=== PATIENT | female | born 1955 | race Caucasian/White ===

== ENCOUNTER 2016-08-05 09:45 | Inpatient (IN) | payer OTHER ==
[~2016-08-05] VITALS: Ht 160 cm; Wt 95.4 kg
[~2016-08-05 09:45] MED LIST: VITAMIN D 50,000 UNITS CAPSULE (ERGOCALCIFEROL 1.25MG) PO SCH
[2016-08-05] MEDS ORDERED: CARB1TAB20 PO (10:41)
[2016-08-05] MEDS ORDERED: DRIS50002 PO (10:41)
[2016-08-05] MEDS ORDERED: ZYPR7.5T10 PO (10:41)
[2016-08-05] MEDS ORDERED: CARB20TA PO (10:41)
[2016-08-05] MEDS ORDERED: NEPHTAB PO (10:41)
[2016-08-05] MEDS ORDERED: ROCA0.5C PO (10:41)
[2016-08-05] MEDS ORDERED: LEVO25TA5 PO (10:41)
[2016-08-05 10:57] LABS: MEAN CORPUSCULAR HEMOGLOBIN 31.9 pg (27.0-33.0); MEAN CORPUSCULAR VOLUME 99.7 fl (80.0-96.0); RED CELL DISTRIBUTION WIDTH 13.4 % (11.5-14.5); WHITE BLOOD COUNT 5.3 K/mm3 (4.0-10.0)
[2016-08-05 11:11] LABS: METHADONE URINE NEGATIVE (NEGATIVE)
[2016-08-05 11:23] LABS: ALBUMIN 3.6 GM/DL (3.2-5.2); ALBUMIN/GLOBULIN RATIO 1.16 (1.00-1.93); ALKALINE PHOSPHATASE 98 U/L (45-117); ALT/SGPT 35 U/L (12-78); ANION GAP 9 MEQ/L (8-16); AST/SGOT 23 U/L (15-37); BILIRUBIN,DIRECT < 0.1 MG/DL (0.0-0.2); BILIRUBIN,TOTAL 0.4 MG/DL (0.2-1.0); BLOOD UREA NITROGEN 52 MG/DL (7-18); CALCIUM LEVEL 8.8 MG/DL (8.5-10.1); CARBON DIOXIDE LEVEL 22 MEQ/L (21-32); CHLORIDE LEVEL 117 MEQ/L (98-107); CREATININE FOR GFR 2.92 MG/DL (0.55-1.02); GLOMERULAR FILTRATION RATE 17.5 (>51); GLUCOSE, FASTING 108 MG/DL (70-105); POTASSIUM SERUM 4.4 MEQ/L (3.5-5.1); SODIUM LEVEL 148 MEQ/L (136-145); TOTAL PROTEIN 6.7 GM/DL (6.4-8.2)
[2016-08-05] MEDS ORDERED: CARB20TAXR PO ×2 (14:51)
[2016-08-05] MEDS ORDERED: LEVO50TA45 PO (14:51)
[2016-08-05 15:15] VITALS: BP 135/101
[2016-08-05] MEDS ORDERED: MOM 30ML SUSPENSION UDC PO PRN (16:15)
[2016-08-05] MEDS ORDERED: ACETAMINOPHEN TAB 650MG DOSE (2X325MG) PO PRN (16:15)
[2016-08-05] MEDS: NEPHRO-VIT TAB (NEPHROCAPS) PO SCH (20:26)
[2016-08-05] MEDS: carBAMazepine XR 200 MG TAB PO SCH (20:26)
[2016-08-05] MEDS: CALCITRIOL 0.25 MCG CAP (S0169) PO SCH (20:27)
[2016-08-05] MEDS ORDERED: OLANZapine 2.5MG TABLET PO SCH (21:00)
[2016-08-05] MEDS ORDERED: carBAMazepine 200 MG TAB PO SCH (21:00)
[2016-08-06] MEDS: LEVOTHYROXINE 0.05 MG TAB (50 MCG) PO SCH (05:54)
[2016-08-06 06:09] VITALS: BP 153/72
[2016-08-06] MEDS: carBAMazepine XR 200 MG TAB PO SCH ×2 (08:08→20:44)
--- NOTE | 2016-08-06 08:51 | HPEPDOC ---
Medical History and Physical Date of Admission Aug 05, 2016 at 13:41 History and Physical PCP: Dr Holloway Avian Keeper Dr Suero ATTENDING: Dr. Deepak Maria HPI: 60yoF admitted to [facility] for Bipolar disorder, being medically examined today. Pt states had a cold a few weeks ago but her symptoms resolved. Pt denies any rhinorrhea, sputum, ear pain, sore throat. Denies any fevers, chills , weakness, fatigue, GOMES, CP, SOB, cough, palpitations, abdominal pain, N/V/D or changes in bowel or bladder habits. She has no verbalized concerns at this time. 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 Tobacco use: Denies ETOH: Denies Illicit Drugs: Denies IV Drug Use: Denies Tattoos done unprofessionally: Denies FAMHX: Mother: , complications of diabetes Father: , brain tumor Siblings: 3 sisters, 4 brothers Alive, well. One brother with history of bipolar disorder. Children: Alive, well Unexpected deaths due to medical reasons: None. ROS: As noted in HPI, otherwise 11pt ROS of systems reviewed and unremarkable. PE: GEN: 60yoF, appears stated age. Well-nourished, well developed. No acute distress. Alert and oriented x 3. Pleasant, interactive. HEENT: Normocephalic, atraumatic. Pupils are equal, round, and reactive to light. Extraocular movements are intact. No nystagmus appreciated. Sclera are nonicteric. Conjunctiva without injection. Nose midline. Nasal turbinates without bogginess. EACs both patent BL. TMs both visualized and patricia with good cone of light, no bulging or erythema. No facial asymmetry. Moist mucous membranes. Dentition fair. Pharynx pink and moist, no cobblestoning. Neck supple , trachea midline. No lymphadenopathy or thyromegaly appreciated. CHEST: Regular rate and rhythm, +S1, +S2 LUNGS: Clear to auscultation bilaterally. No wheezes, rales, or rhonchi. Breathing appears symmetric and easy. Patient is speaking in full sentences. No accessory muscle use. ABD: Round, soft, non-tender, non-distended. +Bowel sounds throughout. No rebound or guarding. No costovertebral angle tenderness. EXT: Pulses 2+ bilaterally dorsalis pedis and radial. No lower extremity edema appreciated. SKIN: [place], dry, warm. Capillary refill <2sec. No rashes. NEURO: Alert and oriented x 3. Cranial nerves III-XII are intact. No focal deficits appreciated. EKG: pending. A&P: 60yoF admitted to [facility] for Bipolar disorder 1. Psych. Plan per Psychiatry. Obtain baseline EKG to assure the safety of psychiatric medications as they can prolong the QT interval. 2. Follow up with PCP on discharge. 3. Hypernatremia. Patient states she was not eating or drinking well prior to admission. Recheck CMP. 4. Chronic kidney disease stage IV. Follows with nephrology, Dr. Suero as outpatient. Previous baseline in the system appears to be 2.1 to 2.5. Request copy of most recent note from Dr. Suero's office as she has seen him within the past 1-2 months with lab work completed. Monitor. Update labs today. 5. Hypothyroidism. Continue levothyroxine 50 g daily. TSH is noted within normal limits. 6. Nancy WHEELER present throughout exam. Vital Signs Vital Signs Label Value Date Time Patient Temperature 98.8 degrees F 08/06/16 0609 Temperature Source Skin 08/06/16 0609 Pulse 80 08/06/16 0609 Respiratory Rate 16 bpm 08/06/16 0609 Blood Pressure Assessment 153/72 (99) 08/06/16 0609 Blood Pressure Assessment 135/101 (112) 08/05/16 1515 Laboratory Data Labs 24H Laboratory Tests 2 08/05/16 10:31: Carbamazepine (Tegretol) Level 7.4, Urine Amphetamines Screen NEGATIVE, Urine Benzodiazepines Screen NEGATIVE, Urine Opiates Screen NEGATIVE, Urine Barbiturates Screen NEGATIVE, Urine Cannabinoids Screen NEGATIVE, Urine Cocaine Metabolite Screen NEGATIVE, Urine Methadone Screen NEGATIVE, Urine Phencyclidine Screen NEGATIVE 08/05/16 10:37: Acetaminophen Level < 2.0L, Aspartate Amino Transf (AST/SGOT) 23, Alanine Aminotransferase (ALT/SGPT) 35, Alkaline Phosphatase 98, Total Bilirubin 0.4, Direct Bilirubin < 0.1, Albumin 3.6, Albumin/Globulin Ratio 1.16, Anion Gap 9, Calcium Level 8.8, Ethyl Alcohol Level < 0.003, Glomerular Filtration Rate 17.5L , Salicylates Level 1.8L, Thyroid Stimulating Hormone (TSH) 0.907, Total Protein 6.7 CBC/BMP Laboratory Tests 08/05/16 10:37 08/05/16 10:38 Red Blood Count 3.97 L, Mean Corpuscular Volume 99.7 H, Mean Corpuscular Hemoglobin 31.9, Mean Corpuscular Hemoglobin Concent 32.0, Red Cell Distribution Width 13.4 Home Medications Scheduled Calcitriol (Rocaltrol) 0.5 Mcg Cap 0.5 MCG PO Q2D QHS Carbamazepine (Carbamazepine ER) 200 Mg Drea 400 MG PO QAM Carbamazepine (Carbamazepine ER) 200 Mg Drea 600 MG PO QHS Levothyroxine Sodium (Levoxyl) 50 Mcg Tab 50 MCG PO DAILY Olanzapine (Zyprexa) 7.5 Mg Tab 7.5 MG PO QHS Vitamin B Cmplx/Vitc/Folic Ac (Nephro-Donnie Rx 1 mg) 1 Tab Tab 1 TAB PO QHS Vitamin D (Drisdol) 50,000 Unit Cap 50,000 UNIT PO Q2WK SUNDAYS Allergies Coded Allergies: No Known Allergies (Unverified , 08/05/16) Marissa Bennett Aug 06, 2016 08:51
[2016-08-06] MEDS ORDERED: carBAMazepine 200 MG TAB PO SCH (09:00)
--- NOTE | 2016-08-06 09:01 | MHHPE ---
DATE OF ADMISSION: 08/05/2016 This 60-year-old female has been a patient of Dr. Barrera for over 15 years. She states she is here for stress and depression. She has been diagnosed as bipolar. She has Stage IV kidney disease which she credits to her previous use of lithium. She states she is helpless about her life. She is worried about her who is taking too many responsibilities. This differs from the emergency room note where it states that she feels her is the trigger of her difficulties. She states she saw Dr. Curran on Saturday of last week and Dr. Curran increased her medication. She states she went downhill since then. She states because she has been sick so many years her has to take care of numerous responsibilities. She states they have both separate financial stress and loss. According to emergency notes, she had an "attack of screaming" on . She had difficulty getting out of bed. She stood up, screamed and fell on the floor. MEDICAL HISTORY: The patient has Stage IV kidney disease and is waiting for a transplant. She also has hypothyroidism. She has previous psychiatric hospitalization in 1980 at [facility]. She states appetite has been poor, but is improving. Sleep: The patient takes Zyprexa for sleep. NEUROLOGICAL HISTORY: Negative. LEGAL HISTORY: Negative. FINANCIAL HISTORY: The family is under financial stress. 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 EDUCATION HISTORY: She has four years of college and a Masters in reading. She states many other medications have been tried, but she does not remember them. She presently denies hallucinations, delusions, obsessions, compulsions, and phobias. Her speech is slow. Her thought process is characterized by thought slowing. She has no loose associations. No obvious abnormal or psychotic thoughts. Her judgment and insight at this time are poor. She is fully oriented. She has some difficulty with recent and remote memory and states she is confused and ambivalent. Her attention and concentration is fair. No disturbances of language. She has a full fund of knowledge. Her mood is low. Her affect is flat. DIAGNOSIS: Bipolar disorder, depressed type. PLAN: No change in medication until we contact Dr. Curran and get the record of past psychiatric medications since the patient is severely depressed and is not at this time on any antidepressants.
[2016-08-06 10:15] LABS: ALBUMIN 3.5 GM/DL (3.2-5.2); ALBUMIN/GLOBULIN RATIO 1.17 (1.00-1.93); BILIRUBIN,TOTAL 0.3 MG/DL (0.2-1.0); CALCIUM LEVEL 8.6 MG/DL (8.5-10.1); CREATININE FOR GFR 2.93 MG/DL (0.55-1.02); GLOMERULAR FILTRATION RATE 17.5 (>51); POTASSIUM SERUM 4.5 MEQ/L (3.5-5.1); TOTAL PROTEIN 6.5 GM/DL (6.4-8.2)
[2016-08-06 18:00] VITALS: BP 130/85
[2016-08-06] MEDS: NEPHRO-VIT TAB (NEPHROCAPS) PO SCH (20:44)
[2016-08-07] MEDS: LEVOTHYROXINE 0.05 MG TAB (50 MCG) PO SCH (06:00)
[2016-08-07 06:38] VITALS: BP 141/81
[2016-08-07] MEDS: LURASIDONE 20 MG TAB (LATUDA) PO SCH (08:43)
[2016-08-07] MEDS: carBAMazepine XR 200 MG TAB PO SCH ×2 (08:44→20:58)
[2016-08-07 08:55] LABS: ALBUMIN 3.8 GM/DL (3.2-5.2); ALBUMIN/GLOBULIN RATIO 1.31 (1.00-1.93); BILIRUBIN,TOTAL 0.4 MG/DL (0.2-1.0); CALCIUM LEVEL 8.9 MG/DL (8.5-10.1); CARBAMAZEPINE (TEGRETOL) LEVEL 8.9 UG/ML (4.0-10.0); CREATININE FOR GFR 3.12 MG/DL (0.55-1.02); GLOMERULAR FILTRATION RATE 16.3 (>51); POTASSIUM SERUM 4.9 MEQ/L (3.5-5.1); TOTAL PROTEIN 6.7 GM/DL (6.4-8.2)
[2016-08-07] MEDS: MAALOX 30 ML SUSP *UDC PO PRN ×2 (10:36→14:48)
--- NOTE | 2016-08-07 11:52 | IPNPDOC ---
Subjective Date Seen The patient was seen on 08/07/16. Subjective Chief Complaint/HPI The patient is a 60-year-old female admitted with a reason for visit of [facility]. Events since last encounter Evaluating patient for CKD and daily labs. Patient states she is not taking in liquids as well as she usually does at home. She does not feel that she is getting better here as she should be related to people on the unit and not wanting to go to the lounge. She usually drinks bottled water at home. She states she has had some diarrhea today 4-5 times. No nausea or vomiting. She denies any abdominal pain. No fevers or chills. She denies any urinary complaints. No dysuria, frequency, urgency, hematuria, change in odor. She states she ate her breakfast. ENT: Denies: Dysphagia, Ear Pain, Head Aches Pulmonary: Denies: Cough, Dyspnea Cardiovascular: Denies: Chest Pain, Lt Headedness, Orthopnea, Palpitations, Paroxysmal Noc. Dyspnea Gastrointestinal: Reports: Diarrhea, Denies: Abdominal Pain, Constipation, Nausea, Vomiting Genitourinary: Denies: Dysuria, Frequency, Incontinence, Retention Objective Physical Examination General Exam: Positive: Alert Eye Exam: Positive: PERRLA ENT Exam: Positive: Atraumatic, Mucous membr. moist/pink, Pharynx Normal Chest Exam: Positive: Clear to auscultation, Normal air movement Heart Exam: Positive: Normal S1, Normal S2, Rate Normal, Regular Rhythm, Negative: Murmurs, Rubs Skin Exam: Positive: Nl turgor and temperature Neuro Exam: Positive: Normal Gait Assessment /Plan Problems (1) CKD (chronic kidney disease) stage 4, GFR 15-29 ml/min Status: Chronic Problem Text: * Records received from nephrology indicating his baseline serum creatinine 2.85 * Patient follows as outpatient with Dr. Suero. * Patient admits to poor oral intake. * Encouraged to increase by mouth fluids * Cont to closely monitor, discussed with Dr Maria. (2) Diarrhea Status: Acute Problem Text: * Request CBC with differential * GI panel (3) Hypernatremia Status: Acute Problem Text: * encourage po fluids * CMP in AM (4) Hypothyroid Status: Chronic Response to Treatment: Stable Problem Text: * Continue supplement Plan/VTE VTE Prophylaxis Ordered?: No (ambulatory) VS, I&O, 24H, Fishbone Vital Signs/I&O Vital Signs Date Time Temp Pulse Resp B/P Pulse Ox O2 Delivery O2 Flow Rate FiO2 08/07/16 06:38 97.4 82 18 141/81 08/05/16 15:15 95 Room Air Laboratory Data 24H LABS Laboratory Tests 2 08/07/16 07:20: Blood Urea Nitrogen 49H, Creatinine 3.12H, Sodium Level 149H, Potassium Level 4.9, Chloride Level 117H, Carbon Dioxide Level 24, Calcium Level 8.9, Aspartate Amino Transf (AST/SGOT) 17, Alanine Aminotransferase (ALT/SGPT) 38, Alkaline Phosphatase 101, Total Bilirubin 0.4, Total Protein 6.7, Albumin 3.8, Albumin/ Globulin Ratio 1.31, Anion Gap 8, Carbamazepine (Tegretol) Level 8.9, Glomerular Filtration Rate 16.3L CBC/BMP Laboratory Tests 08/07/16 07:20 Calcium Level 8.9, Aspartate Amino Transf (AST/SGOT) 17, Alanine Aminotransferase (ALT/SGPT) 38, Alkaline Phosphatase 101, Total Bilirubin 0.4, Total Protein 6.7, Albumin 3.8 Marissa Bennett Aug 07, 2016 11:52
--- NOTE | 2016-08-07 12:07 | IPN ---
DATE: 08/07/[address] Curran who has been treating this patient for 15 years. We discussed her renal failure and Dr. Curran's approach to the patient's condition. Dr. Curran requested that I discontinue her Zyprexa and replace it with Latuda, which I did. I am concerned about the patient's depression and I am aware that she has a history of lauren. I spoke with her who is concerned about her and wanted to be able to visit earlier. I spoke with the patient too who was concerned that she had a renal appointment next week. The patient did not feel significantly improved and was curious about the new medication Latuda which she was given. MENTAL STATUS EXAMINATION: Speech was slow. Thought process was normal. No loose associations. Significant anxiety. No psychotic thoughts noted. Judgment and insight poor. Orientation in three spheres is normal. No difficulties with recent or remote memory. No difficulties with attention or concentration. Fund of knowledge is complete. Mood is low. Affect is flat. PRESENT MEDICATIONS: - Tegretol 600 at night and 400 in the morning - Latuda 20 mg daily PLAN: Observe patient. Still may consider possibility of adding small dose antidepressant if patient does not show significant improvement. DIAGNOSIS: Bipolar disorder, depressed type.
[2016-08-07 18:12] VITALS: BP 156/83
[2016-08-07] MEDS: CALCITRIOL 0.25 MCG CAP (S0169) PO SCH (20:58)
[2016-08-07] MEDS: NEPHRO-VIT TAB (NEPHROCAPS) PO SCH (20:58)
[2016-08-08 06:14] VITALS: BP 154/90
[2016-08-08] MEDS: LEVOTHYROXINE 0.05 MG TAB (50 MCG) PO SCH (06:23)
--- NOTE | 2016-08-08 07:02 | IPN ---
DATE: 08/08/2016 As mentioned in previous progress note, I had spoken with Dr. Curran who has been her outpatient psychiatric for over [address] Curran's suggestion that I change the patient's Zyprexa to Latuda 20 mg. She is also on carbamazepine 400 in the morning, 600 at night. Patient has stage IV kidney failure. My concern is the patient is seriously depressed, poor sleep, anxious, hopeless, unmotivated. I am aware of the risks of this patient developing a lauren due to her past history but at this time, my concern is that these medications are not going to significantly improve her mood. I will add Prozac 20 mg for a brief time to see if her depression can be relieved. MENTAL STATUS: Her speech is slow and quiet. Her thought processes are slow with poverty of thought. She has no loose associations. Her abnormal thoughts are her significant anxiety. Judgment and insight are fair. She is fully oriented. Recent and remote memory are intact. Attention and concentration intact. Her fund of knowledge is full. Mood is low. Affect is sad. DIAGNOSIS: Bipolar disorder, depressed type.
[2016-08-08] MEDS: LURASIDONE 20 MG TAB (LATUDA) PO SCH (08:05)
[2016-08-08] MEDS: carBAMazepine XR 200 MG TAB PO SCH ×2 (08:05→20:07)
[2016-08-08] MEDS ORDERED: FLUoxetine 20 MG CAP PO SCH (09:00)
[2016-08-08 10:43] LABS: ALBUMIN 3.7 GM/DL (3.2-5.2); ALBUMIN/GLOBULIN RATIO 1.16 (1.00-1.93); BILIRUBIN,TOTAL 0.3 MG/DL (0.2-1.0); CALCIUM LEVEL 9.1 MG/DL (8.5-10.1); CREATININE FOR GFR 2.72 MG/DL (0.55-1.02); POTASSIUM SERUM 4.6 MEQ/L (3.5-5.1); TOTAL PROTEIN 6.9 GM/DL (6.4-8.2)
[2016-08-08 18:00] VITALS: BP 145/93
[2016-08-08] MEDS: NEPHRO-VIT TAB (NEPHROCAPS) PO SCH (20:07)
[2016-08-09] MEDS: LEVOTHYROXINE 0.05 MG TAB (50 MCG) PO SCH (06:00)
[2016-08-09 06:19] VITALS: BP 150/92
[2016-08-09 07:38] LABS: CALCIUM LEVEL 8.7 MG/DL (8.5-10.1); CREATININE FOR GFR 2.78 MG/DL (0.55-1.02); GLOMERULAR FILTRATION RATE 18.6 (>51); POTASSIUM SERUM 4.5 MEQ/L (3.5-5.1)
[2016-08-09 07:52] VITALS: BP 134/68
[2016-08-09] MEDS ORDERED: PROZ20CA11 PO (07:57)
[2016-08-09] MEDS ORDERED: LATU20TA PO (07:57)
[2016-08-09] MEDS ORDERED: MAALSUS20 PO (07:59)
[2016-08-09] MEDS ORDERED: MILKSUS PO (07:59)
[2016-08-09] MEDS ORDERED: TYLE325T5 PO (07:59)
--- NOTE | 2016-08-09 08:05 | IPN ---
DATE: 08/09/2016 I met with Norma and her yesterday and reviewed with them my treatment plan. She and her were both happy and smiling. I discussed with them Dr. Curran's management of patient's bipolar disease and also mentioned to them that due to the fact that the patient was depressed and was on medications that had been discussed and suggested by Dr. Curran that we had changed her medication from Zyprexa to Latuda 20 mg daily and continued her on her carbamazepine 600 and 400 mg. Yesterday due to the fact that patient was seriously depressed and although there is a risk of sending her into a manic episode, I added fluoxetine 20 mg which I hope will be just a brief administration and then continue the patient stabilized on her mood stabilizers of lurasidone, Latuda and Tegretol. At 7:30 this morning, however, the patient had a orthostatic hypotensive episode. It should be reminded that this patient is in stage IV renal failure. Measurements of her blood pressure by the rapid assessment team indicated orthostatic changes. She will be transferred to a medical floor for observation and evaluation of her hydration and any other contributions to her orthostatic blood pressure. MENTAL STATUS THIS MORNING: Her speech was slower. Thought processes intact. There were no loose associations. She had no abnormal psychotic thoughts. Judgment and insight were good. She was fully oriented. There were no disturbances of recent and remote memory. Fund of knowledge was full. Patient in walking down the virk detected she felt faint and when her blood pressures were checked this morning, she was found to be orthostatic. Will follow the patient on a medical floor. PRESENT MEDICATIONS: - fluoxetine 20 mg - Latuda 20 mg daily - Tegretol 400 mg and 600 mg daily at bedtime MTDD
[2016-08-09 08:26] LABS: BASO % 0.4 % (0.0-1.0); EOS # 0.1 K/mm3 (0.0-0.50); EOS % 1.8 % (0.0-3.0); LARGE UNSTAINED CELL # 0.1 K/mm3 (0.0-0.4); LARGE UNSTAINED CELL % 1.3 % (0.0-4.0); LYMPH # 1.4 K/mm3 (1.5-4.5); LYMPH % 29.4 % (24.0-44.0); MEAN CORPUSCULAR HEMOGLOBIN 30.9 pg (27.0-33.0); MEAN CORPUSCULAR HGB CONC 32.1 g/dl (32.0-36.5); MEAN CORPUSCULAR VOLUME 96.2 fl (80.0-96.0); MONO # 0.2 K/mm3 (0.0-0.8); MONO % 3.9 % (0.0-5.0); NEUTROPHILS % 63.2 % (36.0-66.0); PLATELET COUNT, AUTOMATED 201 k/mm3 (150-450); RED CELL DISTRIBUTION WIDTH 13.1 % (11.5-14.5); WHITE BLOOD COUNT 4.7 K/mm3 (4.0-10.0)
[2016-08-09 09:01] LABS: PROLACTIN 27.8 NG/ML
== END 2016-08-09 07:30 | disposition short-term general hospital (02) | DRG 885 ==
LOC: M ED 11:23 → M ED INP 13:41 → M PSY 15:04 → M PCU 08-09 07:31
PROVIDERS: ADMIT Psychiatry & Neurology Child & Adolescent Psychiatry; ATTEND Psychiatry & Neurology Child & Adolescent Psychiatry
DX: F31.9 Bipolar disorder, unspecified (principal); N18.4 Chronic kidney disease, stage 4 (severe); E87.0 Hyperosmolality and hypernatremia; E03.9 Hypothyroidism, unspecified; E55.9 Vitamin D deficiency, unspecified; I95.1 Orthostatic hypotension; Z79.899 Other long term (current) drug therapy; R19.7 Diarrhea, unspecified

== ENCOUNTER 2016-08-09 08:30 | Inpatient (IN) | payer OTHER ==
[~2016-08-09] VITALS: Ht 160 cm; Wt 99.9 kg
[~2016-08-09 08:30] MED LIST changes: +CARB1TAB20 PO; +CARB20TA PO; +CARB20TAXR PO; +DRIS50002 PO; +LATU20TA PO; +LEVO25TA5 PO; +LEVO50TA45 PO; +MAALSUS20 PO; +MILKSUS PO; +NEPHTAB PO; +PROZ20CA11 PO; +ROCA0.5C PO; +TYLE325T5 PO; -VITAMIN D 50,000 UNITS CAPSULE (ERGOCALCIFEROL 1.25MG) PO SCH; +ZYPR7.5T10 PO
[2016-08-09] MEDS ORDERED: NS 1,000 ML IV SCH (08:46)
[2016-08-09] MEDS ORDERED: CALCITRIOL 0.25 MCG CAP (S0169) PO SCH ×2 (09:00→21:00)
[2016-08-09] MEDS ORDERED: ONDANSETRON 4MG/2ML VIAL (J2405) IV PRN (09:00)
[2016-08-09] MEDS ORDERED: ACETAMINOPHEN TAB 650MG DOSE (2X325MG) PO PRN (09:00)
[2016-08-09] MEDS ORDERED: MOM 30ML SUSPENSION UDC PO PRN (09:15)
[2016-08-09 09:30] VITALS: BP 123/78
[2016-08-09 09:33] VITALS: BP 137/87
[2016-08-09 09:35] VITALS: BP 144/75
--- NOTE | 2016-08-09 09:46 | HPEPDOC ---
Medical History and Physical Date of Admission Aug 09, 2016 at 08:30 History and Physical PCP: Dr Holloway Brake Machine Operator Dr Suero ATTENDING: Dr. Laura Maria HPI: 60yoF admitted to PCU for orthostasis, being medically examined today. Pt states she had gotten out of bed this morning to have her blood drawn. Initially she felt slightly dizzy in the hallway and she leaned up against the wall and her symptoms resolved. She went and had her blood work completed and was subsequently ambulating back to her room. She subsequently felt very lightheaded and dizzy. She became presyncopal. According to nursing, she was placed in a wheelchair and vital signs were attempted which indicated 134/68 standing, 114/68 sitting and were unobtainable standing. The patient became syncopal sitting in a wheelchair, a RAT team was called. She was subsequently assisted back to her bed to lie down and is currently resting in bed and states she is feeling better. She denies any previous symptoms prior to this morning. She has recently been started on Prozac and Latuda which are new medications for her. Also of note she had been experiencing poor oral intake however she states 08/07 and 3 her oral intake had improved. Yesterday she had been up and ambulating to the [facility]. Denies any fevers, chills, GOMES, CP, SOB, cough, palpitations, abdominal pain, N/V /D or changes in bowel or bladder habits. PMHx: Chronic kidney disease stage IV. Dr Suero. Baseline SCr 2.85. 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 Tobacco use: Denies ETOH: Denies Illicit Drugs: Denies IV Drug Use: Denies Tattoos done unprofessionally: Denies FAMHX: Mother: , complications of diabetes Father: , brain tumor Siblings: 3 sisters, 4 brothers Alive, well. One brother with history of bipolar disorder. Children: Alive, well Unexpected deaths due to medical reasons: None. ROS: As noted in HPI, otherwise 11pt ROS of systems reviewed and unremarkable. PE: GEN: 60yoF, appears stated age. Well-nourished, well developed. No acute distress. Alert and oriented x 3. Pleasant, interactive. HEENT: Normocephalic, atraumatic. Pupils are equal, round, and reactive to light. Extraocular movements are intact. No nystagmus appreciated. Sclera are nonicteric. Conjunctiva without injection. Nose midline. Nasal turbinates without bogginess. EACs both patent BL. TMs both visualized and patricia with good cone of light, no bulging or erythema. No facial asymmetry. Moist mucous membranes. Dentition fair. Pharynx pink and moist, no cobblestoning. Neck supple , trachea midline. No lymphadenopathy or thyromegaly appreciated. CHEST: Regular rate and rhythm, +S1, +S2 LUNGS: Clear to auscultation bilaterally. No wheezes, rales, or rhonchi. Breathing appears symmetric and easy. Patient is speaking in full sentences. No accessory muscle use. ABD: Round, soft, non-tender, non-distended. +Bowel sounds throughout. No rebound or guarding. No costovertebral angle tenderness. EXT: Pulses 2+ bilaterally dorsalis pedis and radial. No lower extremity edema appreciated. SKIN: [place], dry, warm. Capillary refill <2sec. No rashes. NEURO: Alert and oriented x 3. Cranial nerves III-XII are intact. No focal deficits appreciated. EKG: Pt previously refused 08/06/16. Re ordered, pending. A&P: 60yoF admitted to PCU for Orthostasis. 1. Presyncopal/syncopal episode. Likely orthostatic hypotension. Patient with recent history of not eating and drinking well. Also of note Latuda is a new medication for her which can possibly contribute to orthostatic hypotension. Prozac is also a new medication for her. Pt remains on Tegretol for her mood, Tegretol level 08/07/16 WNL. Will update level. IV fluids at 80 mL per hour. PCU/ TM. Prolactin level. Monitor labs. Monitor orthostatic vital signs. 2. Psych. Plan per Psychiatry. Obtain baseline EKG to assure the safety of psychiatric medications as they can prolong the QT interval. 2. Follow up with PCP on discharge. 3. Hypernatremia. Patient with recent history of not eating and drinking well. IVF at 80cc/hr. Monitor BMP. 4. Chronic kidney disease stage IV. Follows with nephrology, Dr. Suero as outpatient. Patient's baseline SCr as per nephrology records is 2.85. Monitor. Update labs in a.m. 5. Hypothyroidism. Continue levothyroxine 50 g daily. TSH is noted within normal limits. Addendum. Patient seen and examined in [facility]. Patient transferred to PCU. Case discussed with at bedside. Psychiatry will follow in consult. Vital Signs Vital Signs Label Value Date Time Patient Temperature 97.2 degrees F 08/09/16 0752 Temperature Source Core 08/09/16 0752 Pulse 67 08/09/16 0752 Respiratory Rate 16 bpm 08/09/16 0752 Blood Pressure Assessment 134/68 08/09/16 0752 Bedside Pulse Oximetry 96 % 08/09/16 0752 Item Value Date Time Oxygen Delivery Method Room Air 08/09/16 0752 Laboratory Data Labs 24H Item Value Date Time White Blood Count 4.7 K/mm3 08/09/16 0706 Red Blood Count 4.08 M/mm3 08/09/16 0706 Hemoglobin 12.6 g/dl 08/09/16 0706 Hematocrit 39.2 % 08/09/16 0706 Mean Corpuscular Volume 96.2 fl H 08/09/16 0706 Mean Corpuscular Hemoglobin 30.9 pg 08/09/16 0706 Mean Corpuscular Hemoglobin Concent 32.1 g/dl 08/09/16 0706 Red Cell Distribution Width 13.1 % 08/09/16 0706 Platelet Count 201 k/mm3 08/09/16 0706 Neutrophils (%) (Auto) 63.2 % 08/09/16 0706 Sodium Level 147 MEQ/L H 08/09/16 0708 Potassium Level 4.5 MEQ/L 08/09/16 0708 Chloride Level 117 MEQ/L H 08/09/16 0708 Carbon Dioxide Level 23 MEQ/L 08/09/16 0708 Anion Gap 7 MEQ/L L 08/09/16 0708 Blood Urea Nitrogen 48 MG/DL H 08/09/16 0708 Creatinine 2.78 MG/DL H 08/09/16 0708 Glomerular Filtration Rate 18.6 L 08/09/16 0708 Fasting Glucose 92 MG/DL 08/09/16 0708 Calcium Level 8.7 MG/DL 08/09/16 0708 Prolactin 27.8 NG/ML 08/09/16 0708 Carbamazepine (Tegretol) Level 8.9 UG/ML 08/07/16 0720 Home Medications Scheduled Calcitriol (Rocaltrol) 0.5 Mcg Cap 0.5 MCG PO Q2D QHS Carbamazepine (Carbamazepine ER) 200 Mg Drea 400 MG PO QAM bipolar Carbamazepine (Carbamazepine ER) 200 Mg Drea 600 MG PO QHS bipolar Fluoxetine HCl (Prozac) 20 Mg Cap 20 MG PO QAM bipolar Levothyroxine Sodium (Levoxyl) 50 Mcg Tab 50 MCG PO DAILY hypothyroid Lurasidone Hydrochloride (Latuda) 20 Mg Tab 20 MG PO DAILY bipolar Vitamin B Cmplx/Vitc/Folic Ac (Nephro-Donnie Rx 1 mg) 1 Tab Tab 1 TAB PO QHS supplement Vitamin D (Drisdol) 50,000 Unit Cap 50,000 UNIT PO Q2WK SUNDAYS Scheduled PRN Acetaminophen (Tylenol) 325 Mg Tab 650 MG PO Q6HP PRN PRN HEADACHE or DISCOMFORT Aluminum/Magnesium/Simeth (Maalox Advanced Maximum S 400-400-40 mg/5Ml) 1 Chanell Chanell 30 ML PO Q4HP PRN PRN HEARTBURN/INDIGESTION Milk Of Magnesia (Milk of Magnesia) 1,200 Mg/15 Ml Chanell 30 ML PO DAILYPRN PRN PRN CONSTIPATION Allergies Coded Allergies: No Known Allergies (Unverified , 08/05/16) Marissa Bennett Aug 09, 2016 09:46 LAURA MARIA MD Aug 13, 2016 16:15
[2016-08-09] MEDS: HEPARIN SOD (PORCINE) 5000 UNITS/ML VIAL SC SCH ×2 (10:33→21:15)
[2016-08-09] MEDS: carBAMazepine XR 200 MG TAB PO SCH ×2 (10:34→21:14)
[2016-08-09] MEDS: FLUoxetine 20 MG CAP PO SCH (10:34)
[2016-08-09] MEDS: D5W/0.45% SODIUM CHLORIDE 1,000 ML IV SCH ×2 (10:34→21:25)
[2016-08-09] MEDS: LURASIDONE 20 MG TAB (LATUDA) PO SCH (10:34)
[2016-08-09 12:00] VITALS: BP 114/72
[2016-08-09 16:00] VITALS: BP_SYST 138; BP_SYST 146; BP_SYST 156; BP_DIAS 69; BP_DIAS 85; BP_DIAS 87
[2016-08-09 19:38] VITALS: BP 139/77
[2016-08-09] MEDS ORDERED: SUCRALFATE SUSP 1GM/10ML UD PO ONE (20:00)
[2016-08-09] MEDS ORDERED: FAMOTIDINE 20 MG TAB PO ONE (20:00)
[2016-08-09] MEDS: NEPHRO-VIT TAB (NEPHROCAPS) PO SCH (21:14)
[2016-08-10] VITALS: BP 141/66
[2016-08-10] MEDS: RAMELTEON 8 MG TAB (ROZEREM) PO SCH ×2 (00:09→20:11)
[2016-08-10 00:34] VITALS: BP_SYST 126; BP_SYST 134; BP_SYST 141; BP_DIAS 66; BP_DIAS 74
[2016-08-10 04:00] VITALS: BP 127/70
[2016-08-10 05:36] LABS: MEAN CORPUSCULAR HEMOGLOBIN 31.9 pg (27.0-33.0); MEAN CORPUSCULAR HGB CONC 33.2 g/dl (32.0-36.5); MEAN CORPUSCULAR VOLUME 96.1 fl (80.0-96.0); RED CELL DISTRIBUTION WIDTH 13.1 % (11.5-14.5); WHITE BLOOD COUNT 5.2 K/mm3 (4.0-10.0)
[2016-08-10 05:48] LABS: CALCIUM LEVEL 8.2 MG/DL (8.5-10.1); CREATININE FOR GFR 2.59 MG/DL (0.55-1.02); GLOMERULAR FILTRATION RATE 20.1 (>51); MAGNESIUM LEVEL 2.4 MG/DL (1.8-2.4); POTASSIUM SERUM 3.8 MEQ/L (3.5-5.1)
[2016-08-10] MEDS: LEVOTHYROXINE 0.05 MG TAB (50 MCG) PO SCH (05:58)
[2016-08-10] MEDS ORDERED: D5W 1,000 ML IV SCH (06:30)
[2016-08-10 07:45] VITALS: BP_SYST 116; BP_SYST 123; BP_SYST 124; BP_DIAS 58; BP_DIAS 60; BP_DIAS 61
--- NOTE | 2016-08-10 08:41 | CR ---
DATE OF CONSULTATION: 08/10/2016 Norma Santiago is a 60-year-old white female with stage IV renal disease. She has a long history of bipolar disease with predominantly manic episodes. She was admitted to the psychiatric unit with severe depression and anxiety. As per Dr. Curran her Zyprexa was changed to Latuda. I chose to add Prozac 20 mg after observation. Unfortunately, the patient had an orthostatic hypotensive episode and was seen by the hospitalist who determined the patient had been severely dehydrated. She was admitted to the PCU for hydration. She is not suicidal nor homicidal, nor has any suicidal intentions or ideations. Her and she have chosen, since the patient was not comfortable on the mental health unit, the patient asked if she could be discharged home. PLAN: As per the family wish, the patient would like to go home and followup outpatient with Dr. Curran due to her discomfort on the mental health unit. SUGGESTION: 1. Continuer her psychiatric medications as prescribed. The case was discussed with Dr. Maria and she should continue on her Latuda, Tegretol and Prozac. 2. Continue hydration and check, at the family's request, if there is a urinary tract infection. This may have already been done. 3. Discharge to home and followup with Dr. Curran once blood pressure is stable and patient is able to walk comfortably without feeling dizzy or faint. DISCHARGE DIAGNOSIS: Bipolar disorder, mixed type. MTDD
[2016-08-10] MEDS: LURASIDONE 20 MG TAB (LATUDA) PO SCH (09:16)
[2016-08-10] MEDS: HEPARIN SOD (PORCINE) 5000 UNITS/ML VIAL SC SCH ×2 (09:16→20:11)
[2016-08-10] MEDS: FLUoxetine 20 MG CAP PO SCH (09:17)
[2016-08-10] MEDS: carBAMazepine XR 200 MG TAB PO SCH ×2 (09:17→20:11)
[2016-08-10 14:33] VITALS: BP_SYST 124; BP_SYST 131; BP_SYST 141; BP_DIAS 68; BP_DIAS 74; BP_DIAS 84
--- NOTE | 2016-08-10 16:12 | IPN ---
DATE: 08/10/2016 Patient is feeling well today. Is concerned that she may have to go back to the mental health unit, would rather not do that. Does not feel lightheaded. Is willing to drink fluids. Temperature 97.5, pulse 75, respiratory rate 16, blood pressure 127/70, 95% on room air. Positive fluid balance of 1380. Body mass index is 39. She is awake, appropriately interactive, pleasantly conversant. Breathing is symmetrical and rested. Heart is in a regular rate and rhythm. No significant arrhythmia on the monitor. No lower extremity edema. White count 5.2, hemoglobin 11.1, platelets 153, BUN 42, creatinine 2.59. My assessment is as follows: This is a 60-year-old admitted to the progressive care unit (PCU) with orthostasis and was found to be hyponatremic. Plan is as follows: 1. The patient had a presyncopal or syncopal episode likely related to orthostatic hypotension. The patient is receiving IV hydration with improvement. The patient has also learned that she will not have to go back to the mental health unit during this visit and is much more relieved and is beginning to eat and drink normally again and possibly will be able to be discharged tomorrow. 2. The patient has chronic kidney disease stage IV. Appears to be at baseline. I have discussed this case in general with Dr. Suero. 3. The patient has hypothyroidism which is treated with Synthroid. 4. I have discussed this case with the covering psychiatrist today in person.
[2016-08-10] MEDS ORDERED: LORazepam 0.5 MG TAB PO PRN (18:00)
[2016-08-10] MEDS: NEPHRO-VIT TAB (NEPHROCAPS) PO SCH (20:12)
[2016-08-10 22:00] VITALS: BP_SYST 108; BP_SYST 137; BP_DIAS 58; BP_DIAS 81; BP_DIAS 84
--- NOTE | 2016-08-10 22:10 | ECGEPIP ---
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
[2016-08-11 06:00] VITALS: BP_SYST 125; BP_SYST 132; BP_SYST 146; BP_DIAS 76; BP_DIAS 83; BP_DIAS 86
[2016-08-11] MEDS: LEVOTHYROXINE 0.05 MG TAB (50 MCG) PO SCH (06:10)
[2016-08-11 06:26] LABS: MEAN CORPUSCULAR HEMOGLOBIN 31.7 pg (27.0-33.0); MEAN CORPUSCULAR HGB CONC 33.3 g/dl (32.0-36.5); MEAN CORPUSCULAR VOLUME 95.2 fl (80.0-96.0); WHITE BLOOD COUNT 4.6 K/mm3 (4.0-10.0)
[2016-08-11 06:38] LABS: CREATININE FOR GFR 2.58 MG/DL (0.55-1.02); GLOMERULAR FILTRATION RATE 20.2 (>51); MAGNESIUM LEVEL 2.4 MG/DL (1.8-2.4); POTASSIUM SERUM 4.3 MEQ/L (3.5-5.1)
[2016-08-11] MEDS ORDERED: D5W 1000 ML IV ONE (08:15)
[2016-08-11] MEDS: HEPARIN SOD (PORCINE) 5000 UNITS/ML VIAL SC SCH (08:50)
[2016-08-11] MEDS: FLUoxetine 20 MG CAP PO SCH (08:50)
[2016-08-11] MEDS: LURASIDONE 20 MG TAB (LATUDA) PO SCH (08:50)
[2016-08-11] MEDS: carBAMazepine XR 200 MG TAB PO SCH (08:50)
[2016-08-11] MEDS ORDERED: PROZ20CA11 PO (09:04)
[2016-08-11] MEDS ORDERED: LATU20TA PO (09:04)
--- NOTE | 2016-08-11 11:14 | DSES ---
DATE OF ADMISSION: 08/09/2016 DATE OF DISCHARGE: 08/11/2016 SPECIALISTS INVOLVED IN CARE: Dr. Rainey from psychiatry. No complications during her stay. No procedures performed during her stay. DISCHARGE DIAGNOSES: Orthostasis. Dehydration. Hypernatremia. Chronic kidney disease stage IV at baseline. Hypothyroidism. The patient was admitted from the mental health unit to the hospitalist service on August 09 as she had suffered a presyncopal event after a blood draw. She was thought to be orthostatic. She had not been eating or drinking well. She was quite disturbed at being in the mental health unit. She was started on IV fluids, monitored on telemetry on the medical service. She was noted to be hypernatremic. Was still hypernatremic at the time of discharge, but was taking better by mouth. She was up walking around, was not at all orthostatic and was feeling ready to go home. She had been seen by psychiatry and thought to be safe for home discharge from a psychiatric standpoint. I did discuss this case with the attending psychiatrist in person. On the day of discharge she is feeling well. No complaints of pain, chest pain, or shortness of breath. Temperature is 98.8, pulse 66, respiratory rate is 18, blood pressure 146/83, 96% on room air. Breathing is symmetrical and rested. Heart is regular rate and rhythm. Abdomen is soft, doughy, nontender. White cell count 4.6, hemoglobin 12. Sodium is 148 with BUN of 43 and creatinine of 2.58. DISCHARGE INSTRUCTIONS: Include the followin. Followup with Dr. Curran on Saturday as scheduled previously. 2. Dr. Caruso next week. Call for an appointment. 3. Diet and activity as tolerated. Continue her home dietary regimen with the addition of drinking 2 liters of water per day until seen by Dr. Caruso. 4. She is given a prescription for a BMP to be done on Saturday with results to Dr. Caruso. 5. Continue with Tylenol every 6 hours as needed for headache. 6. Continue with Maalox as needed. 7. Rocaltrol 0.5 mcg every two day. 8. Carbamazepine 400 mg every morning, 600 mg at bedtime. 9. Prozac 20 mg every morning. 10. Synthroid 50 mcg daily for hypothyroidism. 11. Latuda 20 mg by mouth daily for bipolar. She was given a coupon for her first month of Latuda coverage as it is not on her formulary. 12. Milk of Magnesia 30 mL by mouth once daily as needed. 13. Vitamin B complex. 14. Vitamin D 50,000 units by mouth every two weeks.
== END 2016-08-11 11:21 | disposition home or self-care (01) | DRG 312 ==
LOC: M PCU 08:30 → M MSPAV 08-10 14:09
PROVIDERS: ADMIT Internal Medicine; ATTEND Internal Medicine
DX: I95.1 Orthostatic hypotension (principal); N18.4 Chronic kidney disease, stage 4 (severe); F31.60 Bipolar disorder, current episode mixed, unspecified; E87.0 Hyperosmolality and hypernatremia; E03.9 Hypothyroidism, unspecified; E86.0 Dehydration; E55.9 Vitamin D deficiency, unspecified; Z83.3 Family history of diabetes mellitus; Z81.8 Family history of other mental and behavioral disorders; Z82.0 Family history of epilepsy and other diseases of the nervous system; Z79.899 Other long term (current) drug therapy

== ENCOUNTER 2016-09-03 12:06 | Inpatient (IN) | payer OTHER ==
[~2016-09-03] VITALS: Ht 160 cm; Wt 92.9 kg
[2016-09-03] MEDS ORDERED: VITA50003 PO (12:21)
[2016-09-03] MEDS ORDERED: AMBI12.52 PO ×2 (12:21→14:12)
[2016-09-03] MEDS ORDERED: LATU40TA PO ×2 (12:21→14:12)
[2016-09-03] MEDS ORDERED: CARB20TA PO (12:21)
[2016-09-03] MEDS ORDERED: NEPHTAB PO (12:21)
[2016-09-03] MEDS ORDERED: ROCA0.25 PO (12:21)
[2016-09-03] MEDS ORDERED: ATIV1TAB10 PO (12:21)
[2016-09-03] MEDS ORDERED: LEVO50TA5 PO (12:21)
[2016-09-03 13:31] LABS: ALBUMIN 3.5 GM/DL (3.2-5.2); ALBUMIN/GLOBULIN RATIO 1.09 (1.00-1.93); ALKALINE PHOSPHATASE 101 U/L (45-117); ALT/SGPT 59 U/L (12-78); ANION GAP 8 MEQ/L (8-16); AST/SGOT 35 U/L (15-37); BILIRUBIN,DIRECT 0.1 MG/DL (0.0-0.2); BILIRUBIN,TOTAL 0.3 MG/DL (0.2-1.0); BLOOD UREA NITROGEN 49 MG/DL (7-18); CALCIUM LEVEL 8.9 MG/DL (8.5-10.1); CARBON DIOXIDE LEVEL 25 MEQ/L (21-32); CHLORIDE LEVEL 112 MEQ/L (98-107); CREATININE FOR GFR 2.61 MG/DL (0.55-1.02); GLUCOSE, FASTING 104 MG/DL (70-105); POTASSIUM SERUM 4.2 MEQ/L (3.5-5.1); SODIUM LEVEL 145 MEQ/L (136-145); TOTAL PROTEIN 6.7 GM/DL (6.4-8.2)
[2016-09-03 13:39] LABS: MEAN CORPUSCULAR HEMOGLOBIN 31.6 pg (27.0-33.0); MEAN CORPUSCULAR HGB CONC 32.7 g/dl (32.0-36.5); MEAN CORPUSCULAR VOLUME 96.5 fl (80.0-96.0); RED CELL DISTRIBUTION WIDTH 13.5 % (11.5-14.5); WHITE BLOOD COUNT 5.7 K/mm3 (4.0-10.0)
[2016-09-03 13:41] LABS: METHADONE URINE NEGATIVE (NEGATIVE)
[2016-09-03 14:07] LABS: CARBAMAZEPINE (TEGRETOL) LEVEL 5.6 UG/ML (4.0-10.0)
[2016-09-03] MEDS ORDERED: SYNT50TA PO (14:12)
[2016-09-03] MEDS ORDERED: LORA-376 PO ×2 (14:12→14:13)
[2016-09-03] MEDS ORDERED: CARB20TAXR PO ×2 (14:12)
[2016-09-03] MEDS ORDERED: ROCA0.5C PO (14:16)
[2016-09-03] MEDS ORDERED: DRIS50002 PO (14:16)
[2016-09-03] MEDS ORDERED: NEPHTA PO (14:16)
[2016-09-03] MEDS ORDERED: LURASIDONE HCL 40 MG TAB (LATUDA) PO ONE (17:15)
[2016-09-03] MEDS ORDERED: LURASIDONE HCL 40 MG TAB (LATUDA) PO SCH (18:00)
[2016-09-03] MEDS ORDERED: MOM 30ML SUSPENSION UDC PO PRN (18:45)
[2016-09-03] MEDS ORDERED: MAALOX 30 ML SUSP *UDC PO PRN (18:45)
[2016-09-03] MEDS ORDERED: ACETAMINOPHEN TAB 650MG DOSE (2X325MG) PO PRN (18:45)
[2016-09-03 19:13] VITALS: BP 133/76
[2016-09-03] MEDS ORDERED: LORazepam 1 MG TAB PO SCH (21:00)
[2016-09-03] MEDS: zolPIDEM CR 6.25MG TABLET (AMBIEN CR) PO SCH (21:13)
[2016-09-03] MEDS: carBAMazepine XR 200 MG TAB PO SCH (21:13)
[2016-09-03] MEDS: NEPHRO-VIT TAB (NEPHROCAPS) PO SCH (21:13)
[2016-09-04] MEDS: LEVOTHYROXINE 0.05 MG TAB (50 MCG) PO SCH (05:46)
[2016-09-04 06:25] VITALS: BP 115/74
[2016-09-04] MEDS: carBAMazepine XR 200 MG TAB PO SCH ×2 (08:02→21:23)
[2016-09-04] MEDS ORDERED: CALCITRIOL 0.25 MCG CAP (S0169) PO SCH (09:00)
--- NOTE | 2016-09-04 09:26 | HPEPDOC ---
Medical History and Physical Date of Admission Sep 03, 2016 at 15:51 History and Physical PCP: Dr Holloway Director [employer] Dr Suero ATTENDING: Dr. Deepak Maria HPI: 60yoF admitted to [facility] for Bipolar disorder depressive, being medically examined today. Pt states had Bronchitis a few weeks ago but her symptoms resolved, she finished antibiotic. Pt denies any rhinorrhea, sputum, ear pain, sore throat. Denies any fevers, chills, weakness, fatigue, GOMES, CP, SOB, cough, palpitations, abdominal pain, N/V/D or changes in bowel or bladder habits. 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 Tobacco use: Denies ETOH: Denies Illicit Drugs: Denies IV Drug Use: Denies Tattoos done unprofessionally: Denies FAMHX: Mother: , complications of diabetes Father: , brain tumor Siblings: 3 sisters, 4 brothers Alive, well. One brother with history of bipolar disorder. Children: Alive, well Unexpected deaths due to medical reasons: None. ROS: As noted in HPI, otherwise 11pt ROS of systems reviewed and unremarkable. PE: GEN: 60yoF, appears stated age. Well-nourished, well developed. No acute distress. Alert and oriented x 3. Pleasant, interactive. HEENT: Normocephalic, atraumatic. Pupils are equal, round, and reactive to light. Extraocular movements are intact. No nystagmus appreciated. Sclera are nonicteric. Conjunctiva without injection. Nose midline. Nasal turbinates without bogginess. EACs both patent BL. TMs both visualized and patricia with good cone of light, no bulging or erythema. No facial asymmetry. Moist mucous membranes. Dentition fair. Pharynx pink and moist, no cobblestoning. Neck supple , trachea midline. No lymphadenopathy or thyromegaly appreciated. CHEST: Regular rate and rhythm, +S1, +S2 LUNGS: Clear to auscultation bilaterally. No wheezes, rales, or rhonchi. Breathing appears symmetric and easy. Patient is speaking in full sentences. No accessory muscle use. ABD: Round, soft, non-tender, non-distended. +Bowel sounds throughout. No rebound or guarding. No costovertebral angle tenderness. EXT: Pulses 2+ bilaterally dorsalis pedis and radial. No lower extremity edema appreciated. SKIN: Theba, dry, warm. Capillary refill <2sec. No rashes. NEURO: Alert and oriented x 3. Cranial nerves III-XII are intact. No focal deficits appreciated. EKG: Normal sinus rhythm with first degree AV block Intraventricular conduction delay Comparison tracing not on file. A&P: 60yoF admitted to [facility] for Bipolar disorder 1. Psych. Plan per Psychiatry. Obtain baseline EKG on file. 2. Follow up with PCP on discharge. Follow-up with nephrology following discharge. 3. Poor oral intake. Patient states she was not eating or drinking well prior to admission. Recheck CMP/CBC. Monitor daily BMP. Monitor Intake/output, daily weight. 4. Chronic kidney disease stage IV. Follows with nephrology, Dr. Suero as outpatient. Previous baseline in the system appears to be 2.1 to 2.5. Update labs today. 5. Hypothyroidism. Continue levothyroxine 50 g daily. TSH is noted within normal limits. 6. History of orthostasis. Monitor orthostatic vital signs. Patient denies any lightheadedness or dizziness at this time. 7. Vitamin D deficiency. Continue supplement. Update vitamin D level. 8. Priya WHEELER present throughout exam. Vital Signs Vital Signs Date Time Temp Pulse Resp B/P Pulse Ox O2 Delivery O2 Flow Rate FiO2 09/04/16 06:25 97.6 96 16 115/74 09/03/16 19:13 99 Room Air Laboratory Data Labs 24H Laboratory Tests 2 09/03/16 12:47: Acetaminophen Level < 2.0L, Aspartate Amino Transf (AST/SGOT) 35, Alanine Aminotransferase (ALT/SGPT) 59, Alkaline Phosphatase 101, Total Bilirubin 0.3, Direct Bilirubin 0.1, Albumin 3.5, Albumin/Globulin Ratio 1.09, Anion Gap 8, Calcium Level 8.9, Carbamazepine (Tegretol) Level 5.6, Ethyl Alcohol Level < 0.003, Glomerular Filtration Rate 20.0L, Salicylates Level < 1.7L, Thyroid Stimulating Hormone (TSH) 0.795, Total Protein 6.7, Urine Amphetamines Screen NEGATIVE, Urine Benzodiazepines Screen NEGATIVE, Urine Opiates Screen NEGATIVE, Urine Barbiturates Screen NEGATIVE, Urine Cannabinoids Screen NEGATIVE, Urine Cocaine Metabolite Screen NEGATIVE, Urine Methadone Screen NEGATIVE, Urine Phencyclidine Screen NEGATIVE CBC/BMP Laboratory Tests 09/03/16 12:47 Red Blood Count 3.78 L, Mean Corpuscular Volume 96.5 H, Mean Corpuscular Hemoglobin 31.6, Mean Corpuscular Hemoglobin Concent 32.7, Red Cell Distribution Width 13.5 Home Medications Scheduled Calcitriol (Rocaltrol) 0.5 Mcg Cap 0.5 MCG PO Q2D Carbamazepine (TEGretol XR) 200 Mg Drea 200 MG PO DAILY Carbamazepine (TEGretol XR) 200 Mg Drea 400 MG PO QHS Levothyroxine Sodium (Synthroid) 50 Mcg Tab 50 MCG PO DAILY Lorazepam (Lorazepam) 0.5 Mg Tab 0.5 MG PO QHS TAKES 0.5MG EVERY NIGHT BEFORE BED. THEN TAKES A SECOND TABLET WHEN/IF SHE GETS UP TO USE THE RESTROOM Lurasidone Hydrochloride (Latuda) 40 Mg Tab 40 MG PO QPM Vitamin B Cmplx/Vitc/Folic Ac (Nephrocaps 1 mg) 1 Cap Cap 1 CAP PO QHS Vitamin D (Drisdol) 50,000 Unit Cap 50,000 UNIT PO Q2WK Zolpidem Tartrate (Ambien Cr) 12.5 Mg Tab 12.5 MG PO QHS Scheduled PRN Lorazepam (Lorazepam) 0.5 Mg Tab 0.5 MG PO QHS PRN PRN SLEEP TAKES 0.5MG EVERY NIGHT BEFORE BED. THEN TAKES A SECOND TABLET WHEN/IF SHE GETS UP TO USE THE RESTROOM Allergies Coded Allergies: No Known Allergies (Unverified , 08/05/16) Marissa Bennett Sep 04, 2016 09:26
[2016-09-04 10:45] LABS: MEAN CORPUSCULAR HEMOGLOBIN 32.1 pg (27.0-33.0); MEAN CORPUSCULAR HGB CONC 33.1 g/dl (32.0-36.5); MEAN CORPUSCULAR VOLUME 96.9 fl (80.0-96.0); RED CELL DISTRIBUTION WIDTH 13.4 % (11.5-14.5); WHITE BLOOD COUNT 4.4 K/mm3 (4.0-10.0)
--- NOTE | 2016-09-04 10:56 | HPE ---
DATE OF ADMISSION: 09/03/2016 This patient was discharged on 08/09. She had been on the psychiatric espinoza but had had an orthostatic episode, was transferred to the medical floor and family requested that she be discharged to home. At that time, she was followed up by Dr. Curran with numerous outpatient visits. Patient states today "I have no support group". She had followed up with Dr. Curran once to twice a week. She stated she could not get up in the morning, that her sleep was difficult, that she had both initial insomnia and plate inspector wakening. She states "I am full of anxiety and feel like I have dementia". She states it takes her too long to do recipes. She states she forgets ingredients. She states she is being "pressured by her " to work due to their financial difficulties. 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 Patient is concerned that she and her are barely able to pay their bills. She does not know what is in their savings. Patient states she also saw a nurse who worked for Dr. Curran. Patient has a documented history of bipolar disorder for over 35 years. She states my has over compensated for me. She states she does not have a lot of abilities. Patient agrees that she needs fluids. She reviewed Latuda and is worried about increased chances of for elderly and demented patients and increased thoughts of suicide as stated in the information packet on Latuda. I spoke with her . He states she could not get over being depressed in the morning. That she was hopeless, worried and needed to talk. He states they saw Dr. Curran once a week. He states her sleep is poor and that she got Ambien and Ativan 0.5 which was increased to 0.5 twice a day. He stated her anxiety was severe in the morning. As per history taken on 08/05/2016, patient has stage IV kidney disease credited to previous use of [place]. At that time, she was also helpless and hopeless about her life and worried about her just as she is this time. MEDICAL HISTORY: Patient has stage IV kidney disease and is awaiting for a transplant. She also has hypothyroidism. Previous psychiatric admission both here and at [facility] in [facility]. Neurological history is negative. LEGAL HISTORY: Negative. FINANCIAL HISTORY: As mentioned, the family is under financial stress. 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 EDUCATIONAL HISTORY: Patient has 4 years of college and Masters in reading. I contacted Dr. Curran who sent me the following information: Patient has been on [place] for years until she started to have kidney failure. She has been tried on numerous medications including Depakote, Trileptal, Invega, Topamax, Lamictal. According to Dr. Curran, she was stabilized on Tegretol with Zyprexa on and off. She was admitted to [facility] and was started on Latuda 20 mg. Zyprexa was discontinued and she was continued on Tegretol. Since discharge, Dr. Curran increased her Latuda to 40 mg on August 24 and Tegretol was decreased with plans to eventually discontinue it. She was treated for insomnia with trazodone 200 mg which was ineffective. She was given Ativan 0.5 plus Rozerem once while on the medical floor and Rozerem was placed by Ambien 10 mg. MENTAL STATUS EXAMINATION: Speech was slow and quiet. Thought process was logical. No loose associations. No abnormal psychotic thoughts. Judgment and insight poor. Fully oriented. Recent and remote memory intact. Attention and concentration intact. No disturbance of language. Fund of knowledge is full. Mood is anxious. Affect is sad. Patient is ruminating on her medication and her illness. IMPRESSION: Bipolar disorder, depressed type with anxiety. PLAN: As per Dr. Curran, will be discontinuing Tegretol and increasing patient's Latuda. Will continue to consult with Dr. Curran concerning treatment of her intermediate outpatient.
[2016-09-04 11:06] LABS: ALBUMIN 3.2 GM/DL (3.2-5.2); ALBUMIN/GLOBULIN RATIO 0.97 (1.00-1.93); BILIRUBIN,TOTAL 0.3 MG/DL (0.2-1.0); CREATININE FOR GFR 2.58 MG/DL (0.55-1.02); GLOMERULAR FILTRATION RATE 20.2 (>51); POTASSIUM SERUM 4.5 MEQ/L (3.5-5.1); TOTAL PROTEIN 6.5 GM/DL (6.4-8.2)
[2016-09-04] MEDS: LURASIDONE 20 MG TAB (LATUDA) PO SCH (17:28)
[2016-09-04 18:00] VITALS: BP 113/64
[2016-09-04] MEDS: CALCITRIOL 0.25 MCG CAP (S0169) PO SCH (21:22)
[2016-09-04] MEDS: zolPIDEM CR 6.25MG TABLET (AMBIEN CR) PO SCH (21:22)
[2016-09-04] MEDS: LORazepam 1 MG TAB PO SCH (21:24)
[2016-09-04] MEDS: NEPHRO-VIT TAB (NEPHROCAPS) PO SCH (21:42)
[2016-09-05 06:30] VITALS: BP 120/64
[2016-09-05] MEDS: LEVOTHYROXINE 0.05 MG TAB (50 MCG) PO SCH (06:41)
[2016-09-05 07:46] LABS: CALCIUM LEVEL 9.1 MG/DL (8.5-10.1); CREATININE FOR GFR 2.67 MG/DL (0.55-1.02); GLOMERULAR FILTRATION RATE 19.5 (>51); POTASSIUM SERUM 4.1 MEQ/L (3.5-5.1)
[2016-09-05] MEDS: carBAMazepine XR 200 MG TAB PO SCH ×2 (08:29→21:08)
--- NOTE | 2016-09-05 10:07 | IPN ---
DATE: 09/05/2016 I met with Norma Jack today. Her affect was brighter. She said she slept well and her speech was slightly louder in volume and her eye contact was good. She did not seem to be ruminating or worried today. We have increased her Latuda to 60 mg and she gets Ativan 1.5 mg at night with Ambien. MENTAL STATUS EXAMINATION: Mood is improved. Affect brighter. She has a full fund of knowledge. No disturbance of language. Attention and concentration are fair. Recent and remote memory intact. Fully oriented. Judgment and insight are fair. No abnormal psychotic thoughts. No loose associations. No disturbance in thought process. We will continue on the present medication regimen. DIAGNOSIS: Major depressive illness.
[2016-09-05 14:00] VITALS: BP_SYST 118; BP_SYST 129; BP_DIAS 69; BP_DIAS 73
[2016-09-05] MEDS: LURASIDONE 20 MG TAB (LATUDA) PO SCH (18:16)
[2016-09-05] MEDS: zolPIDEM CR 6.25MG TABLET (AMBIEN CR) PO SCH (21:08)
[2016-09-05] MEDS: LORazepam 1 MG TAB PO SCH (21:08)
[2016-09-05] MEDS: NEPHRO-VIT TAB (NEPHROCAPS) PO SCH (21:08)
[2016-09-06] MEDS: LEVOTHYROXINE 0.05 MG TAB (50 MCG) PO SCH (05:21)
[2016-09-06 06:24] VITALS: BP 119/73
[2016-09-06 06:50] LABS: CALCIUM LEVEL 9.1 MG/DL (8.5-10.1); CREATININE FOR GFR 2.63 MG/DL (0.55-1.02); GLOMERULAR FILTRATION RATE 19.8 (>51); POTASSIUM SERUM 4.1 MEQ/L (3.5-5.1)
[2016-09-06 08:42] VITALS: BP 117/64
[2016-09-06 08:43] VITALS: BP_SYST 11; BP_SYST 119; BP_DIAS 58
[2016-09-06 08:44] VITALS: BP 105/54
[2016-09-06] MEDS: carBAMazepine XR 200 MG TAB PO SCH (09:16)
--- NOTE | 2016-09-06 09:43 | IPN ---
DATE: 09/05/2016 Mr. Santiago comes in with her list of concerns. She states she needs that for her memory. She is brighter and is monitoring her water intake, trying to get 3000 mL per day. Her affect is brighter. Her speech was normal. She states she feels good in the morning and not so good in the afternoon. The other day it was the opposite. She is still having sleep difficulties. Rather than increase her Ambien, I have increased her Ativan to 2 mg at bedtime. No other change in medications. She continues on Latuda 60 mg. The plan is to increase it to 80 mg. MENTAL STATUS EXAMINATION: Speech is normal. Thought processes are normal. No loose associations. No abnormal psychotic thoughts. Insight and judgment are improved. Fully oriented. Recent and remote memory intact. Attention and concentration are fair. No disturbance of language. Full fund of knowledge. Mood is improving. Affect is brighter. DIAGNOSIS: Bipolar disorder, depressed type, with anxiety.
--- NOTE | 2016-09-06 15:46 | IPN ---
DATE: 09/06/2016 This afternoon Norma Santiago was found crying in the virk with staff member. She thinks that her doctor, Dr. Curran, is not visiting her because she does not like her and is tired of her or that she has worn Dr. Curran out. She thinks the medication is not helping. She complained about her sleep. I have increased her Ativan as of this morning to 2 mg nightly to help her with sleep and explained to her that I, in a conference with Dr. Curran, had increased her Latuda to 60 mg and discontinued her Tegretol. It is unclear that patient understood this. Patient seemed in much better spirits in the morning and seems to be having diminished spirits in the afternoon. PLAN: Continue treatment plan as per Dr. Curran with use of Latuda as monotherapy.
[2016-09-06 18:00] VITALS: BP_SYST 109; BP_SYST 110; BP_SYST 112; BP_DIAS 60; BP_DIAS 69; BP_DIAS 70
[2016-09-06] MEDS: LURASIDONE HCL 40 MG TAB (LATUDA) PO SCH (18:24)
[2016-09-06] MEDS: LURASIDONE 20 MG TAB (LATUDA) PO SCH (18:24)
[2016-09-06] MEDS: LORazepam 2 MG TAB PO SCH (21:12)
[2016-09-06] MEDS: NEPHRO-VIT TAB (NEPHROCAPS) PO SCH (21:12)
[2016-09-06] MEDS: zolPIDEM CR 6.25MG TABLET (AMBIEN CR) PO SCH (21:12)
[2016-09-06] MEDS: CALCITRIOL 0.25 MCG CAP (S0169) PO SCH (21:12)
[2016-09-07] MEDS: LEVOTHYROXINE 0.05 MG TAB (50 MCG) PO SCH (06:04)
--- NOTE | 2016-09-07 06:10 | IPN ---
DATE: 09/07/2016 SUBJECTIVE: This morning, 09/07/2016, Norma Santiago was found in her room. She is taking notes on her fluid intake. Her mood is better and she slept well during the night. We discussed her treatment plan. The increase of Ativan seems to have helped her sleep. I re-explained how we are increasing her Latuda. We may increase it to 80 mg after a few more days. We have discontinued her Tegretol. She is in much better spirits in the morning, and I will be interested if, in fact, her spirits sag in the afternoon. Continue treatment plan as per Dr. Curran with the use of Latuda as monotherapy.
[2016-09-07 06:49] VITALS: BP 118/72
[2016-09-07 07:37] LABS: BASO % 0.5 % (0.0-1.0); EOS # 0.1 K/mm3 (0.0-0.50); EOS % 1.7 % (0.0-3.0); LARGE UNSTAINED CELL # 0.1 K/mm3 (0.0-0.4); LARGE UNSTAINED CELL % 2.3 % (0.0-4.0); LYMPH # 1.6 K/mm3 (1.5-4.5); LYMPH % 26.2 % (24.0-44.0); MEAN CORPUSCULAR HEMOGLOBIN 33.2 pg (27.0-33.0); MEAN CORPUSCULAR HGB CONC 33.9 g/dl (32.0-36.5); MEAN CORPUSCULAR VOLUME 97.9 fl (80.0-96.0); MONO # 0.4 K/mm3 (0.0-0.8); MONO % 6.7 % (0.0-5.0); NEUTROPHILS # 3.8 K/mm3 (1.8-7.7); NEUTROPHILS % 62.6 % (36.0-66.0); PLATELET COUNT, AUTOMATED 220 k/mm3 (150-450); RED CELL DISTRIBUTION WIDTH 13.5 % (11.5-14.5); WHITE BLOOD COUNT 6.1 K/mm3 (4.0-10.0)
[2016-09-07 07:49] LABS: CALCIUM LEVEL 8.7 MG/DL (8.5-10.1); CREATININE FOR GFR 2.81 MG/DL (0.55-1.02); GLOMERULAR FILTRATION RATE 18.3 (>51); POTASSIUM SERUM 4.2 MEQ/L (3.5-5.1)
[2016-09-07] MEDS ORDERED: carBAMazepine XR 200 MG TAB PO SCH (09:00)
[2016-09-07 12:10] VITALS: BP_SYST 129; BP_SYST 137; BP_DIAS 76; BP_DIAS 77; BP_DIAS 83
[2016-09-07] MEDS: LURASIDONE HCL 40 MG TAB (LATUDA) PO SCH (17:46)
[2016-09-07] MEDS: LURASIDONE 20 MG TAB (LATUDA) PO SCH (17:46)
[2016-09-07 18:00] VITALS: BP_SYST 153; BP_SYST 163; BP_SYST 164; BP_DIAS 77; BP_DIAS 78; BP_DIAS 94
[2016-09-07] MEDS: NEPHRO-VIT TAB (NEPHROCAPS) PO SCH (20:58)
[2016-09-07] MEDS: LORazepam 2 MG TAB PO SCH (20:58)
[2016-09-07] MEDS: zolPIDEM CR 6.25MG TABLET (AMBIEN CR) PO SCH (20:58)
[2016-09-08] MEDS: LEVOTHYROXINE 0.05 MG TAB (50 MCG) PO SCH (05:57)
[2016-09-08 06:51] VITALS: BP 102/76
[2016-09-08 07:36] LABS: CALCIUM LEVEL 8.7 MG/DL (8.5-10.1); CREATININE FOR GFR 2.55 MG/DL (0.55-1.02); GLOMERULAR FILTRATION RATE 20.5 (>51); POTASSIUM SERUM 4.3 MEQ/L (3.5-5.1)
[2016-09-08 12:03] VITALS: BP_SYST 137; BP_SYST 148; BP_DIAS 70; BP_DIAS 85
[2016-09-08 12:04] VITALS: BP 128/79
--- NOTE | 2016-09-08 15:08 | IPN ---
DATE: 09/08/2016 Last evening I spoke with Norma Santiago's . He had the following complaints: He states that when Norma Santiago was on the internal medicine floor following her orthostatic hypotension, that the family had requested discharged to home. When they were discharged to home, he states and IV line was left in her arm. He had complaints that when he went to the emergency room this time that they considered her "suicidal" and he stated "when I get my hands on that doctor." He stated that Dr. Curran's dosing of Latuda was to slow and should have already been up to 60 mg rather than 40. He had concerns that the hospital was not communicating with his insurance company. He stated he had three days of insurance. In the past he had complained about how she had not been properly hydrated on our floor on her previous admission. I will be increasing Norma Santiago's medications to 80 mg, which is the maximum dose of Latuda. MENTAL STATUS EXAMINATION: Speech is normal. Thought process intact. No loose associations. No abnormal or psychotic thoughts. Judgment and insight are intact. Fully oriented. Recent and remote memory intact. Attention and concentration intact. Language intact. Fund of knowledge intact. Mood is good. Affect is slightly brighter.
[2016-09-08] MEDS: LURASIDONE HCL 40 MG TAB (LATUDA) PO SCH (17:54)
[2016-09-08 18:00] VITALS: BP_SYST 122; BP_SYST 140; BP_SYST 150; BP_DIAS 60; BP_DIAS 82; BP_DIAS 84
[2016-09-08] MEDS: LORazepam 2 MG TAB PO SCH (21:00)
[2016-09-08] MEDS: zolPIDEM CR 6.25MG TABLET (AMBIEN CR) PO SCH (21:00)
[2016-09-08] MEDS: NEPHRO-VIT TAB (NEPHROCAPS) PO SCH (21:00)
[2016-09-08] MEDS: CALCITRIOL 0.25 MCG CAP (S0169) PO SCH (21:00)
[2016-09-09] MEDS: LEVOTHYROXINE 0.05 MG TAB (50 MCG) PO SCH (06:00)
[2016-09-09 07:00] VITALS: BP 123/83
[2016-09-09 07:45] LABS: CALCIUM LEVEL 8.6 MG/DL (8.5-10.1); CREATININE FOR GFR 2.46 MG/DL (0.55-1.02); GLOMERULAR FILTRATION RATE 21.4 (>51); POTASSIUM SERUM 4.1 MEQ/L (3.5-5.1)
[2016-09-09] MEDS ORDERED: LORazepam 1 MG TAB PO ONE (16:15)
[2016-09-09] MEDS: LURASIDONE HCL 40 MG TAB (LATUDA) PO SCH (17:57)
[2016-09-09 18:00] VITALS: BP 170/89
--- NOTE | 2016-09-09 19:00 | IPN ---
DATE: 09/09/2016 I met last evening with Mr. Santiago. His , Norma, was irrationally thinking that "everyone on the unit thought that she was a schmuck." I reviewed aspects of irrational thinking in cognitive therapy with her. I have increased her Latuda to the maximum dose of 80 mg. I met with her this morning again and reviewed cognitive therapy and irrational thinking. Her affect was slightly brighter, but she is overwhelmed with depressive, distorted type thinking. Speech is quiet. Thought processes are focused on negative and irrational thinking. She has no loose associations. No abnormal psychotic thoughts. Judgment and insight are poor. She is fully oriented. Recent and remote memory, in her opinion, are affected. Attention and concentration is good. Language is intact. Full fund of knowledge. Mood is neutral. Affect is congruent. IMPRESSION: 1. Major depressive illness.
[2016-09-09] MEDS: LORazepam 2 MG TAB PO SCH (21:13)
[2016-09-09] MEDS: NEPHRO-VIT TAB (NEPHROCAPS) PO SCH (21:13)
[2016-09-09] MEDS: zolPIDEM CR 6.25MG TABLET (AMBIEN CR) PO SCH (21:13)
[2016-09-10] MEDS: LEVOTHYROXINE 0.05 MG TAB (50 MCG) PO SCH (06:19)
[2016-09-10 06:26] VITALS: BP 137/65
[2016-09-10 06:27] VITALS: BP 149/87
[2016-09-10 06:28] VITALS: BP 149/67
[2016-09-10 10:01] LABS: CALCIUM LEVEL 8.5 MG/DL (8.5-10.1); CREATININE FOR GFR 2.61 MG/DL (0.55-1.02)
--- NOTE | 2016-09-10 11:13 | IPN ---
DATE OF SERVICE: 09/10/2016 I met this morning with Norma Santiago and community development planner. The patient saying she preferred to go home. She frankly is not showing significant improvement except for some decrease in anxiety. Her Latuda dose has been raised to 80 mg, and I discussed with her my thoughts that her returning home like she did last time may result in the same result of her having to come back. I suggested she confer with Dr. Curran in the presence of community development planner and that Dr. Curran's opinion should also be weighed in any decision of her to go home. Affect is still somewhat flat. The patient continues to be overwhelmed with worry. Her speech is quiet. Thought process continue focused on negative and irrational thoughts. No loose associations. No abnormal psychotic thoughts. Judgment and insight are poor. She is fully oriented. Recent and remote memory, in her opinion, are effected. Attention and concentration is fair. Language is intact. Full fund of knowledge. Mood is neutral. Affect is congruent. IMPRESSION: Major depressive illness. She and her and Dr. Curran would have to be involved in any decision for this patient to go home.
[2016-09-10 14:00] VITALS: BP_SYST 136; BP_SYST 137; BP_SYST 142; BP_DIAS 72; BP_DIAS 76; BP_DIAS 78
[2016-09-10] MEDS: LURASIDONE HCL 40 MG TAB (LATUDA) PO SCH (18:09)
[2016-09-10] MEDS ORDERED: carBAMazepine 200 MG TAB PO SCH (21:00)
[2016-09-10] MEDS: CALCITRIOL 0.25 MCG CAP (S0169) PO SCH (21:37)
[2016-09-10] MEDS: zolPIDEM CR 6.25MG TABLET (AMBIEN CR) PO SCH (21:37)
[2016-09-10] MEDS: NEPHRO-VIT TAB (NEPHROCAPS) PO SCH (21:38)
[2016-09-10] MEDS: LORazepam 2 MG TAB PO SCH (21:38)
[2016-09-10] MEDS: carBAMazepine XR 200 MG TAB PO SCH (22:12)
[2016-09-11 06:24] VITALS: BP 147/90
[2016-09-11] MEDS: LEVOTHYROXINE 0.05 MG TAB (50 MCG) PO SCH (06:26)
[2016-09-11] MEDS: carBAMazepine XR 200 MG TAB PO SCH ×2 (08:13→21:04)
[2016-09-11 08:23] LABS: CALCIUM LEVEL 8.8 MG/DL (8.5-10.1); CREATININE FOR GFR 2.58 MG/DL (0.55-1.02); GLOMERULAR FILTRATION RATE 20.2 (>51); POTASSIUM SERUM 3.9 MEQ/L (3.5-5.1)
--- NOTE | 2016-09-11 08:41 | IPN ---
DATE OF SERVICE: 09/11/2016 Both Norma, her , and I have not been seeing improvement on Latuda at 80 mg. Discussed the case with both her and her last night. It was Mr. Santiago's recollection that she had done well on Tegretol. I put her back on Tegretol XR 200 in the morning and 400 at night. I reduced her Latuda to 60 mg, and I have added fluoxetine 20. I am well aware of the concerns of this patient developing a lauren, but at this point, an improvement in mood is preferable; and if, in fact, the patient does begin to develop any signs of hypomania, she can always be balanced off. This is why I put the Tegretol back on board. Speech is slow. Thought processes is ruminative. No loose associations. No psychotic thoughts. Judgment and insight are fair. She is fully oriented. Recent and remote memory intact. Attention and concentration are good. Language is no abnormalities. She has a full fund of knowledge. Mood is low. Affect is flat. DIAGNOSIS: Major depression.
[2016-09-11] MEDS ORDERED: FLUoxetine 20 MG CAP PO SCH (09:00)
[2016-09-11 14:00] VITALS: BP_SYST 119; BP_SYST 124; BP_SYST 130; BP_DIAS 68; BP_DIAS 78
[2016-09-11] MEDS ORDERED: LURASIDONE 20 MG TAB (LATUDA) PO SCH (18:00)
[2016-09-11] MEDS: LORazepam 2 MG TAB PO SCH (21:04)
[2016-09-11] MEDS: NEPHRO-VIT TAB (NEPHROCAPS) PO SCH (21:04)
[2016-09-11] MEDS: zolPIDEM CR 6.25MG TABLET (AMBIEN CR) PO SCH (21:04)
[2016-09-12] MEDS: LEVOTHYROXINE 0.05 MG TAB (50 MCG) PO SCH (05:28)
[2016-09-12 06:00] VITALS: BP_SYST 130; BP_SYST 136; BP_SYST 150; BP_DIAS 64; BP_DIAS 68; BP_DIAS 90
[2016-09-12 06:42] VITALS: BP 150/90
[2016-09-12] MEDS ORDERED: **PENDING PPD ENTRY XX SCH (09:00)
[2016-09-12] MEDS ORDERED: FLUoxetine 10 MG CAP PO SCH (09:00)
[2016-09-12] MEDS: carBAMazepine XR 200 MG TAB PO SCH ×2 (09:22→20:55)
[2016-09-12] MEDS ORDERED: hydrOXYzine 10 MG TAB PO PRN (10:30)
--- NOTE | 2016-09-12 12:28 | IPN ---
DATE OF SERVICE: 09/12/2016 Norma Santiago continues on changed treatment of Prozac 30 and her Tegretol 200 XR 200 in the morning and 400 at night. We are also adding Atarax. The patient continues to be severely depressed, ruminative, downcast with poor concentration. Her Latuda is being discontinued. MENTAL STATUS EXAMINATION: Her speech is slower. Her thought processes are slow and ruminative. She has no loose associations or psychotic thoughts but her thoughts are exceptionally negative. Judgment and insight are poor. She is fully oriented. Recent and remote memory are poor due to her depression. Her attention and concentration are fair. No abnormalities of language. The patient has full fund of knowledge. Mood is low. Affect is flat. DIAGNOSIS: Major depression. PLAN: Treat with SSRI and Tegretol to achieve some improvement in her depression at this time. The patient, of course is known to have stage IV renal failure and fluids are being encouraged constantly.
[2016-09-12 14:30] VITALS: BP_SYST 111; BP_SYST 132; BP_SYST 134; BP_DIAS 71; BP_DIAS 76; BP_DIAS 79
[2016-09-12] MEDS ORDERED: LURASIDONE 20 MG TAB (LATUDA) PO SCH (18:00)
[2016-09-12] MEDS: NEPHRO-VIT TAB (NEPHROCAPS) PO SCH (20:55)
[2016-09-12] MEDS: LORazepam 2 MG TAB PO SCH (20:55)
[2016-09-12] MEDS: CALCITRIOL 0.25 MCG CAP (S0169) PO SCH (20:55)
[2016-09-12] MEDS: zolPIDEM CR 6.25MG TABLET (AMBIEN CR) PO SCH (20:55)
[2016-09-13] MEDS: LEVOTHYROXINE 0.05 MG TAB (50 MCG) PO SCH (05:44)
[2016-09-13 06:46] VITALS: BP_SYST 126; BP_SYST 145; BP_DIAS 55; BP_DIAS 67
[2016-09-13 06:48] VITALS: BP_SYST 102; BP_SYST 122; BP_SYST 126; BP_DIAS 55; BP_DIAS 57; BP_DIAS 62
[2016-09-13] MEDS: FLUoxetine 20 MG CAP PO SCH (08:04)
[2016-09-13] MEDS: carBAMazepine XR 200 MG TAB PO SCH ×2 (08:04→21:05)
[2016-09-13] MEDS ORDERED: TUBERCULIN PPD 5 UNITS/0.1 ML ID ONE (09:00)
[2016-09-13] MEDS ORDERED: **PENDING PPD ENTRY XX SCH (09:00)
[2016-09-13] MEDS ORDERED: TUBERCULIN PPD 5 UNITS/0.1 ML ID SCH (10:00)
--- NOTE | 2016-09-13 13:21 | IPN ---
DATE: 09/13/2016 This morning Norma Santiago looked significantly brighter. She is on her new treatment of Prozac 30 mg and Tegretol 200 in the morning and 400 at night. Her Latuda has been discontinued. Her affect was brighter this morning. She was less depressed, less ruminative and less downcast. She stated she began to feel some improvement yesterday afternoon. Her speech is still slow. Her thought process still slow and ruminative. She has no loose associations or psychotic thoughts. Although, today, she is less negative. Judgment and insight are poor. She is fully oriented. Remote and recent memory are still poor due to her depression. Her attention and concentration improving. No abnormalities of language. Patient has full fund of knowledge. Her mood is still low but slightly improving. Her affect slightly brighter. Diagnosis of major depression. Plan to treat with selective serotonin reuptake inhibitor (SSRI) and Tegretol to improve her depression. Patient known to have stage IV renal failure. Fluids are being encouraged. She is presently on Ambien CR for sleep. She received her PPD in case she needs long-term treatment. Her Latuda has been discontinued. She continues on lorazepam, which helps her sleep also. She continues on Atarax twice a day for anxiety. She is now on fluoxetine 40 mg daily, Tegretol 200 in the morning and 400 at night. Diagnosis bipolar disorder, depressive type.
--- NOTE | 2016-09-13 13:32 | IPN ---
DATE: 09/13/2016 Though Norma appeared slightly brighter this morning, by later in the morning, she was again in bed under the covers. She is confused and distorted in her thinking. She somewhat interpreted that today she was going to be discharged. Her memory is poor. Her concentration is poor. Her affect is flat again and her mood was sad and she discussed irrational guilt that she was not taking care of her roommate and that she was somehow not letting her know how sick she was. Evening and night staff saw her as brighter. Continued Treatment Plan: No change at this time. Diagnosis: Major depression. This patient may have to go to intermediate designer treatment unless there is significant improvement in the next number of days. KEN
[2016-09-13 18:00] VITALS: BP_SYST 106; BP_SYST 131; BP_SYST 134; BP_SYST 141; BP_DIAS 62; BP_DIAS 70; BP_DIAS 75; BP_DIAS 80
[2016-09-13] MEDS: NEPHRO-VIT TAB (NEPHROCAPS) PO SCH (21:04)
[2016-09-13] MEDS: zolPIDEM CR 6.25MG TABLET (AMBIEN CR) PO SCH (21:04)
[2016-09-13] MEDS: LORazepam 2 MG TAB PO SCH (21:04)
[2016-09-14] MEDS: LEVOTHYROXINE 0.05 MG TAB (50 MCG) PO SCH (05:50)
[2016-09-14 06:48] VITALS: BP_SYST 121; BP_SYST 125; BP_SYST 147; BP_DIAS 65; BP_DIAS 74; BP_DIAS 86
[2016-09-14 06:49] VITALS: BP 125/65
--- NOTE | 2016-09-14 07:46 | IPN ---
DATE: 09/14/2016 Norma appeared brighter again this morning. She states her is beginning to see the difference. She states generally mornings here are better. She was in the lounge eating and smiling and able to converse. She did not demonstrate any confusion or distortion in her thinking this morning. Affect is bright this morning. Mood was good. She did not discuss any irrational guilt. She did not discuss any irrational thoughts about herself. Continue treatment plan. No change at this time. DIAGNOSIS: Major depression. If progress continues with her antidepressant treatment, the patient may not have to go to snf treatment. She was seriously depressed yesterday afternoon. We will observe her again this afternoon. Dr. Curran's concern about the patient cycling into a lauren probably can be managed on an outpatient basis if things go well. Prognosis is still guarded. MTDD
[2016-09-14] MEDS: FLUoxetine 20 MG CAP PO SCH (08:29)
[2016-09-14] MEDS: carBAMazepine XR 200 MG TAB PO SCH ×2 (08:29→20:54)
[2016-09-14] MEDS ORDERED: PPD DOCUMENTATION ENTRY MISC XX SCH (10:00)
[2016-09-14 14:01] VITALS: BP_SYST 104; BP_SYST 118; BP_SYST 136; BP_DIAS 69; BP_DIAS 74; BP_DIAS 84
[2016-09-14 14:03] VITALS: BP 122/67
[2016-09-14] MEDS: zolPIDEM CR 6.25MG TABLET (AMBIEN CR) PO SCH (20:54)
[2016-09-14] MEDS: NEPHRO-VIT TAB (NEPHROCAPS) PO SCH (20:54)
[2016-09-14] MEDS: CALCITRIOL 0.25 MCG CAP (S0169) PO SCH (20:54)
[2016-09-14] MEDS: LORazepam 2 MG TAB PO SCH (20:54)
[2016-09-15] MEDS: LEVOTHYROXINE 0.05 MG TAB (50 MCG) PO SCH (06:03)
[2016-09-15 06:25] VITALS: BP 128/65
[2016-09-15 06:41] LABS: MEAN CORPUSCULAR HEMOGLOBIN 32.7 pg (27.0-33.0); MEAN CORPUSCULAR HGB CONC 33.6 g/dl (32.0-36.5); MEAN CORPUSCULAR VOLUME 97.4 fl (80.0-96.0); RED CELL DISTRIBUTION WIDTH 13.7 % (11.5-14.5); WHITE BLOOD COUNT 6.2 K/mm3 (4.0-10.0)
[2016-09-15 06:49] VITALS: BP_SYST 128; BP_SYST 138; BP_DIAS 65; BP_DIAS 70
[2016-09-15 07:09] LABS: ANION GAP 8 MEQ/L (8-16); BLOOD UREA NITROGEN 51 MG/DL (7-18); CALCIUM LEVEL 8.5 MG/DL (8.5-10.1); CARBON DIOXIDE LEVEL 22 MEQ/L (21-32); CHLORIDE LEVEL 116 MEQ/L (98-107); CREATININE FOR GFR 2.79 MG/DL (0.55-1.02); GLOMERULAR FILTRATION RATE 18.5 (>51); GLUCOSE, FASTING 110 MG/DL (70-105); MAGNESIUM LEVEL 2.1 MG/DL (1.8-2.4); SODIUM LEVEL 146 MEQ/L (136-145)
[2016-09-15] MEDS ORDERED: PPD DOCUMENTATION ENTRY MISC XX SCH (13:30)
[2016-09-16] MEDS ORDERED: VITAMIN D 50,000 UNITS CAPSULE (ERGOCALCIFEROL 1.25MG) PO SCH (09:00)
== END 2016-09-15 06:30 | disposition short-term general hospital (02) | DRG 881 ==
LOC: MERGE 12:06 → M ED 12:55 → M ED INP 15:51 → M PSY 19:03
PROVIDERS: ADMIT Psychiatry & Neurology Child & Adolescent Psychiatry; ATTEND Psychiatry & Neurology Child & Adolescent Psychiatry
DX: F32.9 Major depressive disorder, single episode, unspecified (principal); N18.4 Chronic kidney disease, stage 4 (severe); E03.9 Hypothyroidism, unspecified; E55.9 Vitamin D deficiency, unspecified; I95.9 Hypotension, unspecified; E86.0 Dehydration; Z79.899 Other long term (current) drug therapy

== ENCOUNTER 2016-09-15 06:37 | Inpatient (IN) | payer OTHER ==
[~2016-09-15] VITALS: Ht 157.5 cm; Wt 91.8 kg
[~2016-09-15 06:37] MED LIST changes: +AMBI12.52 PO; +ATIV1TAB10 PO; +LATU40TA PO; +LEVO50TA5 PO; +LORA-376 PO; +NEPHTA PO; +ROCA0.25 PO; +SYNT50TA PO; +VITA50003 PO
[2016-09-15 06:50] VITALS: BP 116/58
[2016-09-15] MEDS ORDERED: NS 1,000 ML IV SCH (07:42)
[2016-09-15] MEDS ORDERED: LORazepam 0.5 MG TAB PO PRN (07:45)
[2016-09-15] MEDS ORDERED: BISACODYL 5 MG TAB PO PRN (07:45)
[2016-09-15] MEDS ORDERED: ACETAMINOPHEN TAB 650MG DOSE (2X325MG) PO PRN (07:45)
[2016-09-15] MEDS: D5W 1,000 ML IV SCH ×2 (09:10→19:10)
[2016-09-15] MEDS: carBAMazepine XR 200 MG TAB PO SCH ×2 (09:10→21:55)
[2016-09-15] MEDS: FLUoxetine 20 MG CAP PO SCH (09:10)
[2016-09-15] MEDS: HEPARIN SOD (PORCINE) 5000 UNITS/ML VIAL SC SCH ×3 (09:10→21:56)
[2016-09-15 14:00] VITALS: BP 132/66
[2016-09-15 17:18] LABS: CREATININE FOR GFR 2.54 MG/DL (0.55-1.02); GLOMERULAR FILTRATION RATE 20.6 (>51); POTASSIUM SERUM 3.9 MEQ/L (3.5-5.1)
[2016-09-15 18:00] VITALS: BP_SYST 113; BP_SYST 118; BP_SYST 124; BP_DIAS 62; BP_DIAS 63; BP_DIAS 70
[2016-09-15] MEDS ORDERED: LURASIDONE HCL 40 MG TAB (LATUDA) PO SCH (21:00)
[2016-09-15] MEDS: LORazepam 1 MG TAB PO SCH (21:55)
[2016-09-15] MEDS: NEPHRO-VIT TAB (NEPHROCAPS) PO SCH (21:55)
[2016-09-15] MEDS: zolPIDEM CR 6.25MG TABLET (AMBIEN CR) PO SCH (21:56)
[2016-09-15 22:00] VITALS: BP_SYST 129; BP_SYST 133; BP_SYST 135; BP_DIAS 68; BP_DIAS 73; BP_DIAS 76
[2016-09-16] MEDS: D5W 1,000 ML IV SCH (04:27)
[2016-09-16 05:47] LABS: MEAN CORPUSCULAR HEMOGLOBIN 32.2 pg (27.0-33.0); MEAN CORPUSCULAR HGB CONC 32.9 g/dl (32.0-36.5); MEAN CORPUSCULAR VOLUME 97.9 fl (80.0-96.0); RED CELL DISTRIBUTION WIDTH 13.4 % (11.5-14.5); WHITE BLOOD COUNT 5.1 K/mm3 (4.0-10.0)
[2016-09-16] MEDS: LEVOTHYROXINE 0.05 MG TAB (50 MCG) PO SCH (05:55)
[2016-09-16] MEDS: HEPARIN SOD (PORCINE) 5000 UNITS/ML VIAL SC SCH ×3 (05:55→20:43)
[2016-09-16 06:00] VITALS: BP_SYST 113; BP_SYST 119; BP_SYST 125; BP_DIAS 59; BP_DIAS 70; BP_DIAS 72
[2016-09-16 06:04] LABS: ALBUMIN 2.9 GM/DL (3.2-5.2); ALBUMIN/GLOBULIN RATIO 0.97 (1.00-1.93); BILIRUBIN,TOTAL 0.2 MG/DL (0.2-1.0); CALCIUM LEVEL 8.2 MG/DL (8.5-10.1); CREATININE FOR GFR 2.62 MG/DL (0.55-1.02); GLOMERULAR FILTRATION RATE 19.9 (>51); POTASSIUM SERUM 3.5 MEQ/L (3.5-5.1); TOTAL PROTEIN 5.9 GM/DL (6.4-8.2)
--- NOTE | 2016-09-16 08:40 | ECGEPIP ---
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
[2016-09-16] MEDS ORDERED: VITAMIN D 50,000 UNITS CAPSULE (ERGOCALCIFEROL 1.25MG) PO SCH (09:00)
--- NOTE | 2016-09-16 09:15 | IPNPDOC ---
Subjective Date Seen The patient was seen on 09/16/16. Subjective Chief Complaint/HPI The patient is a 60-year-old female admitted with a reason for visit of Syncope. Assessment /Plan Problems (1) Orthostatic hypotension Status: Chronic Discussed With: Patient Problem Text: Appears to have resolved for now. Will d/c fluids and monitor for orthostasis. Complicated with poor PO intake. D/w with and , to encourage PO intake. (2) Bipolar disorder Status: Acute Discussed With: Patient Problem Specific Plan: Consult Specialist Problem Text: Follow as per psychiatry. Currently receiving tegretol, ativan, prozac. Latuda has been discontinued. (3) CKD (chronic kidney disease) stage 4, GFR 15-29 ml/min Status: Chronic Discussed With: Patient Problem Specific Plan: Repeat Labs Problem Text: at baseline. (4) Hypothyroid Status: Chronic Discussed With: Patient Problem Specific Plan: Monitor Clinically Problem Text: continue synthroid. tsh wnl. Plan/VTE VTE Prophylaxis Ordered?: Yes Plan IVF: Discontinue Diet: Continue Current Activity: Continue Current Pt and Family Services: Other PFS Diagnostics: Repeat Labs in AM H&P not available yet. Trial without fluids to check orthostatics. Follow up psychiatry recs and dispo. Patient and do not wish to return to [facility]. VS, I&O, 24H, Fishbone Vital Signs/I&O Vital Signs Date Time Temp Pulse Resp B/P (MAP) Pulse Ox O2 Delivery O2 Flow Rate FiO2 09/16/16 06:00 81 119/59 (79) 89 125/72 (89) 95 113/70 (84) 09/16/16 06:00 98.1 78 95 09/15/16 14:00 Room Air I&O- Last 24 Hours up to 6 AM 09/16/16 05:59 Intake Total 2660 ml Output Total 1550 ml Balance 1110 ml Laboratory Data 24H LABS Laboratory Tests 2 09/15/16 16:52: Anion Gap 8, Glomerular Filtration Rate 20.6L, Blood Urea Nitrogen 47H, Creatinine 2.54H, Sodium Level 144, Potassium Level 3.9, Chloride Level 114H, Carbon Dioxide Level 22, Calcium Level 8.0L 09/15/16 23:29: Urine Appearance CLEAR, Urine Color STRAW, Urine pH 6.0, Urine Specific [place] 1.002, Urine Protein NEGATIVE, Urine Glucose (UA) NEGATIVE, Urine Ketones NEGATIVE, Urine Urobilinogen 0.2, Urine Bilirubin NEGATIVE, Urine Leukocyte Esterase NEGATIVE, Urine Blood NEGATIVE, Urine Nitrite NEGATIVE, Urine WBC (Auto ) 0, Urine RBC (Auto) 2, Urine Hyaline Casts (Auto) 0, Urine Bacteria (Auto) 1+H , Urine Squamous Epithelial Cells 0, Urine Mucus (Auto) SMALL, Urine Sperm (Auto ) 09/16/16 05:15: Anion Gap 9, Glomerular Filtration Rate 19.9L, Blood Urea Nitrogen 41H, Creatinine 2.62H, Sodium Level 145, Potassium Level 3.5, Chloride Level 115H, Carbon Dioxide Level 21, Calcium Level 8.2L, Aspartate Amino Transf (AST/SGOT) 12L, Alanine Aminotransferase (ALT/SGPT) 34, Alkaline Phosphatase 81, Total Bilirubin 0.2, Total Protein 5.9L, Albumin 2.9L, Albumin/Globulin Ratio 0.97L CBC/BMP Laboratory Tests 09/15/16 16:52 Calcium Level 8.0 L 09/16/16 05:15 Calcium Level 8.2 L, Red Blood Count 3.49 L, Mean Corpuscular Volume 97.9 H, Mean Corpuscular Hemoglobin 32.2, Mean Corpuscular Hemoglobin Concent 32.9, Red Cell Distribution Width 13.4, Aspartate Amino Transf (AST/SGOT) 12 L, Alanine Aminotransferase (ALT/SGPT) 34, Alkaline Phosphatase 81, Total Bilirubin 0.2, Total Protein 5.9 L, Albumin 2.9 L Microbiology Microbiology 09/15/16 Urine Culture, Received Pending BIBI CARTER MD September 16, 2016 09:15
[2016-09-16] MEDS: carBAMazepine XR 200 MG TAB PO SCH ×2 (09:37→20:43)
[2016-09-16] MEDS: FLUoxetine 20 MG CAP PO SCH (09:37)
[2016-09-16 14:00] VITALS: BP_SYST 135; BP_SYST 146; BP_DIAS 68; BP_DIAS 84; BP_DIAS 87
[2016-09-16] MEDS: LORazepam 1 MG TAB PO SCH (20:42)
[2016-09-16] MEDS: NEPHRO-VIT TAB (NEPHROCAPS) PO SCH (20:42)
[2016-09-16] MEDS: zolPIDEM CR 6.25MG TABLET (AMBIEN CR) PO SCH (20:43)
[2016-09-16] MEDS ORDERED: CALCITRIOL 0.25 MCG CAP (S0169) PO SCH (21:00)
[2016-09-16 22:00] VITALS: BP_SYST 130; BP_SYST 136; BP_SYST 139; BP_DIAS 66; BP_DIAS 83; BP_DIAS 86
[2016-09-17] MEDS: HEPARIN SOD (PORCINE) 5000 UNITS/ML VIAL SC SCH ×3 (05:46→20:03)
[2016-09-17] MEDS: LEVOTHYROXINE 0.05 MG TAB (50 MCG) PO SCH (05:46)
[2016-09-17 06:00] VITALS: BP_SYST 122; BP_SYST 123; BP_SYST 137; BP_DIAS 62; BP_DIAS 65; BP_DIAS 84
[2016-09-17 06:32] LABS: MEAN CORPUSCULAR HEMOGLOBIN 32.3 pg (27.0-33.0); MEAN CORPUSCULAR HGB CONC 32.6 g/dl (32.0-36.5); RED CELL DISTRIBUTION WIDTH 13.5 % (11.5-14.5); WHITE BLOOD COUNT 6.2 K/mm3 (4.0-10.0)
[2016-09-17 06:58] LABS: ALBUMIN 3.3 GM/DL (3.2-5.2); ALBUMIN/GLOBULIN RATIO 0.94 (1.00-1.93); BILIRUBIN,TOTAL 0.3 MG/DL (0.2-1.0); CALCIUM LEVEL 8.7 MG/DL (8.5-10.1); CREATININE FOR GFR 2.72 MG/DL (0.55-1.02); TOTAL PROTEIN 6.8 GM/DL (6.4-8.2)
--- NOTE | 2016-09-17 08:51 | IPNPDOC ---
Subjective Date Seen The patient was seen on 09/17/16. Subjective Chief Complaint/HPI The patient is a 60-year-old female admitted with a reason for visit of Syncope. General: Denies: ROS Unobtainable, Chills, Night Sweats, Fatigue, Malaise, Normal Appetite, Other Symptoms Constitutional: Denies: Chills, Fever, Malaise, Night Sweats, Weakness, Fatigue , Weight Loss, Lethargy, Other Eyes: Denies: Pain, Vision change, Conjunctivae inflammation, Eyelid inflammation, Redness, Other ENT: Denies: Head Aches, Ear Pain, Dysphagia, Sinus Congestion, Post Nasal Drip , Sore Throat, Epistaxis, Other Symptoms Skin: Denies: Rash, Lesions, Jaundice, Bruising, Itching, Dry, Breakdown, Nail Changes, Other Pulmonary: Denies: Dyspnea, Cough, Pleuritic Chest Pain, Other Symptoms Cardiovascular: Denies: Chest Pain, Palpitations, Orthopnea, Paroxysmal Noc. Dyspnea, Edema, Lt Headedness, Other Symptoms Gastrointestinal: Denies: Nausea, Vomiting, Abdominal Pain, Diarrhea, Constipation, Melena, Hematochezia, Other Symptoms Psych: Reports: Anxiety, Depression Objective Physical Examination General Exam: Positive: Alert, Cooperative, No Acute Distress Eye Exam: Positive: PERRLA, Conjunctiva & lids normal, EOMI, Negative: Sclera icteric ENT Exam: Positive: Atraumatic Neck Exam: Positive: Supple Chest Exam: Positive: Clear to auscultation, Normal air movement Heart Exam: Positive: Rate Normal, Regular Rhythm Abdomen Exam: Positive: Normal bowel sounds, Soft, Other (obese), Negative: Tenderness Extremity Exam: Negative: Edema Psych Exam: Positive: Oriented x 3 Assessment /Plan Problems (1) Orthostatic hypotension Status: Chronic Discussed With: Patient Problem Text: Orthostatic again off IV fluids. However she is feeling better and her appetite has improved. Will administer 1L fluids today and continue to monitor orthostatics. D/w with at bedside. (2) Bipolar disorder Status: Acute Discussed With: Patient Problem Specific Plan: Consult Specialist Problem Text: Follow as per psychiatry. Currently receiving tegretol, ativan, prozac. Latuda has been discontinued. (3) CKD (chronic kidney disease) stage 4, GFR 15-29 ml/min Status: Chronic Discussed With: Patient Problem Specific Plan: Repeat Labs Problem Text: at baseline. (4) Hypothyroid Status: Chronic Discussed With: Patient Problem Specific Plan: Monitor Clinically Problem Text: continue synthroid. tsh wnl. Plan/VTE VTE Prophylaxis Ordered?: Yes Plan IVF: Initiate Diet: Continue Current Activity: Continue Current Pt and Family Services: Other PFS Diagnostics: Repeat Labs in AM Anticipated Discharge: Home, Home With Services Resume IV fluids for today. Recheck orthostatics. Psychiatry follow up. Patient and really do not want to return to [facility]. Dispo as per psych recs, discussed with psychiatry. H&P not available. VS, I&O, 24H, Fishbone Vital Signs/I&O Vital Signs Date Time Temp Pulse Resp B/P (MAP) Pulse Ox O2 Delivery O2 Flow Rate FiO2 09/17/16 06:00 84 137/65 (89) 91 123/62 (82) 102 122/84 (97) 09/17/16 06:00 98.3 17 94 Room Air I&O- Last 24 Hours up to 6 AM 09/17/16 05:59 Intake Total 2740 ml Output Total 3100 ml Balance -360 ml Laboratory Data 24H LABS Laboratory Tests 2 09/17/16 06:21: Anion Gap 9, Glomerular Filtration Rate 19.0L, Blood Urea Nitrogen 43H, Creatinine 2.72H, Sodium Level 145, Potassium Level 4.0, Chloride Level 117H, Carbon Dioxide Level 19L, Calcium Level 8.7, Aspartate Amino Transf (AST/SGOT) 13L, Alanine Aminotransferase (ALT/SGPT) 33, Alkaline Phosphatase 99, Total Bilirubin 0.3, Total Protein 6.8, Albumin 3.3, Albumin/Globulin Ratio 0.94L CBC/BMP Laboratory Tests 09/17/16 06:21 Red Blood Count 3.91 L, Mean Corpuscular Volume 99.0 H, Mean Corpuscular Hemoglobin 32.3, Mean Corpuscular Hemoglobin Concent 32.6, Red Cell Distribution Width 13.5, Calcium Level 8.7, Aspartate Amino Transf (AST/SGOT) 13 L, Alanine Aminotransferase (ALT/SGPT) 33, Alkaline Phosphatase 99, Total Bilirubin 0.3, Total Protein 6.8, Albumin 3.3 Microbiology Microbiology 09/15/16 Urine Culture, Received Pending BIBI CARTER MD September 17, 2016 08:51
[2016-09-17] MEDS: FLUoxetine 20 MG CAP PO SCH (08:53)
[2016-09-17] MEDS: carBAMazepine XR 200 MG TAB PO SCH ×2 (08:53→20:03)
[2016-09-17] MEDS: D5W 1,000 ML IV SCH ×2 (09:03→20:02)
[2016-09-17 14:00] VITALS: BP 114/70
--- NOTE | 2016-09-17 17:45 | MHCRPDOC ---
[facility] Consultation Consultation DATE OF CONSULTATION: 09/17/16 CONSULTATION REQUESTED BY: Dr. Ghosh REASON FOR CONSULTATION: Disposition and medications [facility]. RELEVANT HISTORY: The patient, a 60-year-old woman with a long history of bipolar disorder who is been primarily treated by Dr. Magdy Mckeon at [facility], presented with severe unremitting depression to the emergency room several weeks earlier. She had been admitted to the medical espinoza several times due to orthostatic hypotension. She was recently on this past Saturday was transferred from the inpatient mental health to the medical floor due to her orthostatic hypotension as she suffers from stage IV kidney failure. During her last admission she was tried on number of different medications including Latuda and her Prozac and carbamazepine were adjusted. Her final dose was reported to be 40 mg of Prozac and 200 mg of carbamazepine in the morning and 400 and night. She described that this did help her depression somewhat in that sheets. Some mild improvement. There was discussion about sending her to long- term treatment as her depression had not fully resolved after 2 weeks of treatment. The patient described that she was uninterested in this and wished to return to her outpatient treatment and felt that the inpatient mission was only making her symptoms worse after this time. She describes that since she is been admitted to the medical for that she is "much happier" and that she is able to spend time with her . 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 She described that she felt as though she was "mourning herself" on the inpatient espinoza having been there for so long around many other people who were "sicker than her". She described that currently her depression and anxiety were doing much better that she felt that she was no longer on inpatient unit and was able to socialize in a regular sense. PAST PSYCHIATRIC HISTORY: Please see Dr. Rainey's H&P from her previous admission, shortly she has been tried on a multitude of different antipsychotics mood stabilizers and antidepressants over the past [address] Noe. She is only had several admissions over her lifetime her last being in the . PAST MEDICAL HISTORY: Stage IV kidney failure FAMILY HISTORY: Please see Dr. Rainey's H&P PERSONAL AND SOCIAL HISTORY: The patient was born and raised in [place]. She described her childhood as generally good. Resides in: [place] and owns her own home with her Marital Status: for last 38 years to her Children: Has children but are currently not living with them Employment: Planning on being reemployed shortly in [employer] [facility] [place] emergency room SUBSTANCE ABUSE HISTORY: Denies any excessive alcohol use or tobacco/illicit drug use LEGAL HISTORY: Denies any trouble with the law MENTAL STATUS EXAMINATION: General: Well dressed with good hygiene Speech: Spontaneous and fluid Thought processes: Linear and logical Thought content: Future orientated focused on getting a job and resuming life outside the hospital Abstract reasoning, and computation: Intact Description of associations: Intact Description of abnormal or psychotic thoughts:Denies any suicidal or homicidal ideation. Denies any auditory or visual hallucinations. Does not appear to be responding to internal stimuli. Does not appear to be endorsing any bizarre or paranoid ideation. Judgment: Fair Insight: Fair Orientation: Alert and orientated 3 Recent and remote memory: Intact Attention span and concentration: Intact Fund of knowledge: Adequate Mood: "Great" Affect: Euthymic with a full range DIAGNOSIS: 1. Bipolar disorder, unspecified. PLAN: 1. Patient may be discharged home when she is medically stable as there is no indication for her to be readmitted to the inpatient psychiatric unit with no acute safety concerns. Her medications of Prozac and carbamazepine as mentioned above should be continued as an outpatient with follow-up with Dr. Burke Mckeon 2. The patient will need outpatient psychotherapy arranged at this would likely be a beneficial treatment for the patient given the efficacy of combined psychotherapy and medication management. Vital Signs Vital Signs Date Time Temp Pulse Resp B/P (MAP) Pulse Ox O2 Delivery O2 Flow Rate FiO2 09/17/16 14:00 98.3 78 18 114/70 (85) 97 Room Air Laboratory Data 24H Labs Laboratory Tests 2 09/17/16 06:21: Anion Gap 9, Glomerular Filtration Rate 19.0L, Blood Urea Nitrogen 43H, Creatinine 2.72H, Sodium Level 145, Potassium Level 4.0, Chloride Level 117H, Carbon Dioxide Level 19L, Calcium Level 8.7, Aspartate Amino Transf (AST/SGOT) 13L, Alanine Aminotransferase (ALT/SGPT) 33, Alkaline Phosphatase 99, Total Bilirubin 0.3, Total Protein 6.8, Albumin 3.3, Albumin/Globulin Ratio 0.94L Home Medications Current Medications Current Medications Acetaminophen (Tylenol Tab) 650 mg Q4HP PRN PO MILD PAIN OR FEVER; Start at 07:45; Stop 10/15/16 at 07:44 Bisacodyl (Dulcolax Tab) 5 mg DAILYPRN PRN PO CONSTIPATION; Start 09/15/16 at 07 :45; Stop 10/15/16 at 07:44 Calcitriol (Rocaltrol) 0.5 mcg Q48H PO Last administered on 09/16/16 20:42; Start 09/16/16 at 21:00; Stop 10/16/16 at 20:59 Carbamazepine (TEGretol XR) 200 mg DAILY PO Last administered on 09/17/16 08:53 ; Start 09/15/16 at 09:00; Stop 10/15/16 at 08:59 Carbamazepine (TEGretol XR) 400 mg QHS PO Last administered on 09/16/16 20:43; Start 09/15/16 at 21:00; Stop 10/15/16 at 20:59 Dextrose/Water 1,000 ml @ 75 mls/hr [id number] IV Last administered on 09/17/16 09:03; Start 09/17/16 at 08:00; Stop 10/17/16 at 07:59 Dextrose/Water 1,000 ml @ 100 mls/hr Q10H IV Last administered on 09/16/16 04: 27; Start 09/15/16 at 08:00; Stop 09/16/16 at 09:01; Status DC Fluoxetine HCl (PROzac) 40 mg DAILY PO Last administered on 09/17/16 08:53; Start 09/15/16 at 09:00; Stop 10/15/16 at 08:59 Heparin Sodium (Porcine) (Heparin) 5,000 units Q8H SC Last administered on 14:45; Start 09/15/16 at 06:00; Stop 09/20/16 at 05:59 Levothyroxine Sodium (Synthroid) 0.05 mg DAILY@0600 PO Last administered on 09/17 05:46; Start 09/16/16 at 06:00; Stop 10/16/16 at 05:59 Lorazepam (Ativan) 0.5 mg QHS PRN PO SLEEP; Start 09/15/16 at 07:45; Stop at 08:37; Status DC Lorazepam (Ativan) 2 mg QHS PO Last administered on 09/16/16 20:42; Start at 21:00; Stop 09/22/16 at 20:59 Lurasidone HCl (Latuda) 40 mg QPM PO ; Start 09/15/16 at 21:00; Stop 09/15/16 at 21:00; Status DC Sodium Chloride 1,000 ml @ 100 mls/hr Q10H IV ; Start 09/15/16 at 07:42; Stop at 07:50; Status DC Vitamin B Complex/ Vit C/Folic Acid (Nephro-Donnie Rx) 1 tab QHS PO Last administered on 09/16/16 20:42; Start 09/15/16 at 21:00; Stop 10/15/16 at 20:59 Vitamin D (Drisdol) 50,000 units Q14D@0900 PO Last administered on 09/16/16 09: 37; Start 09/16/16 at 09:00; Stop 10/16/16 at 08:59 Zolpidem Tartrate (Ambien Cr) 12.5 mg QHS PO Last administered on 09/16/16 20: 43; Start 09/15/16 at 21:00; Stop 09/22/16 at 20:59 Scheduled Calcitriol (Rocaltrol) 0.5 Mcg Cap, 0.5 MCG PO Q2D, (Reported) Carbamazepine (TEGretol XR) 200 Mg Drea, 200 MG PO DAILY, (Reported) Carbamazepine (TEGretol XR) 200 Mg Drea, 400 MG PO QHS, (Reported) Levothyroxine Sodium (Synthroid) 50 Mcg Tab, 50 MCG PO DAILY, (Reported) Lorazepam (Lorazepam) 0.5 Mg Tab, 0.5 MG PO QHS, (Reported) TAKES 0.5MG EVERY NIGHT BEFORE BED. THEN TAKES A SECOND TABLET WHEN/IF SHE GETS UP TO USE THE RESTROOM Lurasidone Hydrochloride (Latuda) 40 Mg Tab, 40 MG PO QPM, (Reported) Vitamin B Cmplx/Vitc/Folic Ac (Nephrocaps 1 mg) 1 Cap Cap, 1 CAP PO QHS, ( Reported) Vitamin D (Drisdol) 50,000 Unit Cap, 50,000 UNIT PO Q2WK, (Reported) Zolpidem Tartrate (Ambien Cr) 12.5 Mg Tab, 12.5 MG PO QHS, (Reported) Scheduled PRN Lorazepam (Lorazepam) 0.5 Mg Tab, 0.5 MG PO QHS PRN for SLEEP, (Reported) TAKES 0.5MG EVERY NIGHT BEFORE BED. THEN TAKES A SECOND TABLET WHEN/IF SHE GETS UP TO USE THE RESTROOM Allergies Coded Allergies: No Known Allergies (Unverified , 08/05/16) GME ATTESTATION My preceptor for this patient encounter was physically present in the building during the encounter and was fully available. As needed, all aspects of the patient interview, examination, medical decision making process, and medical care plan development were reviewed and approved by the preceptor. Preceptor is aware and concurs with the plan as stated in the body of this note and will attest to such by his/her cosignature. VIVIANA MORRIS DO September 17, 2016 17:45
[2016-09-17] MEDS: LORazepam 1 MG TAB PO SCH (20:03)
[2016-09-17] MEDS: NEPHRO-VIT TAB (NEPHROCAPS) PO SCH (20:03)
[2016-09-17] MEDS: zolPIDEM CR 6.25MG TABLET (AMBIEN CR) PO SCH (20:03)
[2016-09-18 06:00] VITALS: BP 127/70
[2016-09-18] MEDS: HEPARIN SOD (PORCINE) 5000 UNITS/ML VIAL SC SCH (06:24)
[2016-09-18] MEDS: LEVOTHYROXINE 0.05 MG TAB (50 MCG) PO SCH (06:25)
[2016-09-18 06:54] LABS: MEAN CORPUSCULAR HEMOGLOBIN 32.5 pg (27.0-33.0); MEAN CORPUSCULAR HGB CONC 32.9 g/dl (32.0-36.5); MEAN CORPUSCULAR VOLUME 98.9 fl (80.0-96.0); RED CELL DISTRIBUTION WIDTH 13.3 % (11.5-14.5); WHITE BLOOD COUNT 5.5 K/mm3 (4.0-10.0)
[2016-09-18 07:04] LABS: ALBUMIN 2.8 GM/DL (3.2-5.2); ALBUMIN/GLOBULIN RATIO 0.88 (1.00-1.93); BILIRUBIN,TOTAL 0.3 MG/DL (0.2-1.0); CALCIUM LEVEL 8.4 MG/DL (8.5-10.1); CREATININE FOR GFR 2.76 MG/DL (0.55-1.02); GLOMERULAR FILTRATION RATE 18.7 (>51)
[2016-09-18] MEDS: FLUoxetine 20 MG CAP PO SCH (09:01)
[2016-09-18] MEDS: carBAMazepine XR 200 MG TAB PO SCH (09:01)
[2016-09-18] MEDS: D5W 1,000 ML IV SCH (10:40)
[2016-09-18] MEDS ORDERED: FLUO20CA9 PO (12:32)
[2016-09-18] MEDS ORDERED: ATIV1TAB7 PO (12:32)
--- NOTE | 2016-09-19 13:29 | DSES ---
DATE OF ADMISSION: 09/15/2016 DATE OF DISCHARGE: 09/18/2016 SPECIALISTS INVOLVED IN DURING HER CARE: Included: Dr. Cotter DISCHARGE DIAGNOSES: Orthostatic hypotension. Bipolar disorder. Chronic kidney disease stage IV. Hypothyroidism. BRIEF SUMMARY OF HOSPITALIZATION: This is a 60-year-old who had been admitted to the inpatient mental health unit on September 03 and was being followed by the mental health service, but unfortunately developed an element of dehydration and what would appear to be orthostatic hypotension. She was admitted to the hospitalist service and was treated with IV fluids and monitored clinically. She was followed by psychiatry and improved without significant complications. On the day of discharge, she still feels depressed, but is no longer orthostatic and would like to go home. No complaints of pain, chest pain, or shortness of breath. Tolerating her diet. Temperature is 97.7, pulse 70, respiratory rate 16, blood pressure 127/70, 97% on room air. Awake, alert and pleasantly conversant. Somewhat flattened affect. Mucous membranes moist. Neck is supple. Breathing is symmetrical and rested. Heart is distant sounding. Normal S1 and S2. Radial pulses 2+. Creatinine is 2.76, BUN is 11. DISCHARGE INSTRUCTIONS: Include the followin. Followup with Dr. Curran within one week. 2. Followup with Dr. Holloway on 09/26/2016 at 2:30 p.m. 3. Continue fluoxetine 40 mg by mouth daily. 4. Lorazepam 2 mg by mouth daily at bedtime. 5. Calcitriol 0.5 mcg by mouth every two days. 6. Tegretol XR 200 mg by mouth daily and 400 mg by mouth at bedtime. 7. Synthroid 50 mcg by mouth daily. 8. Vitamin C/folic acid complex daily at bedtime. 9. Vitamin D 50,000 units every two weeks 10. Ambien CR 12.5 mg by mouth daily at bedtime. 11. Discontinue her previous dosing of Ativan and discontinue her Latuda.
== END 2016-09-18 13:58 | disposition home or self-care (01) | DRG 312 ==
LOC: M ED INP 06:37 → INTOOBSV 06:37 → M MSPAV 06:47 → OBSVTOIN 09-17 08:02
PROVIDERS: ADMIT Internal Medicine; ATTEND Internal Medicine
DX: I95.1 Orthostatic hypotension (principal); N18.4 Chronic kidney disease, stage 4 (severe); F31.9 Bipolar disorder, unspecified; E03.9 Hypothyroidism, unspecified; E86.0 Dehydration; Z79.899 Other long term (current) drug therapy

== ENCOUNTER 2016-11-20 12:57 | Inpatient (IN) | payer OTHER ==
[~2016-11-20] VITALS: Ht 160 cm; Wt 87.2 kg
[~2016-11-20 12:57] MED LIST changes: +ATIV1TAB7 PO; +CARB200T98 PO; +FLUO20CA19 PO; -LORA-376 PO; +LORA0.5T11 PO; +VITA1CAP40 PO; -VITA50003 PO; +ZYPR1TAB2 PO; -ZYPR7.5T10 PO
[2016-11-20 14:07] LABS: MEAN CORPUSCULAR HEMOGLOBIN 33.1 pg (27.0-33.0); MEAN CORPUSCULAR HGB CONC 33.9 g/dl (32.0-36.5); MEAN CORPUSCULAR VOLUME 97.6 fl (80.0-96.0); RED CELL DISTRIBUTION WIDTH 13.2 % (11.5-14.5); WHITE BLOOD COUNT 6.2 K/mm3 (4.0-10.0)
[2016-11-20 14:21] LABS: ALBUMIN 3.9 GM/DL (3.2-5.2); ALBUMIN/GLOBULIN RATIO 1.34 (1.00-1.93); ALKALINE PHOSPHATASE 112 U/L (45-117); ALT/SGPT 52 U/L (12-78); ANION GAP 10 MEQ/L (8-16); AST/SGOT 28 U/L (15-37); BILIRUBIN,DIRECT 0.1 MG/DL (0.0-0.2); BILIRUBIN,TOTAL 0.4 MG/DL (0.2-1.0); BLOOD UREA NITROGEN 50 MG/DL (7-18); CALCIUM LEVEL 9.9 MG/DL (8.8-10.2); CARBON DIOXIDE LEVEL 19 MEQ/L (21-32); CHLORIDE LEVEL 114 MEQ/L (98-107); CREATININE FOR GFR 3.06 MG/DL (0.55-1.02); GLOMERULAR FILTRATION RATE 16.6 (>45); GLUCOSE, FASTING 85 MG/DL (80-110); POTASSIUM SERUM 4.3 MEQ/L (3.5-5.1); SODIUM LEVEL 143 MEQ/L (136-145); TOTAL PROTEIN 6.8 GM/DL (6.4-8.2)
[2016-11-20] MEDS ORDERED: FLUO40CA PO (14:40)
[2016-11-20] MEDS ORDERED: ATIV1TAB10 PO (14:42)
[2016-11-20 14:55] LABS: METHADONE URINE NEGATIVE (NEGATIVE)
[2016-11-20 17:05] VITALS: BP 153/88
[2016-11-20] MEDS ORDERED: ACETAMINOPHEN TAB 650MG DOSE (2X325MG) PO PRN (18:00)
[2016-11-20] MEDS: carBAMazepine XR 200 MG TAB PO SCH (20:50)
[2016-11-20] MEDS: NEPHRO-VIT TAB (NEPHROCAPS) PO SCH (20:51)
[2016-11-20] MEDS: zolPIDEM CR 6.25MG TABLET (AMBIEN CR) PO SCH (20:51)
[2016-11-20] MEDS: LORazepam 1 MG TAB PO SCH (20:53)
[2016-11-21 06:19] VITALS: BP 99/68
[2016-11-21 06:20] VITALS: BP_SYST 122; BP_SYST 88; BP_SYST 99; BP_DIAS 58; BP_DIAS 62; BP_DIAS 68
[2016-11-21] MEDS: FLUoxetine 20 MG CAP PO SCH (08:34)
[2016-11-21] MEDS: carBAMazepine XR 200 MG TAB PO SCH ×2 (08:34→20:32)
--- NOTE | 2016-11-21 09:04 | HPEPDOC ---
Medical History and Physical Date of Admission Nov 20, 2016 at 15:37 History and Physical PCP: Dr Holloway Balloon Pilot Dr Suero ATTENDING: Dr. Deepak Maria HPI: 61yoF admitted to [facility] for Bipolar disorder with depression, being medically examined today. Pt states she has been under a lot of stress and "I' ve been very depressed". Admits she has not been eating or drinking well and spending a lot of time in bed at home. Denies any fevers, chills, weakness, fatigue, GOMES, CP, SOB, cough, palpitations, abdominal pain, N/V/D or changes in bowel or bladder habits. She states she has been forgetting to drink because it is "hard" with the stress and the medications she has been taking. 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 Tobacco use: Denies ETOH: Denies Illicit Drugs: Denies IV Drug Use: Denies Tattoos done unprofessionally: Denies FAMHX: Mother: , complications of diabetes Father: , brain tumor Siblings: 3 sisters, 4 brothers Alive, well. One brother with history of bipolar disorder. Children: Alive, well Unexpected deaths due to medical reasons: None. ROS: As noted in HPI, otherwise 11pt ROS of systems reviewed and remarkable for post menopausal. PE: GEN: 61yoF, appears stated age. Well-nourished, well developed. No acute distress. Alert and oriented x 3. Flat affect, avoids eye contact. Slow to answer questions. HEENT: Normocephalic, atraumatic. Pupils are equal, round, and reactive to light. Extraocular movements are intact. No nystagmus appreciated. Sclera are nonicteric. Conjunctiva without injection. Nose midline. Nasal turbinates without bogginess. EACs both patent BL. TMs both visualized and patricia with good cone of light, no bulging or erythema. No facial asymmetry. Moist mucous membranes. Dentition fair. Pharynx pink and moist, no cobblestoning. Neck supple , trachea midline. No lymphadenopathy or thyromegaly appreciated. CHEST: Regular rate and rhythm, +S1, +S2 LUNGS: Clear to auscultation bilaterally. No wheezes, rales, or rhonchi. Breathing appears symmetric and easy. Patient is speaking in full sentences. No accessory muscle use. ABD: Round, soft, non-tender, non-distended. +Bowel sounds throughout. No rebound or guarding. No costovertebral angle tenderness. EXT: Pulses 2+ bilaterally dorsalis pedis and radial. No lower extremity edema appreciated. SKIN: [place], dry, warm. Capillary refill <2sec. No rashes. NEURO: Alert and oriented x 3. Cranial nerves III-XII are intact. No focal deficits appreciated. EK09/15/16 SINUS RHYTHM WITH FIRST DEGREE AV BLOCK LOW QRS VOLTAGE IN PRECORDIAL LEADS SIMILAR TO 08/09/16 A&P: 61yoF admitted to [facility] for Bipolar disorder with depression. 1. Psych. Plan per Psychiatry. Update EKG. 2. Follow up with PCP on discharge. Follow-up with nephrology following discharge. 3. Poor oral intake. Patient states she was not eating or drinking well prior to admission. Recheck CMP/CBC. Check UA/UC. Encourage po fluids. Fall precautions, I/O, daily weight. Monitor daily BMP. 4. Chronic kidney disease stage IV. Follows with nephrology, Dr. Suero as outpatient. Previous baseline in the system appears to be 2.5 to 2.7. SCr 3.06 on admission. CMP today. Monitor daily BMP. Avoid any nephrotoxic medications. 5. Hypothyroidism. Continue levothyroxine 50 g daily. TSH is noted within normal limits. 6. History of orthostatic hypotension. Monitor orthostatic vital signs Q8. Patient is not feeling lightheadedness or dizziness at this time. Encourage po fluids. Daily weight, I/O. fall precautions. Caution advised with medications that can contribute to orthostatic hypotension including Ativan and Fluoxetine. 7. Vitamin D deficiency. Continue supplement. vitamin D level WNL 08/27. 8. History of First degree AVB. Update EKG. 9. Priya WHEELER present throughout exam. Vital Signs Vital Signs Date Time Temp Pulse Resp B/P (MAP) Pulse Ox O2 Delivery O2 Flow Rate FiO2 11/21/16 06:20 73 122/58 (79) 85 99/68 (78) 100 88/62 (71) 11/21/16 06:19 98.3 18 11/20/16 17:05 98 Room Air Laboratory Data Labs 24H Laboratory Tests 2 11/20/16 13:41: Anion Gap 10, Glomerular Filtration Rate 16.6L, Calcium Level 9.9, Aspartate Amino Transf (AST/SGOT) 28, Alanine Aminotransferase (ALT/SGPT) 52, Alkaline Phosphatase 112, Total Bilirubin 0.4, Direct Bilirubin 0.1, Total Protein 6.8, Albumin 3.9, Albumin/Globulin Ratio 1.34, Thyroid Stimulating Hormone (TSH) 0.620, Salicylates Level < 1.7L, Acetaminophen Level < 2.0L, Ethyl Alcohol Level < 0.003 11/20/16 14:26: Urine Amphetamines Screen NEGATIVE, Urine Benzodiazepines Screen NEGATIVE, Urine Opiates Screen NEGATIVE, Urine Methadone Screen NEGATIVE, Urine Barbiturates Screen NEGATIVE, Urine Phencyclidine Screen NEGATIVE, Urine Cocaine Metabolite Screen NEGATIVE, Urine Cannabinoids Screen NEGATIVE CBC/BMP Laboratory Tests 11/20/16 13:41 Red Blood Count 3.83 L, Mean Corpuscular Volume 97.6 H, Mean Corpuscular Hemoglobin 33.1 H, Mean Corpuscular Hemoglobin Concent 33.9, Red Cell Distribution Width 13.2 Home Medications Scheduled Calcitriol (Rocaltrol) 0.5 Mcg Cap, 0.5 MCG PO Q2D Carbamazepine (TEGretol XR) 200 Mg Drea, 200 MG PO DAILY Carbamazepine (TEGretol XR) 200 Mg Drea, 400 MG PO QHS Fluoxetine Hcl (Fluoxetine HCl) 40 Mg Cap, 40 MG PO DAILY Levothyroxine Sodium (Synthroid) 50 Mcg Tab, 50 MCG PO DAILY Lorazepam (Ativan) 0.5 Mg Tab, 1.5 MG PO QHS Vitamin B Cmplx/Vitc/Folic Ac (Nephrocaps 1 mg) 1 Cap Cap, 1 CAP PO QHS Vitamin D (Drisdol) 50,000 Unit Cap, 50,000 UNIT PO Q2WK Zolpidem Tartrate (Ambien Cr) 12.5 Mg Tab, 12.5 MG PO QHS Allergies Coded Allergies: Aspirin (Unverified Adverse Reaction, Unknown, kidney problems, 11/20/16) Marissa Bennett Nov 21, 2016 09:04
[2016-11-21 09:34] LABS: MEAN CORPUSCULAR HEMOGLOBIN 32.2 pg (27.0-33.0); MEAN CORPUSCULAR HGB CONC 33.2 g/dl (32.0-36.5); MEAN CORPUSCULAR VOLUME 96.9 fl (80.0-96.0); RED CELL DISTRIBUTION WIDTH 13.2 % (11.5-14.5); WHITE BLOOD COUNT 5.2 K/mm3 (4.0-10.0)
[2016-11-21 09:50] LABS: ALBUMIN 3.4 GM/DL (3.2-5.2); ALBUMIN/GLOBULIN RATIO 1.26 (1.00-1.93); BILIRUBIN,TOTAL 0.3 MG/DL (0.2-1.0); CALCIUM LEVEL 8.9 MG/DL (8.8-10.2); CREATININE FOR GFR 2.99 MG/DL (0.55-1.02); POTASSIUM SERUM 4.2 MEQ/L (3.5-5.1); TOTAL PROTEIN 6.1 GM/DL (6.4-8.2)
[2016-11-21] MEDS: LEVOTHYROXINE 50MCG TABLET (0.05MG) PO SCH (10:20)
[2016-11-21 11:53] VITALS: BP 88/57
[2016-11-21 11:55] VITALS: BP_SYST 95; BP_DIAS 61; BP_DIAS 62
[2016-11-21 18:00] VITALS: BP_SYST 101; BP_SYST 112; BP_SYST 130; BP_DIAS 63; BP_DIAS 64; BP_DIAS 80
[2016-11-21] MEDS: ARIPiprazole 2 MG TAB PO SCH (20:32)
[2016-11-21] MEDS: zolPIDEM CR 6.25MG TABLET (AMBIEN CR) PO SCH (20:32)
[2016-11-21] MEDS: CALCITRIOL 0.25 MCG CAP (S0169) PO SCH (20:33)
[2016-11-21] MEDS: LORazepam 1 MG TAB PO SCH (20:33)
[2016-11-21] MEDS: NEPHRO-VIT TAB (NEPHROCAPS) PO SCH (20:33)
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
[2016-11-22] MEDS: LEVOTHYROXINE 50MCG TABLET (0.05MG) PO SCH (06:06)
[2016-11-22 07:03] VITALS: BP_SYST 105; BP_SYST 114; BP_SYST 122; BP_DIAS 61; BP_DIAS 62; BP_DIAS 64
[2016-11-22] MEDS: FLUoxetine 20 MG CAP PO SCH (08:46)
[2016-11-22] MEDS: carBAMazepine XR 200 MG TAB PO SCH ×2 (08:46→21:26)
[2016-11-22 10:02] LABS: CALCIUM LEVEL 9.1 MG/DL (8.8-10.2); GLOMERULAR FILTRATION RATE 16.9 (>45); POTASSIUM SERUM 4.2 MEQ/L (3.5-5.1)
[2016-11-22 12:38] VITALS: BP 129/64
[2016-11-22 12:39] VITALS: BP 127/62
[2016-11-22 12:40] VITALS: BP 121/75
[2016-11-22 18:00] VITALS: BP_SYST 112; BP_SYST 114; BP_SYST 119; BP_DIAS 62; BP_DIAS 63; BP_DIAS 65
[2016-11-22] MEDS: LORazepam 1 MG TAB PO SCH (21:26)
[2016-11-22] MEDS: zolPIDEM CR 6.25MG TABLET (AMBIEN CR) PO SCH (21:26)
[2016-11-22] MEDS: NEPHRO-VIT TAB (NEPHROCAPS) PO SCH (21:26)
[2016-11-22] MEDS: ARIPiprazole 2 MG TAB PO SCH (21:26)
[2016-11-23] MEDS: LEVOTHYROXINE 50MCG TABLET (0.05MG) PO SCH (06:17)
[2016-11-23 07:10] VITALS: BP 113/55
[2016-11-23] MEDS: carBAMazepine XR 200 MG TAB PO SCH ×2 (08:18→21:08)
[2016-11-23] MEDS: FLUoxetine 20 MG CAP PO SCH (08:18)
[2016-11-23 08:40] LABS: CALCIUM LEVEL 9.2 MG/DL (8.8-10.2); CREATININE FOR GFR 3.07 MG/DL (0.55-1.02); GLOMERULAR FILTRATION RATE 16.5 (>45); POTASSIUM SERUM 4.1 MEQ/L (3.5-5.1)
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
--- NOTE | 2016-11-23 16:51 | ECGEPIP ---
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
--- NOTE | 2016-11-23 17:49 | MHIPNPDOC ---
[facility] Progress Note Progress Note DATE OF SERVICE: 11/23/16 INTERVAL HISTORY: Medication Side effects: Denies medication side effects Behavior: Norma has been attending groups, always respectful of patients and peers, without good attitude but insecure about her decisions Group Attendance: She has been attending groups Psychiatric Symptom change: She is still very depressed, with lots of guilt and anxiety, blames herself for her marriage, feels strong about wanting the divorce from her but doesn't want to hurt him, doesn't want to hurt her sons. She is very insecure, feels guilty, has inability to make decisions at this time. Th VITAL SIGNS: See below. NEW TEST RESULTS: See below CURRENT MEDICATIONS: See below. MENTAL STATUS EXAMINATION: General: Alert, oriented 3, pleasant, cooperative, with good hygiene and good report Speech: Spontaneous. She still has some thought blocking. Thought processes: Intact Thought content: Coherent, but full of guilt and doubts. Abstract reasoning, and computation: Fair Description of associations: Not loose Description of abnormal or psychotic thoughts: Denies auditory or visual hallucinations, denies thought delusions, denies suicidal or homicidal ideation. Judgment: Limited Insight: Limited Orientation: Oriented 3 Recent and remote memory: At times she has difficulty with recall due to severe depression Attention span and concentration: She has problems with focusing and concentrating because she's depressed. Fund of knowledge: Fair Mood: "I'm ruined" Affect: Anxious, depressed DIAGNOSES: 1. Bipolar disorder, most recent episode, depressed. 2. Dependent personality disorder. 3. . ASSESSMENT: Patient is very vulnerable, very sensitive, anxious and insecure at this time. She is extremely depressed and it is not the time for her to make decisions, but she must learn coping mechanisms with group attendance. Stronger she becomes at the inpatient mental health unit, the less vulnerable she will be. She says this morning she was dehydrated because she hasn't drank enough water. She needs to drink at least 12 cups of water and this issue was discussed with patient this afternoon. MANAGEMENT PLAN: Medications: Abilify 2.5 mg by mouth daily at bedtime, Tegretol 200 mg by mouth every morning and 400 mg by mouth daily at bedtime, Ativan 1.5 mg by mouth daily at bedtime, Prozac 40 mg by mouth daily at bedtime Psychotherapy: She has been attending groups Social: She has excellent social skills, interacts well with staff and peers. Misc: -- Disposition: Patient is to continue at the inpatient mental health unit for further stabilization with medications and psychotherapy. TIME SPENT: 50 minutes. Vital Signs Vital Signs Date Time Temp Pulse Resp B/P (MAP) Pulse Ox O2 Delivery O2 Flow Rate FiO2 11/23/16 07:10 97.5 66 16 113/55 (74) 11/20/16 17:05 98 Room Air Laboratory Data 24H Labs Laboratory Tests 2 11/23/16 07:36: Anion Gap 9, Glomerular Filtration Rate 16.5L, Blood Urea Nitrogen 54H, Creatinine 3.07H, Sodium Level 144, Potassium Level 4.1, Chloride Level 114H, Carbon Dioxide Level 21, Calcium Level 9.2 CBC/BMP Laboratory Tests 11/23/16 07:36 Calcium Level 9.2 Current Medications Current Medications Acetaminophen (Tylenol Tab) 650 mg Q6HP PRN PO PAIN / FEVER; Start 11/20/16 at 18:00; Stop 12/20/16 at 17:59 Aripiprazole (AbiLIFY) 2 mg QHS PO Last administered on 11/22/16 21:26; Start 11/21/16 at 21:00; Stop 11/23/16 at 17:18; Status DC Aripiprazole (AbiLIFY) 2.5 mg QHS PO ; Start 11/23/16 at 21:00; Stop 12/23/16 at 20:59 Calcitriol (Rocaltrol) 0.5 mcg Q48H PO Last administered on 11/21/16 20:33; Start 11/21/16 at 21:00; Stop 12/21/16 at 20:59 Carbamazepine (TEGretol XR) 200 mg DAILY PO Last administered on 11/23/16 08: 18; Start 11/21/16 at 09:00; Stop 12/21/16 at 08:59 Carbamazepine (TEGretol XR) 400 mg QHS PO Last administered on 11/22/16 21:26 ; Start 11/20/16 at 21:00; Stop 12/20/16 at 20:59 Fluoxetine HCl (PROzac) 40 mg DAILY PO Last administered on 11/23/16 08:18; Start 11/21/16 at 09:00; Stop 12/21/16 at 08:59 Home Med (Med Rec Complete!) ASDIRECTED XX ; Start 11/20/16 at 14:45; Stop 03/29 at 14:47; Status DC Levothyroxine Sodium (Synthroid) 50 mcg DAILY@06 PO Last administered on 06:17; Start 11/21/16 at 06:00; Stop 12/21/16 at 05:59 Lorazepam (Ativan) 1.5 mg QHS PO Last administered on 11/22/16 21:26; Start at 21:00; Stop 11/27/16 at 20:59 Vitamin B Complex/ Vit C/Folic Acid (Nephro-Donnie Rx) 1 tab QPM PO Last administered on 11/22/16 21:26; Start 11/20/16 at 21:00; Stop 12/20/16 at 20:59 Vitamin D (Drisdol) 50,000 units Q14D@09 PO ; Start 11/27/16 at 09:00; Stop at 08:59 Zolpidem Tartrate (Ambien Cr) 6.25 mg QHS PO Last administered on 11/22/16 21: 26; Start 11/22/16 at 21:00; Stop 11/29/16 at 20:59 Zolpidem Tartrate (Ambien Cr) 12.5 mg QHS PO Last administered on 11/21/16 20: 32; Start 11/20/16 at 21:00; Stop 11/22/16 at 16:33; Status DC Allergies Coded Allergies: Aspirin (Unverified Adverse Reaction, Unknown, kidney problems, 11/20/16) PORSHA ROBERTS MD Nov 23, 2016 17:49
[2016-11-23] MEDS: CALCITRIOL 0.25 MCG CAP (S0169) PO SCH (21:07)
[2016-11-23] MEDS: NEPHRO-VIT TAB (NEPHROCAPS) PO SCH (21:07)
[2016-11-23] MEDS: zolPIDEM CR 6.25MG TABLET (AMBIEN CR) PO SCH (21:08)
[2016-11-23] MEDS: LORazepam 1 MG TAB PO SCH (21:08)
[2016-11-23 21:20] VITALS: BP_SYST 110; BP_SYST 111; BP_SYST 112; BP_DIAS 55; BP_DIAS 60; BP_DIAS 61
[2016-11-24] MEDS: LEVOTHYROXINE 50MCG TABLET (0.05MG) PO SCH (06:01)
[2016-11-24 06:35] VITALS: BP_SYST 111; BP_SYST 120; BP_SYST 93; BP_DIAS 56; BP_DIAS 60; BP_DIAS 62
[2016-11-24 07:04] LABS: CALCIUM LEVEL 9.1 MG/DL (8.8-10.2); CREATININE FOR GFR 2.81 MG/DL (0.55-1.02); GLOMERULAR FILTRATION RATE 18.3 (>45); POTASSIUM SERUM 4.2 MEQ/L (3.5-5.1)
[2016-11-24] MEDS: carBAMazepine XR 200 MG TAB PO SCH ×2 (08:32→21:54)
[2016-11-24] MEDS: FLUoxetine 20 MG CAP PO SCH (08:32)
[2016-11-24 11:47] VITALS: BP_SYST 118; BP_SYST 119; BP_SYST 96; BP_DIAS 69; BP_DIAS 79
[2016-11-24 18:00] VITALS: BP_SYST 106; BP_SYST 116; BP_SYST 121; BP_DIAS 60; BP_DIAS 64; BP_DIAS 68
--- NOTE | 2016-11-24 19:31 | IPN ---
DATE: 11/24/2016 VITAL SIGNS: Temperature 97.5, pulse 64, respirations 16, blood pressure 119/79. CURRENT MEDICATIONS: - Abilify 2.5 mg at bedtime - Ambien CR 6.25 mg at bedtime - Tegretol 200 mg every morning, 400 mg at bedtime - Prozac 40 mg every morning HISTORY OF PRESENT ILLNESS: This is a 61-year-old white female with history of bipolar disorder. The patient still feels quite depressed; however, her son visited which was the highlight of her day. The patient does not like taking so many psychotropics. She is hopeful about the new medicine, Abilify, however. The patient has numerous stressors. She has marital issues, she has kidney failure and may need a kidney transplant. The patient encouraged to be active in the hospital milieu. MENTAL STATUS EXAMINATION: The patient is alert, oriented and cooperative. Affect is sad. Mood is moderately depressed. She is not voicing any suicidal ideation. She denies hearing any voices. No signs of paranoia or thought disorder. No signs of impulsivity. Grooming and hygiene are fair. No signs of organicity. IMPRESSION: 1. Bipolar disorder, depressed. 2. Dependent personality disorder. PLAN: Continue current psychotropics.
[2016-11-24] MEDS: zolPIDEM CR 6.25MG TABLET (AMBIEN CR) PO SCH (21:54)
[2016-11-24] MEDS: NEPHRO-VIT TAB (NEPHROCAPS) PO SCH (21:54)
[2016-11-24] MEDS: LORazepam 1 MG TAB PO SCH (21:54)
[2016-11-25] MEDS: LEVOTHYROXINE 50MCG TABLET (0.05MG) PO SCH (05:57)
[2016-11-25 06:35] VITALS: BP_SYST 107; BP_SYST 110; BP_SYST 119; BP_DIAS 52; BP_DIAS 58; BP_DIAS 77
[2016-11-25 06:39] LABS: CALCIUM LEVEL 8.9 MG/DL (8.8-10.2); CREATININE FOR GFR 2.68 MG/DL (0.55-1.02); GLOMERULAR FILTRATION RATE 19.3 (>45)
[2016-11-25] MEDS: FLUoxetine 20 MG CAP PO SCH (08:57)
[2016-11-25] MEDS: carBAMazepine XR 200 MG TAB PO SCH ×2 (08:57→21:15)
[2016-11-25 14:49] VITALS: BP 125/69
[2016-11-25 18:00] VITALS: BP_SYST 112; BP_SYST 114; BP_SYST 122; BP_DIAS 63; BP_DIAS 67; BP_DIAS 75
[2016-11-25] MEDS: CALCITRIOL 0.25 MCG CAP (S0169) PO SCH (21:15)
[2016-11-25] MEDS: zolPIDEM CR 6.25MG TABLET (AMBIEN CR) PO SCH (21:15)
[2016-11-25] MEDS: NEPHRO-VIT TAB (NEPHROCAPS) PO SCH (21:16)
[2016-11-25] MEDS: LORazepam 1 MG TAB PO SCH (21:16)
[2016-11-26 06:00] VITALS: BP_SYST 115; BP_SYST 96; BP_DIAS 51; BP_DIAS 52; BP_DIAS 60
[2016-11-26] MEDS: LEVOTHYROXINE 50MCG TABLET (0.05MG) PO SCH (06:00)
[2016-11-26 07:23] LABS: CALCIUM LEVEL 8.8 MG/DL (8.8-10.2); CREATININE FOR GFR 2.66 MG/DL (0.55-1.02); GLOMERULAR FILTRATION RATE 19.5 (>45); POTASSIUM SERUM 4.4 MEQ/L (3.5-5.1)
[2016-11-26] MEDS: carBAMazepine XR 200 MG TAB PO SCH ×2 (08:29→21:06)
[2016-11-26] MEDS: FLUoxetine 20 MG CAP PO SCH (08:29)
[2016-11-26 12:00] VITALS: BP_SYST 106; BP_SYST 113; BP_SYST 117; BP_DIAS 66; BP_DIAS 71
[2016-11-26 18:00] VITALS: BP 117/59
[2016-11-26] MEDS: NEPHRO-VIT TAB (NEPHROCAPS) PO SCH (21:06)
[2016-11-26] MEDS: zolPIDEM CR 6.25MG TABLET (AMBIEN CR) PO SCH (21:06)
[2016-11-26] MEDS: LORazepam 1 MG TAB PO SCH (21:06)
[2016-11-27] MEDS: LEVOTHYROXINE 50MCG TABLET (0.05MG) PO SCH (06:18)
[2016-11-27 06:27] VITALS: BP 132/68
--- NOTE | 2016-11-27 06:29 | IPN ---
DATE: 11/26/2016 ADDENDUM This is an addendum to previous dictation done on 11/26/2016. ASSESSMENT: The patient is still very confused. She does not know what decision to take, she is afraid of her , afraid of not being understood by her son, Abdullahi, when they have been very supportive of her. Part of her indecision and her guilt is secondary to her depression, and hopefully, she will be able to overcome this problem with updating her medications. She will benefit from attending groups, and she has been attending groups, to learn coping skills and learn how to deal with this. Will followup and monitor closely. She will have to continue ingesting fluids; that is one of her major problems because she forgets about drinking water and nursing staff and this health science writer have been reminding her to drink water because otherwise, she could have complications due to her kidney disease. Will followup.
--- NOTE | 2016-11-27 06:37 | IPN ---
DATE: 11/26/2016 I evaluated 61-year-old female with history of long standing psychiatric illness, bipolar disorder. She has been recently admitted to the hospital for severe depression. She was hospitalized by the end of July and then she was transferred to the medical floor because she became dehydrated and the patient has chronic kidney disease stage IV. Currently the patient continues to be severely depressed because she has been having marital problems and she has been considering her of 38 years. She feels unable to handle her life because he has been taking over throughout the years and she feels that she is not capable of handing the finances and other aspects of her life. She has been denying suicidal and homicidal thoughts, she denies altered perceptions and delusional thoughts but she continues to report feeling depressed. Vital signs stable. New rest results are remarkable for her glomerular filtration rate which is decreased, is 19.5 which tells us that she has stage IV chronic renal disease and her chloride is high, her creatinine is high, it is 2.66. The other labs are unremarkable, they are within normal limits. CURRENT MEDICATIONS: Currently she is on: - Abilify 2.5 mg by mouth daily at bedtime - Ambien CR 6.25 mg by mouth at bedtime - fluoxetine 40 mg by mouth daily - carbamazepine XR or Tegretol XR 400 mg by mouth daily at bedtime - carbamazepine XR or Tegretol XR 200 mg by mouth daily Today patient agrees to a reduction in her Ativan medication at night. She was on 1.5 mg and today she agreed to decrease it to 1 mg at bedtime. She is also receiving Levothyroxine for her hypothyroidism, vitamin B complex, vitamin D, calcitriol or Rocaltrol. MENTAL STATUS EXAMINATION: The patient was alert, oriented times three, pleasant, cooperative with good hygiene and good rapport. Her speech is slow, soft spoken. Her thought process is intact and her thought content is about anxious thoughts regarding her separation/divorce from her . Regarding abnormal or psychotic thoughts, she denies suicidal or homicidal ideation, denies psychotic thoughts and denies thought delusions. She denies auditory and visual hallucinations. Description of associations: Associations are good, there is no loosening of associations. Judgment and insight are very limited, she continues to blame herself for everything that has happened in her marriage throughout the years. She is oriented times three, her recent and remote memory are fair, attention and concentration are fair, language is normal, fund of knowledge is adequate. Mood is sad/depressed and affect is sad/congruent to affect. DIAGNOSIS: Bipolar disorder, most recent episode depressed.
[2016-11-27 07:05] VITALS: BP_SYST 120; BP_SYST 137; BP_DIAS 67; BP_DIAS 82
[2016-11-27 07:19] LABS: MEAN CORPUSCULAR HEMOGLOBIN 32.6 pg (27.0-33.0); MEAN CORPUSCULAR HGB CONC 34.2 g/dl (32.0-36.5); MEAN CORPUSCULAR VOLUME 95.2 fl (80.0-96.0); RED CELL DISTRIBUTION WIDTH 13.4 % (11.5-14.5); WHITE BLOOD COUNT 6.5 K/mm3 (4.0-10.0)
[2016-11-27 07:45] LABS: CALCIUM LEVEL 9.1 MG/DL (8.8-10.2); CREATININE FOR GFR 2.54 MG/DL (0.55-1.02); GLOMERULAR FILTRATION RATE 20.5 (>45); POTASSIUM SERUM 4.3 MEQ/L (3.5-5.1)
[2016-11-27] MEDS: carBAMazepine XR 200 MG TAB PO SCH ×2 (08:11→21:02)
[2016-11-27] MEDS: FLUoxetine 20 MG CAP PO SCH (08:11)
[2016-11-27] MEDS ORDERED: MOM 30ML SUSPENSION UDC PO ONE (09:00)
[2016-11-27] MEDS ORDERED: VITAMIN D 50,000 UNITS CAPSULE (ERGOCALCIFEROL 1.25MG) PO SCH (09:00)
[2016-11-27 12:23] VITALS: BP 120/73
[2016-11-27 18:00] VITALS: BP 129/79
[2016-11-27] MEDS: NEPHRO-VIT TAB (NEPHROCAPS) PO SCH (21:02)
[2016-11-27] MEDS: CALCITRIOL 0.25 MCG CAP (S0169) PO SCH (21:02)
--- NOTE | 2016-11-27 21:23 | IPN ---
DATE: 11/27/2016 A 61-year-old female with a history of (1) bipolar disorder, depressive episode, (2) dependent personality disorder. SUBJECTIVE: The patient reports feeling very confused because she does not know what to do, if she divorces or if she does not divorce her . OBJECTIVE: The patient looks very depressed, disheveled, sad. She is cooperative and pleasant, reports that she does not have any suicidal or homicidal ideation. Denies auditory and visual hallucinations and denies thought delusions. Admits feeling guilty for her failed marriage, for many other things, she says that she hates herself for allowing her to come to this point of depression and satisfaction in life. The patient's thought process is coherent, thought content, as it was stated above, is guilt ridden. Her speech is soft spoken, coherent. Her memory, recent and remote, is limited because the patient is severely depressed. Her attention and concentration are poor, she frequently loses the trail of the conversation. She has thought blocking. She is oriented times three, her judgment and insight are limited and her impulse control is good. ASSESSMENT: The patient continues to be very depressed, her family situation and her marriage situation does not help her to get better. It is worrisome that she continues not to drink fluids despite multiple recommendations for her to remember to drink water. Her creatinine and BUN are elevated, and she needs to continue drinking fluids so that she will not decompensate. PLAN: The patient has agreed to increase Abilify to 5 mg by mouth nightly. She complained of not being able to sleep very well last night, and for that reason, Ambien CR will be left on today but as soon as she begins to stabilize and Abilify starts to work, she will feel more sleepy and she will not need Ambien or Ativan. The plan is to discontinue these two last medications (Ambien and Ativan). The patient needs a lot of support at this time. She has received encouragement to continue attending groups from all the staff. Will followup.
[2016-11-27] MEDS: zolPIDEM CR 6.25MG TABLET (AMBIEN CR) PO SCH (22:02)
[2016-11-27] MEDS: LORazepam 1 MG TAB PO SCH (22:02)
[2016-11-28] MEDS: LEVOTHYROXINE 50MCG TABLET (0.05MG) PO SCH (06:24)
[2016-11-28 06:30] VITALS: BP_SYST 126; BP_SYST 135; BP_SYST 145; BP_DIAS 69; BP_DIAS 72; BP_DIAS 75
[2016-11-28 07:21] LABS: CALCIUM LEVEL 8.6 MG/DL (8.8-10.2); CREATININE FOR GFR 2.33 MG/DL (0.55-1.02); GLOMERULAR FILTRATION RATE 22.7 (>45); POTASSIUM SERUM 4.1 MEQ/L (3.5-5.1)
[2016-11-28] MEDS: carBAMazepine XR 200 MG TAB PO SCH ×2 (08:18→21:39)
[2016-11-28] MEDS: FLUoxetine 20 MG CAP PO SCH (08:18)
[2016-11-28 18:06] VITALS: BP 128/68
[2016-11-28 18:09] VITALS: BP 138/77
[2016-11-28 18:10] VITALS: BP 118/77
[2016-11-28] MEDS: LORazepam 1 MG TAB PO SCH (21:38)
[2016-11-28] MEDS: zolPIDEM CR 6.25MG TABLET (AMBIEN CR) PO SCH (21:39)
[2016-11-28] MEDS: NEPHRO-VIT TAB (NEPHROCAPS) PO SCH (21:39)
[2016-11-29] MEDS: LEVOTHYROXINE 50MCG TABLET (0.05MG) PO SCH (05:55)
[2016-11-29 06:29] VITALS: BP 111/66
[2016-11-29] MEDS: carBAMazepine XR 200 MG TAB PO SCH ×2 (08:25→21:58)
[2016-11-29] MEDS: FLUoxetine 20 MG CAP PO SCH (08:26)
[2016-11-29 09:15] VITALS: BP_SYST 85; BP_SYST 97; BP_SYST 99; BP_DIAS 58; BP_DIAS 59; BP_DIAS 60
--- NOTE | 2016-11-29 09:56 | IPN ---
DATE: 11/28/2016 I evaluated this 61-year-old female with history of: 1. Bipolar disorder, depressive episode. 2. Dependent personality disorder. SUBJECTIVE: The patient continues to describe guilty feelings and confusion about her current situation. OBJECTIVE: The patient looks depressed with psychomotor retardation, but slightly less depressed than yesterday. She is cooperative with the interview, dressed in personal clothes, with fair eye contact. Her speech is soft, sparse, but coherent. Her thought process is intact, her thought content is coherent. Her mood is sad and depressed and her affect is congruent to mood. She denies homicidal or suicidal ideation, denies auditory and visual hallucinations, and denies delusions. Attention and concentration are poor, she loses track of what she was just saying and then excuses herself for having forgotten what she was talking about. Abstract thinking and computation are difficult for her at this time because she cannot focus or concentrate really well. She is oriented times three, her judgment and insight are limited and her impulse control is good. ASSESSMENT: The patient continues to be depressed, she says that because she was feeling so badly yesterday that is why she did not drink a lot of water. She says this morning she has been drinking more water and she also has been reminded by different staff members it is important for her and her kidneys. She says she was not able to fall asleep easily last night because she had way too many things on her mind and worries about her present situation. No medications were adjusted today. PLAN: Will continue with the same medications and will observe closely. Expect medication, Abilify, will boost her antidepressant effect and hopefully she will be able to sleep without Ambien CR and without Ativan. Will monitor closely and will followup.
[2016-11-29 17:14] VITALS: BP_SYST 118; BP_SYST 120; BP_SYST 130; BP_DIAS 75; BP_DIAS 78; BP_DIAS 84
[2016-11-29 18:00] VITALS: BP_SYST 105; BP_SYST 118; BP_SYST 131; BP_DIAS 63; BP_DIAS 66; BP_DIAS 71
[2016-11-29] MEDS: zolPIDEM CR 6.25MG TABLET (AMBIEN CR) PO SCH (21:41)
[2016-11-29] MEDS: CALCITRIOL 0.25 MCG CAP (S0169) PO SCH (21:41)
[2016-11-29] MEDS: LORazepam 1 MG TAB PO SCH (21:41)
[2016-11-29] MEDS: NEPHRO-VIT TAB (NEPHROCAPS) PO SCH (21:58)
[2016-11-30] MEDS: LEVOTHYROXINE 50MCG TABLET (0.05MG) PO SCH (06:06)
[2016-11-30 06:23] VITALS: BP_SYST 129; BP_SYST 135; BP_SYST 99; BP_DIAS 67; BP_DIAS 69; BP_DIAS 75
[2016-11-30 07:31] LABS: CALCIUM LEVEL 9.1 MG/DL (8.8-10.2); CREATININE FOR GFR 2.45 MG/DL (0.55-1.02); GLOMERULAR FILTRATION RATE 21.4 (>45); POTASSIUM SERUM 4.2 MEQ/L (3.5-5.1)
[2016-11-30] MEDS: carBAMazepine XR 200 MG TAB PO SCH ×2 (08:15→21:59)
[2016-11-30] MEDS: FLUoxetine 20 MG CAP PO SCH (08:15)
[2016-11-30] MEDS: NYSTATIN 100,000 UNITS/GM TOPICAL PWD 15 GM TOP SCH ×2 (10:35→21:59)
[2016-11-30 12:00] VITALS: BP 130/70
--- NOTE | 2016-11-30 12:48 | MHIPNPDOC ---
[facility] Progress Note Progress Note DATE OF SERVICE: 11/30/16 HISTORY: 61-year-old female with history of bipolar disorder, depressive episode , dependent personality disorder. Patient is being assessed today in lieu of patient's regular provider who is out today. Patient is observed to be sitting upright in bed in room, calmly, repeatedly repositioning paperwork on bed which she states is related to discharge planning. Patient rates current anxiety level as 2/10, depression 8/10, attributes symptoms to "divorce and figuring out my discharge and how to get my life together after I get out of here." Patient denies suicidal and homicidal ideation, denies auditory and visual hallucinations, denies urge to engage in self-injurious behavior. Patient states current medication regimen is effective, indicates she experienced lightheadedness and dizziness yesterday, denies experiencing today, was educated on fall safety precautions and strategies for medicating fall risk. Patient denies symptoms of pain and presents with no signs of acute distress at time of interaction. VITAL SIGNS: See below. NEW TEST RESULTS: 11/30/16 lab results indicated elevated chloride, BUN, creatinine, low GFR. ALIS has ordered labs, has ordered follow-up labs, and is monitoring. CURRENT MEDICATIONS: See below. MENTAL STATUS EXAMINATION: Patient is 61-year-old female who is pleasant and cooperative, easily engaged, exhibits adequate personal hygiene, is dressed in hospital clothing, appears stated age Speech: Is of slow rate, low volume, normal rhythm, coherent Language skills are adequate Thought processes including: Intermittent thought blocking is noted, some tangentiality, generally linear, logical Thought content: Rational, logical, generally organized, some tangentiality, perseverative to preparing for discharge Abstract reasoning, and computation: Requires further evaluation Description of associations: Are generally intact Description of abnormal or psychotic thoughts: Denies suicidal and homicidal ideation, denies auditory and visual hallucinations, does not appear to be responding to internal stimuli, does not endorse bizarre or paranoid ideation, denies preoccupation with violence Judgment: Limited Insight: Limited Orientation: A and O 3 Recent and remote memory: Requires further evaluation Attention span and concentration: Appear limited Language: Within normal limits Fund of knowledge: Appears adequate Mood: "Well, I'm okay, but I'm worried, I'm thinking about divorce and wearing an ago after I'm discharged. Affect: Constricted, brightens appropriately at times, congruent with mood ASSESSMENT: Patient appears to be adjusting to unit, is easily engaged for assessment purposes, is pleasant and cooperative, is observed to be visible on unit and attending some groups, engages well with staff, and presents with no behavior management challenges. Baby Nurse attempted to discuss subject of utilizing sleep medications every other day instead of daily, patient indicates she would like to talk with regular provider when regular provider returns. Patient indicates current medication regimen is effective and she denies medication side effects including lightheadedness. Patient indicates she is sleeping well, reports some improvement to energy level and concentration and focus, indicates appetite is stable. Patient indicates today she is "struggling to accept a divorce," adds discharge plan is to discharge to her son's home and participate in outpatient psychotherapy and medication management. MANAGEMENT PLAN: Continue current medication regimen Patient placed on fall precautions, recent lightheadedness and dizziness Maintain safety precautions Patient to attend groups and participate in unit programming to develop coping strategies Engage patient in discharge planning process and arrange meeting with support system to ensure safe discharge planning when appropriate Patient to follow up with PCM upon discharge TIME SPENT: 25 minutes TIME SPENT: minutes. Vital Signs Vital Signs Date Time Temp Pulse Resp B/P (MAP) Pulse Ox O2 Delivery O2 Flow Rate FiO2 11/30/16 06:23 71 135/75 (95) 80 129/69 (89) 92 99/67 (78) 11/29/16 18:00 16 11/29/16 18:00 96.9 11/28/16 08:13 Room Air Laboratory Data 24H Labs Laboratory Tests 2 11/30/16 06:43: Anion Gap 8, Glomerular Filtration Rate 21.4L, Blood Urea Nitrogen 44H, Creatinine 2.45H, Sodium Level 144, Potassium Level 4.2, Chloride Level 113H, Carbon Dioxide Level 23, Calcium Level 9.1 CBC/BMP Laboratory Tests 11/30/16 06:43 Calcium Level 9.1 Current Medications Current Medications Acetaminophen (Tylenol Tab) 650 mg Q6HP PRN PO PAIN / FEVER; Start 11/20/16 at 18:00; Stop 12/20/16 at 17:59 Aripiprazole (AbiLIFY) 2 mg QHS PO Last administered on 11/22/16t 21:26; Start 11/21/16 at 21:00; Stop 11/23/16 at 17:18; Status DC Aripiprazole (AbiLIFY) 2.5 mg QHS PO Last administered on 11/26/16 21:06; Start 11/23/16 at 21:00; Stop 11/27/16 at 11:46; Status DC Aripiprazole (AbiLIFY) 5 mg QHS PO Last administered on 11/29/16 21:41; Start 11/27/16 at 21:00; Stop 12/27/16 at 20:59 Calcitriol (Rocaltrol) 0.5 mcg Q48H PO Last administered on 11/29/16 21:41; Start 11/21/16 at 21:00; Stop 12/21/16 at 20:59 Carbamazepine (TEGretol XR) 200 mg DAILY PO Last administered on 11/30/16 08: 15; Start 11/21/16 at 09:00; Stop 12/21/16 at 08:59 Carbamazepine (TEGretol XR) 400 mg QHS PO Last administered on 11/29/16 21:58 ; Start 11/20/16 at 21:00; Stop 12/20/16 at 20:59 Fluoxetine HCl (PROzac) 40 mg DAILY PO Last administered on 11/30/16 08:15; Start 11/21/16 at 09:00; Stop 12/21/16 at 08:59 Home Med (Med Rec Complete!) ASDIRECTED XX ; Start 11/20/16 at 14:45; Stop 03/29 at 14:47; Status DC Levothyroxine Sodium (Synthroid) 50 mcg DAILY@06 PO Last administered on 06:06; Start 11/21/16 at 06:00; Stop 12/21/16 at 05:59 Lorazepam (Ativan) 1 mg QHS PO Last administered on 11/29/16 21:41; Start at 21:00; Stop 12/03/16 at 20:59 Lorazepam (Ativan) 1.5 mg QHS PO Last administered on 11/25/16 21:16; Start at 21:00; Stop 11/26/16 at 18:33; Status DC Nystatin (Mycostatin Powder, Nystop) 1 dose BID TOP Last administered on 10:35; Start 11/30/16 at 09:00; Stop 12/30/16 at 08:59 Vitamin B Complex/ Vit C/Folic Acid (Nephro-Donnie Rx) 1 tab QPM PO Last administered on 11/29/16 21:58; Start 11/20/16 at 21:00; Stop 12/20/16 at 20:59 Vitamin D (Drisdol) 50,000 units Q14D@09 PO Last administered on 11/27/16 08: 11; Start 11/27/16 at 09:00; Stop 12/27/16 at 08:59 Zolpidem Tartrate (Ambien Cr) 6.25 mg QHS PO Last administered on 11/29/16 21: 41; Start 11/22/16 at 21:00; Stop 12/05/16 at 20:59 Zolpidem Tartrate (Ambien Cr) 12.5 mg QHS PO Last administered on 11/21/16 20: 32; Start 11/20/16 at 21:00; Stop 11/22/16 at 16:33; Status DC Allergies Coded Allergies: Aspirin (Unverified Adverse Reaction, Unknown, kidney problems, 11/20/16) Emma Sheth Nov 30, 2016 12:48
--- NOTE | 2016-11-30 17:17 | IPN ---
DATE: 11/29/2016 61-year-old female with history of (1) bipolar disorder, depressive episode, (2) dependent personality disorder. SUBJECTIVE: The patient reports no guilty feelings, vague, but worries about the future, about what is she going to do after she gets discharged from the hospital if she does not want to go live with her , she has not decided if she will go and live with her son or with her family in [place]. OBJECTIVE: Alert, oriented times three, cooperative with interview, pleasant, dressed in personal clothes. Her mood and affect are slightly brighter, she smiles occasionally. Her speech is soft spoken, coherent and fluent, but occasionally she gets thought blocking and she losing her trial of her thoughts and conversation. Thought process: Occasional thought blocking, otherwise organized. Thought content: Coherent. Abnormal or psychotic thoughts the patient denies. Homicidal ideation denies. Denies suicidal ideation. Denies auditory or visual hallucinations. Denies thought delusions. Attention and concentration are fair. Memory recent and remote are improving. Fund of knowledge is average. Her judgment and insight are limited. Her impulse control is good. ASSESSMENT: The patient is slowly beginning to show signs of improvement, her mood and affect are a little bit brighter, she smiles and she has started today that she feels hopeful, which is a big event in her illness. PLAN: Will continue same medications. Will discuss with her tomorrow the possibility of using her sleeping medications every other day instead of every day. The idea is to discontinue ambient CR and Ativan. Will monitor closely and will followup.
[2016-11-30 18:00] VITALS: BP_SYST 115; BP_SYST 121; BP_SYST 124; BP_DIAS 68; BP_DIAS 72; BP_DIAS 75
[2016-11-30] MEDS: zolPIDEM CR 6.25MG TABLET (AMBIEN CR) PO SCH (21:59)
[2016-11-30] MEDS: NEPHRO-VIT TAB (NEPHROCAPS) PO SCH (21:59)
[2016-11-30] MEDS: LORazepam 1 MG TAB PO SCH (21:59)
[2016-11-30 22:00] VITALS: BP_SYST 114; BP_SYST 127; BP_SYST 129; BP_DIAS 62; BP_DIAS 68; BP_DIAS 77
[2016-12-01] MEDS: LEVOTHYROXINE 50MCG TABLET (0.05MG) PO SCH (06:05)
[2016-12-01 07:00] VITALS: BP_SYST 110; BP_SYST 111; BP_SYST 113; BP_DIAS 58; BP_DIAS 62; BP_DIAS 64
[2016-12-01] MEDS: carBAMazepine XR 200 MG TAB PO SCH ×2 (08:16→21:24)
[2016-12-01] MEDS: FLUoxetine 20 MG CAP PO SCH (08:16)
[2016-12-01] MEDS: NYSTATIN 100,000 UNITS/GM TOPICAL PWD 15 GM TOP SCH ×2 (08:16→21:25)
[2016-12-01 18:00] VITALS: BP 122/67
[2016-12-01] MEDS: LORazepam 1 MG TAB PO SCH (21:24)
[2016-12-01] MEDS: NEPHRO-VIT TAB (NEPHROCAPS) PO SCH (21:24)
[2016-12-01] MEDS: CALCITRIOL 0.25 MCG CAP (S0169) PO SCH (21:24)
[2016-12-01] MEDS: zolPIDEM CR 6.25MG TABLET (AMBIEN CR) PO SCH (21:24)
[2016-12-02] MEDS: LEVOTHYROXINE 50MCG TABLET (0.05MG) PO SCH (06:20)
[2016-12-02 06:23] VITALS: BP_SYST 127; BP_SYST 132; BP_DIAS 77; BP_DIAS 80; BP_DIAS 84
[2016-12-02] MEDS: FLUoxetine 20 MG CAP PO SCH (08:31)
[2016-12-02] MEDS: NYSTATIN 100,000 UNITS/GM TOPICAL PWD 15 GM TOP SCH ×2 (08:31→21:00)
[2016-12-02] MEDS: carBAMazepine XR 200 MG TAB PO SCH ×2 (08:31→21:07)
[2016-12-02 18:00] VITALS: BP_SYST 128; BP_SYST 132; BP_DIAS 67; BP_DIAS 74; BP_DIAS 79
[2016-12-02] MEDS: zolPIDEM CR 6.25MG TABLET (AMBIEN CR) PO SCH (21:06)
[2016-12-02] MEDS: NEPHRO-VIT TAB (NEPHROCAPS) PO SCH (21:07)
[2016-12-02] MEDS: LORazepam 1 MG TAB PO SCH (21:07)
[2016-12-03] MEDS: LEVOTHYROXINE 50MCG TABLET (0.05MG) PO SCH (06:23)
[2016-12-03 07:08] VITALS: BP 124/71
[2016-12-03 07:10] LABS: CALCIUM LEVEL 9.2 MG/DL (8.8-10.2); CREATININE FOR GFR 2.33 MG/DL (0.55-1.02); GLOMERULAR FILTRATION RATE 22.7 (>45); POTASSIUM SERUM 4.1 MEQ/L (3.5-5.1)
[2016-12-03] MEDS: carBAMazepine XR 200 MG TAB PO SCH (08:53)
[2016-12-03] MEDS: FLUoxetine 20 MG CAP PO SCH (08:53)
[2016-12-03] MEDS: NYSTATIN 100,000 UNITS/GM TOPICAL PWD 15 GM TOP SCH (08:53)
[2016-12-03] MEDS ORDERED: AMBI6.25 PO (14:21)
[2016-12-03] MEDS ORDERED: ATIV1TAB10 PO (14:25)
[2016-12-03] MEDS ORDERED: ARIP5TA PO (14:25)
[2016-12-03] MEDS ORDERED: LORazepam 0.5 MG TAB PO SCH (21:00)
--- NOTE | 2016-12-03 22:22 | MHDSPDOC ---
[facility] Discharge Summary Discharge Summary DATE OF ADMISSION: Nov 20, 2016 at 15:37 DATE OF DISCHARGE: Dec 03, 2016 at 15:20 DISCHARGE DIAGNOSES: 1. Bipolar disorder, most recent episode, depressed REASON FOR ADMISSION: Patient was admitted after she was referred by her outpatient psychiatrist, Dr. Curran because the patient had become extremely depressed and had a ongoing crisis with her , patient wanted the divorce from him. She was hopless, helpless and had feelings of worthlessness. CONSULTANTS INVOLVED: None TREATMENT AND PROGRESS ON THE UNIT : Patient was extremely depressed on her marital problem. She blamed herself constantly for everything, refused to see her for a couple of days, worried and blamed herself for the possibility of becoming a burden to her children or to her family, felt she would not be able to handle her life because her had taken over every single aspect of her life. [place] confused, and complained of not being able to make decisions. She was started on Abilify, Ativan and Ambien were decrease ( Ativan to 1 mg and Ambien to 6.25 mgs). She did attend groups and showed some improvement at the Unit. Last November 29 she said she was hopeful and since November 28, she was looking more positive, with a brighter mood and affect, since she was able to smile a few times. She denied suicidal ideation through the course of this hospitalization, denied thought delusions and denied auditory or visual hallucinations. HOSPITAL COURSE: Patient had a good response to medications but she will need custodial psychotherapy to overcome her co dependency and her insecurities. She has lived for 38 years with her who has belittled her and she has allowe him to take control of every aspect of her life, now she regrets it and is mad at herself for allowing him to do that. She has the support of her sons and family and will be discharged to the care of her son, who moved from another location to be with her and take care of her. DISCHARGE ASSESSMENT: Patient was not homicidal, not suicidal and to psychotic at the time of her discharge. A meeting was held with one of her sons who said he was willing to bring her home with him and take care of her while she made up her mind and decided if she really wanted to divorce her . MENTAL STATUS EXAMINATION ON DISCHARGE: Patient is a 61-year old female, who is alert, oriented x 3, cooperative, pleasant. Speech is Normal. Language skills are Fair. Thought processes including: Intact. Thought content: Anious about the future. Abstract reasoning, and computation: Fair. Description of associations: Fair. Description of abnormal or psychotic thoughts: Denies suicidal or homicidal ideation, denies auditory or visual hallucinations, denies thought delusions. Judgment: Improved. Insight: Improved. Orientation to Oriented x 3. Recent and remote memory: Intact. Attention span and concentration: Fair. Language: Normal. Fund of knowledge: Fair. Mood: Less depressed and less anxious. Affect: Congruent to mood. MEDICATIONS ON DISCHARGE: - Abilify 5 mgs PO QHS for mood stabilization/antidepressant booster. - Prozac 40 mgs PO QD for depression. - Tegretol XR 400 mgs PO QHS and 200 mgs PO QAM for mood stabilization -Ativan 0.5 mgs. PO QHS -Ambien CR 6.25 mgs. PO QHS. Her son was indicated to start her on a tapering dose, 6.25 mgs. every other night for the first week, 6.25 mgs. PO q48 hours for the second week, q72 hours the third week, q 96 hours the fourth week, q120 hours the fifth week, until she can tolerate the discontinuation. PLAN/FOLLOWUP ARRANGEMENTS: Patient will follow up at [facility] for outpatient treatment. The amount of time spent in the coordination of care for this patient was approximately 40 minutes. Vital Signs/I&Os Vital Signs Date Time Temp Pulse Resp B/P (MAP) Pulse Ox O2 Delivery O2 Flow Rate FiO2 12/03/16 07:08 97.9 101 17 124/71 (88) 11/28/16 08:13 Room Air Laboratory Data Labs 24H Laboratory Tests 2 12/03/16 06:44: Anion Gap 8, Glomerular Filtration Rate 22.7L, Blood Urea Nitrogen 40H, Creatinine 2.33H, Sodium Level 142, Potassium Level 4.1, Chloride Level 112H, Carbon Dioxide Level 22, Calcium Level 9.2 CBC/BMP Laboratory Tests 12/03/16 06:44 Calcium Level 9.2 Medications Scheduled Aripiprazole (Aripiprazole) 5 Mg Tab, 5 MG PO QHS for BIPOLAR DISORDER, #7 Calcitriol (Rocaltrol) 0.5 Mcg Cap, 0.5 MCG PO Q2D, (Reported) Carbamazepine (TEGretol XR) 200 Mg Drea, 200 MG PO DAILY, (Reported) Carbamazepine (TEGretol XR) 200 Mg Drea, 400 MG PO QHS, (Reported) Fluoxetine Hcl (Fluoxetine HCl) 40 Mg Cap, 40 MG PO DAILY, (Reported) Levothyroxine Sodium (Synthroid) 50 Mcg Tab, 50 MCG PO DAILY, (Reported) Lorazepam (Ativan) 0.5 Mg Tab, 0.5 MG PO QHS for ANXIETY, #7 Vitamin B Cmplx/Vitc/Folic Ac (Nephrocaps 1 mg) 1 Cap Cap, 1 CAP PO QHS, ( Reported) Vitamin D (Drisdol) 50,000 Unit Cap, 50,000 UNIT PO Q2WK, (Reported) Zolpidem Tartrate (Ambien Cr) 6.25 Mg Tab, 6.25 MG PO QHS for INSOMNIA, #7 Allergies Coded Allergies: Aspirin (Unverified Adverse Reaction, Unknown, kidney problems, 11/20/16) PORSHA ROBERTS MD Dec 03, 2016 22:22
== END 2016-12-03 15:20 | disposition home or self-care (01) | DRG 885 ==
LOC: M ED 12:57 → M ED INP 15:37 → M PSY 17:01
PROVIDERS: ADMIT Psychiatry & Neurology Psychiatry; ATTEND Psychiatry & Neurology Psychiatry
DX: F31.9 Bipolar disorder, unspecified (principal); N18.4 Chronic kidney disease, stage 4 (severe); Z79.899 Other long term (current) drug therapy; Z88.6 Allergy status to analgesic agent; E03.9 Hypothyroidism, unspecified; E55.9 Vitamin D deficiency, unspecified; I44.0 Atrioventricular block, first degree

== ENCOUNTER 2016-12-11 15:18 | Inpatient (IN) | payer OTHER ==
[~2016-12-11 15:18] MED LIST changes: +AMBI6.25 PO; +ARIP5TA PO; +FLUO40CA PO
[2016-12-11 15:51] LABS: MEAN CORPUSCULAR HEMOGLOBIN 32.7 pg (27.0-33.0); MEAN CORPUSCULAR HGB CONC 33.4 g/dl (32.0-36.5); MEAN CORPUSCULAR VOLUME 97.9 fl (80.0-96.0); RED CELL DISTRIBUTION WIDTH 13.4 % (11.5-14.5); WHITE BLOOD COUNT 8.4 K/mm3 (4.0-10.0)
[2016-12-11 16:45] LABS: ALBUMIN 3.5 GM/DL (3.2-5.2); ALBUMIN/GLOBULIN RATIO 1.13 (1.00-1.93); ALKALINE PHOSPHATASE 100 U/L (45-117); ALT/SGPT 40 U/L (12-78); ANION GAP 12 MEQ/L (8-16); AST/SGOT 19 U/L (15-37); BILIRUBIN,DIRECT < 0.1 MG/DL (0.0-0.2); BILIRUBIN,TOTAL 0.3 MG/DL (0.2-1.0); BLOOD UREA NITROGEN 42 MG/DL (7-18); CALCIUM LEVEL 9.6 MG/DL (8.8-10.2); CARBON DIOXIDE LEVEL 21 MEQ/L (21-32); CHLORIDE LEVEL 117 MEQ/L (98-107); CREATININE FOR GFR 2.97 MG/DL (0.55-1.02); GLOMERULAR FILTRATION RATE 17.1 (>45); GLUCOSE, FASTING 129 MG/DL (80-110); POTASSIUM SERUM 4.9 MEQ/L (3.5-5.1); SODIUM LEVEL 150 MEQ/L (136-145); TOTAL PROTEIN 6.6 GM/DL (6.4-8.2)
[2016-12-11] MEDS ORDERED: ABIL1TAB11 PO (18:08)
[2016-12-11] MEDS ORDERED: AMBI6.25 PO (18:08)
[2016-12-11] MEDS ORDERED: ATIV1TAB10 PO (18:08)
[2016-12-11 18:25] LABS: METHADONE URINE NEGATIVE (NEGATIVE)
[2016-12-11] MEDS ORDERED: NS 1,000 ML IV ONE (18:45)
[2016-12-11 23:28] LABS: CREATININE FOR GFR 3.01 MG/DL (0.55-1.02); GLOMERULAR FILTRATION RATE 16.9 (>45)
[2016-12-11 23:36] LABS: POTASSIUM SERUM 5.3 MEQ/L (3.5-5.1)
[2016-12-12] MEDS ORDERED: ACETAMINOPHEN TAB 650MG DOSE (2X325MG) PO PRN (01:45)
[2016-12-12] MEDS ORDERED: MAALOX 30 ML SUSP *UDC PO PRN (01:45)
[2016-12-12] MEDS ORDERED: MOM 30ML SUSPENSION UDC PO PRN (01:45)
[2016-12-12 02:35] VITALS: BP 138/82
[2016-12-12] MEDS: LEVOTHYROXINE 50MCG TABLET (0.05MG) PO SCH (06:07)
[2016-12-12 07:00] VITALS: BP_SYST 138; BP_SYST 144; BP_DIAS 66; BP_DIAS 82
--- NOTE | 2016-12-12 08:55 | HPEPDOC ---
Medical History and Physical Date of Admission Dec 12, 2016 at 01:00 History and Physical PCP: Dr Holloway Trawl Net Maker Dr Suero ATTENDING: Dr. Deepak Maria HPI: 61yoF admitted to [facility] for Bipolar disorder, being medically examined today. Pt has difficulty speaking. Responds occasionally with 1-2 word answers, but does not respond to many questions. When asked about her bruises B/L forearms and LEs she states only "I tried to commit suicide" but offers not further details. States only that "I cannot keep up". Pt with poor po intake, received 1 liter IVF in ED. History is taken from the chart. Denies any fevers, chills, weakness, fatigue, GOMES, CP, SOB, cough, palpitations, abdominal pain, N/V/D or changes in bowel or bladder habits. 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 Tobacco use: Denies ETOH: Denies Illicit Drugs: Denies IV Drug Use: Denies Tattoos done unprofessionally: Denies FAMHX: Mother: , complications of diabetes Father: , brain tumor Siblings: 3 sisters, 4 brothers Alive, well. One brother with history of bipolar disorder. Children: Alive, well Unexpected deaths due to medical reasons: None. ROS: As noted in HPI, otherwise 11pt ROS of systems reviewed and remarkable for post menopausal. PE: GEN: 61yoF, appears stated age. Well developed. No acute distress. Alert. Avoids eye contact. Unable to answer questions or 1-2 word answers. HEENT: Normocephalic, atraumatic. Pupils are equal, round, and reactive to light. Extraocular movements are intact. No nystagmus appreciated. Sclera are nonicteric. Conjunctiva without injection. Nose midline. Nasal turbinates without bogginess. EACs both patent BL. TMs both visualized and patricia with good cone of light, no bulging or erythema. No facial asymmetry. Dry mucous membranes. Dentition fair. Pharynx pink and dry appearing. Neck supple, trachea midline. No lymphadenopathy or thyromegaly appreciated. CHEST: Regular rate and rhythm, +S1, +S2 LUNGS: Clear to auscultation bilaterally. No wheezes, rales, or rhonchi. Breathing appears symmetric and easy. Patient is speaking in full sentences. No accessory muscle use. ABD: Round, soft, non-tender, non-distended. +Bowel sounds throughout. No rebound or guarding. No costovertebral angle tenderness. EXT: Pulses 2+ bilaterally dorsalis pedis and radial. No lower extremity edema appreciated. SKIN: [place], dry, warm. Capillary refill <2sec. No rashes. Multiple ecchymotic areas B/L forearms and LEs. NEURO: Alert and oriented x 3. Cranial nerves III-XII are intact. No focal deficits appreciated. EK11/22/16 NSR LA conduction defect 1 degree AV block Leftward axis Incomplete RBBB No change from 09/15/16 A&P: 61yoF admitted to [facility] for Bipolar disorder. 1. Psych. Plan per Psychiatry. Update EKG. 2. Follow up with PCP on discharge. Follow-up with nephrology following discharge. 3. H/O Poor oral intake. S/P 1 liter IVF 12/11/16 in ED. Hypernatremia slightly improved. Recheck CMP/CBC. Check UA/UC. Encourage po fluids. Fall precautions, I /O, daily weight. Monitor daily BMP. Nutrition consult. 4. Chronic kidney disease stage IV. Follows with nephrology, Dr. Suero as outpatient. Previous baseline in the system appears to be 2.5 to 2.7. CMP today. Monitor daily BMP. Avoid any nephrotoxic medications. 5. Hypothyroidism. Continue levothyroxine 50 g daily. TSH is noted within normal limits. 6. History of orthostatic hypotension. Monitor orthostatic vital signs Q8. Patient is not feeling lightheadedness or dizziness at this time. Encourage po fluids. Daily weight, I/O. fall precautions. Caution advised with medications that can contribute to orthostatic hypotension. 7. Vitamin D deficiency. Continue supplement. vitamin D level WNL 08/27. 8. History of First degree AVB. Update EKG. 9. Priya WHEELER present throughout exam. Vital Signs Vital Signs Date Time Temp Pulse Resp B/P (MAP) Pulse Ox O2 Delivery O2 Flow Rate FiO2 12/12/16 07:00 98.4 108 20 138/82 (100) 12/12/16 02:35 Room Air 12/12/16 02:05 99 Laboratory Data Labs 24H Laboratory Tests 2 12/11/16 15:40: Anion Gap 12, Glomerular Filtration Rate 17.1L, Calcium Level 9.6, Aspartate Amino Transf (AST/SGOT) 19, Alanine Aminotransferase (ALT/SGPT) 40, Alkaline Phosphatase 100, Total Bilirubin 0.3, Direct Bilirubin < 0.1, Total Protein 6.6 , Albumin 3.5, Albumin/Globulin Ratio 1.13, Thyroid Stimulating Hormone (TSH) 1.150, Salicylates Level < 1.7L, Acetaminophen Level < 2.0L, Ethyl Alcohol Level < 0.003 12/11/16 17:24: Urine Amphetamines Screen NEGATIVE, Urine Benzodiazepines Screen NEGATIVE, Urine Opiates Screen NEGATIVE, Urine Methadone Screen NEGATIVE, Urine Barbiturates Screen NEGATIVE, Urine Phencyclidine Screen NEGATIVE, Urine Cocaine Metabolite Screen NEGATIVE, Urine Cannabinoids Screen NEGATIVE 12/11/16 23:04: Anion Gap 14, Glomerular Filtration Rate 16.9L, Calcium Level 10.0, Blood Urea Nitrogen 41H, Creatinine 3.01H, Sodium Level 152H, Potassium Level 5.3H, Chloride Level 120H, Carbon Dioxide Level 18L 12/12/16 08:06: CBC/BMP Laboratory Tests 12/11/16 15:40 Red Blood Count 3.68 L, Mean Corpuscular Volume 97.9 H, Mean Corpuscular Hemoglobin 32.7, Mean Corpuscular Hemoglobin Concent 33.4, Red Cell Distribution Width 13.4 12/11/16 23:04 Calcium Level 10.0 Home Medications Scheduled Aripiprazole (Abilify) 5 Mg Tab, 5 MG PO QHS Calcitriol (Rocaltrol) 0.5 Mcg Cap, 0.5 MCG PO Q2D Carbamazepine (TEGretol XR) 200 Mg Drea, 200 MG PO DAILY Carbamazepine (TEGretol XR) 200 Mg Drea, 400 MG PO QHS Fluoxetine Hcl (Fluoxetine HCl) 40 Mg Cap, 40 MG PO DAILY Levothyroxine Sodium (Synthroid) 50 Mcg Tab, 50 MCG PO DAILY Lorazepam (Ativan) 0.5 Mg Tab, 0.5 MG PO QHS Vitamin B Cmplx/Vitc/Folic Ac (Nephrocaps 1 mg) 1 Cap Cap, 1 CAP PO QHS Vitamin D (Drisdol) 50,000 Unit Cap, 50,000 UNIT PO Q2WK Zolpidem Tartrate (Ambien Cr) 6.25 Mg Tab, 6.25 MG PO QHS Allergies Coded Allergies: Aspirin (Unverified Adverse Reaction, Unknown, kidney problems, 11/20/16) Marissa Bennett Dec 12, 2016 08:55
[2016-12-12] MEDS: FLUoxetine 20 MG CAP PO SCH (09:00)
[2016-12-12] MEDS: carBAMazepine XR 200 MG TAB PO SCH ×2 (09:00→20:57)
[2016-12-12 09:02] LABS: CALCIUM LEVEL 9.9 MG/DL (8.8-10.2); CARBAMAZEPINE (TEGRETOL) LEVEL 4.6 UG/ML (4.0-10.0); CREATININE FOR GFR 2.87 MG/DL (0.55-1.02); GLOMERULAR FILTRATION RATE 17.8 (>45); POTASSIUM SERUM 4.4 MEQ/L (3.5-5.1)
[2016-12-12] MEDS ORDERED: LORazepam 0.5 MG TAB PO STA (12:19)
[2016-12-12] MEDS ORDERED: OLANZapine ORAL DISINTEGRATING TAB 5MG PO STA (12:20)
[2016-12-12] MEDS ORDERED: diphenhydrAMINE INJ 50MG/ML VIAL (J1200) IM STA (12:47)
[2016-12-12] MEDS ORDERED: LORazepam 2 MG/ML VIAL (J2060) IM STA (12:47)
[2016-12-12] MEDS ORDERED: HALOPERIDOL 5 MG/ML VIAL (J1630) IM STA (12:47)
[2016-12-12] MEDS ORDERED: LORazepam 2 MG/ML VIAL (J2060) As Ordered ONE (12:50)
[2016-12-12] MEDS ORDERED: HALOPERIDOL 5 MG/ML VIAL (J1630) As Ordered ONE (12:50)
[2016-12-12] MEDS ORDERED: diphenhydrAMINE INJ 50MG/ML VIAL (J1200) As Ordered ONE (12:51)
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
[2016-12-12 13:52] VITALS: BP 116/68
[2016-12-12 14:08] VITALS: BP 132/69
[2016-12-12 15:50] VITALS: BP 116/68
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
[2016-12-12] MEDS: OLANZapine ORAL DISINTEGRATING TAB 5MG PO PRN (20:57)
[2016-12-12] MEDS: zolPIDEM CR 6.25MG TABLET (AMBIEN CR) PO PRN (20:57)
[2016-12-12] MEDS: NEPHRO-VIT TAB (NEPHROCAPS) PO SCH (20:57)
[2016-12-12] MEDS ORDERED: LORazepam 0.5 MG TAB PO SCH (21:00)
[2016-12-13] MEDS: LEVOTHYROXINE 50MCG TABLET (0.05MG) PO SCH (06:18)
[2016-12-13 06:25] VITALS: BP_SYST 115; BP_SYST 144; BP_DIAS 63; BP_DIAS 65
[2016-12-13 07:25] LABS: CALCIUM LEVEL 8.9 MG/DL (8.8-10.2); CREATININE FOR GFR 3.24 MG/DL (0.55-1.02); GLOMERULAR FILTRATION RATE 15.5 (>45); POTASSIUM SERUM 4.1 MEQ/L (3.5-5.1)
[2016-12-13] MEDS: carBAMazepine XR 200 MG TAB PO SCH ×2 (08:50→20:43)
[2016-12-13] MEDS: FLUoxetine 20 MG CAP PO SCH (08:50)
[2016-12-13] MEDS: CALCITRIOL 0.25 MCG CAP (S0169) PO SCH (08:51)
--- NOTE | 2016-12-13 09:24 | IPNPDOC ---
Date Seen The patient was seen on 12/13/16. Progress Note HPI: 61yoF admitted to [facility] for Bipolar disorder, being medically examined today. Pt has difficulty speaking. Responds occasionally with 1-2 word answers, but does not respond to many questions. When asked about her bruises B/L forearms and LEs she states only "I tried to commit suicide" but offers not further details. States only that "I cannot keep up". Pt with h/o poor po intake, received 1 liter IVF in ED on admission. Today, nursing reports that the Pt ate and drank well for breakfast. She is currently on her third glass of water. Pt still with difficulty answering questions. History is taken from the chart. Denies any fevers, chills, weakness, fatigue, GOMES, CP, SOB, cough, palpitations, abdominal pain, N/V/D or changes in bowel or bladder habits. PMHx: Chronic kidney disease stage IV Hypothyroidism Bipolar disorder Vitamin D deficiency H/O orthostatic hypotension PSHX: thyroid nodule- benign PE: GEN: 61yoF, appears stated age. Well developed. No acute distress. Alert. Avoids eye contact. Unable to answer questions or 1-2 word answers. HEENT: Normocephalic, atraumatic. Pupils are equal, round, and reactive to light. Extraocular movements are intact. No nystagmus appreciated. Sclera are nonicteric. Conjunctiva without injection. Nose midline. Nasal turbinates without bogginess. EACs both patent BL. TMs both visualized and patricia with good cone of light, no bulging or erythema. No facial asymmetry. Dry mucous membranes. Dentition fair. Pharynx pink and dry appearing. Neck supple, trachea midline. No lymphadenopathy or thyromegaly appreciated. CHEST: Regular rate and rhythm, +S1, +S2 LUNGS: Clear to auscultation bilaterally. No wheezes, rales, or rhonchi. Breathing appears symmetric and easy. Patient is speaking in full sentences. No accessory muscle use. ABD: Round, soft, non-tender, non-distended. +Bowel sounds throughout. No rebound or guarding. No costovertebral angle tenderness. EXT: Pulses 2+ bilaterally dorsalis pedis and radial. No lower extremity edema appreciated. SKIN: [place], dry, warm. Capillary refill <2sec. No rashes. Multiple ecchymotic areas B/L forearms and LEs. NEURO: Alert and oriented x 3. Cranial nerves III-XII are intact. No focal deficits appreciated. EK11/22/16 NSR LA conduction defect 1 degree AV block Leftward axis Incomplete RBBB No change from 09/15/16 A&P: 61yoF admitted to [facility] for Bipolar disorder. 1. Psych. Plan per Psychiatry. EKG pending 2. Follow up with PCP on discharge. Follow-up with nephrology following discharge. 3. H/O Poor oral intake. S/P 1 liter IVF 12/11/16 in ED. Hypernatremia noted, Na 151 which is unchanged. Continue with daily BMP. UA/UC pending. Continue to frequently encourage po fluids. Fall precautions, I/O, daily weight. Monitor daily BMP. Nutrition consult. 4. Chronic kidney disease stage IV. Follows with nephrology, Dr. Suero as outpatient. Previous baseline in the system appears to be 2.5 to 2.7. 3.24 today. Monitor daily BMP. Avoid any nephrotoxic medications. Continue to encourage po intake. 5. Hypothyroidism. Continue levothyroxine 50 g daily. TSH is noted within normal limits. 6. History of orthostatic hypotension. Monitor orthostatic vital signs Q8. Patient is not feeling lightheadedness or dizziness at this time. Encourage po fluids. Daily weight, I/O. fall precautions. Caution advised with medications that can contribute to orthostatic hypotension. 7. Vitamin D deficiency. Continue supplement. vitamin D level WNL 08/27. 8. History of First degree AVB. EKG pending. 9. Staff member Hiren and JARON present throughout exam. VS, I&O, 24H, Fishbone Vital Signs/I&O Vital Signs Date Time Temp Pulse Resp B/P (MAP) Pulse Ox O2 Delivery O2 Flow Rate FiO2 12/13/16 06:25 89 144/63 (90) 112 115/65 (82) 12/12/16 15:50 97.5 20 94 Room Air I&O- Last 24 Hours up to 6 AM 12/13/16 06:00 Intake Total 1310 ml Balance 1310 ml Laboratory Data 24H LABS Laboratory Tests 2 12/13/16 06:51: Anion Gap 13, Glomerular Filtration Rate 15.5L, Blood Urea Nitrogen 48H, Creatinine 3.24H, Sodium Level 151H, Potassium Level 4.1, Chloride Level 118H, Carbon Dioxide Level 20L, Calcium Level 8.9 CBC/BMP Laboratory Tests 12/13/16 06:51 Calcium Level 8.9 Marissa Bennett Dec 13, 2016 09:24
[2016-12-13] MEDS: OLANZapine ORAL DISINTEGRATING TAB 5MG PO PRN (10:38)
[2016-12-13] MEDS ORDERED: LORazepam 1 MG TAB PO STA (13:58)
[2016-12-13] MEDS ORDERED: LORazepam 1 MG TAB As Ordered ONE (14:00)
--- NOTE | 2016-12-13 14:41 | MHIPNPDOC ---
[facility] Progress Note Progress Note DATE OF SERVICE: 12/13/16 HISTORY: Patient is a 61-year-old female with history of bipolar disorder, was recently admitted to the hospital and according to history, her patient reported that the emergency room "she's regressing". Patient was recently discharged from the inpatient mental health unit and on that previous admission , she was tormented about making a decision regarding her long lasting unhappy marriage, whether she should divorce her or not. She had been discharged to one of her sons but she was able to communicate today that her had been at their son's house, that her had insisted in applying for disability and going to the social Security Office but while she was answering the questions to staff, he kept telling her what to say, she blame anxious because it was hard to listen to the staff member and pay attention to him. she also said she had hidden her medications in the backyard because she didn't want to come back to the [facility]. She wouldn't respond when this video game script writer told her that hiding her medications and not taking them was not going to help her stay away from the [facility]. She said, nervously that she had lied to me many times during her previous hospitalization, she said she should have left her house and then, her thoughts became blocked once again and she couldn't express her thoughts once again. This video game script writer spoke to her , Mr. Santiago, this afternoon. He was informed she is not ready for visitors, told him I don't have an MARY ANNE but we, as a team, will make our best to make our best to help her overcome this crisis. he reported she had never been aggressive, but this time, she was and was full of guilt and remorse, kept telling him she had said bad things about him and he had told her many times she didn't need to fel guilty. He repeated " I love that woman, doctor". VITAL SIGNS: See below. NEW TEST RESULTS: Her chemistry shows a Na level of 151, creatinine of 3.24, BUN of 48 and glomerular filtration rate of 15.5 and Potassium of 4.1 . Patient continues to be resistant to drinking water, as she has done during previous hospitalizations. CURRENT MEDICATIONS: See below. MENTAL STATUS EXAMINATION: Patient is a 61-year old female, who is alert, less confused than yesterday, more verbal, dressed in hospital clothes, disheveled. Speech: Is soft spoken, spontaneous at times. There is thought blocking, so she stops speaking for moments, as she looses her train of thoughts. Language skills are fair. Thought processes including: Slightly tangential and disorganized. Thought content: Anxious, remorseful, full of guilt Abstract reasoning, and computation: Unable to assess due to patient's mental status, he is not able to focus at this time Description of associations: Loose at times. Description of abnormal or psychotic thoughts: She is still responding to internal stimuli, she is still delusional, she still reports suicidal ideation. Judgment: Poor. Insight: Poor. Orientation: Oriented to place and person Recent and remote memory: Unable to assess at this time, patient is still a little bit confused Attention span and concentration: Limited. Language: Fair. Fund of knowledge: Unable to assess at this time. Mood: Depressed/anxious. Affect: Congruent to mood. DIAGNOSES: 1. Bipolar disorder, depressed episode. 2. Dependent personality disorder. ASSESSMENT: Patient still very vulnerable, very frail, continues to blame herself for everything and anything, feels guilty, conflicted about her marriage. Patient needs to continue being supervised and monitored closely since she has tried to kill herself in front of her 2 sons and her by a wrapping the seatbelt around her neck the day she was brought into the emergency room, yesterday she wrapped her bedsheet twice around her neck and then grabbed a pill to smother herself. She had tried doing the same thing with the pillow in the emergency room. Patient is extremely depressed and psychotic. MANAGEMENT PLAN: Patient will continue on the same medications, Ativan will be added to her scheduled medications, because nursing staff reports when she starts getting anxious she talks about killing herself once again again. This video game script writer spoke to her to explain to him no visitors are allowed at this time. Will call him to let them know when it is appropriate for him and his sons to come over and visit her. Will continue to encourage her to drink plenty of fluids TIME SPENT: 35 minutes. Vital Signs Vital Signs Date Time Temp Pulse Resp B/P (MAP) Pulse Ox O2 Delivery O2 Flow Rate FiO2 12/13/16 06:25 89 144/63 (90) 112 115/65 (82) 12/12/16 15:50 97.5 20 94 Room Air Laboratory Data 24H Labs Laboratory Tests 2 12/13/16 06:51: Anion Gap 13, Glomerular Filtration Rate 15.5L, Blood Urea Nitrogen 48H, Creatinine 3.24H, Sodium Level 151H, Potassium Level 4.1, Chloride Level 118H, Carbon Dioxide Level 20L, Calcium Level 8.9 12/13/16 09:45: Urine Appearance CLEAR, Urine Color YELLOW, Urine pH 5.0, Urine Specific [place] 1.006, Urine Protein NEGATIVE, Urine Glucose (UA) NEGATIVE, Urine Ketones NEGATIVE, Urine Urobilinogen 0.2, Urine Bilirubin NEGATIVE, Urine Leukocyte Esterase 1+H, Urine Blood NEGATIVE, Urine Nitrite NEGATIVE, Urine WBC (Auto) 7H, Urine RBC (Auto) 3, Urine Hyaline Casts (Auto) 0, Urine Bacteria ( Auto) 1+H, Urine Squamous Epithelial Cells 3, Urine Mucus (Auto) SMALL, Urine Sperm (Auto) CBC/BMP Laboratory Tests 12/13/16 06:51 Calcium Level 8.9 Current Medications Current Medications Acetaminophen (Tylenol Tab) 650 mg Q6HP PRN PO HEADACHE or DISCOMFORT Last administered on 12/13/16 10:38; Start 12/12/16 at 01:45; Stop 01/11/17 at 01:44 Al Hydrox/Mg Hydrox/Simethicone (Mylanta) 30 ml Q4HP PRN PO HEARTBURN/ INDIGESTION; Start 12/12/16 at 01:45; Stop 01/11/17 at 01:44 Aripiprazole (AbiLIFY) 5 mg QHS PO Last administered on 12/12/16 20:57; Start 12/12/16 at 21:00; Stop 01/11/17 at 20:59 Calcitriol (Rocaltrol) 0.5 mcg Q48H PO Last administered on 12/13/16 08:51; Start 12/13/16 at 09:00; Stop 01/12/17 at 08:59 Carbamazepine (TEGretol XR) 200 mg DAILY PO Last administered on 12/13/16 08:50 ; Start 12/12/16 at 09:00; Stop 01/11/17 at 08:59 Carbamazepine (TEGretol XR) 400 mg QHS PO Last administered on 12/12/16 20:57; Start 12/12/16 at 21:00; Stop 01/11/17 at 20:59 Diphenhydramine HCl (Benadryl) 50 mg STAT STAT IM Last administered on 12:53; Start 12/12/16 at 12:47; Stop 12/12/16 at 12:50; Status DC Fluoxetine HCl (PROzac) 40 mg DAILY PO Last administered on 12/13/16 08:50; Start 12/12/16 at 09:00; Stop 01/11/17 at 08:59 Haloperidol (Haldol) 10 mg STAT STAT IM Last administered on 12/12/16 12:53; Start 12/12/16 at 12:47; Stop 12/12/16 at 12:50; Status DC Home Med (Med Rec Complete!) ASDIRECTED XX ; Start 12/11/16 at 18:15; Stop at 18:17; Status DC Levothyroxine Sodium (Synthroid) 50 mcg DAILY@06 PO Last administered on 06:18; Start 12/12/16 at 06:00; Stop 01/11/17 at 05:59 Lorazepam (Ativan) 0.5 mg QHS PO Last administered on 12/12/16 20:57; Start 12/12/16 at 21:00; Stop 12/19/16 at 20:59 Lorazepam (Ativan) 0.5 mg STAT STAT PO ; Start 12/12/16 at 12:19; Stop 12/12/16 at 12:21; Status DC Lorazepam (Ativan) 1 mg STAT STAT PO Last administered on 12/13/16 14:05; Start 12/13/16 at 13:58; Stop 12/13/16 at 14:00; Status DC Lorazepam (Ativan) 2 mg STAT STAT IM Last administered on 12/12/16 12:53; Start 12/12/16 at 12:47; Stop 12/12/16 at 12:50; Status DC Magnesium Hydroxide (Milk Of Magnesia) 30 ml DAILYPRN PRN PO CONSTIPATION; Start 12/12/16 at 01:45; Stop 01/11/17 at 01:44 Olanzapine (ZyPREXA ZYDIS) 5 mg Q4HP PRN PO ANXIETY/AGITATION Last administered on 12/13/16 10:38; Start 12/12/16 at 12:30; Stop 01/11/17 at 12:29 Olanzapine (ZyPREXA ZYDIS) 5 mg STAT STAT PO ; Start 12/12/16 at 12:20; Stop 12/12/16 at 12:23; Status DC Vitamin B Complex/ Vit C/Folic Acid (Nephro-Donnie Rx) 1 tab QHS PO Last administered on 12/12/16 20:57; Start 12/12/16 at 21:00; Stop 01/11/17 at 20:59 Vitamin D (Drisdol) 50,000 units Q14D@09 PO ; Start 12/25/16 at 09:00; Stop at 08:59 Zolpidem Tartrate (Ambien Cr) 6.25 mg QHSP PRN PO INSOMNIA Last administered on 12/12/16 20:57; Start 12/12/16 at 01:45; Stop 12/19/16 at 01:44 Allergies Coded Allergies: Aspirin (Unverified Adverse Reaction, Unknown, kidney problems, 11/20/16) PORSHA ROBERTS MD Dec 13, 2016 14:41
[2016-12-13] MEDS: LORazepam 0.5 MG TAB PO SCH ×2 (16:18→20:43)
--- NOTE | 2016-12-13 18:30 | ECGEPIP ---
Stationary ECG Study [facility] Test Date: 2016-12-13 Pat Name: JAYESH ZAMBRANO Department: Room: [place] [address] Gender: F Dioramist: : [id number] Requested By: Marissa Bennett Order Number: [id number] Reading MD: Selvin Thomas Measurements Intervals [place] Rate: 65 P: 77 DE: 237 QRS: 11 QRSD: 106 T: 30 QT: 399 QTc: 415 Interpretive Statements SINUS RHYTHM WITH FIRST DEGREE AV BLOCK INCOMPLETE RIGHT BUNDLE BRANCH BLOCK No change from 11/22/16. Electronically Signed On 12-13-2016 18:29:57 EDT by Selvin Thomas
[2016-12-13] MEDS: NEPHRO-VIT TAB (NEPHROCAPS) PO SCH (20:43)
[2016-12-13] MEDS: zolPIDEM CR 6.25MG TABLET (AMBIEN CR) PO PRN (20:43)
[2016-12-14] MEDS: LEVOTHYROXINE 50MCG TABLET (0.05MG) PO SCH (06:01)
[2016-12-14 07:03] VITALS: BP 148/86
[2016-12-14 07:09] VITALS: BP 134/77
[2016-12-14 07:10] VITALS: BP 121/72
[2016-12-14] MEDS: FLUoxetine 20 MG CAP PO SCH (08:13)
[2016-12-14] MEDS: carBAMazepine XR 200 MG TAB PO SCH ×2 (08:13→20:20)
[2016-12-14] MEDS: LORazepam 0.5 MG TAB PO SCH ×3 (08:13→20:20)
[2016-12-14 09:12] LABS: CALCIUM LEVEL 9.3 MG/DL (8.8-10.2); CREATININE FOR GFR 3.28 MG/DL (0.55-1.02); GLOMERULAR FILTRATION RATE 15.3 (>45); POTASSIUM SERUM 4.1 MEQ/L (3.5-5.1)
[2016-12-14 11:51] VITALS: BP_SYST 108; BP_SYST 109; BP_SYST 96; BP_DIAS 59; BP_DIAS 62; BP_DIAS 71
--- NOTE | 2016-12-14 15:22 | MHIPNPDOC ---
[facility] Progress Note Progress Note DATE OF SERVICE: 12/14/16 HISTORY: 61-year-old female with history of bipolar disorder who was admitted 2 days ago for increasing depression, psychosis. She tried to kill herself with the seatbelt in front of the emergency room, she rather the pillow at the emergency room with the intention to smother herself, she rather she and the inpatient mental health unit and wrapped it around her neck, trying to kill herself and then she gravitates a pillow trying to do the same thing she has done at the emergency room. Patient has been responding to internal stimuli, continues to feel guilty about everything. Patient was received at the inpatient mental health unit with multiple bruises in her upper torso, close to her shoulders, her arms and her legs. VITAL SIGNS: See below. NEW TEST RESULTS: BUN and creatinine continued to be high, patient was educated this morning regarding her kidneys and water intake. CURRENT MEDICATIONS: See below. MENTAL STATUS EXAMINATION: Patient is a extremely-year old female, who is alert, more cooperative, dressed in hospital clothes, looking tired, looking older than stated. Speech: Tangential and circumstantial at times. Language skills are fair. Thought processes including: Incoherent at times. Thought content: Not goal directed, thoughts of guilt, anxious thoughts. Abstract reasoning, and computation: Not evaluated at this time. Description of associations: Improving. Description of abnormal or psychotic thoughts: Patient is still responding to internal stimuli and she has paranoid ,delusional thoughts. Judgment: Poor. Insight: For. Orientation: Oriented 3. Recent and remote memory: Unable to assess due to altered mental status. Attention span and concentration: Easily distractible. Language: Fair. Fund of knowledge: Unable to assess at this time. Mood: Depressed and anxious. Affect: Congruent with mood. DIAGNOSES: 1. Bipolar disorder, depressive episode. 2. Rule out posttraumatic stress disorder 3. . ASSESSMENT: Patient will continue on the same medications, she has been more stable, more coherent, less delusional today. She has been more interactive with staff. It was considered that she was safe to be without her sister. Patient will be transferred to a room where she will have her roommate. She wanted to have a sitter but will be monitored closely. Patient is still not ready for visitors, will wait until she improves enough, feels stronger discussed with her if we allow her not visitations. MANAGEMENT PLAN: Continue on the same treatment plan, considering increasing Abilify to 5 mg by mouth every morning. TIME SPENT: minutes. Vital Signs Vital Signs Date Time Temp Pulse Resp B/P (MAP) Pulse Ox O2 Delivery O2 Flow Rate FiO2 12/14/16 11:51 77 108/62 (77) 79 109/71 (84) 97 96/59 (71) 12/14/16 07:10 97.3 18 Room Air 12/12/16 15:50 94 Laboratory Data 24H Labs Laboratory Tests 2 12/14/16 08:21: Anion Gap 12, Glomerular Filtration Rate 15.3L, Blood Urea Nitrogen 56H, Creatinine 3.28H, Sodium Level 149H, Potassium Level 4.1, Chloride Level 116H, Carbon Dioxide Level 21, Calcium Level 9.3 CBC/BMP Laboratory Tests 12/14/16 08:21 Calcium Level 9.3 Current Medications Current Medications Acetaminophen (Tylenol Tab) 650 mg Q6HP PRN PO HEADACHE or DISCOMFORT Last administered on 12/13/16 10:38; Start 12/12/16 at 01:45; Stop 01/11/17 at 01:44 Al Hydrox/Mg Hydrox/Simethicone (Mylanta) 30 ml Q4HP PRN PO HEARTBURN/ INDIGESTION; Start 12/12/16 at 01:45; Stop 01/11/17 at 01:44 Aripiprazole (AbiLIFY) 2.5 mg QAM PO Last administered on 12/14/16 08:12; Start 12/14/16 at 09:00; Stop 01/13/17 at 08:59 Aripiprazole (AbiLIFY) 5 mg QHS PO Last administered on 12/13/16 20:43; Start 12/12/16 at 21:00; Stop 01/11/17 at 20:59 Calcitriol (Rocaltrol) 0.5 mcg Q48H PO Last administered on 12/13/16 08:51; Start 12/13/16 at 09:00; Stop 01/12/17 at 08:59 Carbamazepine (TEGretol XR) 200 mg DAILY PO Last administered on 12/14/16 08:13 ; Start 12/12/16 at 09:00; Stop 01/11/17 at 08:59 Carbamazepine (TEGretol XR) 400 mg QHS PO Last administered on 12/13/16 20:43; Start 12/12/16 at 21:00; Stop 01/11/17 at 20:59 Diphenhydramine HCl (Benadryl) 50 mg STAT STAT IM Last administered on 12:53; Start 12/12/16 at 12:47; Stop 12/12/16 at 12:50; Status DC Fluoxetine HCl (PROzac) 40 mg DAILY PO Last administered on 12/14/16 08:13; Start 12/12/16 at 09:00; Stop 01/11/17 at 08:59 Haloperidol (Haldol) 10 mg STAT STAT IM Last administered on 12/12/16 12:53; Start 12/12/16 at 12:47; Stop 12/12/16 at 12:50; Status DC Home Med (Med Rec Complete!) ASDIRECTED XX ; Start 12/11/16 at 18:15; Stop at 18:17; Status DC Levothyroxine Sodium (Synthroid) 50 mcg DAILY@06 PO Last administered on 06:01; Start 12/12/16 at 06:00; Stop 01/11/17 at 05:59 Lorazepam (Ativan) 0.5 mg QHS PO Last administered on 12/12/16 20:57; Start 12/12/16 at 21:00; Stop 12/13/16 at 14:48; Status DC Lorazepam (Ativan) 0.5 mg STAT STAT PO ; Start 12/12/16 at 12:19; Stop 12/12/16 at 12:21; Status DC Lorazepam (Ativan) 0.5 mg TID PO Last administered on 12/14/16 08:13; Start 12/13/16 at 16:00; Stop 12/20/16 at 15:59 Lorazepam (Ativan) 1 mg STAT STAT PO Last administered on 12/13/16 14:05; Start 12/13/16 at 13:58; Stop 12/13/16 at 14:00; Status DC Lorazepam (Ativan) 2 mg STAT STAT IM Last administered on 12/12/16 12:53; Start 12/12/16 at 12:47; Stop 12/12/16 at 12:50; Status DC Magnesium Hydroxide (Milk Of Magnesia) 30 ml DAILYPRN PRN PO CONSTIPATION; Start 12/12/16 at 01:45; Stop 01/11/17 at 01:44 Olanzapine (ZyPREXA ZYDIS) 5 mg Q4HP PRN PO ANXIETY/AGITATION Last administered on 12/13/16 10:38; Start 12/12/16 at 12:30; Stop 01/11/17 at 12:29 Olanzapine (ZyPREXA ZYDIS) 5 mg STAT STAT PO ; Start 12/12/16 at 12:20; Stop 12/12/16 at 12:23; Status DC Vitamin B Complex/ Vit C/Folic Acid (Nephro-Donnie Rx) 1 tab QHS PO Last administered on 12/13/16 20:43; Start 12/12/16 at 21:00; Stop 01/11/17 at 20:59 Vitamin D (Drisdol) 50,000 units Q14D@09 PO ; Start 12/25/16 at 09:00; Stop at 08:59 Zolpidem Tartrate (Ambien Cr) 6.25 mg QHSP PRN PO INSOMNIA Last administered on 12/13/16 20:43; Start 12/12/16 at 01:45; Stop 12/19/16 at 01:44 Allergies Coded Allergies: Aspirin (Unverified Adverse Reaction, Unknown, kidney problems, 11/20/16) PORSHA ROBERTS MD Dec 14, 2016 15:22
[2016-12-14 18:00] VITALS: BP 109/63
[2016-12-14] MEDS: NEPHRO-VIT TAB (NEPHROCAPS) PO SCH (20:20)
[2016-12-14] MEDS: zolPIDEM CR 6.25MG TABLET (AMBIEN CR) PO PRN (20:25)
[2016-12-15] MEDS: LEVOTHYROXINE 50MCG TABLET (0.05MG) PO SCH (05:54)
[2016-12-15 06:38] VITALS: BP_SYST 107; BP_SYST 133; BP_DIAS 63; BP_DIAS 71
[2016-12-15 08:04] LABS: CALCIUM LEVEL 8.5 MG/DL (8.8-10.2); CREATININE FOR GFR 3.11 MG/DL (0.55-1.02); GLOMERULAR FILTRATION RATE 16.3 (>45); POTASSIUM SERUM 4.4 MEQ/L (3.5-5.1)
[2016-12-15] MEDS: carBAMazepine XR 200 MG TAB PO SCH ×2 (08:34→21:06)
[2016-12-15] MEDS: FLUoxetine 20 MG CAP PO SCH (08:34)
[2016-12-15] MEDS: CALCITRIOL 0.25 MCG CAP (S0169) PO SCH (08:34)
[2016-12-15] MEDS: LORazepam 0.5 MG TAB PO SCH ×3 (08:34→21:06)
[2016-12-15 11:43] VITALS: BP_SYST 127; BP_SYST 130; BP_SYST 131; BP_DIAS 73; BP_DIAS 85; BP_DIAS 86
[2016-12-15 18:00] VITALS: BP 116/66
[2016-12-15] MEDS: NEPHRO-VIT TAB (NEPHROCAPS) PO SCH (21:06)
[2016-12-15] MEDS: zolPIDEM CR 6.25MG TABLET (AMBIEN CR) PO PRN (21:06)
[2016-12-16] MEDS: LEVOTHYROXINE 50MCG TABLET (0.05MG) PO SCH (05:49)
[2016-12-16 06:47] VITALS: BP_SYST 104; BP_SYST 110; BP_SYST 114; BP_DIAS 74; BP_DIAS 76; BP_DIAS 84
[2016-12-16 07:30] LABS: CALCIUM LEVEL 9.2 MG/DL (8.8-10.2); CREATININE FOR GFR 3.24 MG/DL (0.55-1.02); GLOMERULAR FILTRATION RATE 15.5 (>45); POTASSIUM SERUM 4.8 MEQ/L (3.5-5.1)
[2016-12-16] MEDS: carBAMazepine XR 200 MG TAB PO SCH ×2 (08:28→20:10)
[2016-12-16] MEDS: FLUoxetine 20 MG CAP PO SCH (08:28)
[2016-12-16] MEDS: LORazepam 0.5 MG TAB PO SCH ×3 (08:29→20:10)
[2016-12-16 11:34] VITALS: BP_SYST 116; BP_SYST 134; BP_SYST 140; BP_DIAS 67; BP_DIAS 70; BP_DIAS 78
[2016-12-16 18:00] VITALS: BP 124/66
[2016-12-16] MEDS: NEPHRO-VIT TAB (NEPHROCAPS) PO SCH (20:10)
[2016-12-16] MEDS: zolPIDEM CR 6.25MG TABLET (AMBIEN CR) PO PRN (20:10)
--- NOTE | 2016-12-16 21:08 | MHIPN ---
DATE: 12/15/2016 VITAL SIGNS: Temperature 99.1, pulse 75, respirations 20, blood pressure 127/73. CURRENT MEDICATIONS: - Abilify 2.5 mg every morning, 5 mg by mouth at bedtime - Ativan 0.5 mg three times a day - Tegretol 200 mg every morning, 400 mg at bedtime - Prozac 40 mg every morning - Ambien 6.25 mg at bedtime as needed HISTORY OF PRESENT ILLNESS: This is a 61-year-old white female with history of bipolar disorder. She has been depressed and suicidal recently with an attempt to hang or choke herself here on the unit. She required one on one supervision for a number of days until her safety can be ascertained. Patient reports her appetite is good. She claims she is sleeping well at night. Patient claims that she feels scared about unspecified issues. She refuses to go into details however. Patient states that she wants to be sent to [facility]. Patient urged to discuss this with her psychiatrist. Patient states she is comfortable with her psychiotropics. No other complaints. MENTAL STATUS EXAMINATION: Affect appears sad with psychomotor retardation. Mood is depressed. Patient is paranoid. She appears to be responding to internal stimuli. She denies hearing voices but may be covering. Insight appears poor. Judgment appears poor. She denies wish to harm self at this time, but this will be monitored closely. No signs of organicity. IMPRESSION: 1. Bipolar disorder, depressed. 2. Post-traumatic stress disorder. PLAN: Continue current management.
[2016-12-17] MEDS: LEVOTHYROXINE 50MCG TABLET (0.05MG) PO SCH (06:18)
[2016-12-17 07:03] VITALS: BP 117/67
[2016-12-17 07:05] VITALS: BP 116/64
[2016-12-17 07:06] VITALS: BP 103/57
[2016-12-17 07:32] LABS: CALCIUM LEVEL 9.2 MG/DL (8.8-10.2); CREATININE FOR GFR 2.97 MG/DL (0.55-1.02); GLOMERULAR FILTRATION RATE 17.1 (>45); POTASSIUM SERUM 4.9 MEQ/L (3.5-5.1)
--- NOTE | 2016-12-17 07:47 | MHIPN ---
DATE: 12/16/2016 VITAL SIGNS: Temperature 97.2, pulse 80, respirations 20, blood pressure 114/76. CURRENT MEDICATION: - Abilify 2.5 mg every morning, 5 mg at bedtime - Tegretol XR 200 mg daily every morning, 400 mg at bedtime - Prozac 40 mg every morning HISTORY OF PRESENT ILLNESS: Patient resting comfortably in her bed. She claims she did not sleep at all last night even though staff confirmed that she did. She claims that her eyes were open all night long. She denies any overt stressors. She also reports feeling depressed. Not feeling suicidal. Patient's behavior has been appropriate here on the unit. MENTAL STATUS EXAMINATION: Patient is alert, oriented. Affect appears sad. Mood is mildly to moderately depressed. She denies suicidal thoughts. Speech is still somewhat tangential and disjointed at times. She reports paranoia and auditory hallucinations. Insight and judgment appear poor. No current signs of dangerousness but this will be monitored closely. DIAGNOSIS: Bipolar disorder, depressed. PLAN: Continue current psychotropics.
[2016-12-17] MEDS: CALCITRIOL 0.25 MCG CAP (S0169) PO SCH (09:22)
[2016-12-17] MEDS: carBAMazepine XR 200 MG TAB PO SCH ×2 (09:22→20:17)
[2016-12-17] MEDS: LORazepam 0.5 MG TAB PO SCH ×3 (09:23→20:17)
[2016-12-17] MEDS: FLUoxetine 20 MG CAP PO SCH (09:23)
[2016-12-17 13:38] VITALS: BP_SYST 104; BP_SYST 118; BP_SYST 122; BP_DIAS 69; BP_DIAS 73; BP_DIAS 75
[2016-12-17] MEDS: NEPHRO-VIT TAB (NEPHROCAPS) PO SCH (20:17)
[2016-12-17] MEDS: zolPIDEM CR 6.25MG TABLET (AMBIEN CR) PO PRN (20:17)
--- NOTE | 2016-12-18 05:31 | MHIPN ---
DATE: 12/17/2016 A 61-year-old female with history of bipolar disorder, depressed episode. CURRENT MEDICATIONS: - Abilify 2.5 mg every morning and 5 mg at bedtime - Tegretol XR 200 mg by mouth daily in the morning and 400 mg by mouth at bedtime - Prozac 40 mg by mouth every morning SUBJECTIVE: The patient reports feeling better, sleeping better, she continues to report feeling embarrassed and she does not want to attend groups because she feels she is naked. As we go inside of her room, she proceeds to cover herself with her bedspread because she believes that she is naked. She continues to express guilt and remorse and she says "I have offended God." Neither affirms nor denies suicidal ideation. OBJECTIVE: The patient is alert, oriented to place and person but not to date and time, cooperative with interview, anxious, dressed in hospital clothes, lying in her bed. Thought process is irrational, not goal directed, and her thought content is anxious, full of guilt. She denies auditory or visual hallucinations. Denies homicidal ideation but does not deny and does not affirm suicidal thoughts. She is delusional, has mandaen preoccupation. Her insight, judgment are poor, her impulse control has been fair lately. Her attention and concentration were not evaluated today due to altered mental status. Her memory, recent and remote are limited due to altered mental status. ASSESSMENT: The patient has improved, is less psychotic, less disorganized, but continues to be depressed and has terrible guilt feelings. She is still religiously preoccupied, she believes she has offended God. Tomorrow we will increase Abilify in the morning to 5 mg and we will increase Prozac to 50 mg as well. PLAN: Continue on current medications, tomorrow we will increase Abilify and Prozac. We will followup.
[2016-12-18] MEDS: LEVOTHYROXINE 50MCG TABLET (0.05MG) PO SCH (06:15)
[2016-12-18 06:47] VITALS: BP 107/62
[2016-12-18 07:28] LABS: CALCIUM LEVEL 9.7 MG/DL (8.8-10.2); CREATININE FOR GFR 2.85 MG/DL (0.55-1.02); POTASSIUM SERUM 4.7 MEQ/L (3.5-5.1)
[2016-12-18] MEDS: FLUoxetine 20 MG CAP PO SCH (08:07)
[2016-12-18] MEDS: LORazepam 0.5 MG TAB PO SCH ×3 (08:07→21:33)
[2016-12-18] MEDS: carBAMazepine XR 200 MG TAB PO SCH ×2 (08:07→21:33)
[2016-12-18 14:00] VITALS: BP_SYST 107; BP_SYST 82; BP_DIAS 62; BP_DIAS 66; BP_DIAS 69
[2016-12-18] MEDS: NEPHRO-VIT TAB (NEPHROCAPS) PO SCH (21:33)
--- NOTE | 2016-12-18 22:01 | MHIPN ---
DATE: 12/18/2016 A 61-year-old female with history of: 1. Bipolar disorder, depressed. 2. Possible posttraumatic stress disorder. CURRENT MEDICATIONS: - Abilify 5 mg by mouth twice a day - Prozac 40 mg by mouth daily - Ambien 6.25 mg by mouth at bedtime - Tegretol XR 200 mg by mouth every morning and 400 mg by mouth at bedtime SUBJECTIVE: Patient reports feeling better. She says she would like to attend group, but she is too self-aware. She believes she is naked, people can see through her and she cannot stand when she walks into the lounge and people stare at her. She continues to report suicidal thoughts. She says she wishes she would be gone. OBJECTIVE: Patient is alert, oriented to place and person, with intact thought process. Thought content is anxious, full, with guilty thoughts. Her speech is soft spoken, almost whispered. She has thought blocking. She is less tangential and less circumstantial. She denies auditory and visual hallucinations at this time, denies thought delusions and denies homicidal ideation, but admits to have suicidal thoughts, "I wish I would be gone." Her recent and remote memory are limited at this time. Attention and concentration are poor. She is easily distractible. Her insight and judgment are limited. Her impulse control is fair. ASSESSMENT: Patient has improved. She is less psychotic, although she continues to be depressed. She has gained some insight, admits she should have left the house when she left the hospital last time. MANAGEMENT PLAN: Will continue on the same medications. Prozac was not increased today. Will wait and see what results we obtain from increasing Abilify to 5 mg by mouth twice a day. Patient has agreed to sign a release of information for her two sons to come and visit her and so that we can speak with them. Will follow up.
[2016-12-19] MEDS: LEVOTHYROXINE 50MCG TABLET (0.05MG) PO SCH (05:55)
[2016-12-19 06:45] VITALS: BP_SYST 111; BP_SYST 117; BP_SYST 99; BP_DIAS 56; BP_DIAS 57; BP_DIAS 72
[2016-12-19 08:19] LABS: CALCIUM LEVEL 9.5 MG/DL (8.8-10.2); CREATININE FOR GFR 2.82 MG/DL (0.55-1.02); GLOMERULAR FILTRATION RATE 18.2 (>45); POTASSIUM SERUM 4.4 MEQ/L (3.5-5.1)
[2016-12-19] MEDS: carBAMazepine XR 200 MG TAB PO SCH ×2 (08:36→20:48)
[2016-12-19] MEDS: LORazepam 0.5 MG TAB PO SCH ×2 (08:36→20:47)
[2016-12-19] MEDS: FLUoxetine 20 MG CAP PO SCH (08:36)
[2016-12-19] MEDS: CALCITRIOL 0.25 MCG CAP (S0169) PO SCH (08:36)
[2016-12-19 12:09] VITALS: BP_SYST 102; BP_SYST 106; BP_SYST 85; BP_DIAS 58; BP_DIAS 60; BP_DIAS 65
[2016-12-19] MEDS: NEPHRO-VIT TAB (NEPHROCAPS) PO SCH (20:47)
[2016-12-20] MEDS: LEVOTHYROXINE 50MCG TABLET (0.05MG) PO SCH (06:17)
[2016-12-20 07:16] VITALS: BP_SYST 101; BP_SYST 104; BP_SYST 112; BP_DIAS 59; BP_DIAS 60; BP_DIAS 62
[2016-12-20 07:40] LABS: CALCIUM LEVEL 9.5 MG/DL (8.8-10.2); CREATININE FOR GFR 3.01 MG/DL (0.55-1.02); GLOMERULAR FILTRATION RATE 16.9 (>45); POTASSIUM SERUM 4.1 MEQ/L (3.5-5.1)
[2016-12-20] MEDS: LORazepam 0.5 MG TAB PO SCH ×2 (08:49→20:33)
[2016-12-20] MEDS: carBAMazepine XR 200 MG TAB PO SCH ×2 (08:49→20:33)
[2016-12-20] MEDS: FLUoxetine 20 MG CAP PO SCH (08:50)
--- NOTE | 2016-12-20 12:14 | MHIPN ---
DATE: 12/19/2016 AGE: 61 years. 61-year-old female with a history of: 1. Bipolar disorder, depressed. 2. Possible posttraumatic stress disorder (PTSD). CURRENT MEDICATIONS: - Abilify 5 mg by mouth twice a day - Prozac 40 mg by mouth daily - Ambien 6.25 mg by mouth at night - Tegretol XR 200 mg by mouth in the morning and 400 mg at night - Ativan 0.5 mg twice a day - Zyprexa 5 mg by mouth every 4 hours as needed for anxiety and agitation SUBJECTIVE: The patient reports feeling slightly better, she still blames herself for everything that has gone wrong in her marriage, she reports that when she went home she felt very worried because she found a basket of bills and she thought her was not paying them because he probably is having memory problems due to his traumatic brain injury or due to the fact that he might have inherited Alzheimer's that his parents suffered. She says that she started worrying too much about the bills being not paid because her family has never done that, not paying the bills. At that moment, she started worrying and she became extremely anxious. She says that she was trying to cutdown her medications, as she had been instructed to do with Ambien, but she was told that she was not supposed to do this alone, she was supposed to do it with the help of her son, who was the person receiving the instructions to help her taper down her medications. OBJECTIVE: The patient is alert, oriented partially to date and time, but she is oriented to place and person. Cooperative, dressed in hospital clothes with improved eye contact. Depressed mood and blunted affect. Her speech is soft and sparse, sometimes it is hard to understand because she whispers. Her thought process is intact. Her thought content is full of anxious thoughts, worries. She continues to be delusional, as of being naked and not having any clothes on, she has to be reminded to touch her clothes and look at them so that she can calm down. She currently denies auditory and visual hallucinations, denies homicidal ideation, but does not deny suicidal thoughts. Her memory is limited due to her mental status. She is still a little bit confused. Her attention and concentration are poor. She still has some thought blocking. Her judgment and insight are poor. Her impulse control is fair. ASSESSMENT: The patient is slowly improving. She seems to be responding well to medications. Today, Ativan was decreased to 0.5 mg twice a day because her blood pressure was becoming a little bit low and this is a concern due to her kidney disease. She continues to be forgetful about drinking fluids, she says that she feels embarrassed about having this crisis now that she is older, although she agrees to go to [facility] and is excited about the possibility of improving and having termite treater helper treatment. MANAGEMENT PLAN: We will continue on the same medications. The patient will probably be [place] [facility] [place] We will followup. KEN
[2016-12-20 18:00] VITALS: BP 115/57
[2016-12-20 20:06] VITALS: BP_SYST 115; BP_SYST 116; BP_DIAS 57; BP_DIAS 67
[2016-12-20] MEDS: NEPHRO-VIT TAB (NEPHROCAPS) PO SCH (20:33)
--- NOTE | 2016-12-21 05:36 | MHIPN ---
DATE: 12/20/2016 HISTORY: A 61-year-old female with history of: 1. Bipolar disorder, depressed. 2. Posttraumatic stress disorder. CURRENT MEDICATIONS: - Abilify 5 mg by mouth twice a day - Prozac 40 mg by mouth daily - Ambien 6.25 mg by mouth at bedtime - Tegretol XR 200 mg by mouth every morning and 400 mg by mouth at bedtime - Ativan 0.5 mg by mouth twice a day - Zyprexa 5 mg by mouth every four hours as needed for anxiety and agitation SUBJECTIVE: The patient reports she feels sleepy because of the medications, she is still very self conscious and she continues to report the delusion that she feels as if she is naked. She says it is hard for her to go to groups because she continues to feel as if she has no clothes on her and feels very vulnerable. She says she would like to see her sons if they come for a visit, and denies suicidal ideation for the first time today. OBJECTIVE: The patient is alert, cooperative, lying in bed, with pleasant attitude. Her mood and affect are less blunted, less sad. Her speech is soft, more organized, less tangential. Her thought process is more organized. Her thought content continues to be very anxious and is full of guilty thoughts. She admits having visual hallucinations early in the morning, denies suicidal ideation, denies homicidal ideation, denies auditory hallucinations. Her memory is limited, her attention and concentration are limited, her insight and judgment are still very poor, and her impulse control is fair. ASSESSMENT: The patient has had a minor improvement, less anxious and her facial expression is less sad. The patient is slowly improving, she has been accepted to go to [place] and probably she will be going on Saturday. The patient will continue on the same medications, and we will continue to monitor her closely. KEN
[2016-12-21 06:00] VITALS: BP 124/75
[2016-12-21] MEDS: LEVOTHYROXINE 50MCG TABLET (0.05MG) PO SCH (06:23)
[2016-12-21 07:59] LABS: CALCIUM LEVEL 9.4 MG/DL (8.8-10.2); CREATININE FOR GFR 2.97 MG/DL (0.55-1.02); GLOMERULAR FILTRATION RATE 17.1 (>45); POTASSIUM SERUM 4.2 MEQ/L (3.5-5.1)
[2016-12-21] MEDS: CALCITRIOL 0.25 MCG CAP (S0169) PO SCH (08:16)
[2016-12-21] MEDS: LORazepam 0.5 MG TAB PO SCH ×2 (08:16→20:44)
[2016-12-21] MEDS: carBAMazepine XR 200 MG TAB PO SCH ×2 (08:16→20:44)
[2016-12-21] MEDS: FLUoxetine 20 MG CAP PO SCH (08:16)
[2016-12-21 14:09] VITALS: BP_SYST 101; BP_SYST 102; BP_SYST 106; BP_DIAS 63; BP_DIAS 64; BP_DIAS 71
[2016-12-21] MEDS: NEPHRO-VIT TAB (NEPHROCAPS) PO SCH (20:44)
[2016-12-21] MEDS: zolPIDEM CR 6.25MG TABLET (AMBIEN CR) PO PRN (20:44)
[2016-12-22] MEDS: LEVOTHYROXINE 50MCG TABLET (0.05MG) PO SCH (06:13)
[2016-12-22 07:00] VITALS: BP_SYST 102; BP_SYST 124; BP_DIAS 56; BP_DIAS 57; BP_DIAS 62
[2016-12-22 07:22] LABS: CALCIUM LEVEL 9.1 MG/DL (8.8-10.2); CREATININE FOR GFR 2.89 MG/DL (0.55-1.02); GLOMERULAR FILTRATION RATE 17.7 (>45); POTASSIUM SERUM 4.1 MEQ/L (3.5-5.1)
[2016-12-22] MEDS: carBAMazepine XR 200 MG TAB PO SCH ×2 (08:13→20:45)
[2016-12-22] MEDS: LORazepam 0.5 MG TAB PO SCH ×2 (08:13→20:46)
[2016-12-22] MEDS: FLUoxetine 20 MG CAP PO SCH (08:13)
[2016-12-22 14:34] VITALS: BP_SYST 102; BP_SYST 106; BP_SYST 96; BP_DIAS 58; BP_DIAS 60; BP_DIAS 63
--- NOTE | 2016-12-22 15:00 | MHIPN ---
DATE OF SERVICE: 12/21/2016 HISTORY: 61-year-old female with history of: 1. Bipolar disorder, depressed. 2. Posttraumatic stress disorder. CURRENT MEDICATIONS: - Abilify 5 mg by mouth twice a day - Prozac 40 mg by mouth daily - Ambien 6.25 mg by mouth nightly - Tegretol XR 200 mg by mouth every morning and 400 mg by mouth nightly - Ativan 0.5 mg by mouth twice a day - Zyprexa 5 mg by mouth every 4 hours as needed for agitation SUBJECTIVE: Patient reports worries about not having clothes with her, not having her insurance card, she is ready to go to [place] [facility], but she feels that she does not have everything that it takes to go to this place. She denies suicidal ideation, denies homicidal ideation. Denies thought delusions and denies hallucinations, but she reports increased anxiety. OBJECTIVE: Patient was seen in her room, less depressed, smiles more frequently, her expression has changed. The patient is alert, cooperative, but continues to be depressed, her speech is soft spoken. Her thought process is improving, her thought content is anxious. Denies suicidal or homicidal ideation, denies thought delusions, and denies auditory and visual hallucinations. Her insight and judgment continue to be poor, her impulse control is good. ASSESSMENT: Patient is slowly improving, she is not as depressed as she was, her hallucinations have substantially decreased, she is not responding to internal stimuli, although yesterday, she reported visual hallucinations early during the morning hours. She continues to feel guilty about everything. MANAGEMENT: Patient will continue on same medications, possibly will be transferred to [facility] Saturday. Will followup.
[2016-12-22 20:30] VITALS: BP_SYST 138; BP_SYST 142; BP_SYST 144; BP_DIAS 60; BP_DIAS 64; BP_DIAS 66
[2016-12-22] MEDS: NEPHRO-VIT TAB (NEPHROCAPS) PO SCH (20:44)
[2016-12-22] MEDS: zolPIDEM CR 6.25MG TABLET (AMBIEN CR) PO PRN (20:45)
[2016-12-23] MEDS: LEVOTHYROXINE 50MCG TABLET (0.05MG) PO SCH (06:03)
[2016-12-23 06:45] VITALS: BP_SYST 108; BP_SYST 121; BP_SYST 130; BP_DIAS 68; BP_DIAS 70; BP_DIAS 74
[2016-12-23] MEDS: carBAMazepine XR 200 MG TAB PO SCH ×2 (08:22→20:43)
[2016-12-23] MEDS: LORazepam 0.5 MG TAB PO SCH ×2 (08:22→20:43)
[2016-12-23] MEDS: FLUoxetine 20 MG CAP PO SCH (08:22)
[2016-12-23] MEDS: CALCITRIOL 0.25 MCG CAP (S0169) PO SCH (08:22)
[2016-12-23 08:57] LABS: CALCIUM LEVEL 8.5 MG/DL (8.8-10.2); CREATININE FOR GFR 2.93 MG/DL (0.55-1.02); GLOMERULAR FILTRATION RATE 17.4 (>45); POTASSIUM SERUM 3.7 MEQ/L (3.5-5.1)
[2016-12-23 13:51] VITALS: BP_SYST 110; BP_SYST 111; BP_SYST 124; BP_DIAS 62; BP_DIAS 69; BP_DIAS 73
[2016-12-23] MEDS: NEPHRO-VIT TAB (NEPHROCAPS) PO SCH (20:42)
[2016-12-24] MEDS: zolPIDEM CR 6.25MG TABLET (AMBIEN CR) PO PRN (01:37)
[2016-12-24] MEDS: LEVOTHYROXINE 50MCG TABLET (0.05MG) PO SCH (05:55)
[2016-12-24 07:19] VITALS: BP_SYST 111; BP_SYST 115; BP_SYST 97; BP_DIAS 53; BP_DIAS 61
[2016-12-24] MEDS: carBAMazepine XR 200 MG TAB PO SCH (08:40)
[2016-12-24] MEDS: LORazepam 0.5 MG TAB PO SCH (08:40)
[2016-12-24] MEDS: FLUoxetine 20 MG CAP PO SCH (08:40)
[2016-12-24 09:11] LABS: CALCIUM LEVEL 9.4 MG/DL (8.8-10.2); CREATININE FOR GFR 2.96 MG/DL (0.55-1.02); GLOMERULAR FILTRATION RATE 17.2 (>45); POTASSIUM SERUM 4.1 MEQ/L (3.5-5.1)
[2016-12-24] MEDS ORDERED: ARIP5TA PO ×2 (09:22)
--- NOTE | 2016-12-24 10:04 | MHDSPDOC ---
[facility] Discharge Summary Discharge Summary DATE OF ADMISSION: Dec 12, 2016 at 01:00 DATE OF DISCHARGE: DISCHARGE DIAGNOSES: 1. Bipolar Disorder, depressed 2. Stage IV kidney disease REASON FOR ADMISSION: Patient was brought to the ED because according to her "she was regressing". Before she stepped out of her car, she tried to wrap a belt around her neck apparently in front of the emergency room. At the emergency room she took a pillow and tried to smother herself with it. At the inpatient mental health unit, less than 24 hours after her admission, she tried to hurt herself by putting a sheet around her neck x 2, tried to take the pillow and smother herself once again. For that reason, she was transferred to the restraining room, next to the nursing station, for the nurses to keep her under close observation. She was with a sitter, under one-to-one observation. CONSULTANTS INVOLVED: None TREATMENT AND PROGRESS ON THE UNIT : At the inpatient mental health unit, less than 24 hours after her admission, she tried to hurt herself by putting a sheet around her neck x 2, tried to take the pillow and smother herself once again. For that reason, she was transferred to the restraining room, next to the nursing station, for the nurses to keep her under close observation. She was with a sitter, under one-to-one observation. Her dose of Abilify was increased and currently she is receiving 5 mg by mouth twice a day. It was increased because she was psychotic, she kept saying that she was Satan and that she deserved to be burnt in an incinerator, she kept looking for that incinerator at the inpatient mental health unit. When Norma was brought to the inpatient mental health unit, her body was covered in bruises that were located in her upper chest, arms and legs. She is playing those bruises saying that she had hurt herself trying to put a belt around her neck. On the day when she tried to hurt herself by putting her sheets around her neck, she was shaking and shivering, acting as if she had to defend herself from from someone. She was responding to internal stimuli, and initially she was using those sheets as a shield, whenever she saw a person she used those sheets as a shield to protect herself from something that she probably considered very dangerous. Norma was responding to internal stimuli, for that reason she also has Zyprexa 5 mg by mouth every 4 hours when necessary for agitation, because this medication is an antipsychotic but it helps people to calm down. Patient was examined by our physician civil engineering assistant, Marissa Bennett, who has treated her properly and accordingly to her stage IV kidney disease. It is very hard for Norma to take water even if the staff reminds her constantly of drinking it. Norma's other medications remain the same, carbamazepine and fluoxetine remained unchanged: Tegretol-XR 200 mg by mouth every morning and 400 mg by mouth daily at bedtime, fluoxetine 40 mg by mouth every morning. Ativan was increased to 0.5 mg by mouth 3 times a day because she was extremely anxious, but then he has been decreased to 0.5 mg by mouth twice a day. The psychosis has improved, although she still has delusions of being naked, is religiously preoccupied, she thinks she is going to go to [facility], she thinks that she has harmed everybody, she feels guilty about everything, she is not able to make decisions, her insight and judgment continue to be poor, her levels of energy are low, has been isolated to her room because she says she doesn't want to go into the lounge because she is naked. Norma has voiced many times she was happy about being transferred to [facility] because she couldn't go home now. She also has stated that she worries about what is she going to do when she gets discharged from [facility] , because she would like to go back home. Norma is still very depressed. HOSPITAL COURSE: As above DISCHARGE ASSESSMENT: Patient is still very depressed, is hard for her to make decisions, she still has thought blocking, is very insecure and anxious, blames herself for everything in her marriage, in her family, in her entire life. Feels that she is not capable of dealing with life, with her finances, feels she will be a burden for her sons and her family in [place] if she will go live with them. Patient needs longer treatment hospitalization and a higher level of care that she cannot get that [facility] difficulties is an acute treatment center. MENTAL STATUS EXAMINATION ON DISCHARGE: Patient is a 61-year old female, who is alert, oriented to place and person, dressed in hospital clothes, with poor eye contact. Speech is soft spoken, slow and slightly tangential. Language skills are fair. Thought processes including: Disorganized, she still has thought blocking. Thought content: Not goal-directed, circumstantial, thought blocking. Anxious. Abstract reasoning, and computation: Patient is not able to focus and concentrate. Description of associations: Slightly loose. Description of abnormal or psychotic thoughts: Delusions about being naked, not having clothes on, being bad, deserving to go to hell. She denied visual and auditory hallucinations today . She continues to say that she would be better off "if she was gone" . Denies homicidal ideation Judgment: Poor Insight: Poor. Orientation to oriented to place and person but not to date and time. Recent and remote memory: Limited, patient cannot recall exactly what happened to her before coming into the hospital. Attention span and concentration: Poor. Language: fair. Fund of knowledge: Fair Mood: Depressed and anxious. Affect: Labile MEDICATIONS ON DISCHARGE: - Abilify 5 mg by mouth twice a day for bipolar depression and psychosis. -Tegretol-XR 200 mg by mouth every morning and 400 mg by mouth daily at bedtime for mood stabilization. -Fluoxetine 40 mg by mouth every morning for depression -Ativan 0.5 mg by mouth twice a day. -Ambien 6.25 mg by mouth daily at bedtime -She is still taking all her medications for kidney disease that she brought from home. PLAN/FOLLOWUP ARRANGEMENTS: Patient is being transferred today to [facility] for longer treatment and a higher level of care. Patient agreed to be transferred last week, she signed for her transfer and she has the opportunity of speaking to the thread separator that works for mental hygiene and she agreed to go. The amount of time spent in the coordination of care for this patient was approximately 60 minutes. Vital Signs/I&Os Vital Signs Date Time Temp Pulse Resp B/P (MAP) Pulse Ox O2 Delivery O2 Flow Rate FiO2 12/24/16 07:19 72 97/53 (68) 102 115/61 (79) 111/61 (78) 12/23/16 13:51 98.6 16 12/21/16 06:00 Room Air I&O- Last 24 Hours up to 6 AM 12/24/16 06:00 Intake Total 1200 ml Balance 1200 ml Laboratory Data Labs 24H Laboratory Tests 2 12/24/16 08:22: Anion Gap 9, Glomerular Filtration Rate 17.2L, Blood Urea Nitrogen 52H, Creatinine 2.96H, Sodium Level 145, Potassium Level 4.1, Chloride Level 114H, Carbon Dioxide Level 22, Calcium Level 9.4 CBC/BMP Laboratory Tests 12/24/16 08:22 Calcium Level 9.4 Medications Scheduled Aripiprazole (Aripiprazole) 5 Mg Tab, 5 MG PO QAM for bipolar depression/ psychosis, #7 Aripiprazole (Aripiprazole) 5 Mg Tab, 5 MG PO QHS for bipolar depression/ psychosis, #7 Calcitriol (Rocaltrol) 0.5 Mcg Cap, 0.5 MCG PO Q2D, (Reported) Carbamazepine (TEGretol XR) 200 Mg Drea, 200 MG PO DAILY, (Reported) Carbamazepine (TEGretol XR) 200 Mg Drea, 400 MG PO QHS, (Reported) Fluoxetine Hcl (Fluoxetine HCl) 40 Mg Cap, 40 MG PO DAILY, (Reported) Levothyroxine Sodium (Synthroid) 50 Mcg Tab, 50 MCG PO DAILY, (Reported) Lorazepam (Ativan) 0.5 Mg Tab, 0.5 MG PO QHS, (Reported) Vitamin B Cmplx/Vitc/Folic Ac (Nephrocaps 1 mg) 1 Cap Cap, 1 CAP PO QHS, ( Reported) Vitamin D (Drisdol) 50,000 Unit Cap, 50,000 UNIT PO Q2WK, (Reported) Zolpidem Tartrate (Ambien Cr) 6.25 Mg Tab, 6.25 MG PO QHS, (Reported) Allergies Coded Allergies: Aspirin (Unverified Adverse Reaction, Unknown, kidney problems, 11/20/16) PORSHA ROBERTS MD Dec 24, 2016 10:04
[2016-12-25] MEDS ORDERED: VITAMIN D 50,000 UNITS CAPSULE (ERGOCALCIFEROL 1.25MG) PO SCH (09:00)
== END 2016-12-24 11:50 | DRG 885 ==
LOC: M ED 15:18 → M ED INP 12-12 01:00 → M PSY 12-12 02:35
PROVIDERS: ADMIT Psychiatry & Neurology Psychiatry; ATTEND Psychiatry & Neurology Psychiatry
DX: F31.9 Bipolar disorder, unspecified (principal); N18.4 Chronic kidney disease, stage 4 (severe); E87.0 Hyperosmolality and hypernatremia; Z79.899 Other long term (current) drug therapy; E03.9 Hypothyroidism, unspecified; E55.9 Vitamin D deficiency, unspecified; I44.0 Atrioventricular block, first degree

== ENCOUNTER → 2017-02-01 | Outpatient (REF) | payer OTHER ==
[~2017-02-01] MED LIST changes: +ABIL1TAB11 PO
== END ==
LOC: M LAB REF 13:09
PROVIDERS: ATTEND Internal Medicine Nephrology
DX: N39.0 Urinary tract infection, site not specified (principal)

== ENCOUNTER → 2017-06-28 | Outpatient (REF) | payer OTHER ==
[2017-06-28 14:27] LABS: FREE T4 1.15 NG/DL (0.76-1.46); THYROID STIMULATING HORMONE 0.901 uIU/ML (0.358-3.740)
== END ==
LOC: M LAB REF 13:48
DX: E03.9 Hypothyroidism, unspecified (principal)

== ENCOUNTER 2017-11-10 09:56 | Inpatient (IN) | payer OTHER ==
[2017-11-10] MEDS: LORazepam 2 MG/ML VIAL (J2060) IM (08:15)
[2017-11-10] MEDS: HALOPERIDOL 5 MG/ML VIAL (J1630) IM (08:15)
[2017-11-10 08:47] LABS: HEMOGLOBIN 13.1 g/dl (12.0-15.5); MEAN CORPUSCULAR HEMOGLOBIN 31.6 pg (27.0-33.0); MEAN CORPUSCULAR HGB CONC 34.5 g/dl (32.0-36.5); MEAN CORPUSCULAR VOLUME 91.6 fl (80.0-96.0); PLATELET COUNT, AUTOMATED 235 10^3/uL (150-450); RED BLOOD COUNT 4.15 10^6/uL (4.00-5.40); RED CELL DISTRIBUTION WIDTH 13.7 % (11.5-14.5); WHITE BLOOD COUNT 9.4 10^3/uL (4.0-10.0)
[2017-11-10 09:22] LABS: ALBUMIN 3.9 GM/DL (3.2-5.2); ALBUMIN/GLOBULIN RATIO 1.11 (1.00-1.93); ALKALINE PHOSPHATASE 90 U/L (45-117); ALT/SGPT 28 U/L (12-78); ANION GAP 14 MEQ/L (8-16); AST/SGOT 18 U/L (7-37); BILIRUBIN,DIRECT 0.1 MG/DL (0.0-0.2); BILIRUBIN,TOTAL 0.6 MG/DL (0.2-1.0); BLOOD UREA NITROGEN 71 MG/DL (7-18); CALCIUM LEVEL 8.9 MG/DL (8.8-10.2); CARBON DIOXIDE LEVEL 16 MEQ/L (21-32); CHLORIDE LEVEL 117 MEQ/L (98-107); CREATININE FOR GFR 3.41 MG/DL (0.55-1.30); ETHYL ALCOHOL (ETHANOL) 0.003 % (0.000-0.010); GLOMERULAR FILTRATION RATE 14.6 (>45); GLUCOSE, FASTING 96 MG/DL (70-100); POTASSIUM SERUM 4.5 MEQ/L (3.5-5.1); SALICYLATE LEVEL 1.7 MG/DL (5.0-30.0); SODIUM LEVEL 147 MEQ/L (136-145); TOTAL PROTEIN 7.4 GM/DL (6.4-8.2)
[2017-11-10 09:23] LABS: ACETAMINOPHEN LEVEL < 2.0 UG/ML (10.0-30.0)
[~2017-11-10 09:56] MED LIST changes: -ABIL1TAB11 PO; -AMBI12.52 PO; -AMBI6.25 PO; -ARIP5TA PO; -ATIV1TAB10 PO; -ATIV1TAB7 PO; -CARB1TAB20 PO; -CARB200T98 PO; -CARB20TA PO; -CARB20TAXR PO; -DRIS50002 PO; -FLUO20CA19 PO; -FLUO40CA PO; +HALOPERIDOL 5 MG/ML VIAL (J1630) As Ordered; -LATU20TA PO; -LATU40TA PO; -LEVO25TA5 PO; -LEVO50TA45 PO; -LEVO50TA5 PO; -LORA0.5T11 PO; +LORazepam 2 MG/ML VIAL (J2060) As Ordered; -MAALSUS20 PO; -MILKSUS PO; -NEPHTA PO; -NEPHTAB PO; -PROZ20CA11 PO; -ROCA0.25 PO; -ROCA0.5C PO; -SYNT50TA PO; -TYLE325T5 PO; -VITA1CAP40 PO; -ZYPR1TAB2 PO
[2017-11-10 10:40] LABS: AMPHETAMINES LEVEL URINE NEGATIVE (NEGATIVE); BARBITURATES URINE NEGATIVE (NEGATIVE); BENZODIAZEPINES URINE NEGATIVE (NEGATIVE); CANNABINOIDS URINE NEGATIVE (NEGATIVE); COCAINE METABOLITE URINE NEGATIVE (NEGATIVE); METHADONE URINE NEGATIVE (NEGATIVE); OPIATES URINE NEGATIVE (NEGATIVE); PHENCYCLIDINE URINE NEGATIVE (NEGATIVE)
[2017-11-10] MEDS ORDERED: NS 1,000 ML IV (13:15)
[2017-11-10] MEDS ORDERED: ACETAMINOPHEN TAB 650MG DOSE (2X325MG) PO ×2 (14:00→23:15)
[2017-11-10] MEDS ORDERED: MOM 30ML SUSPENSION UDC PO ×2 (14:00→23:15)
[2017-11-10] MEDS ORDERED: MAALOX 30 ML SUSP *UDC PO ×2 (14:00→23:15)
[2017-11-10] MEDS: SODIUM BICARBONATE 50 MEQ in NS 0.45% 1,000 ML IV (14:55)
[2017-11-10] MEDS: VENLAFAXINE **XR** 75MG CAPSULE PO (16:49)
[2017-11-10] MEDS: LORazepam 1 MG TAB PO (16:49)
[2017-11-10] MEDS: oxyBUTYnin 5 MG TAB PO (18:25)
[2017-11-10] MEDS ORDERED: VENLAFAXINE 37.5 MG TAB PO (21:00)
[2017-11-10] MEDS ORDERED: VENLAFAXINE **XR** 75MG CAPSULE PO (21:00)
[2017-11-10] MEDS ORDERED: oxyBUTYnin 5 MG TAB PO (21:00)
[2017-11-10] MEDS ORDERED: LORazepam 1 MG TAB PO (21:00)
[2017-11-10] MEDS ORDERED: traZODone 50 MG TAB PO (23:15)
[2017-11-11] MEDS ORDERED: LEVOTHYROXINE 50MCG TABLET (0.05MG) PO (06:00)
[2017-11-11] MEDS ORDERED: LEVOTHYROXINE 88MCG TABLET (0.088 MG) PO (06:00)
[2017-11-11] MEDS: LEVOTHYROXINE 50MCG TABLET (0.05MG) PO (06:29)
[2017-11-11 07:57] LABS: ANION GAP 9 MEQ/L (8-16); BLOOD UREA NITROGEN 77 MG/DL (7-18); CALCIUM LEVEL 8.6 MG/DL (8.8-10.2); CARBON DIOXIDE LEVEL 23 MEQ/L (21-32); CHLORIDE LEVEL 120 MEQ/L (98-107); CREATININE FOR GFR 3.47 MG/DL (0.55-1.30); GLOMERULAR FILTRATION RATE 14.3 (>45); GLUCOSE, FASTING 89 MG/DL (70-100); POTASSIUM SERUM 4.8 MEQ/L (3.5-5.1); SODIUM LEVEL 152 MEQ/L (136-145)
[2017-11-11] MEDS ORDERED: VENLAFAXINE 37.5 MG TAB PO ×2 (09:00)
[2017-11-11] MEDS ORDERED: VENLAFAXINE **XR** 37.5 MG CAPSULE PO (09:00)
[2017-11-11] MEDS ORDERED: D5W 1,000 ML IV (09:00)
[2017-11-11] MEDS ORDERED: DOCUSATE SODIUM 100 MG CAP PO (09:00)
[2017-11-11] MEDS ORDERED: LORazepam 0.5 MG TAB PO (09:00)
[2017-11-11] MEDS ORDERED: CALCITRIOL 0.25 MCG CAP (S0169) PO (09:00)
[2017-11-11] MEDS ORDERED: busPIRone 5 MG TAB PO (09:00)
[2017-11-11] MEDS ORDERED: NS 1,000 ML IV (10:00)
[2017-11-11] MEDS: DOCUSATE SODIUM 100 MG CAP PO (10:30)
[2017-11-11] MEDS: busPIRone 5 MG TAB PO (10:31)
[2017-11-11] MEDS: CALCITRIOL 0.25 MCG CAP (S0169) PO (10:31)
[2017-11-11] MEDS: VENLAFAXINE **XR** 37.5 MG CAPSULE PO (10:31)
[2017-11-11] MEDS: LORazepam 0.5 MG TAB PO (10:31)
[2017-11-11 10:52] LABS: TOTAL 25(OH) VITAMIN D 26.2 NG/ML (30.0-100.0)
[2017-11-11] MEDS ORDERED: VENLAFAXINE **XR** 75MG CAPSULE PO (21:00)
[2017-11-11] MEDS ORDERED: oxyBUTYnin 5 MG TAB PO (21:00)
[2017-11-11] MEDS ORDERED: LORazepam 1 MG TAB PO (21:00)
[2017-11-13] MEDS ORDERED: VITAMIN D 50,000 UNITS CAPSULE (ERGOCALCIFEROL 1.25MG) PO ×2 (09:00)
== END 2017-11-11 12:00 | disposition short-term general hospital (02) | DRG 885 ==
LOC: M PSY 11-11 00:25 → M ED 09:56 → M ED INP 13:54
DX: F31.64 Bipolar disorder, current episode mixed, severe, with psychotic features (principal); E87.0 Hyperosmolality and hypernatremia; N18.4 Chronic kidney disease, stage 4 (severe); E86.0 Dehydration; Z79.899 Other long term (current) drug therapy; Z88.6 Allergy status to analgesic agent; E03.9 Hypothyroidism, unspecified; E55.9 Vitamin D deficiency, unspecified; N32.81 Overactive bladder; I44.0 Atrioventricular block, first degree

== ENCOUNTER 2017-11-11 12:00 | Inpatient (IN) | payer OTHER ==
[2017-11-11] MEDS: NS 1,000 ML IV (10:15)
[~2017-11-11 12:00] MED LIST changes: -HALOPERIDOL 5 MG/ML VIAL (J1630) As Ordered; -LORazepam 2 MG/ML VIAL (J2060) As Ordered; +ONDANSETRON 4MG/2ML VIAL (J2405) IV
[2017-11-11] MEDS: D5W 1,000 ML IV ×2 (12:53→22:12)
[2017-11-11] MEDS: LORazepam 1 MG TAB PO (17:40)
[2017-11-11] MEDS: VENLAFAXINE **XR** 75MG CAPSULE PO (17:40)
[2017-11-11] MEDS: oxyBUTYnin 5 MG TAB PO (17:40)
[2017-11-11] MEDS ORDERED: LORazepam 1 MG TAB PO (21:00)
[2017-11-11] MEDS ORDERED: oxyBUTYnin 5 MG TAB PO (21:00)
[2017-11-11] MEDS ORDERED: VENLAFAXINE **XR** 75MG CAPSULE PO (21:00)
[2017-11-12] MEDS: LEVOTHYROXINE 50MCG TABLET (0.05MG) PO (05:40)
[2017-11-12 06:33] LABS: HEMATOCRIT 31.6 % (36.0-47.0); MEAN CORPUSCULAR HEMOGLOBIN 31.5 pg (27.0-33.0); MEAN CORPUSCULAR HGB CONC 33.5 g/dl (32.0-36.5); PLATELET COUNT, AUTOMATED 178 10^3/uL (150-450); RED BLOOD COUNT 3.36 10^6/uL (4.00-5.40); RED CELL DISTRIBUTION WIDTH 13.6 % (11.5-14.5); WHITE BLOOD COUNT 5.3 10^3/uL (4.0-10.0)
[2017-11-12 06:34] LABS: HEMOGLOBIN 10.6 g/dl (12.0-15.5)
[2017-11-12 06:48] LABS: ANION GAP 9 MEQ/L (8-16); BLOOD UREA NITROGEN 75 MG/DL (7-18); CALCIUM LEVEL 8.3 MG/DL (8.8-10.2); CARBON DIOXIDE LEVEL 22 MEQ/L (21-32); CHLORIDE LEVEL 117 MEQ/L (98-107); CREATININE FOR GFR 3.28 MG/DL (0.55-1.30); GLOMERULAR FILTRATION RATE 15.2 (>45); GLUCOSE, FASTING 93 MG/DL (70-100); POTASSIUM SERUM 4.8 MEQ/L (3.5-5.1); SODIUM LEVEL 148 MEQ/L (136-145)
[2017-11-12] MEDS: D5W 1,000 ML IV ×2 (08:00→09:53)
[2017-11-12] MEDS: LORazepam 0.5 MG TAB PO (08:22)
[2017-11-12] MEDS: DOCUSATE SODIUM 100 MG CAP PO (08:22)
[2017-11-12] MEDS: busPIRone 5 MG TAB PO (08:22)
[2017-11-12] MEDS: VENLAFAXINE **XR** 37.5 MG CAPSULE PO (08:22)
[2017-11-12 12:06] LABS: FERRITIN 41 NG/ML (8-252); IRON (FE) 49 UG/DL (50-170); PERCENT SATURATION 17.2 % (13.2-45.0); TOTAL IRON BINDING CAPACITY 285 UG/DL (250-450)
[2017-11-12] MEDS: LORazepam 1 MG TAB PO (17:00)
[2017-11-12] MEDS: oxyBUTYnin 5 MG TAB PO (17:11)
[2017-11-12] MEDS: VENLAFAXINE **XR** 75MG CAPSULE PO (17:11)
[2017-11-13] MEDS: LEVOTHYROXINE 50MCG TABLET (0.05MG) PO (05:39)
[2017-11-13 07:50] LABS: HEMATOCRIT 32.5 % (36.0-47.0); HEMOGLOBIN 10.8 g/dl (12.0-15.5); MEAN CORPUSCULAR HEMOGLOBIN 30.9 pg (27.0-33.0); MEAN CORPUSCULAR HGB CONC 33.2 g/dl (32.0-36.5); MEAN CORPUSCULAR VOLUME 93.1 fl (80.0-96.0); PLATELET COUNT, AUTOMATED 182 10^3/uL (150-450); RED BLOOD COUNT 3.49 10^6/uL (4.00-5.40); RED CELL DISTRIBUTION WIDTH 13.6 % (11.5-14.5); WHITE BLOOD COUNT 4.9 10^3/uL (4.0-10.0)
[2017-11-13 07:59] LABS: ANION GAP 12 MEQ/L (8-16); BLOOD UREA NITROGEN 76 MG/DL (7-18); CALCIUM LEVEL 8.2 MG/DL (8.8-10.2); CARBON DIOXIDE LEVEL 20 MEQ/L (21-32); CHLORIDE LEVEL 117 MEQ/L (98-107); CREATININE FOR GFR 3.38 MG/DL (0.55-1.30); GLOMERULAR FILTRATION RATE 14.7 (>45); GLUCOSE, FASTING 79 MG/DL (70-100); POTASSIUM SERUM 4.6 MEQ/L (3.5-5.1); SODIUM LEVEL 149 MEQ/L (136-145)
[2017-11-13] MEDS: D5W 1,000 ML IV ×3 (08:40→23:25)
[2017-11-13] MEDS: CALCITRIOL 0.25 MCG CAP (S0169) PO (08:41)
[2017-11-13] MEDS: DOCUSATE SODIUM 100 MG CAP PO (08:41)
[2017-11-13] MEDS: busPIRone 5 MG TAB PO (08:41)
[2017-11-13] MEDS: LORazepam 0.5 MG TAB PO (08:41)
[2017-11-13] MEDS: VENLAFAXINE **XR** 37.5 MG CAPSULE PO (08:41)
[2017-11-13] MEDS: FERROUS SULFATE 325MG TAB PO ×2 (13:12→21:42)
[2017-11-13 13:46] LABS: OSMOLALITY URINE 173 MOSM/KG (500-800)
[2017-11-13 13:56] LABS: APPEARANCE, URINE CLEAR (CLEAR); BACTERIA, URINE AUTO 1+ (NEGATIVE); BILIRUBIN, URINE AUTO NEGATIVE (NEGATIVE); BLOOD, URINE BLOOD NEGATIVE (NEGATIVE); COLOR, URINE STRAW (YELLOW); GLUCOSE, URINE (UA) AUTO NEGATIVE (NEGATIVE); KETONE, URINE AUTO NEGATIVE (NEGATIVE); LEUKOCYTE ESTERASE, URINE AUTO TRACE (NEGATIVE); MUCUS, URINE SMALL (NEGATIVE); NITRITE, URINE AUTO NEGATIVE (NEGATIVE); PROTEIN, URINE AUTO NEGATIVE (NEGATIVE); RBC, URINE AUTO 2 /HPF (0-3); SPECIFIC GRAVITY URINE AUTO 1.003 (1.002-1.035); SQUAMOUS EPITHELIAL CELL UR AU 0 /HPF (0-6); UROBILINOGEN, URINE AUTO 0.2 mg/dL (0.0-2.0); WBC, URINE AUTO 3 /HPF (0-3)
[2017-11-13] MEDS: LORazepam 1 MG TAB PO (16:25)
[2017-11-13] MEDS: oxyBUTYnin 5 MG TAB PO (16:25)
[2017-11-13] MEDS: VENLAFAXINE **XR** 75MG CAPSULE PO (16:25)
[2017-11-13 18:42] LABS: OSMOLALITY SERUM 313 MOSM/KG (280-301)
[2017-11-14] MEDS: D5W 1,000 ML IV ×3 (05:47→17:53)
[2017-11-14] MEDS: LEVOTHYROXINE 50MCG TABLET (0.05MG) PO (05:48)
[2017-11-14 07:08] LABS: HEMATOCRIT 31.8 % (36.0-47.0); HEMOGLOBIN 10.8 g/dl (12.0-15.5); MEAN CORPUSCULAR HEMOGLOBIN 31.4 pg (27.0-33.0); MEAN CORPUSCULAR VOLUME 92.4 fl (80.0-96.0); PLATELET COUNT, AUTOMATED 180 10^3/uL (150-450); RED BLOOD COUNT 3.44 10^6/uL (4.00-5.40); RED CELL DISTRIBUTION WIDTH 13.6 % (11.5-14.5); WHITE BLOOD COUNT 5.4 10^3/uL (4.0-10.0)
[2017-11-14 07:28] LABS: ANION GAP 8 MEQ/L (8-16); BLOOD UREA NITROGEN 72 MG/DL (7-18); CALCIUM LEVEL 8.4 MG/DL (8.8-10.2); CARBON DIOXIDE LEVEL 23 MEQ/L (21-32); CHLORIDE LEVEL 113 MEQ/L (98-107); CREATININE FOR GFR 3.41 MG/DL (0.55-1.30); GLOMERULAR FILTRATION RATE 14.6 (>45); GLUCOSE, FASTING 88 MG/DL (70-100); POTASSIUM SERUM 4.6 MEQ/L (3.5-5.1); SODIUM LEVEL 144 MEQ/L (136-145)
[2017-11-14] MEDS: busPIRone 5 MG TAB PO (08:49)
[2017-11-14] MEDS: DOCUSATE SODIUM 100 MG CAP PO (08:49)
[2017-11-14] MEDS: LORazepam 0.5 MG TAB PO (08:49)
[2017-11-14] MEDS: VENLAFAXINE **XR** 37.5 MG CAPSULE PO (08:49)
[2017-11-14] MEDS: FERROUS SULFATE 325MG TAB PO ×2 (08:49→19:32)
[2017-11-14] MEDS: hydroCHLOROthiazide 12.5 MG CAPSULE PO (10:46)
[2017-11-14] MEDS: VENLAFAXINE **XR** 75MG CAPSULE PO (17:53)
[2017-11-14] MEDS: oxyBUTYnin 5 MG TAB PO (17:53)
[2017-11-14] MEDS: LORazepam 1 MG TAB PO (17:53)
[2017-11-15] MEDS: LEVOTHYROXINE 50MCG TABLET (0.05MG) PO (06:14)
[2017-11-15 06:44] LABS: HEMATOCRIT 32.1 % (36.0-47.0); HEMOGLOBIN 10.8 g/dl (12.0-15.5); MEAN CORPUSCULAR HEMOGLOBIN 31.1 pg (27.0-33.0); MEAN CORPUSCULAR HGB CONC 33.6 g/dl (32.0-36.5); MEAN CORPUSCULAR VOLUME 92.5 fl (80.0-96.0); PLATELET COUNT, AUTOMATED 185 10^3/uL (150-450); RED BLOOD COUNT 3.47 10^6/uL (4.00-5.40); RED CELL DISTRIBUTION WIDTH 13.7 % (11.5-14.5); WHITE BLOOD COUNT 5.3 10^3/uL (4.0-10.0)
[2017-11-15 06:59] LABS: ANION GAP 9 MEQ/L (8-16); BLOOD UREA NITROGEN 73 MG/DL (7-18); CALCIUM LEVEL 8.7 MG/DL (8.8-10.2); CARBON DIOXIDE LEVEL 22 MEQ/L (21-32); CHLORIDE LEVEL 116 MEQ/L (98-107); CREATININE FOR GFR 3.42 MG/DL (0.55-1.30); GLOMERULAR FILTRATION RATE 14.5 (>45); GLUCOSE, FASTING 84 MG/DL (70-100); POTASSIUM SERUM 4.5 MEQ/L (3.5-5.1); SODIUM LEVEL 147 MEQ/L (136-145)
[2017-11-15 07:00] LABS: MAGNESIUM LEVEL 2.3 MG/DL (1.8-2.4); PHOSPHORUS LEVEL 3.9 MG/DL (2.5-4.9)
[2017-11-15] MEDS: hydroCHLOROthiazide 12.5 MG CAPSULE PO (08:30)
[2017-11-15] MEDS: CALCITRIOL 0.25 MCG CAP (S0169) PO (08:30)
[2017-11-15] MEDS: DOCUSATE SODIUM 100 MG CAP PO (08:30)
[2017-11-15] MEDS: VENLAFAXINE **XR** 37.5 MG CAPSULE PO (08:31)
[2017-11-15] MEDS: LORazepam 0.5 MG TAB PO (08:31)
[2017-11-15] MEDS: busPIRone 5 MG TAB PO (08:31)
[2017-11-15] MEDS: FERROUS SULFATE 325MG TAB PO ×2 (08:31→21:12)
[2017-11-15 11:01] LABS: PTH INTACT 59.8 PG/ML (18.5-88.0)
[2017-11-15] MEDS: VENLAFAXINE **XR** 75MG CAPSULE PO (18:08)
[2017-11-15] MEDS: LORazepam 1 MG TAB PO (18:09)
[2017-11-15] MEDS: oxyBUTYnin 5 MG TAB PO (18:09)
[2017-11-16] MEDS: LEVOTHYROXINE 50MCG TABLET (0.05MG) PO (05:31)
[2017-11-16 06:34] LABS: HEMOGLOBIN 10.8 g/dl (12.0-15.5); MEAN CORPUSCULAR HGB CONC 32.7 g/dl (32.0-36.5); MEAN CORPUSCULAR VOLUME 94.8 fl (80.0-96.0); PLATELET COUNT, AUTOMATED 188 10^3/uL (150-450); RED BLOOD COUNT 3.48 10^6/uL (4.00-5.40); RED CELL DISTRIBUTION WIDTH 13.6 % (11.5-14.5); WHITE BLOOD COUNT 5.2 10^3/uL (4.0-10.0)
[2017-11-16 06:43] LABS: ANION GAP 7 MEQ/L (8-16); BLOOD UREA NITROGEN 75 MG/DL (7-18); CALCIUM LEVEL 8.8 MG/DL (8.8-10.2); CARBON DIOXIDE LEVEL 24 MEQ/L (21-32); CHLORIDE LEVEL 116 MEQ/L (98-107); CREATININE FOR GFR 3.25 MG/DL (0.55-1.30); GLOMERULAR FILTRATION RATE 15.4 (>45); GLUCOSE, FASTING 108 MG/DL (70-100); POTASSIUM SERUM 4.6 MEQ/L (3.5-5.1); SODIUM LEVEL 147 MEQ/L (136-145)
[2017-11-16] MEDS: FERROUS SULFATE 325MG TAB PO ×2 (10:29→20:36)
[2017-11-16] MEDS: DOCUSATE SODIUM 100 MG CAP PO (10:29)
[2017-11-16] MEDS: hydroCHLOROthiazide 12.5 MG CAPSULE PO ×2 (10:30→11:00)
[2017-11-16] MEDS: busPIRone 5 MG TAB PO (10:30)
[2017-11-16] MEDS: VENLAFAXINE **XR** 37.5 MG CAPSULE PO (10:30)
[2017-11-16] MEDS: LORazepam 0.5 MG TAB PO (10:31)
[2017-11-16] MEDS: LORazepam 1 MG TAB PO (17:00)
[2017-11-16] MEDS: VENLAFAXINE **XR** 75MG CAPSULE PO (17:00)
[2017-11-16] MEDS: oxyBUTYnin 5 MG TAB PO (17:00)
[2017-11-17] MEDS: LEVOTHYROXINE 50MCG TABLET (0.05MG) PO (05:50)
[2017-11-17 06:46] LABS: HEMATOCRIT 32.5 % (36.0-47.0); HEMOGLOBIN 10.9 g/dl (12.0-15.5); MEAN CORPUSCULAR HEMOGLOBIN 30.8 pg (27.0-33.0); MEAN CORPUSCULAR HGB CONC 33.5 g/dl (32.0-36.5); MEAN CORPUSCULAR VOLUME 91.8 fl (80.0-96.0); PLATELET COUNT, AUTOMATED 200 10^3/uL (150-450); RED BLOOD COUNT 3.54 10^6/uL (4.00-5.40); RED CELL DISTRIBUTION WIDTH 13.5 % (11.5-14.5); WHITE BLOOD COUNT 5.5 10^3/uL (4.0-10.0)
[2017-11-17 06:56] LABS: ANION GAP 8 MEQ/L (8-16); BLOOD UREA NITROGEN 83 MG/DL (7-18); CALCIUM LEVEL 8.4 MG/DL (8.8-10.2); CARBON DIOXIDE LEVEL 23 MEQ/L (21-32); CHLORIDE LEVEL 117 MEQ/L (98-107); GLOMERULAR FILTRATION RATE 15.1 (>45); GLUCOSE, FASTING 86 MG/DL (70-100); POTASSIUM SERUM 4.8 MEQ/L (3.5-5.1); SODIUM LEVEL 148 MEQ/L (136-145)
[2017-11-17] MEDS: CALCITRIOL 0.25 MCG CAP (S0169) PO (08:48)
[2017-11-17] MEDS: DOCUSATE SODIUM 100 MG CAP PO (08:48)
[2017-11-17] MEDS: busPIRone 5 MG TAB PO (08:49)
[2017-11-17] MEDS: VENLAFAXINE **XR** 37.5 MG CAPSULE PO (08:49)
[2017-11-17] MEDS: hydroCHLOROthiazide 25 MG TAB PO (08:49)
[2017-11-17] MEDS: FERROUS SULFATE 325MG TAB PO ×2 (08:49→20:33)
[2017-11-17] MEDS: LORazepam 0.5 MG TAB PO (08:49)
[2017-11-17] MEDS: oxyBUTYnin 5 MG TAB PO (17:32)
[2017-11-17] MEDS: VENLAFAXINE **XR** 75MG CAPSULE PO (17:32)
[2017-11-17] MEDS: LORazepam 1 MG TAB PO (17:32)
[2017-11-18] MEDS: LEVOTHYROXINE 50MCG TABLET (0.05MG) PO (06:01)
[2017-11-18 06:15] LABS: HEMATOCRIT 31.8 % (36.0-47.0); HEMOGLOBIN 10.7 g/dl (12.0-15.5); MEAN CORPUSCULAR HEMOGLOBIN 30.8 pg (27.0-33.0); MEAN CORPUSCULAR HGB CONC 33.6 g/dl (32.0-36.5); MEAN CORPUSCULAR VOLUME 91.6 fl (80.0-96.0); PLATELET COUNT, AUTOMATED 194 10^3/uL (150-450); RED BLOOD COUNT 3.47 10^6/uL (4.00-5.40); RED CELL DISTRIBUTION WIDTH 13.5 % (11.5-14.5); WHITE BLOOD COUNT 5.4 10^3/uL (4.0-10.0)
[2017-11-18 06:34] LABS: ANION GAP 9 MEQ/L (8-16); BLOOD UREA NITROGEN 78 MG/DL (7-18); CALCIUM LEVEL 8.5 MG/DL (8.8-10.2); CARBON DIOXIDE LEVEL 22 MEQ/L (21-32); CHLORIDE LEVEL 117 MEQ/L (98-107); CREATININE FOR GFR 3.37 MG/DL (0.55-1.30); GLOMERULAR FILTRATION RATE 14.8 (>45); GLUCOSE, FASTING 86 MG/DL (70-100); POTASSIUM SERUM 4.5 MEQ/L (3.5-5.1); SODIUM LEVEL 148 MEQ/L (136-145)
[2017-11-18] MEDS: LORazepam 0.5 MG TAB PO (09:57)
[2017-11-18] MEDS: FERROUS SULFATE 325MG TAB PO (09:58)
[2017-11-18] MEDS: DOCUSATE SODIUM 100 MG CAP PO (09:58)
[2017-11-18] MEDS: busPIRone 5 MG TAB PO (09:58)
[2017-11-18] MEDS: hydroCHLOROthiazide 25 MG TAB PO (09:58)
[2017-11-18] MEDS: VENLAFAXINE **XR** 37.5 MG CAPSULE PO (09:58)
== END 2017-11-18 11:12 | disposition home or self-care (01) | DRG 699 ==
LOC: M MS5PR 12:00
DX: N25.1 Nephrogenic diabetes insipidus (principal); E87.0 Hyperosmolality and hypernatremia; E87.2 Acidosis; N17.9 Acute kidney failure, unspecified; N18.4 Chronic kidney disease, stage 4 (severe); D63.1 Anemia in chronic kidney disease; D50.9 Iron deficiency anemia, unspecified; N25.81 Secondary hyperparathyroidism of renal origin; F31.9 Bipolar disorder, unspecified; E03.9 Hypothyroidism, unspecified; N25.0 Renal osteodystrophy; I44.0 Atrioventricular block, first degree; Z79.899 Other long term (current) drug therapy; Z88.6 Allergy status to analgesic agent; I95.1 Orthostatic hypotension; E55.9 Vitamin D deficiency, unspecified; T43.595A Adverse effect of other antipsychotics and neuroleptics, initial encounter

== ENCOUNTER → 2019-01-30 | Outpatient (REF) | payer MEDICARE, OTHER ==
[~2019-01-30] MED LIST changes: +ABIL1TAB11 PO; +AMBI12.52 PO; +AMBI6.25 PO; +ARIP1TAB6 PO; +ATIV1TAB10 PO; +ATIV1TAB7 PO; +BUSP5TA PO; +CARB1TAB20 PO; +CARB200T98 PO; +CARB20TA PO; +CARB20TAXR PO; +DOCU100C16 PO; +DRIS50003 PO; +FERR1TAB8 PO; +FLUO20CA19 PO; +FLUO40CA PO; +HYDR25TAB PO; +LATU20TA PO; +LATU40TA PO; +LEVO25TA5 PO; +LEVO50TA45 PO; +LEVO50TA5 PO; +LORA0.5T11 PO; +LORA1TAB12 PO; +MAALSUS20 PO; +MILK120011 PO; +NEPH1TAB11 PO; +NEPH5CAP PO; -ONDANSETRON 4MG/2ML VIAL (J2405) IV; +OXYB5TAB10 PO; +PATIENT COMMENT; +PROZ20CA11 PO; +ROCA0.25 PO; +ROCA0.5C PO; +SYNT50TA PO; +TYLE325T5 PO; +VENL37.52 PO; +VENL75CA47 PO; +VENL75TA2; +VITA50005 PO; +ZYPR1TAB2 PO
[2019-01-30 18:08] LABS: FREE T4 1.08 NG/DL (0.76-1.46); THYROID STIMULATING HORMONE 1.7 uIU/ML (0.358-3.740)
== END ==
LOC: M LAB REF 17:22
PROVIDERS: ATTEND Internal Medicine Nephrology
DX: E03.9 Hypothyroidism, unspecified (principal)

== ENCOUNTER 2021-01-10 11:31 | Inpatient (IN) | payer MEDICARE, BC ==
[~2021-01-10] VITALS: Ht 162.6 cm; Wt 123.9 kg
[2021-01-10] VITALS (12 sets, daily range): BP systolic 92–141; BP diastolic 54–91
[~2021-01-10 11:31] MED LIST changes: -FLUO20CA19 PO; +FLUO20CA22 PO; +HYDR-3490 PO; -HYDR25TAB PO; -LORA0.5T11 PO; +LORA0.5T5 PO; -LORA1TAB12 PO; +LORA1TAB4 PO
[2021-01-10] MEDS ORDERED: MAALOX 30 ML SUSP *UDC PO PRN (16:15)
[2021-01-10] MEDS ORDERED: MOM 30ML SUSPENSION UDC PO PRN (16:15)
[2021-01-10 17:10] LABS: BASO % 0.4 % (0.0-1.0); EOS # 0.2 10^3/uL (0.0-0.5); EOS % 2.1 % (0.0-3.0); HEMATOCRIT 38.1 % (36.0-47.0); HEMOGLOBIN 12.1 g/dl (12.0-15.5); LYMPH % 10.9 % (24.0-44.0); MEAN CORPUSCULAR HGB CONC 31.8 g/dl (32.0-36.5); MEAN CORPUSCULAR VOLUME 94.5 fl (80.0-96.0); MONO # 0.6 10^3/uL (0.0-0.8); MONO % 6.3 % (2.0-8.0); NEUTROPHILS # 7.5 10^3/uL (1.5-8.5); NEUTROPHILS % 79.6 % (36.0-66.0); PLATELET COUNT, AUTOMATED 255 10^3/uL (150-450); RED BLOOD COUNT 4.03 10^6/uL (4.00-5.40); WHITE BLOOD COUNT 9.4 10^3/uL (4.0-10.0)
[2021-01-10 17:41] LABS: ALBUMIN 2.9 GM/DL (3.2-5.2); ALT/SGPT 20 U/L (12-78); BILIRUBIN,TOTAL 0.4 MG/DL (0.2-1.0); BLOOD UREA NITROGEN 41 MG/DL (7-18); CALCIUM LEVEL 9.2 MG/DL (8.8-10.2); CARBON DIOXIDE LEVEL 20 MEQ/L (21-32); CHLORIDE LEVEL 112 MEQ/L (98-107); CREATININE FOR GFR 3.96 MG/DL (0.55-1.30); GLOMERULAR FILTRATION RATE 12.1 (>45); GLUCOSE, FASTING 96 MG/DL (70-100); LITHIUM LEVEL < 0.20 MEQ/L (0.60-1.20); MAGNESIUM LEVEL 2.1 MG/DL (1.8-2.4); POTASSIUM SERUM 4.5 MEQ/L (3.5-5.1); SODIUM LEVEL 142 MEQ/L (136-145); TOTAL PROTEIN 6.4 GM/DL (6.4-8.2)
[2021-01-10] MEDS ORDERED: ENOXAPARIN 100MG/1ML SYRINGE (J1650 PER 10MG) SC SCH (17:45)
--- NOTE | 2021-01-10 18:36 | HPEPDOC ---
[facility] Medical History & Physical Date of Admission Jan 10, 2021 Date of Service: Jan 10, 2021 History and Physical CHIEF COMPLAINT: acute renal failure HISTORY OF PRESENT ILLNESS: Patient 65-year-old female with a past medical history of CKD stage V seen Dr. Suero, hypothyroidism on Synthroid after resection of thyroid for suspected thyroid malignancy, cognitive impairment, vitamin D deficiency bipolar disorder on chronic lithium therapy now discontinued, was transferred to [facility] from [facility] for acute renal failure. Contacted Dr. Suero with potential plan for hemodialysis. Patient received CT head wo contrast, which showed no acute abnormalities. Hospitalist will be admitting the patient with nephrology on consultation for the management of acute renal failure. Of note informed prior to transfer the patient developed acute atrial fibrillation. Patient states that she has not had a prior history of this in the past. I spoke to the patient's who informed me that he is a healthcare proxy as well as the power of admitted attorneys. He refuses for the patient to receive anticoagulation. He is in agreement with hemodialysis if necessary. PAST MEDICAL HISTORY: Bipolar disorder cognitive impairment CKD5, sees Dr. Suero Thyroid cancer s/p thyroidectomy, on synthroid. Hypothyroidism Bipolar disorder Vitamin D deficiency H/O orthostatic hypotension OAB PAST SURGICAL HISTORY: Removal of thyroid nodule SOCIAL HISTORY: History of bipolar disorder on lithium for 15 years Lives with her who is her healthcare proxy and power of admitted attorneys Patient denies smoking Patient denies etoh use Patient denies illicit drug use. FAMILY HISTORY: Reviewed with patient no relevant history provided ALLERGIES: Please see below. REVIEW OF SYSTEMS: 10 point ROS conducted relevant findings noted in HPI HOME MEDICATIONS: Please see below. PHYSICAL EXAMINATION: VITAL SIGNS: please see below General: NAD, comfortable HEENT: PERRLA, EOMI, sclerae clear Neck: supple, normal ROM, no JVD Respiratory: lungs CTAB, no wheeze, no rales, no crackles CVS: RRR, normal S1, S2, no murmurs Abdo: soft, no masses, no hepatosplenomegaly, BS+, no rebound tenderness Extremities: no edema, pulses 2+ MSK: no joint deformities, normal ROM Neuro: no focal neuro deficits, moving all 4 extremities, CN2-12 intact. Strength 5/5 in all 4 extremities. No nystagmus. Psych: calm, cooperative, AAO x 2 LABORATORY DATA: See below. MICROBIOLOGY: Please see below. ASSESSMENT: Patient 65-year-old female with a past medical history of CKD stage V seen Dr. Suero, hypothyroidism on Synthroid after resection of thyroid for suspected thyroid malignancy, vitamin D deficiency bipolar disorder on chronic lithium therapy now discontinued, was transferred to [facility] from [facility] for acute renal failure. Contacted Dr. Suero with potential plan for hemodialysis. Hospitalist will be admitting the patient with nephrology on consultation for the management of acute renal failure. Of note informed prior to transfer the patient developed acute atrial fibrillation. Patient states that she has not had a prior history of this in the past. I spoke to the patient's who informed me that he is a healthcare proxy as well as the power of admitted attorneys. He refuses for the patient to receive anticoagulation. He is in agreement with hemodialysis if necessary. . PLAN: Patient will be admitted to hospitalist service with nephrology consultation for the management of acute renal failure. Creatinine is elevated at 3.96 which is above baseline of approximately 3.25. We will repeat the renal ultrasound. Earth levels less than 0.2. Patient will likely require hemodialysis therefore consultation with vascular surgery placed for placement of permacath. I discussed this with Dr. Land who will likely place the permacath tomorrow 01/11/2021. With regard to patient's new atrial fibrillation her states that she had a similar episode approximately 3 months ago at [facility] when she was admitted for dehydration. He does not wish to start any form of anticoagulation. At this time the patient's chads vascular score is 1 placing her at low risk of stroke for atrial fibrillation. We will start patient on metoprolol 25 mg every 8 hours and obtain a 2D echo. I had a rather concerning conversation with the patient's who is obvi ously very upset that he is not permitted to visit her in the setting of the pandemic. He has informed me that he has informed his radio installer and may be proceeding with legal action against the hospital for not allowing visitors. I informed the patient's very respectfully that the hospital must comply with a state-mandated guidelines. Vital Signs Vital Signs Date Time Temp Pulse Resp B/P (MAP) Pulse Ox O2 Delivery O2 Flow Rate FiO2 01/10/21 14:49 98.0 97 20 122/91 (101) 99 Room Air Laboratory Data Labs 24H Laboratory Tests 2 01/10/21 16:33: Immature Granulocyte % (Auto) 0.7, Neutrophils (%) (Auto) 79.6H, Lymphocytes (%) (Auto) 10.9L, Monocytes (%) (Auto) 6.3, Eosinophils (%) (Auto) 2.1, Basophils (%) (Auto) 0.4, Neutrophils # (Auto) 7.5, Lymphocytes # (Auto) 1.0L, Monocytes # (Auto) 0.6, Eosinophils # (Auto) 0.2, Basophils # (Auto) 0.0, Nucleated Red Blood Cells % (auto) 0.0, Anion Gap 10, Glomerular Filtration Rate 12.1L, Calcium Level 9.2, Magnesium Level 2.1, Total Bilirubin 0.4, Aspartate Amino Transf (AST/SGOT) 12, Alanine Aminotransferase (ALT/SGPT) 20, Alkaline P hosphatase 93, Total Protein 6.4, Albumin 2.9L, Albumin/Globulin Ratio 0.8L, Earth Level < 0.20L CBC/BMP Laboratory Tests 01/10/21 16:33 Home Medications Scheduled Aripiprazole (Abilify) 10 Mg Tablet, 10 MG PO DAILY Calcitriol (Rocaltrol) 0.5 Mcg Cap, 0.5 MCG PO Q2D Levothyroxine Sodium (Synthroid) 50 Mcg Tab, 50 MCG PO DAILY Sertraline HCl (Sertraline HCl) 50 Mg Tablet, 50 MG PO QHS Allergies Coded Allergies: aspirin (Verified Adverse Reaction, Unknown, KIDNEY PROBLEMS, 01/10/21) A-FIB/CHADSVASC A-FIB History Current/History of A-Fib/PAF?: Yes Current PO Anticoag Therapy: No REJI CLEMENT MD Jan 10, 2021 18:36
[2021-01-10] MEDS: METOPROLOL TART 25 MG TABLET PO SCH (22:04)
[2021-01-10] MEDS ORDERED: ABIL10TA9 PO (23:16)
[2021-01-10] MEDS ORDERED: SERT50TA29 PO (23:16)
[2021-01-10] MEDS ORDERED: HOME MED LIST COMPLETE! XX SCH (23:20)
[2021-01-11] VITALS (11 sets, daily range): BP systolic 94–144; BP diastolic 45–77
[2021-01-11 05:01] LABS: BASO % 0.5 % (0.0-1.0); EOS # 0.3 10^3/uL (0.0-0.5); EOS % 3.4 % (0.0-3.0); HEMATOCRIT 36.7 % (36.0-47.0); HEMOGLOBIN 11.9 g/dl (12.0-15.5); LYMPH # 1.3 10^3/uL (1.5-5.0); LYMPH % 15.8 % (24.0-44.0); MEAN CORPUSCULAR HEMOGLOBIN 30.7 pg (27.0-33.0); MEAN CORPUSCULAR HGB CONC 32.4 g/dl (32.0-36.5); MEAN CORPUSCULAR VOLUME 94.6 fl (80.0-96.0); MONO # 0.5 10^3/uL (0.0-0.8); MONO % 5.9 % (2.0-8.0); NEUTROPHILS # 6.2 10^3/uL (1.5-8.5); NEUTROPHILS % 73.7 % (36.0-66.0); PLATELET COUNT, AUTOMATED 240 10^3/uL (150-450); RED BLOOD COUNT 3.88 10^6/uL (4.00-5.40); WHITE BLOOD COUNT 8.4 10^3/uL (4.0-10.0)
[2021-01-11 05:19] LABS: ALBUMIN 2.7 GM/DL (3.2-5.2); BILIRUBIN,TOTAL 0.4 MG/DL (0.2-1.0); CALCIUM LEVEL 9.4 MG/DL (8.8-10.2); CREATININE FOR GFR 4.04 MG/DL (0.55-1.30); GLOMERULAR FILTRATION RATE 11.9 (>45); MAGNESIUM LEVEL 2.2 MG/DL (1.8-2.4); POTASSIUM SERUM 4.6 MEQ/L (3.5-5.1); TOTAL PROTEIN 5.9 GM/DL (6.4-8.2)
[2021-01-11] MEDS: METOPROLOL TART 25 MG TABLET PO SCH ×3 (05:48→21:19)
[2021-01-11 07:59] LABS: CHOLESTEROL LEVEL 148 MG/DL (<200); CHOLESTEROL RISK RATIO 3.794 (<5); FERRITIN 67 NG/ML (8-252); HDL CHOLESTEROL 39 MG/DL (>40); IRON (FE) 57 UG/DL (50-170); LDL CHOLESTEROL 78 MG/DL (<100); NON-HDL-C 109 MG/DL; PERCENT SATURATION 19.6 % (13.2-45.0); TOTAL IRON BINDING CAPACITY 291 UG/DL (250-450); TRIGLYCERIDES LEVEL 156 MG/DL (<150)
--- NOTE | 2021-01-11 08:00 | REP ---
INDICATION: ashley. COMPARISON: Comparison renal sonography November 11, 2017. TECHNIQUE: Urinary tract sonography. Scan quality is inhibited by patient body habitus. FINDINGS: A Collado catheter is seen in place. No urinary bladder abnormality is noted. Renal cortical echogenicity pattern is hyperechoic bilaterally consistent with chronic medical renal disease. There is evidence of atrophy of affecting the right kidney which measures 9.4 x 3.9 x 4.9 cm. Left renal dimensions are 10.4 x 5.0 x 4.8 cm. No hydronephrosis is seen on either side. There is a 2.6 cm cyst at the midpole position of the right kidney. The left kidney contains a midpole cyst measuring 2.3 cm in greatest diameter and a lower pole cyst measuring 2.2 cm in greatest diameter. IMPRESSION: Increased renal cortical echogenicity consistent with chronic medical renal disease. Right renal atrophy. Bilateral renal cysts. Findings essentially unchanged. No hydronephrosis seen. <Electronically signed by Sourav Armenta > 01/11/21 [id number]
[2021-01-11 08:34] LABS: HEMOGLOBIN A1c 5.4 %
[2021-01-11 08:42] LABS: HEPATITIS B SURFACE ANTIBODY POSITIVE (POSITIVE); PTH INTACT 103.8 PG/ML (18.5-88.0)
[2021-01-11 08:53] LABS: HEPATITIS B SURFACE ANTIGEN NEGATIVE (NEGATIVE)
[2021-01-11] MEDS ORDERED: ENOXAPARIN 40MG/0.4ML SYRINGE (J1650 PER 10MG) SC SCH (09:00)
[2021-01-11 09:21] LABS: HEPATITIS B CORE ANTIBODY IGM NEGATIVE (NEGATIVE); HEPATITIS C VIRUS ABY INDEX 0.1 INDEX (<0.8)
--- NOTE | 2021-01-11 15:08 | ECGEPIP ---
[facility] Test Date: 2021-01-10 Pat Name: JAYESH ZAMBRANO Department: Room: [place] [address] Gender: Female Safety Intern: CEDRIC : 1955 Requested By: REJI CLEMENT Order Number: [id number] Reading MD: Blaine Martinez Measurements Intervals Kimberly Rate: 102 P: RI: QRS: 26 QRSD: 74 T: 29 QT: 342 QTc: 445 Interpretive Statements Atrial fibrillation with rapid ventricular response Low voltage QRS throughout Nonspecific ST and T wave abnormality Compared to prior tracing of , atrial fibrillation is new Electronically Signed on 01-11-2021 15:07:55 EDT by Blaine Martinez
[2021-01-11] MEDS: ARIPiprazole 10 MG TAB PO SCH (15:53)
--- NOTE | 2021-01-11 16:19 | CR ---
INITIAL INPATIENT CONSULTATION DATE: 01/11/2021 REQUESTING PHYSICIAN: Dr. John White CONSULTING PHYSICIAN: Dr. Hebert REASON FOR CONSULTATION: Management of chronic kidney disease stage 5. CHIEF COMPLAINT: Patient was transferred from [facility] because of acute renal failure superimposed on chronic kidney disease stage 5. NOTE: History was obtained from medical records from patient's chart and from the medical team. Patient, herself, is not a very good historian. HISTORY OF PRESENT ILLNESS: Norma Santiago is a 65-year-old female with a past medical history of chronic kidney disease stage 5 most likely secondary to chronic Aniwa use; she follows up with Dr. Suero in nephrology clinic, history of hypothyroidism which is iatrogenic and bipolar disorder with multiple other comorbidities. She was initially admitted to [facility] with progressive shortness of breath, weakness and dizziness. She was found to have worsening renal function. [facility] does not have nephrology service available, so she was transferred to [facility]. She was admitted under the hospitalist service and nephrology service was called for further help in the management of this patient. Patient also developed atrial fibrillation while she was transferred here, however, her refused to start her on anticoagulation. Heart rate is controlled at this time. Patient and her agreed for initiation of hemodialysis and she was transferred from [facility] to [facility], however, patient is still having second thoughts now when she was transferred to [facility]. Of note; patient was also in urinary retention and she got Collado catheter placed last night and I was told that about 700 cc of urine came out when she got the Collado placed. PAST MEDICAL HISTORY: Bipolar disorder, CKD stage 5; most likely secondary to chronic Aniwa use, history of thyroid cancer; status post thyroidectomy, and she has iatrogenic hypothyroidism now, Vitamin D deficiency and history of orthostatic hypotension in the past. PAST SURGICAL HISTORY: Status post thyroidectomy. ALLERGIES: She is allergic to aspirin. FAMILY HISTORY: No significant family history of end-stage renal disease requiring hemodialysis. SOCIAL HISTORY: Patient has history of bipolar disorder. She lives with her , whose her healthcare proxy. There is no significant history of smoking, illicit drug abuse or alcohol abuse. REVIEW OF SYSTEMS: CONSTITUTIONAL: She denies any fevers and chills. EYES: She denies any blurry vision, double vision. ENT: She denies any dysphagia, odynophagia. CVS: She denies any chest pain or palpitation. RESPIRATORY: She reports mild shortness of breath. GI: She denies any nausea or vomiting. GENITOURINARY: She reports urinary retention. She has an indwelling Collado catheter. MUSCULOSKELETAL: She denies any muscle aches and pains. SKIN: She denies any rashes or ulcers. HEMATOLOGICAL/ONCOLOGICAL: Denies any easy bleeding or bruising. PSYCH: Patient has history of bipolar disorder. ELEMENTARY SPANISH TEACHER: Denies any strokes or seizures. All other review of systems is negative. PHYSICAL EXAMINATION: GENERAL: Patient is awake, alert, oriented x2, sitting up in the bed, obese body habitus. VITAL SIGNS: Temperature 97.8 degrees Fahrenheit, blood pressure 106/77, pulse 91, respiratory rate 18, and saturating 96% on room air. HEAD/NECK: Extraocular muscles intact. Pupils equally round and reactive to light. Mucous membranes are moist. Neck is supple. There is no JVD. CARDIOVASCULAR: S1, S2, regular rate. No edema of the bilateral lower extremities. RESPIRATORY: Chest is clear to auscultation bilaterally. Bilateral equal air entry. No rales or rhonchi. ABDOMEN: Obese, positive bowel sounds, nontender. No organomegaly. GENITOURINARY: She has an indwelling Collado catheter; light pale colored urine in the bag is noted. MUSCULOSKELETAL: No clubbing or cyanosis. Pulses are 2+. ELEMENTARY SPANISH TEACHER: No focal deficit at this time. PSYCHIATRIC: Patient is very withdrawn and answers very few questions and she has a depressed mood. LABORATORY REVIEW: CBC showed WBC 8.4, hemoglobin 11.9, platelets 240,000. Urinalysis showed no blood or protein. BMP today morning showed sodium 148, potassium 4.6, chloride 120, bicarb 22, BUN 40, creatinine 4. A1C 5.4. Iron 57, transferrin saturation 19.6, ferritin 67. PTH 103. Serology: Hepatitis B surface antibody is positive and surface antigen is negative. Hepatitis C is negative. IMAGING STUDIES: A renal ultrasound was done, it showed decreased renal cortical echogenicity consistent with chronic medical renal disease. CURRENT INPATIENT MEDICATIONS: Patient's medications were all reviewed by myself. She is currently on Tylenol p.r.n., Abilify 10 mg p.o. daily. Venofer 100 mg I.V. has been ordered daily. Metoprolol 25 mg p.o. every 8 hours, Milk of Mag and Sertraline 50 mg p.o. q.h.s. IMPRESSION AND PLAN: 1. Acute renal failure superimposed on chronic kidney disease stage 5: Patient's and herself they agreed before she was transferred, however today she is having second thoughts. I have requested vascular surgery to place a tunneled dialysis catheter, however, vascular surgery wants the patient to be cleared by psychiatry before catheter is placed. We are awaiting evaluation by psych. 2. Anemia and end-stage renal disease and iron deficiency: When patient starts dialysis, she will be given Venofer with dialysis. 3. Normal anion gap metabolic acidosis: It is secondary to acute renal failure superimposed on chronic kidney disease. Acidosis should get better with initiation of hemodialysis. 4. Bipolar disorder: Patient continues to be on Zoloft and Abilify. The rest of the management is as per medical team. 5. Atrial fibrillation: Heart rate is controlled with Metoprolol and refused to anticoagulate the patient. Thank you for involving me in the care of this patient. I shall be happy to follow the patient along with you tomorrow morning.
--- NOTE | 2021-01-11 17:28 | IPNPDOC ---
Date Seen The patient was seen on 01/11/21. Progress Note SUBJECTIVE: Patient was seen examined at bedside in the ICU. Patient was transferred to ICU due to low availability of PCU beds. Overnight I was informed that the patient has suicidal ideation with plan which included use of a firearm at their home. A sitter has been ordered and is at bedside. This morning the patient is alert and oriented x 3, but is not able to tell me why she requires hemodialysis, although she thinks her kidney illness is due to prolonged lithium use. She tells me that continues to have active suicidal thoughts with a plan of using a firearm or a crashing a vehicle. Patient does have intermittent periods of lucidity during which she states that she wishes to have dialysis performed and at other times she states that she is unsure. Dr. Hebert has been consulted. Dr. Land from vascular surgery was consulted for placement of a permacath. He requested that the patient undergo a psychiatric evaluation for capacity to make decisions and to give consent. The patient's healthcare proxy is her , Irineo Santiago. He was unaware of the limitation restrictions to [facility] in light of Covid and has requested visitation rights be granted. According to administration, visitation can be allowed if the patient is not competent to make decisions. It is my clinical opinion that the patient lacks capacity to make her own decisions and therefore the patient's should be permitted to visit. To evaluate her for active suicidality with plan, psychiatric consultation was placed with Dr. Polanco. I informed Mr. Santiago that psychiatric consultation has been ordered. He was concerned and asked psychiatry not to be consulted without his presence. While he is the healthcare proxy who makes decisions for the patient if she is unable to do so for herself, psychiatry was consulted as the patient was at risk to herself due to active suicidal ideation. OBJECTIVE PHYSICAL EXAMINATION: VITAL SIGNS: please see below General: NAD, comfortable, HEENT: PERRLA, EOMI, sclerae clear Neck: supple, normal ROM, no JVD Respiratory: lungs CTAB, no wheeze, no rales, no crackles CVS: RRR, normal S1, S2, no murmurs Abdo: soft, no masses, no hepatosplenomegaly, BS+, no rebound tenderness Extremities: no edema, pulses 2+ MSK: no joint deformities, normal ROM Neuro: no focal neuro deficits, moving all 4 extremities, CN2-12 intact. Strength 5/5 in all 4 extremities. No nystagmus. Psych: calm, cooperative, alert but oriented to person only. Patient seems withdrawn and slow speech. Flat affect LABORATORY DATA, IMAGING STUDIES, MICROBIOLOGY: Please see below. Echocardiogram: Ordered on 01/10/2021 DVT prophylaxis ordered?: Lovenox ASSESSMENT AND PLAN: Patient 65-year-old female with a past medical history of CKD stage V followed by Dr. Suero, hypothyroidism on Synthroid after resection of thyroid for suspected thyroid malignancy, cognitive impairment, vitamin D deficiency bipolar disorder on chronic lithium therapy now discontinued, was transferred to [facility] from [facility] for acute renal failure. Hospitalist will be admitting the patient with nephrology on consultation for the management of acute renal failure. Of note informed prior to transfer the patient developed acute atrial fibrillation. Patient states that she has not had a prior history of this in the past. I spoke to the patient's who informed me that he is a healthcare proxy as well as the power of insurance attorney. He refuses for the patient to receive anticoagulation. He is in agreement with hemodialysis if necessary. PROBLEMS: Acute renal failure on CKD stage V: Dr. Hebert has been consulted. Plan is for permacath insertion and initiation of hemodialysis. Patient's and power of insurance attorney Mr. Irineo Santiago agrees. Vascular surgeon Dr. Land was consulted for placement of a permacath. He requested the patient undergo psychiatric evaluation for competence prior to obtaining consent. It was my clinical opinion that the patient lacks capacity to make decisions. Psychiatry deemed patient to be noncompetent to make decisions. I informed Dr. Land of this, and he will attempt to obtain consent from her on 01/12/2021. Atrial fibrillation, new onset: Reported history of A. fib in the past during admission for dehydration and acute renal failure in outside hospital. Patient has not been on any rate control agents or anticoagulation. Upon transfer from [facility] was informed that the patient has new onset A. fib with RVR. On telemetry patient continues to be in atrial fibrillation with a relatively well-controlled rate with Coreg 25 mg every 8 hours. I discussed with the patient's who initially refused anticoagulation but at this time is open to it if patient requires this. I discussed with Dr. Villafuerte the patient's [id number] score of 1 the patient is at low risk for CVA from atrial fibrillation. However we will consider restarting patient on Eliquis once the echo was read to rule out valvular pathology and the patient has received her permacath for hemodialysis. Active suicidal ideation: I was informed by nursing that the patient had active suicidal ideation with a plan overnight. This morning sitter was at bedside. Given the fact that the patient but is potentially at risk of self-injurious behaviors and self-inflicted psychiatry was consulted to evaluate the patient for active suicidality. Dr. Young and examined the patient at bedside and informed me that the patient is not competent to make decisions. He however believes that the patient is at low risk of self-harm and thinks that we should discontinue the sitter. It is also related the patient's confusion is related to acute organic medical illness such as acute renal failure, worsening against a background of bipolar depression. At this time he recommends discontinuing the sitter. Bipolar disorder, depression: Dr. Polanco recommends that we continue Abilify and Zoloft at this time in order to prevent an episode of lauren. The patient became becomes more sedated with his medications we can discontinue them for the time being. We will check TSH and FT4 to ensure thyroid issues are not causing depressed mentation. Dispo: PFS is currently involved. We are attempting to provide access for the patient's . PFS will also assist to ensure safe discharge plan, as there have been reports of concerning behaviour on the part of Mr. Santiago as reported in previous psychiatric notes and by the patient herself to RN overnight. PFS has reached out to Adult Protective Services to inquire if there are any pending cases open. VS, I&O, 24H, Fishbone Vital Signs/I&O Vital Signs Date Time Temp Pulse Resp B/P (MAP) Pulse Ox O2 Delivery O2 Flow Rate FiO2 01/11/21 15:58 97.3 86 18 105/45 (65) 96 Room Air I&O- Last 24 Hours up to 6 AM 01/11/21 06:00 Intake Total 0 ml Output Total 1300 ml Balance -1300 ml Laboratory Data 24H LABS Laboratory Tests 2 01/10/21 18:07: Urine Color STRAW, Urine Appearance CLEAR, Urine pH 6.0, Urine Specific Liberal 1.002, Urine Protein NEGATIVE, Urine Glucose (UA) NEGATIVE, Urine Ketones NEGATIVE, Urine Blood NEGATIVE, Urine Nitrite NEGATIVE, Urine Bilirubin NEGATIVE, Urine Urobilinogen 0.2, Urine Leukocyte Esterase 1+H, Urine WBC (Auto) 5H, Urine RBC (Auto) 2, Urine Hyaline Casts (Auto) 0, Urine Bacteria (Auto) NEGATIVE, Urine Squamous Epithelial Cells 0, Urine Mucus (Auto) SMALL, Urine Sperm (Auto) 01/11/21 04:44: Immature Granulocyte % (Auto) 0.7, Neutrophils (%) (Auto) 73.7H, Lymphocytes (%) (Auto) 15.8L, Monocytes (%) (Auto) 5.9, Eosinophils (%) (Auto) 3.4H, Basophils (%) (Auto) 0.5, Neutrophils # (Auto) 6.2, Lymphocytes # (Auto) 1.3L, Monocytes # (Auto) 0.5, Eosinophils # (Auto) 0.3, Basophils # (Auto) 0.0, Nucleated Red Blood Cells % (auto) 0.0, Anion Gap 6L, Glomerular Filtration Rate 11.9L, Calcium Level 9.4, Magnesium Level 2.2, Total Bilirubin 0.4, Aspartate Amino Transf (AST/SGOT) 15, Alanine Aminotransferase (ALT/SGPT) 21, Alkaline Phosphatase 84, Total Protein 5.9L, Albumin 2.7L, Albumin/Globulin Ratio 0.8L 01/11/21 07:09: Estimated Mean Plasma Glucose 108, Hemoglobin A1c 5.4, Phosphorus Level 4.7, Iron Level 57, Total Iron Binding Capacity 291, Transferrin % Saturation 19.6, Ferritin 67, Triglycerides Level 156H, Total Cholesterol 148, LDL Cholesterol 78, Non-HDL Cholesterol (LDL + VLDL) 109, Total HDL Cholesterol 39L, Cholesterol/HDL Ratio 3.794, Parathyroid Hormone (Intact) 103.8H, Hepatitis B Surface Antigen NEGATIVE, Hepatitis B Surface Antibody POSITIVE, Hepatitis B Core IgM Antibody NEGATIVE, Hepatitis C Antibody Index 0.1 CBC/BMP Laboratory Tests 01/11/21 04:44 Microbiology Microbiology 01/10/21 Urine Culture, Received Pending REJI CLEMENT MD Jan 11, 2021 17:28
--- NOTE | 2021-01-11 18:00 | MHCRPDOC ---
[facility] Consultation Consultation DATE OF CONSULTATION: 01/11/21 CONSULTATION REQUESTED BY: John Gilliland MD REASON FOR CONSULTATION: Second opinion for capacity to receive medical care, concerns for suicidal statements made overnight. RELEVANT HISTORY: Norma is a 65-year-old woman who has a past history of bipolar depression. Currently she was admitted to the hospital as a transfer from [place] [facility] for dialysis treatment and placement of permacath. Patient's has not been allowed in the hospital, he is submitted documentation demonstrating that he is her medical proxy for decision making. Primary team questions whether or not Norma can make decisions for her medical care at this time or if they should default to 's healthcare proxy status. On interview today Norma has a difficult time reiterating where she is, she initially stated that she was still in [place], and believe that today was January 13, 2021. She did recognize that she was there to receive dialysis treatment but was unable to provide an explanation of what dialysis was for, what the risks were, what the benefits were, or what was being asked of her. Explanations were provided to describe the process of dialysis as well as in sertion of a permacath, patient was unable to repeat information after education was provided. We also discussed her possible suicidal ideation from night before, patient was not aware and did not remember having made such statements. She acknowledged that she has felt that way in the past but does not currently want to . PAST PSYCHIATRIC HISTORY: Extensive history of bipolar depression, has been admitted to the hospital multiple times, last time at [facility] was in 2018. Patient did not remember hospitalizations after that. Patient did not remember if she had attempted suicide, previous admissions indicate that she has had attempts in the past. Did not remember who currently prescribes her medications, what medication she is taking, or where she is seen for treatment. PAST MEDICAL HISTORY: Recent diagnosis of atrial fibrillation, past history of chronic kidney disease, history of hypothyroidism secondary to thyroidectomy FAMILY HISTORY: Patient unable to answer PERSONAL AND SOCIAL HISTORY: Resides in: [place] Marital Status: M Children: Patient unable to answer Employment: Patient unable to answer SUBSTANCE ABUSE HISTORY: Patient unable to answer substance history LEGAL HISTORY: Patient unable to answer. MENTAL STATUS EXAMINATION: Patient is a 65-year old female, who is dressed in a hospital gown and laying down in bed. She appears older than stated age. Speech is slowed, quiet, with some evidence of difficulty getting out words. Language skills are word finding difficulties were noted, patient would trail off in the middle of sentences while talking. Thought processes including: Appeared confused and slowed, patient was unable to manipulate information being presented to her during the course of the interview. Thought content: Denied suicidal ideation, reported that she was in the hospital for dialysis treatment to keep her kidneys working. Abstract reasoning, and computation: Van. Description of associations: Linear. Description of abnormal or psychotic thoughts: Patient did not respond to questions about auditory visual hallucinations, she did deny active suicidal ideation but reported having in the past. Did not appear to be internally preoccupied during the interview. Judgment: Poor, likely impaired by current mental status. Insight: Poor, likely impaired by current mental status. Orientation to person and situation. Recent and remote memory: 2 of 3 on short recall, unable to provide a coherent history or timeline leading up to her current situation. Attention span and concentration: Trailed off during the middle of sentences multiple times during the conversation, requires significant prompting in order to keep her on task, was unable to perform serial sevens, spelled WORLD backward s as "LORWD". Language: Able to hold minimal conversation but has difficulty tracking and communicating effectively. Fund of knowledge: Aware of current president, aware of upcoming holidays, fund of knowledge appears appropriate. Mood: Did not respond when questioned. Affect: Appeared confused, blunted range, stable. DIAGNOSIS: 1. Bipolar affective disorder 2. Unspecified neurocognitive disorder, rule out delirium secondary to medical impairment versus dementia. PLAN: 1. Based on the assessment today Norma does not appear to have capacity to make medical decisions for herself at this time. Components of a decision regarding capacity involves being able to communicate a choice (patient expressed desire for dialysis clearly and consistently throughout the course of the interview), ability to understand and recall information (patient required significant prompting and reeducation of information as she was unable to state purpose of dialysis or why she was hospitalized, after reeducation was still unable to recall information as to what dialysis was for), ability to appreciate risk and benefits of a procedure or alternatives (patient was able to loosely st ate that she would if she did not have dialysis, was unable to describe any risks or benefits associated with dialysis), and ability to rationally manipulate information (patient was unable to describe risk or benefits of the procedures being offered or alternatives). As the patient did not appear to have understanding of situation, appreciation of risk or benefits, or ability to manipulate information in a rational thought process at this time I would agree with the primary team's decision that the patient does not currently have capacity, medical decision making should then go to her healthcare proxy such as they are able. In regards to the suicidal ideation, this appears to be transitory and fleeting, patient does not remember having had these thoughts expresses no current suicidal ideation with intent or plan. At this time I would recommend that a sitter be discontinued. Given the patient's medical comorbidities, current slowed speech, and lack of a recent thyroid study the patient may also be experiencing hypothyroid state which may include delirium. While in the delirious state patients may be violent, made statements regarding suicide, or other aspects of confusion such as trying to escape. This is not indicative of a need for inpatient psychiatric hospitalization, however the patient should be monitored for fluctuating mental status and causes of delirium should be addressed. The patient is also at risk for delirium anyway due to age, current status is a hospitalized patient, and need for dialysis. She did not appear encephalopathic but was having difficulty with orientation and concentration. Ongoing mental status assessment should be conducted with each shift in order to document and observed patient's fluctuating mental status and to help establish and she is at baseline. If patient is not already established with neurology then a referral should likely be made upon discharge for outpatient evaluation to determine if medications may be appropriate and treating possible dementia. 2. Recommend continuing home doses of Abilify and Zoloft, recommend obtaining new thyroid studies to determine if patient is properly dosed for Synthroid as last lab evaluations are from 2019. Vital Signs Vital Signs Date Time Temp Pulse Resp B/P (MAP) Pulse Ox O2 Delivery O2 Flow Rate FiO2 01/11/21 15:58 97.3 86 18 105/45 (65) 96 Room Air Laboratory Data 24H Labs Laboratory Tests 2 01/10/21 18:07: Urine Color STRAW, Urine Appearance CLEAR, Urine pH 6.0, Urine Specific [place] 1.002, Urine Protein NEGATIVE, Urine Glucose (UA) NEGATIVE, Urine Ketones NEGATIVE, Urine Blood NEGATIVE, Urine Nitrite NEGATIVE, Urine Bilirubin NEGATIVE, Urine Urobilinogen 0.2, Urine Leukocyte Esterase 1+H, Urine WBC (Auto) 5H, Urine RBC (Auto) 2, Urine Hyaline Casts (Auto) 0, Urine Bacteria (Auto) NEGATIVE, Urine Squamous Epithelial Cells 0, Urine Mucus (Auto) SMALL, Urine Sperm (Auto) 01/11/21 04:44: Immature Granulocyte % (Auto) 0.7, Neutrophils (%) (Auto) 73.7H, Lymphocytes (%) (Auto) 15.8L, Monocytes (%) (Auto) 5.9, Eosinophils (%) (Auto) 3.4H, Basophils (%) (Auto) 0.5, Neutrophils # (Auto) 6.2, Lymphocytes # (Auto) 1.3L, Monocytes # (Auto) 0.5, Eosinophils # (Auto) 0.3, Basophils # (Auto) 0.0, Nucleated Red Blood Cells % (auto) 0.0, Anion Gap 6L, Glomerular Filtration Rate 11.9L, Calci um Level 9.4, Magnesium Level 2.2, Total Bilirubin 0.4, Aspartate Amino Transf (AST/SGOT) 15, Alanine Aminotransferase (ALT/SGPT) 21, Alkaline Phosphatase 84, Total Protein 5.9L, Albumin 2.7L, Albumin/Globulin Ratio 0.8L 01/11/21 07:09: Estimated Mean Plasma Glucose 108, Hemoglobin A1c 5.4, Phosphorus Level 4.7, Iron Level 57, Total Iron Binding Capacity 291, Transferrin % Saturation 19.6, Ferritin 67, Triglycerides Level 156H, Total Cholesterol 148, LDL Cholesterol 78, Non-HDL Cholesterol (LDL + VLDL) 109, Total HDL Cholesterol 39L, Cholesterol/HDL Ratio 3.794, Parathyroid Hormone (Intact) 103.8H, Hepatitis B Rivas rface Antigen NEGATIVE, Hepatitis B Surface Antibody POSITIVE, Hepatitis B Core IgM Antibody NEGATIVE, Hepatitis C Antibody Index 0.1 Home Medications Current Medications Current Medications Medications (Trade) Dose Ordered Sig/Naz Route PRN Reason Start Time Stop Time Status Last Admin Dose Admin Acetaminophen (Tylenol Tab) 650 mg Q4H PRN PO MILD PAIN or TEMP > 101 01/10/21 16:15 Al Hydrox/Mg Hydrox/Simethicone (Mylanta) 30 ml DAILY PRN PO DYSPEPSIA 01/10/21 16:15 Aripiprazole (AbiLIFY) 10 mg DAILY PO 01/11/21 09:00 01/11/21 15:53 Enoxaparin Sodium (Lovenox) 40 mg DAILY SC 01/11/21 09:00 01/10/21 17:46 DC Enoxaparin Sodium (Lovenox) 40 mg DAILY SC 01/12/21 09:00 Enoxaparin Sodium (Lovenox) 120 mg Q12H SC 01/10/21 17:45 01/10/21 18:20 DC Home Med (Home Med List Complete!) ASDIRECTED XX 01/10/21 23:20 01/10/21 23:18 DC Iron (Venofer) 100 mg HD IV 01/11/21 09:05 Magnesium Hydroxide (Milk Of Magnesia) 30 ml DAILY PRN PO CONSTIPATION 01/10/21 16:15 Metoprolol Tartrate (Lopressor) 25 mg Q8H PO 01/10/21 22:00 01/11/21 13:16 Sertraline HCl (Zoloft) 50 mg QHS PO 01/11/21 21:00 Scheduled Aripiprazole (Abilify) 10 Mg Tablet, 10 MG PO DAILY, (Reported) Calcitriol (Rocaltrol) 0.5 Mcg Cap, 0.5 MCG PO Q2D, (Reported) Levothyroxine Sodium (Synthroid) 50 Mcg Tab, 50 MCG PO DAILY, (Reported) Sertraline HCl (Sertraline HCl) 50 Mg Tablet, 50 MG PO QHS, (Reported) Allergies Coded Allergies: aspirin (Verified Adverse Reaction, Unknown, KIDNEY PROBLEMS, 01/10/21) ZE STAPLES MD Jan 11, 2021 17:50
[2021-01-11 20:08] LABS: FREE T4 1.39 NG/DL (0.76-1.46)
[2021-01-11] MEDS: SERTRALINE HCL 50 MG TAB PO SCH (21:12)
[2021-01-12] VITALS: BP 118/68
[2021-01-12 04:00] VITALS: BP 98/56
[2021-01-12 05:00] LABS: BASO # 0.1 10^3/uL (0.0-0.2); BASO % 0.5 % (0.0-1.0); EOS # 0.4 10^3/uL (0.0-0.5); EOS % 3.7 % (0.0-3.0); HEMATOCRIT 39.2 % (36.0-47.0); HEMOGLOBIN 12.4 g/dl (12.0-15.5); LYMPH # 1.8 10^3/uL (1.5-5.0); LYMPH % 18.3 % (24.0-44.0); MEAN CORPUSCULAR HEMOGLOBIN 30.8 pg (27.0-33.0); MEAN CORPUSCULAR HGB CONC 31.6 g/dl (32.0-36.5); MEAN CORPUSCULAR VOLUME 97.5 fl (80.0-96.0); MONO # 0.6 10^3/uL (0.0-0.8); MONO % 6.3 % (2.0-8.0); NEUTROPHILS # 6.9 10^3/uL (1.5-8.5); NEUTROPHILS % 70.6 % (36.0-66.0); PLATELET COUNT, AUTOMATED 242 10^3/uL (150-450); RED BLOOD COUNT 4.02 10^6/uL (4.00-5.40); WHITE BLOOD COUNT 9.8 10^3/uL (4.0-10.0)
[2021-01-12 05:24] LABS: ALBUMIN 2.7 GM/DL (3.2-5.2); BILIRUBIN,TOTAL 0.3 MG/DL (0.2-1.0); CALCIUM LEVEL 9.2 MG/DL (8.8-10.2); CREATININE FOR GFR 4.81 MG/DL (0.55-1.30); GLOMERULAR FILTRATION RATE 9.7 (>45); MAGNESIUM LEVEL 2.4 MG/DL (1.8-2.4); POTASSIUM SERUM 4.7 MEQ/L (3.5-5.1); TOTAL PROTEIN 6.7 GM/DL (6.4-8.2)
[2021-01-12] MEDS: METOPROLOL TART 25 MG TABLET PO SCH ×3 (06:50→21:14)
[2021-01-12 08:00] VITALS: BP 112/70
[2021-01-12] MEDS ORDERED: ENOXAPARIN 40MG/0.4ML SYRINGE (J1650 PER 10MG) SC SCH (09:00)
[2021-01-12 09:02] LABS: FOLATE 8.9 NG/ML (>5.4)
[2021-01-12] MEDS: ARIPiprazole 10 MG TAB PO SCH (09:11)
[2021-01-12] MEDS: cefTRIAXone SOD 1 GM in D5W MINI-BAG PLUS 50 ML IV SCH (09:11)
[2021-01-12 12:07] VITALS: BP 124/73
[2021-01-12] MEDS ORDERED: fentaNYL 100 MCG/2 ML INJECTION (J3010) As Ordered ONE (13:04)
[2021-01-12] MEDS ORDERED: MIDAZOLAM INJ 2MG/2ML VIAL (J2250 PER 1MG) As Ordered ONE (13:04)
[2021-01-12] MEDS ORDERED: LIDOCAINE 1% MDV 20ML VIAL As Ordered ONE (13:05)
[2021-01-12] MEDS ORDERED: ceFAZolin 1GM VIAL (J0690 PER 500MG) As Ordered ONE (13:12)
--- NOTE | 2021-01-12 13:28 | REP ---
INDICATION: r/o consolidation. COMPARISON: No comparison chest x-ray. TECHNIQUE: Portable upright AP chest radiograph. FINDINGS: The patient is rotated somewhat to the right. There are surgical clips in the soft tissues of the neck on the right. EKG electrodes are seen. Heart size is borderline. The thoracic aorta is somewhat tortuous. The lungs are symmetrically aerated and clear. The pleural angles are sharp. Pulmonary vasculature is not increased. IMPRESSION: Borderline heart size. Otherwise no active disease. <Electronically signed by Sourav Armneta > 01/12/21 [id number]
--- NOTE | 2021-01-12 15:18 | IPNPDOC ---
Date Seen The patient was seen on 01/12/21. Progress Note SUBJECTIVE: Patient was seen examined at bedside. She continues to have slow speech and motion in bed. She is however moving all 4 extremities and displays appropriate strength. She denies any chest pain shortness of breath cavitations or diarrhea. She did report mild discomfort in the bilateral flanks. OBJECTIVE PHYSICAL EXAMINATION: VITAL SIGNS: please see below General: NAD, comfortable HEENT: PERRLA, EOMI, sclerae clear Neck: supple, normal ROM, no JVD Respiratory: lungs CTAB, no wheeze, no rales, no crackles CVS: RRR, normal S1, S2, no murmurs Abdo: soft, no masses, no hepatosplenomegaly, BS+, no rebound tenderness Extremities: no edema, pulses 2+ MSK: no joint deformities, normal ROM Neuro: no focal neuro deficits, moving all 4 extremities, CN2-12 intact. Strength 5/5 in all 4 extremities. No nystagmus. Psych: calm, cooperative, AAO x 3 LABORATORY DATA, IMAGING STUDIES, MICROBIOLOGY: Please see below. DVT prophylaxis ordered?: Lovenox being changed to heparin in setting of CKD 5/ESRD. ASSESSMENT AND PLAN: Patient 65-year-old female with a past medical history of CKD stage V followed by Dr. Suero, hypothyroidism on Synthroid after resection of thyroid for suspected thyroid malignancy, cognitive impairment, vitamin D deficiency bipolar disorder on chronic lithium therapy now discontinued, was transferred to [facility] from [facility] for acute renal failure. PROBLEMS: Altered mental status: Perhaps in the setting of acute renal failure. Patient had complained of abdominal pain therefore UA was performed. Showing E. coli. Patient was started on ceftriaxone. Blood cultures are pending. Will also obtain a brain MRI to ensure no ischemic process such as CVA has occurred in the setting of atrial fibrillation. Acute renal failure on CKD stage V: Dr. Hebert has been consulted. Plan is for permacath insertion and initiation of hemodialysis. Patient's and power of workers compensation attorney Mr. Irineo Santiago agrees. Vascular surgeon Dr. Land was consulted for placement of a permacath. He requested the patient undergo psychiatric evaluation for competence prior to obtaining consent. It was my clinical opinion that the patient lacks capacity to make decisions. Psychiatry deemed patient to be noncompetent to make decisions. I informed Dr. Land of this, and he will attempt to obtain consent from her on 01/12/2021. Atrial fibrillation, new onset: Reported history of A. fib in the past during admission for dehydration and acute renal failure in outside hospital. Patient has not been on any rate control agents or anticoagulation. Upon transfer from [facility] was informed that the patient has new onset A. fib with RVR. On telemetry patient continues to be in atrial fibrillation with a relatively well-controlled rate with Coreg 25 mg every 8 hours. I discussed with the patient's who initially refused anticoagulation but at this time is open to it if patient requires this. I discussed with Dr. Villafuerte the patient's [id number] score of 1 the patient is at low risk for CVA from atrial fibrillation. However we will consider restarting patient on Eliquis once the echo was read to rule out valvular pathology and the patient has received her permacath for hemodialysis. Active suicidal ideation: Patient has been evaluated by psychiatry deemed not to be actively suicidal. A sitter was discontinued. Patient's and healthcare proxy Mr. Mcgill was informed of this. No changes to medication has been made. He is in agreement with evaluation. Bipolar disorder, depression: Dr. Polanco recommends that we continue Abilify and Zoloft at this time in order to prevent an episode of lauren. The patient became becomes more sedated with his medications we can discontinue them for the time being. Thyroid panel including TSH and free T4 are within normal limits. Dispo: PFS is currently involved. A dialysis bed has been arranged with availability for January 18. VS, I&O, 24H, Fishbone Vital Signs/I&O Vital Signs Date Time Temp Pulse Resp B/P (MAP) Pulse Ox O2 Delivery O2 Flow Rate FiO2 01/12/21 12:25 98.1 76 22 95 Room Air 01/12/21 12:07 124/73 (90) 01/12/21 04:00 2.0 I&O- Last 24 Hours up to 6 AM 01/12/21 06:00 Intake Total 1280 ml Output Total 1150 ml Balance 130 ml Laboratory Data 24H LABS Laboratory Tests 2 01/12/21 04:46: Immature Granulocyte % (Auto) 0.6, Neutrophils (%) (Auto) 70.6H, Lymphocytes (%) (Auto) 18.3L, Monocytes (%) (Auto) 6.3, Eosinophils (%) (Auto) 3.7H, Basophils (%) (Auto) 0.5, Neutrophils # (Auto) 6.9, Lymphocytes # (Auto) 1.8, Monocytes # (Auto) 0.6, Eosinophils # (Auto) 0.4, Basophils # (Auto) 0.1, Nucleated Red Blood Cells % (auto) 0.0, Anion Gap 6L, Glomerular Filtration Rate 9.7L, Calcium Level 9.2, Magnesium Level 2.4, Total Bilirubin 0.3, Aspartate Amino Transf (AST/SGOT) 16, Alanine Aminotransferase (ALT/SGPT) 22, Alkaline Phosphatase 77, Ammonia 21, Total Protein 6.7, Albumin 2.7L, Albumin/Globulin Ratio 0.7L, Vitamin B12 Level 594, 25-Hydroxy Vitamin D Total 38.0, Folate 8.9 01/12/21 08:27: Lactic Acid Level 0.5, Troponin I < 0.02 CBC/BMP Laboratory Tests 01/12/21 04:46 Microbiology Microbiology 01/12/21 Blood Culture, Received Pending 01/12/21 Blood Culture, Received Pending 01/10/21 Urine Culture - Final, Complete Escherichia Coli REJI CLEMENT MD Jan 12, 2021 15:18
--- NOTE | 2021-01-12 15:20 | IPN ---
PROGRESS NOTE DATE: 01/12/2021 SUBJECTIVE: The patient was seen and examined at the bedside today morning in the ICU. Patient is slightly drowsy today. She was seen by Psychiatry yesterday and she was deemed not capable of making her own decisions so dialysis catheter placement will be done after taking consent from her only. Patient is otherwise hemodynamically stable. She was found to have E. coli urinary tract infection and she has been started on IV antibiotics now. OBJECTIVE: VITAL SIGNS: Temperature is 98.1 degrees Fahrenheit, blood pressure is 124/73, pulse is 76, respiratory rate of 20, saturating 96% on room air. INTAKE AND OUTPUT: Urine output recorded as 1550 ml yesterday, 600 ml so far today since overnight. Weight on the bed scale is 123.4 kg. GENERAL: Patient is awake but easily falls to sleep, oriented x2. Laying in bed. HEAD AND NECK: Extraocular muscles intact. Pupils equally round and reactive to light. Mucous membranes are moist. Neck is supple. There is no JVD. CARDIOVASCULAR: S1 and S2, regular rate. No edema of the bilateral lower extremities. RESPIRATORY: Chest is clear to auscultation bilaterally. Bilateral equal air entry. No rales or rhonchi. ABDOMEN: Soft, obese, positive bowel sounds, nontender. No organomegaly. GENITOURINARY: She has an indwelling Coll[place] catheter. MUSCULOSKELETAL: No clubbing or cyanosis. Pulses are 2+. FINANCIAL WELLNESS COACH: The patient is awake. She follows commands, moves extremities but easily falls asleep. LABORATORY DATA: CBC showed a WBC of 9.8, hemoglobin of 12.4, platelets are 242,000. BMP showed a sodium of 146, potassium of 4.7, chloride of 117, bicarbonate 23, BUN 53, creatinine is 4.8. Lactic acid is 0.5. Troponin is less than 0.02. Microbiology: Urine culture came back positive for E. coli about 80,000 colonies. It is resendiz sensitive. CURRENT INPATIENT MEDICATIONS: Patient's medications were all reviewed by myself. She has been started on IV Ceftriaxone. No other significant change in the medications today as compared with yesterday. ASSESSMENT AND PLAN: 1. Chronic renal disease Stage V. Patient needs to start hemodialysis. Consent will be obtained from the patient's and she will get a tunneled dialysis catheter and after that she will be started on dialysis. 2. Iron deficiency anemia. Patient's hemoglobin is stable. She will get IV Venofer with dialysis. 3. E. coli urinary tract infection. Patient has an indwelling Collado catheter. She has been started on IV Rocephin which is adequate for now. 4. Bipolar disorder, medication is as per psych recommendations. 5. Atrial fibrillation, heart rate is controlled with current dose of metoprolol.
[2021-01-12 16:46] VITALS: BP 117/62
[2021-01-12 20:00] VITALS: BP 122/61
[2021-01-12] MEDS: SERTRALINE HCL 50 MG TAB PO SCH (21:14)
--- NOTE | 2021-01-12 21:48 | REPVR ---
PROCEDURE INFORMATION: Exam: MR Head Without Contrast Exam date and time: 01/12/2021 8:38 PM Age: 65 years old Clinical indication: Altered mental status/memory loss; Confusion or disorientation; Additional info: AMS, HX afib TECHNIQUE: Imaging protocol: MR of the head without contrast. COMPARISON: No relevant prior studies available. FINDINGS: Examination is limited by excessive patient motion. Major vascular flow voids at the skull base are preserved. Prominent extra-axial space at the left lateral posterior fossa measuring up to 12 mm in depth, probable arachnoid cyst. No hydrocephalus. Non-specific white matter gliosis, probable chronic microvascular ischemia. No midline shift or cerebral edema. No diffusion restriction. Visualized paranasal sinuses are clear. Moderate right and small left mastoid effusions. IMPRESSION: Patient motion without definite acute intracranial abnormality. Electronically signed by: Uri Cruz On 01/12/2021 21:48:25 PM
--- NOTE | 2021-01-12 21:48 | REPVR ---
PROCEDURE INFORMATION: Exam: MRA Head Without Contrast; Arteriography Exam date and time: 01/12/2021 8:38 PM Age: 65 years old Clinical indication: Cognitive deficit; Altered mental status; Additional info: AMS, HX afib TECHNIQUE: Imaging protocol: Magnetic resonance angiography head without contrast. Exam focused on the arteries. COMPARISON: No relevant prior studies available. FINDINGS: Limitations: Patient motion. ANTERIOR CIRCULATION: Right internal carotid artery: Intracranial segment is patent with no significant stenosis. No aneurysm. Right middle cerebral artery: No occlusion or significant stenosis. No aneurysm. Right anterior cerebral artery: No occlusion or significant stenosis. No aneurysm. Left internal carotid artery: Intracranial segment is patent with no significant stenosis. No aneurysm. Left middle cerebral artery: No occlusion or significant stenosis. No aneurysm. Left anterior cerebral artery: No occlusion or significant stenosis. No aneurysm. POSTERIOR CIRCULATION: Right vertebral artery: No occlusion or significant stenosis. No aneurysm. Left vertebral artery: No occlusion or significant stenosis. No aneurysm. Basilar artery: No occlusion or significant stenosis. No aneurysm. Right posterior cerebral artery: No occlusion or significant stenosis. No aneurysm. Left posterior cerebral artery: No occlusion or significant stenosis. No aneurysm. IMPRESSION: 1. Patient motion. 2. No definite hemodynamically significant stenosis or large vessel occlusion. Electronically signed by: Uri Cruz On 01/12/2021 21:48:18 PM
[2021-01-13] VITALS: BP 124/81
[2021-01-13 04:00] VITALS: BP 121/72
[2021-01-13 04:46] LABS: BASO # 0.1 10^3/uL (0.0-0.2); BASO % 0.6 % (0.0-1.0); EOS # 0.3 10^3/uL (0.0-0.5); EOS % 3.2 % (0.0-3.0); HEMATOCRIT 38.7 % (36.0-47.0); HEMOGLOBIN 12.1 g/dl (12.0-15.5); LYMPH # 1.8 10^3/uL (1.5-5.0); LYMPH % 17.1 % (24.0-44.0); MEAN CORPUSCULAR HEMOGLOBIN 30.3 pg (27.0-33.0); MEAN CORPUSCULAR HGB CONC 31.3 g/dl (32.0-36.5); MONO # 0.7 10^3/uL (0.0-0.8); MONO % 6.7 % (2.0-8.0); NEUTROPHILS # 7.5 10^3/uL (1.5-8.5); NEUTROPHILS % 71.8 % (36.0-66.0); PLATELET COUNT, AUTOMATED 237 10^3/uL (150-450); RED BLOOD COUNT 3.99 10^6/uL (4.00-5.40); WHITE BLOOD COUNT 10.4 10^3/uL (4.0-10.0)
[2021-01-13 05:09] LABS: ALBUMIN 2.7 GM/DL (3.2-5.2); BILIRUBIN,TOTAL 0.3 MG/DL (0.2-1.0); CALCIUM LEVEL 8.9 MG/DL (8.8-10.2); CREATININE FOR GFR 4.76 MG/DL (0.55-1.30); GLOMERULAR FILTRATION RATE 9.8 (>45); MAGNESIUM LEVEL 2.5 MG/DL (1.8-2.4); TOTAL PROTEIN 6.5 GM/DL (6.4-8.2)
[2021-01-13] MEDS: HEPARIN SOD (PORCINE) 5000UNITS/ML 1ML VIAL/SYRINGE SQ SCH ×2 (05:23→17:06)
[2021-01-13] MEDS: METOPROLOL TART 25 MG TABLET PO SCH ×3 (05:23→21:18)
[2021-01-13 08:13] VITALS: BP 114/73
[2021-01-13] MEDS: cefTRIAXone SOD 1 GM in D5W MINI-BAG PLUS 50 ML IV SCH (09:33)
[2021-01-13] MEDS: ARIPiprazole 10 MG TAB PO SCH (09:33)
--- NOTE | 2021-01-13 10:11 | IPNPDOC ---
Date Seen The patient was seen on 01/13/21. Progress Note SUBJECTIVE: Patient was seen examined at bedside. She continues to have slow speech and motion in bed. She is however moving all 4 extremities and displays appropriate strength. She denies any chest pain shortness of breath cavitations or diarrhea. She did report mild discomfort in the bilateral flanks. OBJECTIVE PHYSICAL EXAMINATION: VITAL SIGNS: please see below General: NAD, comfortable HEENT: PERRLA, EOMI, sclerae clear Neck: supple, normal ROM, no JVD Respiratory: lungs CTAB, no wheeze, no rales, no crackles CVS: RRR, normal S1, S2, no murmurs Abdo: soft, no masses, no hepatosplenomegaly, BS+, no rebound tenderness Extremities: no edema, pulses 2+ MSK: no joint deformities, normal ROM Neuro: no focal neuro deficits, moving all 4 extremities, CN2-12 intact. Strength 5/5 in all 4 extremities. No nystagmus. Psych: calm, cooperative, AAO x 3 LABORATORY DATA, IMAGING STUDIES, MICROBIOLOGY: Please see below. MRI brain wo contrast (01/13/21): FINDINGS: Examination is limited by excessive patient motion. Major vascular flow voids at the skull base are preserved. Prominent extra-axial space at the left lateral posterior fossa measuring up to 12 mm in depth, probable arachnoid cyst. No hydrocephalus. Non-specific white matter gliosis, probable chronic microvascular ischemia. No midline shift or cerebral edema. No diffusion restriction. Visualized paranasal sinuses are clear. Moderate right and small left mastoid effusions. IMPRESSION: Patient motion without definite acute intracranial abnormality. MRA brain wo contrast (01/13/21): ANTERIOR CIRCULATION: Right internal carotid artery: Intracranial segment is patent with no significant stenosis. No aneurysm. Right middle cerebral artery: No occlusion or significant stenosis. No aneurysm. Right anterior cerebral artery: No occlusion or significant stenosis. No aneurysm. Left internal carotid artery: Intracranial segment is patent with no significant stenosis. No aneurysm. Left middle cerebral artery: No occlusion or significant stenosis. No aneurysm. Left anterior cerebral artery: No occlusion or significant stenosis. No aneurysm. POSTERIOR CIRCULATION: Right vertebral artery: No occlusion or significant stenosis. No aneurysm. Left vertebral artery: No occlusion or significant stenosis. No aneurysm. Basilar artery: No occlusion or significant stenosis. No aneurysm. Right posterior cerebral artery: No occlusion or significant stenosis. No aneurysm. Left posterior cerebral artery: No occlusion or significant stenosis. No aneurysm. IMPRESSION: 1. Patient motion. 2. No definite hemodynamically significant stenosis or large vessel occlusion. DVT prophylaxis ordered?: Lovenox being changed to heparin in setting of CKD 5/ESRD. ASSESSMENT AND PLAN: Patient 65-year-old female with a past medical history of CKD stage V followed by Dr. Suero, hypothyroidism on Synthroid after resection of thyroid for suspected thyroid malignancy, cognitive impairment, vitamin D deficiency bipolar disorder on chronic lithium therapy now discontinued, was transferred to [facility] from [facility] for acute renal failure. PROBLEMS: Altered mental status: Perhaps in the setting of acute renal failure. Patient had complained of abdominal pain therefore UA was performed. Showing E. coli. Patient was started on ceftriaxone. Blood cultures are pending. Will also obtain a brain MRI to ensure no ischemic process such as CVA has occurred in the setting of atrial fibrillation. MRI and MRA of brain, showed no gross abnormalities, but were limited due to patient motion. Acute renal failure on CKD stage V: Dr. Hebert has been consulted. Plan is for permacath insertion and initiation of hemodialysis. Patient's and power of commercial real estate attorney Mr. Irineo Santiago agrees. Vascular surgeon Dr. Land was consulted for placement of a permacath. He requested the patient undergo psychiatric evaluation for competence prior to obtaining consent. It was my clinical opinion that the patient lacks capacity to make decisions. Psychiatry deemed patient to be noncompetent to make decisions. I informed Dr. Land of this, and he will attempt to obtain consent from her on 01/12/2021. Atrial fibrillation, new onset: Reported history of A. fib in the past during admission for dehydration and acute renal failure in outside hospital. Patient has not been on any rate control agents or anticoagulation. Upon transfer from [facility] was informed that the patient has new onset A. fib with RVR. On telemetry patient continues to be in atrial fibrillation with a relatively well-controlled rate with Coreg 25 mg every 8 hours. I discussed with the patient's who initially refused anticoagulation but at this time is open to it if patient requires this. I discussed with Dr. Villafuerte the patient's [id number] score of 1 the patient is at low risk for CVA from atrial fibrillation. However we will consider restarting patient on Eliquis once the echo was read to rule out valvular pathology and the patient has received her permacath for hemodialysis. Active suicidal ideation: Patient has been evaluated by psychiatry deemed not to be actively suicidal. A sitter was discontinued. Patient's and healthcare proxy Mr. Mcgill was informed of this. No changes to medication has been made. He is in agreement with evaluation. Bipolar disorder, depression: Dr. Polanco recommends that we continue Abilify and Zoloft at this time in order to prevent an episode of lauren. The patient became becomes more sedated with his medications we can discontinue them for the time being. Thyroid panel including TSH and free T4 are within normal limits. Dispo: [facility] is currently involved. A dialysis bed has been arranged with availability for January 18. VS[facility]&O[facility] Vital Signs/I&O Vital Signs Date Time Temp Pulse Resp B/P (MAP) Pulse Ox O2 Delivery O2 Flow Rate FiO2 01/13/21 08:13 96.7 67 20 114/73 (87) 95 Room Air 01/12/21 04:00 2.0 I&O- Last 24 Hours up to 6 AM 01/13/21 06:00 Intake Total 240 ml Output Total 1300 ml Balance -1060 ml Laboratory Data 24H LABS Laboratory Tests 2 01/13/21 04:22: Immature Granulocyte % (Auto) 0.6, Neutrophils (%) (Auto) 71.8H, Lymphocytes (%) (Auto) 17.1L, Monocytes (%) (Auto) 6.7, Eosinophils (%) (Auto) 3.2H, Basophils (%) (Auto) 0.6, Neutrophils # (Auto) 7.5, Lymphocytes # (Auto) 1.8, Monocytes # (Auto) 0.7, Eosinophils # (Auto) 0.3, Basophils # (Auto) 0.1, Nucleated Red Blood Cells % (auto) 0.0, Anion Gap 6L, Glomerular Filtration Rate 9.8L, Calcium Level 8.9, Magnesium Level 2.5H, Total Bilirubin 0.3, Aspartate Amino Transf (AST/SGOT) 21, Alanine Aminotransferase (ALT/SGPT) 24, Alkaline Phosphatase 78, Total Protein 6.5, Albumin 2.7L, Albumin/Globulin Ratio 0.7L CBC/BMP Laboratory Tests 01/13/21 04:22 Microbiology Microbiology 01/12/21 Blood Culture - Preliminary, Resulted No growth after 24 hours . All specim... 01/12/21 Blood Culture - Preliminary, Resulted No growth after 24 hours . All specim... 01/10/21 Urine Culture - Final, Complete Escherichia Coli REJI CLEMENT MD Jan 13, 2021 10:11
--- NOTE | 2021-01-13 11:35 | IPN ---
PROGRESS NOTE DATE: 01/13/2021 SUBJECTIVE: Patient was seen and examined at the bedside today morning. She is afebrile and hemodynamically stable. She is going to have a tunneled dialysis catheter placed today in the afternoon. I talked to her yesterday. He gave the consent for initiation of hemodialysis. OBJECTIVE: VITAL SIGNS: Temperature is 96.7 degrees Fahrenheit, blood pressure is 114/73, pulse is 67, respiratory rate of 20, saturating 95% on room air. INTAKE AND OUTPUT: Urine output recorded as 1 liter yesterday, 600 ml so far today since overnight, weight on the bed scale is 124.7 kg. GENERAL: Patient is awake, alert and oriented x2, laying in bed in no apparent distress, obese body habitus. HEAD AND NECK: Extraocular muscles intact. Pupils equally round and reactive to light. Mucous membranes are moist. Neck is supple. There is no JVD. CARDIOVASCULAR: S1 and S2, regular rate. Trace edema of the bilateral lower extremities. RESPIRATORY: Chest is clear to auscultation bilaterally. Bilateral equal air entry. ABDOMEN: Obese, positive bowel sounds. GENITOURINARY: She has an indwelling Collado catheter. MUSCULOSKELETAL: No clubbing or cyanosis. Pulses are 2+. THERAPIST: Patient was oriented x2. She follows commands and moves extremities, otherwise she follows commands and moves extremities, otherwise she has a depressed mood. LABORATORY DATA: CBC showed a WBC of 10.4, hemoglobin 12.1, platelets are 237,000, BMP showed a sodium of 146, potassium 5, chloride 119, bicarbonate is 21, BUN 61, creatinine is 4.7. Magnesium is 2.5. Albumin is 2.7. Microbiology: Blood cultures are negative so far. CURRENT INPATIENT MEDICATIONS: Patient's medications were all reviewed by myself. There is no significant change in the medications as compared with yesterday. ASSESSMENT AND PLAN: 1. Chronic kidney disease Stage V, patient has approached endstage renal disease. She needs to get a tunneled dialysis catheter. She will be started on dialysis as soon as catheter is available. 2. Iron deficiency. She will be started on IV Venofer with dialysis. 3. E. Coli UTI. Patient is currently on IV Rocephin. 4. Atrial fibrillation. Patient is on metoprolol, heart rate is controlled. 5. Bipolar disorder and suicidal ideation, antipsychotic medications are as per psychiatry. 6. Hypernatremia, it should get better after starting hemodialysis. 7. Disposition: After starting the patient on hemodialysis she will be discharged home once chair is available as an outpatient at dialysis center.
[2021-01-13 12:17] VITALS: BP 122/72
[2021-01-13] MEDS ORDERED: LIDOCAINE 1% MDV 20ML VIAL As Ordered ONE (12:48)
[2021-01-13] MEDS ORDERED: fentaNYL 100 MCG/2 ML INJECTION (J3010) As Ordered ONE (12:50)
[2021-01-13] MEDS ORDERED: MIDAZOLAM INJ 2MG/2ML VIAL (J2250 PER 1MG) As Ordered ONE (12:50)
[2021-01-13] MEDS: IRON SUCROSE 100MG 5ML VIAL (J1756 PER 1MG) IV SCH (14:06)
[2021-01-13 16:33] VITALS: BP 117/65
[2021-01-13] MEDS ORDERED: ENOXAPARIN 100MG/1ML SYRINGE (J1650 PER 10MG) SC SCH (17:45)
[2021-01-13 19:59] VITALS: BP 114/59
[2021-01-13] MEDS: ACETAMINOPHEN TAB 650MG DOSE (2X325MG) PO PRN (21:17)
[2021-01-13] MEDS: SERTRALINE HCL 50 MG TAB PO SCH (21:17)
[2021-01-13] MEDS: APIXABAN 5 MG TAB (ELIQUIS) PO SCH (21:18)
[2021-01-14] VITALS: BP 101/54
[2021-01-14 04:00] VITALS: BP 105/57
[2021-01-14] MEDS: METOPROLOL TART 25 MG TABLET PO SCH (06:13)
[2021-01-14 06:22] LABS: BASO % 0.4 % (0.0-1.0); EOS # 0.2 10^3/uL (0.0-0.5); EOS % 2.4 % (0.0-3.0); HEMATOCRIT 38.6 % (36.0-47.0); HEMOGLOBIN 12.3 g/dl (12.0-15.5); LYMPH # 1.4 10^3/uL (1.5-5.0); LYMPH % 14.3 % (24.0-44.0); MEAN CORPUSCULAR HEMOGLOBIN 30.8 pg (27.0-33.0); MEAN CORPUSCULAR HGB CONC 31.9 g/dl (32.0-36.5); MEAN CORPUSCULAR VOLUME 96.5 fl (80.0-96.0); MONO # 0.7 10^3/uL (0.0-0.8); MONO % 7.1 % (2.0-8.0); NEUTROPHILS # 7.5 10^3/uL (1.5-8.5); NEUTROPHILS % 75.3 % (36.0-66.0); PLATELET COUNT, AUTOMATED 222 10^3/uL (150-450); WHITE BLOOD COUNT 9.9 10^3/uL (4.0-10.0)
[2021-01-14 06:47] LABS: ALBUMIN 2.6 GM/DL (3.2-5.2); BILIRUBIN,TOTAL 0.3 MG/DL (0.2-1.0); CALCIUM LEVEL 8.8 MG/DL (8.8-10.2); CREATININE FOR GFR 4.02 MG/DL (0.55-1.30); GLOMERULAR FILTRATION RATE 11.9 (>45); MAGNESIUM LEVEL 2.4 MG/DL (1.8-2.4); POTASSIUM SERUM 4.5 MEQ/L (3.5-5.1); TOTAL PROTEIN 6.1 GM/DL (6.4-8.2)
[2021-01-14] MEDS: APIXABAN 5 MG TAB (ELIQUIS) PO SCH ×2 (06:47→20:47)
[2021-01-14] MEDS: ARIPiprazole 10 MG TAB PO SCH (06:47)
[2021-01-14] MEDS: cefTRIAXone SOD 1 GM in D5W MINI-BAG PLUS 50 ML IV SCH (06:48)
[2021-01-14 08:15] VITALS: BP 78/51
[2021-01-14] MEDS ORDERED: NS 500 ML IV ONE (09:00)
[2021-01-14 11:30] VITALS: BP 119/76
--- NOTE | 2021-01-14 12:39 | IPNPDOC ---
Date Seen The patient was seen on 01/14/21. Progress Note SUBJECTIVE: Patient was seen examined at bedside. She continues to have slow speech and motion in bed. She is however moving all 4 extremities and displays appropriate strength. She denies any chest pain shortness of breath cavitations or diarrhea. She did report mild discomfort in the bilateral flanks. OBJECTIVE PHYSICAL EXAMINATION: VITAL SIGNS: please see below General: NAD, comfortable HEENT: PERRLA, EOMI, sclerae clear Neck: supple, normal ROM, no JVD Respiratory: lungs CTAB, no wheeze, no rales, no crackles CVS: RRR, normal S1, S2, no murmurs Abdo: soft, no masses, no hepatosplenomegaly, BS+, no rebound tenderness Extremities: no edema, pulses 2+ MSK: no joint deformities, normal ROM Neuro: no focal neuro deficits, moving all 4 extremities, CN2-12 intact. Strength 5/5 in all 4 extremities. No nystagmus. Psych: calm, cooperative, AAO x 3 LABORATORY DATA, IMAGING STUDIES, MICROBIOLOGY: Please see below. MRI brain wo contrast (01/13/21): FINDINGS: Examination is limited by excessive patient motion. Major vascular flow voids at the skull base are preserved. Prominent extra-axial space at the left lateral posterior fossa measuring up to 12 mm in depth, probable arachnoid cyst. No hydrocephalus. Non-specific white matter gliosis, probable chronic microvascular ischemia. No midline shift or cerebral edema. No diffusion restriction. Visualized paranasal sinuses are clear. Moderate right and small left mastoid effusions. IMPRESSION: Patient motion without definite acute intracranial abnormality. MRA brain wo contrast (01/13/21): ANTERIOR CIRCULATION: Right internal carotid artery: Intracranial segment is patent with no significant stenosis. No aneurysm. Right middle cerebral artery: No occlusion or significant stenosis. No aneurysm. Right anterior cerebral artery: No occlusion or significant stenosis. No aneurysm. Left internal carotid artery: Intracranial segment is patent with no significant stenosis. No aneurysm. Left middle cerebral artery: No occlusion or significant stenosis. No aneurysm. Left anterior cerebral artery: No occlusion or significant stenosis. No aneurysm. POSTERIOR CIRCULATION: Right vertebral artery: No occlusion or significant stenosis. No aneurysm. Left vertebral artery: No occlusion or significant stenosis. No aneurysm. Basilar artery: No occlusion or significant stenosis. No aneurysm. Right posterior cerebral artery: No occlusion or significant stenosis. No aneurysm. Left posterior cerebral artery: No occlusion or significant stenosis. No aneurysm. IMPRESSION: 1. Patient motion. 2. No definite hemodynamically significant stenosis or large vessel occlusion. DVT prophylaxis ordered?: Lovenox being changed to heparin in setting of CKD 5/ESRD. ASSESSMENT AND PLAN: Patient 65-year-old female with a past medical history of CKD stage V followed by Dr. Suero, hypothyroidism on Synthroid after resection of thyroid for suspected thyroid malignancy, cognitive impairment, vitamin D deficiency bipolar disorder on chronic lithium therapy now discontinued, was transferred to [facility] from [facility] for acute renal failure. PROBLEMS: Altered mental status: Perhaps in the setting of acute renal failure. Patient had complained of abdominal pain therefore UA was performed. Showing E. coli. Patient was started on ceftriaxone. Blood cultures are pending. Will also obtain a brain MRI to ensure no ischemic process such as CVA has occurred in the setting of atrial fibrillation. MRI and MRA of brain, showed no gross abnormalities, but were limited due to patient motion. UTI: culture positive for e coli. on ceftriaxone day 3. Acute renal failure on CKD stage V: Dr. Hebert has been consulted. Plan is for permacath insertion and initiation of hemodialysis. Patient's and power of compliance attorney Mr. Irineo Santiago agrees. Vascular surgeon Dr. Land was consulted for placement of a permacath. He requested the patient undergo psychiatric evaluation for competence prior to obtaining consent. It was my clinical opinion that the patient lacks capacity to make decisions. Psychiatry deemed patient to be noncompetent to make decisions. Permacath placed on 01/13/21, completed dialysis. Next session today on 01/14/21. Dr. Suero following. Transient Hypotension: likely 2/2 metoprolol. Reduce dose to 12.5 mg q12h (from 25 mg q8h). Rate well controlled. BP improved after 500 cc bolus of NS. Asymptomatic. Atrial fibrillation, new onset: Reported history of A. fib in the past during admission for dehydration and acute renal failure in outside hospital. Patient has not been on any rate control agents or anticoagulation. Upon transfer from [facility] was informed that the patient has new onset A. fib with RVR. On telemetry patient continues to be in atrial fibrillation with a relatively well-controlled rate with Coreg 25 mg every 8 hours. I discussed with the patient's who initially refused anticoagulation but at this time is open to it if patient requires this. D/w Dr. Gonzalez. Recommends to err on side of caution despite [id number] score of 1, and start patient on eliquis. Patient is largely sedentary and would benefit from AC. Echo report pending. I discussed this with the patient's Mr. Santiago, who is in agreement with AC. Active suicidal ideation: Patient has been evaluated by psychiatry deemed not to be actively suicidal. A sitter was discontinued. Patient's and healthcare proxy Mr. Mcgill was informed of this. No changes to medication has been made. He is in agreement with evaluation. Bipolar disorder, depression: Dr. Polanco recommends that we continue Abilify and Zoloft at this time in order to prevent an episode of lauren. The patient became becomes more sedated with his medications we can discontinue them for the time being. Thyroid panel including TSH and free T4 are within normal limits. Dispo: [facility] is currently involved. A dialysis bed has been arranged with availability for January 18. PT recommending rehab after DC. Will d/w [facility] regarding disposition. GOC: Dr. Suero had a detailed discussion with Mr. Santiago. Decision was made for DNR/DNI status. I saw the signed MOLST form in the patient's chart. New DNR/DNI order placed by Dr. Suero. VS, I&O, 24H, [facility] Vital Signs/I&O Vital Signs Date Time Temp Pulse Resp B/P (MAP) Pulse Ox O2 Delivery O2 Flow Rate FiO2 01/14/21 11:30 96.8 93 20 119/76 (90) 93 Room Air 01/13/21 13:35 2.0 I&O- Last 24 Hours up to 6 AM 01/14/21 05:59 Intake Total 600 ml Output Total 2925 ml Balance -2325 ml Laboratory Data 24H LABS Laboratory Tests 2 01/14/21 05:16: Immature Granulocyte % (Auto) 0.5, Neutrophils (%) (Auto) 75.3H, Lymphocytes (%) (Auto) 14.3L, Monocytes (%) (Auto) 7.1, Eosinophils (%) (Auto) 2.4, Basophils (%) (Auto) 0.4, Neutrophils # (Auto) 7.5, Lymphocytes # (Auto) 1.4L, Monocytes # (Auto) 0.7, Eosinophils # (Auto) 0.2, Basophils # (Auto) 0.0, Nucleated Red Bl ood Cells % (auto) 0.0, Anion Gap 6L, Glomerular Filtration Rate 11.9L, Calcium Level 8.8, Magnesium Level 2.4, Total Bilirubin 0.3, Aspartate Amino Transf (AST/SGOT) 16, Alanine Aminotransferase (ALT/SGPT) 22, Alkaline Phosphatase 82, Total Protein 6.1L, Albumin 2.6L, Albumin/Globulin Ratio 0.7L CBC/BMP Laboratory Tests 01/14/21 05:16 Microbiology Microbiology 01/12/21 Blood Culture - Preliminary, Resulted No Growth after 48 hours. All Specime... 01/12/21 Blood Culture - Preliminary, Resulted No Growth after 48 hours. All Specime... 01/10/21 Urine Culture - Final, Complete Escherichia Coli REJI CLEMENT MD Jan 14, 2021 12:38
--- NOTE | 2021-01-14 13:08 | IPN ---
NEPHROLOGY PROGRESS NOTE DATE: 01/14/2021 SUBJECTIVE: Mrs. Santiago is seen this morning at her bedside. Her , Irineo is also present in the room. The patient herself has great difficulty in expressing herself. She did have dialysis yesterday and the patient mentioned that she had difficulty with dialysis, however could not tell me any specifics. This morning her blood pressure has been low and she has been given a fluid bolus of 500 mL by the Hospitalist Service. The patient is tremulous and speaks in very slow and broken sentences. She could not answer several questions appropriately. Her was present in the room, who tries to speak for her. OBJECTIVE: PHYSICAL EXAMINATION: VITAL SIGNS: Temperature 98.3 degrees Fahrenheit, heart rate 65 per minute, respiratory rate 20 per minute, blood pressure was earlier 78/51 mm of mercury and now it is 119/76 mm of mercury. Oxygen saturation is 93% on room air. HEENT: Head is atraumatic. NECK: Permacath is present in the right internal jugular vein and JVD is difficult to be assessed. HEART: Irregular. LUNGS: Diminished breath sounds and poor inspiratory effort. ABDOMEN: Obese and nontender. Bowel sounds are present. EXTREMITIES: Without any cyanosis or clubbing. NEUROLOGICAL: She is awake and sometimes confused but very slow to respond. She does not have any focal neurological deficits. LABORATORY STUDIES: Today's labs show a WBC count of 9.9, hemoglobin 12.3 and hematocrit 38.6. Sodium 146, potassium 4.5, CO2 24, chloride 116, BUN 42 and creatinine 4.02. Glucose 100 and calcium 8.8. Total protein 6.1 and albumin 2.6. PROBLEMS: 1. End-stage renal disease - The patient did have first short dialysis yesterday. She reports that she did not like it and she has a hard time with the duration of dialysis. She also had an episode of atrial fibrillation with rapid ventricular rate and this morning her blood pressure is low which would certainly make dialysis difficult. I have discussed with the patient's at length and explained to him about limitations of dialysis treatment for her. The patient has significant comorbid conditions, particularly severe bipolar disorder and low blood pressure. She has inability to sit still for 4 hours for dialysis. She understands and we discussed all options at length. At this point we will continue our efforts to dialyze her per the patient's 's wishes. It remains to be seen how she tolerates this. 2. Hypotension - blood pressure was low earlier when she had atrial fibrillation with rapid ventricular rate. She has been given a fluid bolus of 500 mL. We will not remove any fluid during dialysis. 3. Hypernatremia she has mild hypernatremia which is likely to correct with dialysis. We will use slightly low sodium in dialysis. She is still at 140. We will use a sodium level of about 136 today and see how it helps to improve her hypernatremia. 4. Anemia she does not have any issue with anemia so far. 5. Atrial fibrillation with rapid ventricular rate - The patient has been started on beta marissa and Eliquis. Her Metoprolol dose has been cut down to 12.5 mg twice daily. 6. DNR status I discussed with the patient and she reported that the patient already has a living will and has expressed that she does not wish to be resuscitated. I completed a MOLST form and have suggested that the patient should sign it so we can officially issue a DNR. She did sign after reading it in some hesitation, however the patient's , who is the healthcare proxy did sign the DNR and DNR orders are being issued. 7. Depression and bipolar disorder this is a chronic issue and the patient remains slightly decompensated, however this is her chronic baseline.
[2021-01-14] MEDS: IRON SUCROSE 100MG 5ML VIAL (J1756 PER 1MG) IV SCH (14:15)
[2021-01-14 17:34] VITALS: BP 121/60
[2021-01-14] MEDS: METOPROLOL TART 12.5 MG PER 1/2 TAB PO SCH (18:26)
[2021-01-14 20:00] VITALS: BP 128/64
[2021-01-14] MEDS ORDERED: PILL CUTTER 1 EACH XX PRN (20:25)
[2021-01-14] MEDS: ACETAMINOPHEN TAB 650MG DOSE (2X325MG) PO PRN (20:46)
[2021-01-14] MEDS: SERTRALINE HCL 50 MG TAB PO SCH (20:47)
[2021-01-15] VITALS: BP 107/58
[2021-01-15] MEDS: LORazepam 0.5 MG TAB PO PRN ×2 (01:11→11:05)
[2021-01-15 04:00] VITALS: BP 135/75
[2021-01-15] MEDS: LEVOTHYROXINE 50MCG TABLET (0.05MG) PO SCH (04:41)
[2021-01-15] MEDS: METOPROLOL TART 12.5 MG PER 1/2 TAB PO SCH ×2 (04:41→17:48)
[2021-01-15 07:42] VITALS: BP 115/57
[2021-01-15] MEDS: ARIPiprazole 10 MG TAB PO SCH (09:36)
[2021-01-15] MEDS: CYANOCOBALAMIN 500 MCG TAB PO SCH (09:37)
[2021-01-15] MEDS: cefTRIAXone SOD 1 GM in D5W MINI-BAG PLUS 50 ML IV SCH (09:45)
[2021-01-15] MEDS: APIXABAN 5 MG TAB (ELIQUIS) PO SCH ×2 (09:58→21:08)
[2021-01-15 11:11] VITALS: BP 106/59
--- NOTE | 2021-01-15 12:00 | ECHO ---
ECHOCARDIOGRAM DATE OF PROCEDURE: 01/11/2021 Age: 65 Gender: Female Height: 162 cm Weight: 123 kg PATIENT LOCATION: Room 3207. REFERRING PROVIDER: John White M.D. REASON FOR THE ECHOCARDIOGRAM : Cardiac dysrhythmias. MEASUREMENTS: 2D Measurements: IVS 0.9 cm LVPW 1.0 cm LV 5.3 cm Aortic root 3.5 cm LA 3.0 cm Doppler Measurements: Peak velocity across the aortic valve 0.77 m/sec Peak velocity across the LVOT 0.66 m/sec Maximum tricuspid valve velocity 2.5 m/sec 2D COMMENTS: 1. Normal left ventricular size, wall thickness and normal global left ventricular systolic function. The estimated left ventricular systolic ejection fraction is 60-65%. 2. Normal left atrium. Normal right atrium and right ventricle. 3. The atrial septum appeared to be normal without evidence of defect or shunt. 4. Normal aortic root. 5. No pericardial effusion seen. 6. The mitral valve and the tricuspid valve appeared to be normal. Mildly calcified mitral annulus with normal anterior mitral valve leaflet motion. The pulmonic valve was not well visualized. 7. The inferior vena cava was not visualized. DOPPLER: It detects mild mitral regurgitation and mild tricuspid regurgitation. The calculated pulmonary systolic pressure varies between 30-40 mmHg. Assessment of the left ventricular diastolic function was limited in view of the underlying arrhythmias. IMPRESSION: 1. Normal global left ventricular systolic function. Assessment of the left ventricular diastolic function was limited in view of the underlying arrhythmias. 2. Aortic valve sclerosis without stenosis or aortic regurgitation. 3. Mild mitral regurgitation. 4. Mild tricuspid regurgitation with mild pulmonary hypertension. MTDD
--- NOTE | 2021-01-15 12:55 | IPNPDOC ---
Date Seen The patient was seen on 01/15/21. Progress Note SUBJECTIVE: Patient was seen examined at bedside. She continues to have slow speech and motion in bed. She is however moving all 4 extremities and displays appropriate strength. She denies any chest pain shortness of breath cavitations or diarrhea. She did report mild discomfort in the bilateral flanks. OBJECTIVE PHYSICAL EXAMINATION: VITAL SIGNS: please see below General: NAD, comfortable HEENT: PERRLA, EOMI, sclerae clear Neck: supple, normal ROM, no JVD Respiratory: lungs CTAB, no wheeze, no rales, no crackles CVS: RRR, normal S1, S2, no murmurs Abdo: soft, no masses, no hepatosplenomegaly, BS+, no rebound tenderness Extremities: no edema, pulses 2+ MSK: no joint deformities, normal ROM Neuro: no focal neuro deficits, moving all 4 extremities, CN2-12 intact. Strength 5/5 in all 4 extremities. No nystagmus. Psych: calm, cooperative, AAO x 3 LABORATORY DATA, IMAGING STUDIES, MICROBIOLOGY: Please see below. MRI brain wo contrast (01/13/21): FINDINGS: Examination is limited by excessive patient motion. Major vascular flow voids at the skull base are preserved. Prominent extra-axial space at the left lateral posterior fossa measuring up to 12 mm in depth, probable arachnoid cyst. No hydrocephalus. Non-specific white matter gliosis, probable chronic microvascular ischemia. No midline shift or cerebral edema. No diffusion restriction. Visualized paranasal sinuses are clear. Moderate right and small left mastoid effusions. IMPRESSION: Patient motion without definite acute intracranial abnormality. MRA brain wo contrast (01/13/21): ANTERIOR CIRCULATION: Right internal carotid artery: Intracranial segment is patent with no significant stenosis. No aneurysm. Right middle cerebral artery: No occlusion or significant stenosis. No aneurysm. Right anterior cerebral artery: No occlusion or significant stenosis. No aneurysm. Left internal carotid artery: Intracranial segment is patent with no significant stenosis. No aneurysm. Left middle cerebral artery: No occlusion or significant stenosis. No aneurysm. Left anterior cerebral artery: No occlusion or significant stenosis. No aneurysm. POSTERIOR CIRCULATION: Right vertebral artery: No occlusion or significant stenosis. No aneurysm. Left vertebral artery: No occlusion or significant stenosis. No aneurysm. Basilar artery: No occlusion or significant stenosis. No aneurysm. Right posterior cerebral artery: No occlusion or significant stenosis. No aneurysm. Left posterior cerebral artery: No occlusion or significant stenosis. No aneurysm. IMPRESSION: 1. Patient motion. 2. No definite hemodynamically significant stenosis or large vessel occlusion. DVT prophylaxis ordered?: Lovenox being changed to heparin in setting of CKD 5/ESRD. ASSESSMENT AND PLAN: Patient 65-year-old female with a past medical history of CKD stage V followed by Dr. Suero, hypothyroidism on Synthroid after resection of thyroid for suspected thyroid malignancy, cognitive impairment, vitamin D deficiency bipolar disorder on chronic lithium therapy now discontinued, was transferred to [facility] from [facility] for acute renal failure. PROBLEMS: Altered mental status: Perhaps in the setting of acute renal failure. Patient had complained of abdominal pain therefore UA was performed. Showing E. coli. Patient was started on ceftriaxone. Blood cultures are pending. Will also obtain a brain MRI to ensure no ischemic process such as CVA has occurred in the setting of atrial fibrillation. MRI and MRA of brain, showed no gross abnormalities, but were limited due to patient motion. UTI: culture positive for e coli. on ceftriaxone day 4. Acute renal failure on CKD stage V: Dr. Hebert has been consulted. Plan is for permacath insertion and initiation of hemodialysis. Patient's and power of attorney general Mr. Irineo Santiago agrees. Vascular surgeon Dr. Land was consulted for placement of a permacath. He requested the patient undergo psychiatric evaluation for competence prior to obtaining consent. It was my c linical opinion that the patient lacks capacity to make decisions. Psychiatry deemed patient to be noncompetent to make decisions. Permacath placed on 01/13/21, completed dialysis. Next session today on 01/14/21. Dr. Suero following. Transient Hypotension: likely 2/2 metoprolol. Reduce dose to 12.5 mg q12h (from 25 mg q8h). Rate well controlled. BP improved after 500 cc bolus of NS. Asymptomatic. Atrial fibrillation, new onset: Reported history of A. fib in the past during admission for dehydration and acute renal failure in outside hospital. Patient has not been on any rate control agents or anticoagulation. Upon transfer from [facility] was informed that the patient has new onset A. fib with RVR. On telemetry patient continues to be in atrial fibrillation with a relatively well-controlled rate with Coreg 25 mg every 8 hours. I discussed with the patient's who initially refused anticoagulation but at this time is open to it if patient requires this. D/w Dr. Gonzalez. Recommends to err on side of caution despite [id number] score of 1, and start patient on eliquis. Patient is largely sedentary and would benefit from AC. Echo report pending. I discussed this with the patient's Mr. Santiago, who is in agreement with AC. Suicidal ideation: Patient has been evaluated by psychiatry deemed not to be actively suicidal. A sitter was discontinued. Patient's and healthcare proxy Mr. Mcgill was informed of this. No changes to medication has been made. He is in agreement with evaluation. Bipolar disorder, depression: Dr. Polanco recommends that we continue Abilify and Zoloft at this time in order to prevent an episode of lauren. The patient became becomes more sedated with his medications we can discontinue them for the time being. Thyroid panel including TSH and free T4 are within normal limits. Dispo: PFS is currently involved. A dialysis bed has been arranged with availability for January 18. PT recommending rehab after DC. Will d/w PFS regarding disposition. GOC: Dr. Suero had a detailed discussion with Mr. Santiago. Decision was made for DNR/DNI status. I saw the signed MOLST form in the patient's chart. New DNR/DNI order placed by Dr. Suero. VS, I&O, 24H, Fishbone Vital Signs/I&O Vital Signs Date Time Temp Pulse Resp B/P (MAP) Pulse Ox O2 Delivery O2 Flow Rate FiO2 01/15/21 11:11 99.0 83 20 106/59 (75) 95 Room Air 01/15/21 04:00 2.0 I&O- Last 24 Hours up to 6 AM 01/15/21 06:00 Intake Total 2071 ml Output Total 400 ml Balance 1671 ml Laboratory Data Microbiology Microbiology 01/12/21 Blood Culture - Preliminary, Resulted No Growth after 72 hours. All specime... 01/12/21 Blood Culture - Preliminary, Resulted No Growth after 72 hours. All specime... 01/10/21 Urine Culture - Final, Complete Escherichia Coli REJI CLEMENT MD Jan 15, 2021 12:54
[2021-01-15 15:37] VITALS: BP 137/65
[2021-01-15] MEDS ORDERED: MIRALAX *UNIT DOSE* 17GM PACKET PO PRN (16:50)
--- NOTE | 2021-01-15 17:20 | IPN ---
PROGRESS NOTE DATE: 01/15/2021 SUBJECTIVE: Mrs. Santiago is seen this morning on her bedside. Her is present in the room. Patient had second hemodialysis yesterday, which she tolerated well. She was hypotensive prior to dialysis, however, she tolerated her dialysis treatment well and has maintained her systolic blood pressure about 100 mmHg. She did have atrial fibrillation with rapid ventricular rate, however, now her heart rate is reasonably well controlled with low-dose beta-marissa. Patient herself remains quite confused and unable to express herself. Her is present in the room. PHYSICAL EXAMINATION: VITALS: Temperature 98.6 degrees Fahrenheit, heart rate 85 per minute, respiratory rate 20 per minute, blood pressure 115/57 mmHg and oxygen saturation 93% on room air. HEENT: Head is atraumatic. Neck supple and JVD difficult to be assessed. Right internal jugular vein Permacath is present. HEART: Heart sounds are irregular. LUNGS: Poor inspiratory effort. ABDOMEN: Obese and nontender. Bowel sounds are normal. EXTREMITIES: Without any cyanosis or clubbing. NEUROLOGIC: She is awake, very tremulous and unable to communicate properly. LABORATORY DATA: Patient did not have any new labs done today. PROBLEMS: 1. End-stage renal disease: Patient has just initiated dialysis during this hospitalization. She tolerated her second dialysis treatment well yesterday. 2. Atrial fibrillation: Ventricular rate is well controlled now with low-dose beta-marissa. She is also now on Eliquis 5 mg b.i.d. 3. Hyperparathyroidism: She was on Calcitriol 0.5 mcg every two days as an outpatient. Her did talk to the hospitalist and requested to resume her Calcitriol, which has been done. I have explained to the patient's that this will be now monitored with dialysis. 4. Generalized weakness and deconditioning: Patient has been bedridden for a few days since she was admitted. I have advised the nursing staff to get her out of bed to the chair. She will probably need at least some rehab before discharge. DISPOSITION: From a renal standpoint, patient can be discharged to home and continue with outpatient maintenance hemodialysis in the [facility]. She already has a slot on Saturday next week.
[2021-01-15 20:00] VITALS: BP 114/53
[2021-01-15] MEDS: DOCUSATE SODIUM 100MG CAPSULE PO SCH (21:07)
[2021-01-15] MEDS: SERTRALINE HCL 50 MG TAB PO SCH (21:07)
[2021-01-16] VITALS: BP 116/57
[2021-01-16] MEDS: LORazepam 0.5 MG TAB PO PRN ×3 (00:09→18:16)
[2021-01-16 04:00] VITALS: BP 117/71
[2021-01-16 06:08] LABS: BASO # 0.1 10^3/uL (0.0-0.2); BASO % 0.5 % (0.0-1.0); EOS # 0.3 10^3/uL (0.0-0.5); EOS % 2.4 % (0.0-3.0); HEMATOCRIT 39.8 % (36.0-47.0); HEMOGLOBIN 12.7 g/dl (12.0-15.5); LYMPH # 1.6 10^3/uL (1.5-5.0); LYMPH % 15.7 % (24.0-44.0); MEAN CORPUSCULAR HEMOGLOBIN 30.7 pg (27.0-33.0); MEAN CORPUSCULAR HGB CONC 31.9 g/dl (32.0-36.5); MEAN CORPUSCULAR VOLUME 96.1 fl (80.0-96.0); MONO # 0.6 10^3/uL (0.0-0.8); MONO % 5.6 % (2.0-8.0); NEUTROPHILS # 7.8 10^3/uL (1.5-8.5); NEUTROPHILS % 75.1 % (36.0-66.0); PLATELET COUNT, AUTOMATED 192 10^3/uL (150-450); RED BLOOD COUNT 4.14 10^6/uL (4.00-5.40); WHITE BLOOD COUNT 10.4 10^3/uL (4.0-10.0)
[2021-01-16] MEDS: LEVOTHYROXINE 50MCG TABLET (0.05MG) PO SCH (06:18)
[2021-01-16] MEDS: METOPROLOL TART 12.5 MG PER 1/2 TAB PO SCH ×2 (06:19→18:54)
[2021-01-16 06:28] LABS: ALBUMIN 2.8 GM/DL (3.2-5.2); BILIRUBIN,TOTAL 0.4 MG/DL (0.2-1.0); CREATININE FOR GFR 4.27 MG/DL (0.55-1.30); GLOMERULAR FILTRATION RATE 11.1 (>45); MAGNESIUM LEVEL 2.4 MG/DL (1.8-2.4); POTASSIUM SERUM 4.9 MEQ/L (3.5-5.1); TOTAL PROTEIN 6.2 GM/DL (6.4-8.2)
[2021-01-16 07:18] VITALS: BP 131/67
[2021-01-16] MEDS: CYANOCOBALAMIN 500 MCG TAB PO SCH (08:43)
[2021-01-16] MEDS: ARIPiprazole 10 MG TAB PO SCH (08:45)
[2021-01-16] MEDS: APIXABAN 5 MG TAB (ELIQUIS) PO SCH ×2 (08:46→21:12)
[2021-01-16] MEDS: DOCUSATE SODIUM 100MG CAPSULE PO SCH ×2 (08:46→21:11)
[2021-01-16] MEDS: CALCITRIOL 0.25 MCG CAP (S0169) PO SCH (08:46)
[2021-01-16] MEDS: cefTRIAXone SOD 1 GM in D5W MINI-BAG PLUS 50 ML IV SCH (08:52)
--- NOTE | 2021-01-16 11:11 | IPN ---
NEPHROLOGY PROGRESS NOTE DATE: 01/16/2021 SUBJECTIVE: Norma is seen and examined this morning at the bedside. Her is present as well. He has a lot of concern about her care. He wants to take her home as soon as he can. She has been sent up for dialysis at [facility]. The patient herself speaks very minimally and only upon prompting by her and offers zero complaints. Labs today show resolution of mild hypernatremia and are otherwise unchanged from prior. OBJECTIVE: VITAL SIGNS: Temperature 97.9, pulse 84, respiratory rate 20, blood pressure 131/67, saturating 92-94% on room air. INTAKE AND OUTPUT: Intake yesterday was one liter. Weight in the bed scale today is not recorded. PHYSICAL EXAMINATION: GENERAL APPEARANCE: The patient is seen sitting in bed, obese female awake but not only communicative. She does make brief eye contact. NECK: Jugular veins are difficult to assess. There is a right internal jugular vein permacath present with dressing. HEART: Irregular, S1, S2. There is no peripheral edema. LUNGS: I did not auscultate any troubles with air flow. There were no crackles. She appears comfortable on room air. ABDOMEN: Obese and soft and nontender. EXTREMITIES: No clubbing or cyanosis. There is no peripheral edema. NEUROLOGICAL: The patient is awake and speaks briefly 1-2 words upon prompting by her but otherwise does not participate in her own care. LABORATORY STUDIES: Labs show a white count of 10.4, hemoglobin 12.7, platelet count 192. Sodium 143, potassium 4.9, bicarbonate 20, BUN 45, creatinine 4.2, glucose 91. INPATIENT MEDICATIONS: The patient's medications were reviewed by myself and I note she is on Calcitriol 0.5 mcg every other day. Her remainder medications are unchanged as compared prior days. PROBLEMS: 1. End-stage renal disease on hemodialysis - The patient was initiated on dialysis on this admission. She has had two treatments thus far. She has been set up for outpatient hemodialysis as the [facility] on a Saturday, Saturday, Saturday schedule. 2. Secondary hyperparathyroidism of renal origin - The patient continues on Calcitriol. Her most recent PTH was slightly suppressed at 103 (goal in renal failure will be 150 to 600). She is not on any phosphorous binder and her phosphorous level has been acceptable. 3. Hypernatremia it is mild. It is a chronic recurrent issue for her. She is not on any fluid restriction. 4. Iron deficiency - The patient's hemoglobin is at goal. She is receiving Venofer with dialysis. 5. Atrial fibrillation - The patient is on beta marissa and on Eliquis and her rate is controlled. Echocardiogram is noted. 6. Bipolar disorder - complicating her care and psychiatric medications are adjusted as per Psychiatry.
[2021-01-16 12:00] VITALS: BP 108/80
[2021-01-16 16:00] VITALS: BP 139/81
--- NOTE | 2021-01-16 17:28 | IPNPDOC ---
Date Seen The patient was seen on 01/16/21. Progress Note SUBJECTIVE: Patient was seen examined at bedside. She continues to have slow speech and motion in bed. She is however moving all 4 extremities and displays appropriate strength. She denies any chest pain shortness of breath cavitations or diarrhea. Patient needs max assist in order to stand according to nursing and PT notes OBJECTIVE PHYSICAL EXAMINATION: VITAL SIGNS: please see below General: NAD, comfortable HEENT: PERRLA, EOMI, sclerae clear Neck: supple, normal ROM, no JVD Respiratory: lungs CTAB, no wheeze, no rales, no crackles CVS: RRR, normal S1, S2, no murmurs Abdo: soft, no masses, no hepatosplenomegaly, BS+, no rebound tenderness Extremities: no edema, pulses 2+ MSK: no joint deformities, normal ROM Neuro: no focal neuro deficits, moving all 4 extremities, CN2-12 intact. Strength 5/5 in all 4 extremities. No nystagmus. Psych: calm, cooperative, AAO x 3 LABORATORY DATA, IMAGING STUDIES, MICROBIOLOGY: Please see below. MRI brain wo contrast (01/13/21): FINDINGS: Examination is limited by excessive patient motion. Major vascular flow voids at the skull base are preserved. Prominent extra-axial space at the left lateral posterior fossa measuring up to 12 mm in depth, probable arachnoid cyst. No hydrocephalus. Non-specific white matter gliosis, probable chronic microvascular ischemia. No midline shift or cerebral edema. No diffusion restriction. Visualized paranasal sinuses are clear. Moderate right and small left mastoid effusions. IMPRESSION: Patient motion without definite acute intracranial abnormality. MRA brain wo contrast (01/13/21): ANTERIOR CIRCULATION: Right internal carotid artery: Intracranial segment is patent with no significant stenosis. No aneurysm. Right middle cerebral artery: No occlusion or significant stenosis. No aneurysm. Right anterior cerebral artery: No occlusion or significant stenosis. No aneurysm. Left internal carotid artery: Intracranial segment is patent with no significant stenosis. No aneurysm. Left middle cerebral artery: No occlusion or significant stenosis. No aneurysm. Left anterior cerebral artery: No occlusion or significant stenosis. No aneurysm. POSTERIOR CIRCULATION: Right vertebral artery: No occlusion or significant stenosis. No aneurysm. Left vertebral artery: No occlusion or significant stenosis. No aneurysm. Basilar artery: No occlusion or significant stenosis. No aneurysm. Right posterior cerebral artery: No occlusion or significant stenosis. No aneurysm. Left posterior cerebral artery: No occlusion or significant stenosis. No aneurysm. IMPRESSION: 1. Patient motion. 2. No definite hemodynamically significant stenosis or large vessel occlusion. DVT prophylaxis ordered?: Lovenox being changed to heparin in setting of CKD 5/ESRD. ASSESSMENT AND PLAN: Patient 65-year-old female with a past medical history of CKD stage V followed by Dr. Suero, hypothyroidism on Synthroid after resection of thyroid for suspected thyroid malignancy, cognitive impairment, vitamin D deficiency bipolar disorder on chronic lithium therapy now discontinued, was transferred to [facility] from [facility] for acute renal failure. PROBLEMS: Altered mental status: Perhaps in the setting of acute renal failure. Patient had complained of abdominal pain therefore UA was performed. Showing E. coli. Patient was started on ceftriaxone. Blood cultures are pending. Will also obt ain a brain MRI to ensure no ischemic process such as CVA has occurred in the setting of atrial fibrillation. MRI and MRA of brain, showed no gross abnormalities, but were limited due to patient motion. Her patient is currently at mental baseline. UTI: culture positive for e coli. on ceftriaxone day 5. Acute renal failure on CKD stage V: Dr. Hebert has been consulted. Plan is for permacath insertion and initiation of hemodialysis. Patient's and power of equities trader Mr. Irineo Santiago agrees. Vascular surgeon Dr. Land was consulted for placement of a permacath. He requested the patient undergo psychiatric evaluation for competence prior to obtaining consent. It was my cli nical opinion that the patient lacks capacity to make decisions. Psychiatry deemed patient to be noncompetent to make decisions. Permacath placed on 01/13/21, completed dialysis. Ongoing dialysis Dr. Suero following. Patient has dialysis chair at [place] Saturday schedule arrange starting 01/18/2021 Transient Hypotension: Resolved likely 2/2 metoprolol. Reduce dose to 12.5 mg q12h (from 25 mg q8h). Rate well controlled. BP improved after 500 cc bolus of NS. Asymptomatic. Atrial fibrillation, new onset: Reported history of A. fib in the past during admission for dehydration and acute renal failure in outside hospital. Patient has not been on any rate control agents or anticoagulation. Upon transfer from [facility] was informed that the patient has new onset A. fib with RVR. On telemetry patient continues to be in atrial fibrillation with a rela tively well-controlled rate with Coreg 25 mg every 8 hours. I discussed with the patient's who initially refused anticoagulation but at this time is open to it if patient requires this. D/w Dr. Gonzalez. Recommends to err on side of caution despite [id number] score of 1, and start patient on eliquis. Patient is largely sedentary and would benefit from AC. Echo report pending. I discussed this with the patient's Mr. Santiago, who is in agreement with AC. Suicidal ideation: Patient has been evaluated by psychiatry deemed not to be actively suicidal. A sitter was discontinued. Patient's and healthcare proxy Mr. Viramontes was informed of this. No changes to medication has been made. He is in agreement with evaluation. Bipolar disorder, depression: Dr. Polanco recommends that we continue Abilify and Zoloft at this time in order to prevent an episode of lauren. The patient became becomes more sedated with his medications we can discontinue them for the time being. Thyroid panel including TSH and free T4 are within normal limits. Dispo: PFS is currently involved. A dialysis bed has been arranged with availability for January 18. PT recommending rehab after DC. Will d/w PFS regarding disposition after the long weekend GOC: Dr. Suero had a detailed discussion with Mr. Santiago. Decision was made for DNR/DNI status. I saw the signed MOLST form in the patient's chart. New DNR/DNI order placed by Dr. Suero. PFS notes reviewed, working with Adult Pr otective Services to ensure safe discharge unable to locate telephone number for son however reviewed PFS notes stating that father takes good care of their mother. At this time I have no specific examples of any domestic abuse at home. According to the son father is willing to take her to all appointments and provides good care. I will leave to social service to determine safe plan for discharge. Medically she is appropriate for discharge to dialysis VS, I&O, 24H, Fishbone Vital Signs/I&O Vital Signs Date Time Temp Pulse Resp B/P (MAP) Pulse Ox O2 Delivery O2 Flow Rate FiO2 01/16/21 16:00 98.3 101 22 139/81 (100) 93 Room Air 01/15/21 04:00 2.0 I&O- Last 24 Hours up to 6 AM 01/16/21 06:00 Intake Total 957 ml Output Total 1175 ml Balance -218 ml Laboratory Data 24H LABS Laboratory Tests 2 01/16/21 05:40: Immature Granulocyte % (Auto) 0.7, Neutrophils (%) (Auto) 75.1H, Lymphocytes (%) (Auto) 15.7L, Monocytes (%) (Auto) 5.6, Eosinophils (%) (Auto) 2.4, Basophils (%) (Auto) 0.5, Neutrophils # (Auto) 7.8, Lymphocytes # (Auto) 1.6, Monocytes # (Auto) 0.6, Eosinophils # (Auto) 0.3, Basophils # (Auto) 0.1, Nucleated Red Bl ood Cells % (auto) 0.0, Anion Gap 9, Glomerular Filtration Rate 11.1L, Calcium Level 9.0, Magnesium Level 2.4, Total Bilirubin 0.4, Aspartate Amino Transf (AST/SGOT) 27, Alanine Aminotransferase (ALT/SGPT) 22, Alkaline Phosphatase 77, Total Protein 6.2L, Albumin 2.8L, Albumin/Globulin Ratio 0.8L CBC/BMP Laboratory Tests 01/16/21 05:40 Microbiology Microbiology 01/12/21 Blood Culture - Preliminary, Resulted No Growth after 72 hours. All specime... 01/12/21 Blood Culture - Preliminary, Resulted No Growth after 72 hours. All specime... 01/10/21 Urine Culture - Final, Complete Escherichia Coli REJI CLEMENT MD Jan 16, 2021 17:27
[2021-01-16] MEDS ORDERED: LORazepam 0.5 MG TAB PO ONE (18:35)
[2021-01-16 20:00] VITALS: BP 114/64
[2021-01-16] MEDS: SERTRALINE HCL 50 MG TAB PO SCH (21:11)
[2021-01-17] VITALS: BP 102/56
[2021-01-17] MEDS ORDERED: hydrOXYzine 10 MG TAB PO ONE (00:40)
[2021-01-17] MEDS: RAMELTEON 8 MG TAB (ROZEREM) PO SCH ×2 (01:09→20:42)
[2021-01-17] MEDS: LORazepam 0.5 MG TAB PO PRN (02:32)
[2021-01-17 04:00] VITALS: BP 143/67
[2021-01-17 05:43] LABS: BASO # 0.1 10^3/uL (0.0-0.2); BASO % 0.4 % (0.0-1.0); EOS # 0.3 10^3/uL (0.0-0.5); EOS % 2.3 % (0.0-3.0); HEMATOCRIT 35.7 % (36.0-47.0); HEMOGLOBIN 11.4 g/dl (12.0-15.5); LYMPH # 1.4 10^3/uL (1.5-5.0); LYMPH % 12.3 % (24.0-44.0); MEAN CORPUSCULAR HEMOGLOBIN 30.6 pg (27.0-33.0); MEAN CORPUSCULAR HGB CONC 31.9 g/dl (32.0-36.5); MEAN CORPUSCULAR VOLUME 95.7 fl (80.0-96.0); MONO # 0.7 10^3/uL (0.0-0.8); NEUTROPHILS % 78.3 % (36.0-66.0); PLATELET COUNT, AUTOMATED 193 10^3/uL (150-450); RED BLOOD COUNT 3.73 10^6/uL (4.00-5.40); WHITE BLOOD COUNT 11.5 10^3/uL (4.0-10.0)
[2021-01-17] MEDS: METOPROLOL TART 12.5 MG PER 1/2 TAB PO SCH ×2 (06:01→17:54)
[2021-01-17] MEDS: LEVOTHYROXINE 50MCG TABLET (0.05MG) PO SCH (06:06)
[2021-01-17 06:15] LABS: ALBUMIN 2.7 GM/DL (3.2-5.2); BILIRUBIN,TOTAL 0.5 MG/DL (0.2-1.0); CALCIUM LEVEL 9.1 MG/DL (8.8-10.2); CREATININE FOR GFR 4.58 MG/DL (0.55-1.30); GLOMERULAR FILTRATION RATE 10.3 (>45); MAGNESIUM LEVEL 2.5 MG/DL (1.8-2.4); POTASSIUM SERUM 4.3 MEQ/L (3.5-5.1); TOTAL PROTEIN 6.4 GM/DL (6.4-8.2)
[2021-01-17] MEDS ORDERED: SODIUM CHLORIDE 0.9% 1000ML IV PRN (07:30)
[2021-01-17 07:33] VITALS: BP 119/71
[2021-01-17] MEDS: IRON SUCROSE 100MG 5ML VIAL (J1756 PER 1MG) IV SCH (09:38)
[2021-01-17] MEDS: DOCUSATE SODIUM 100MG CAPSULE PO SCH ×3 (13:08→21:00)
[2021-01-17] MEDS: CYANOCOBALAMIN 500 MCG TAB PO SCH (13:08)
[2021-01-17] MEDS: APIXABAN 5 MG TAB (ELIQUIS) PO SCH ×2 (13:09→20:43)
[2021-01-17] MEDS: ARIPiprazole 10 MG TAB PO SCH (13:09)
[2021-01-17 16:00] VITALS: BP 101/65
--- NOTE | 2021-01-17 18:45 | IPNPDOC ---
Text Note Date of Service The patient was seen on 01/17/21. NOTE Subjective: No new acute events overnight. I saw the patient in the morning, she was somnolent, later today she was oriented in place but not in time. I updated her about plan of treatment. Objective: GENERAL APPEARANCE: NAD HEENT: no scleral icterus, no JVD, EOMI CARDIOVASCULAR: S1S2 LUNGS: CTA ABDOMEN: soft & not tender w palpation MUSCULOSKELETAL: no cyanosis, no swelling INTEGUMENT: no generalized pallor NEUROLOGICAL: cranial nerve function from 2-12 intact, follows commands, speech not dysarthric Assessment and plan Patient 65-year-old female with a past medical history of CKD stage V followed by Dr. Suero, hypothyroidism on Synthroid after resection of thyroid for suspected thyroid malignancy, cognitive impairment, vitamin D deficiency bipolar disorder on chronic lithium therapy now discontinued, was transferred to [facility] from [facility] for acute renal failure. Metabolic encephalopathy Multifactorial. Most likely secondary to end-stage renal disease superimposed with UTI Improved Brain MRI negative for stroke Completed course of ceftriaxone UTI Urine culture positive for E. coli Patient completed course of ceftriaxone End-stage renal disease Chronic kidney disease progressed to end-stage renal disease Continue dialysis Nephrology team follows her Hypertension Resolved Paroxysmal atrial fibrillation Heart rate under control Continue Eliquis twice daily Suicidal ideation Patient is nonsuicidal according to psych team evaluation Bipolar disorder/depression Dr. Polanco recommends that we continue Abilify and Zoloft at this time in order to prevent an episode of lauren. The patient became becomes more sedated with his medications we can discontinue them for the time being. Thyroid panel including TSH and free T4 are within normal limits. Deconditioning PT/OT Hyperlipidemia We will check lipid panel Patient on dialysis and has multiple comorbidities. We will start rosuvastatin DVT prophylaxis with Eliquis VS,Fishbone, I+O VS, Fishbone, I+O Laboratory Tests 01/17/21 05:08 Vital Signs Date Time Temp Pulse Resp B/P (MAP) Pulse Ox O2 Delivery O2 Flow Rate FiO2 01/17/21 17:54 94 100/65 01/17/21 07:33 98.4 20 94 Room Air 01/15/21 04:00 2.0 I&O- Last 24 Hours up to 6 AM 01/17/21 06:00 Intake Total 540 ml Output Total 1350 ml Balance -810 ml SHASTA CUMMINS DO Jan 17, 2021 18:45
[2021-01-17 20:00] VITALS: BP 109/59
[2021-01-17] MEDS: SERTRALINE HCL 50 MG TAB PO SCH (20:42)
--- NOTE | 2021-01-17 23:31 | IPN ---
PROGRESS NOTE DATE: 01/17/2021 SUBJECTIVE: Norma is seen and examined this morning in the hemodialysis unit. Her is present while she is getting dialyzed. As is usual, the patient is minimally communicative, but her addresses his concerns with myself. There were no acute events overnight. Her dialysis has been uneventful. Today was her third hemodialysis treatment. Patient denies shortness of breath. OBJECTIVE: VITAL SIGNS: Temperature 97.4, pulse 78, respiratory rate 20, blood pressure 101/65, saturating 93-95% on room air. INTAKE/OUTPUT: Intake yesterday was recorded as 540. Urine output was recorded as 1 liter. Weight in the bed scale today is 124.1 kg. PHYSICAL EXAMINATION: GENERAL: Patient is seen in the hemodialysis unit receiving her treatment with the head of the bed elevated. Awake and appears alert, but is minimally communicative, but does follow simple commands. Makes eye contact. NECK: Jugular veins are not elevated. There is a tunneled hemodialysis catheter in use. HEART: Sounds are irregularly irregular, S1, S2. There is no peripheral edema. LUNGS: Clear to auscultation bilaterally, anterior auscultation only. No crackle or rale. ABDOMEN: Obese and soft and nontender. EXTREMITIES: No cyanosis and no edema. SKIN: Normal temperature and turgor. LABORATORY STUDIES: White count 11.5, hemoglobin 11.4. Sodium 146, potassium 4.3, bicarbonate 19, BUN 58, creatinine 4.5. Magnesium 2.5, albumin 2.7. INPATIENT MEDICATIONS: Reviewed by myself. I note patient was given 10 mg of Hydroxyzine p.o. x1 and the Ativan dose was adjusted by the primary team. The remainder of her medications have been unchanged over the past 24 hours. PROBLEMS: 1. End-stage renal disease: Patient was initiated on hemodialysis on this admission; today was her third dialysis treatment. She is tolerating dialysis well. Her electrolytes and volume status are acceptable. She has been set up for outpatient hemodialysis on a Saturday, Saturday, Saturday schedule in the [facility]. 2. Paroxysmal atrial fibrillation: Rate is controlled with Metoprolol 12.5 mg p.o. b.i.d. and patient is anticoagulated with Eliquis. 3. Hypernatremia: It is mild, it is a chronic and recurrent issue with her. She is receiving a slightly lower sodium in the dialysis bath. 4. Hypertension: Blood pressures are acceptable and she tolerated dialysis today without any significant hemodynamic issues. 5. Severe bipolar disorder and depression: Managed as per psychiatry and primary service. I note her Ativan was adjusted. She has been doing well on dialysis treatments so far without any acute psychiatric issues during her treatment time.
[2021-01-18 04:00] VITALS: BP 113/71
[2021-01-18 05:06] LABS: BASO # 0.1 10^3/uL (0.0-0.2); BASO % 0.6 % (0.0-1.0); EOS # 0.4 10^3/uL (0.0-0.5); EOS % 3.6 % (0.0-3.0); HEMATOCRIT 35.1 % (36.0-47.0); HEMOGLOBIN 11.5 g/dl (12.0-15.5); LYMPH # 1.5 10^3/uL (1.5-5.0); LYMPH % 14.2 % (24.0-44.0); MEAN CORPUSCULAR HEMOGLOBIN 31.3 pg (27.0-33.0); MEAN CORPUSCULAR HGB CONC 32.8 g/dl (32.0-36.5); MEAN CORPUSCULAR VOLUME 95.6 fl (80.0-96.0); MONO # 0.6 10^3/uL (0.0-0.8); MONO % 5.3 % (2.0-8.0); NEUTROPHILS # 8.1 10^3/uL (1.5-8.5); NEUTROPHILS % 75.7 % (36.0-66.0); PLATELET COUNT, AUTOMATED 180 10^3/uL (150-450); RED BLOOD COUNT 3.67 10^6/uL (4.00-5.40); WHITE BLOOD COUNT 10.7 10^3/uL (4.0-10.0)
[2021-01-18 05:36] LABS: ALBUMIN 2.6 GM/DL (3.2-5.2); BILIRUBIN,TOTAL 0.5 MG/DL (0.2-1.0); CALCIUM LEVEL 8.6 MG/DL (8.8-10.2); CREATININE FOR GFR 3.4 MG/DL (0.55-1.30); GLOMERULAR FILTRATION RATE 14.5 (>45); MAGNESIUM LEVEL 2.5 MG/DL (1.8-2.4); POTASSIUM SERUM 4.2 MEQ/L (3.5-5.1)
[2021-01-18] MEDS: METOPROLOL TART 12.5 MG PER 1/2 TAB PO SCH ×3 (06:00→17:40)
[2021-01-18] MEDS: LEVOTHYROXINE 50MCG TABLET (0.05MG) PO SCH ×2 (06:00→06:05)
[2021-01-18 07:11] VITALS: BP 124/59
[2021-01-18] MEDS ORDERED: MIRALAX *UNIT DOSE* 17GM PACKET PO PRN (08:40)
[2021-01-18] MEDS ORDERED: BISACODYL 5 MG TAB PO PRN (08:40)
[2021-01-18] MEDS ORDERED: BISACODYL 5 MG TAB PO ONE (08:40)
[2021-01-18] MEDS: CYANOCOBALAMIN 500 MCG TAB PO SCH (09:10)
[2021-01-18] MEDS: DOCUSATE SODIUM 100MG CAPSULE PO SCH ×2 (09:10→20:53)
[2021-01-18] MEDS: APIXABAN 5 MG TAB (ELIQUIS) PO SCH ×2 (09:12→20:53)
[2021-01-18] MEDS: MIRALAX *UNIT DOSE* 17GM PACKET PO SCH (09:12)
[2021-01-18] MEDS: CALCITRIOL 0.25 MCG CAP (S0169) PO SCH (09:13)
[2021-01-18] MEDS: ROSUVASTATIN 10 MG TAB (CRESTOR) PO SCH (09:13)
[2021-01-18] MEDS: ARIPiprazole 10 MG TAB PO SCH (13:36)
[2021-01-18] MEDS ORDERED: IRON65TA2 PO (13:47)
[2021-01-18] MEDS ORDERED: METO1TAB87 PO (13:47)
[2021-01-18] MEDS ORDERED: VITA500T40 PO (13:47)
[2021-01-18] MEDS ORDERED: CRES10TA PO (13:47)
[2021-01-18] MEDS ORDERED: ELIQ5TAB PO (13:47)
[2021-01-18] MEDS ORDERED: ATIV1TAB10 PO (13:47)
[2021-01-18] MEDS ORDERED: BISAC5TA PO (13:47)
--- NOTE | 2021-01-18 14:39 | IPNPDOC ---
Text Note Date of Service The patient was seen on 01/18/21. NOTE Subjective: No new acute events overnight. Patient more alert and awake in the morning Objective: GENERAL APPEARANCE: NAD HEENT: no scleral icterus, no JVD, EOMI CARDIOVASCULAR: S1S2 LUNGS: CTA ABDOMEN: soft & not tender w palpation MUSCULOSKELETAL: no cyanosis, no swelling INTEGUMENT: no generalized pallor NEUROLOGICAL: cranial nerve function from 2-12 intact, follows commands, speech not dysarthric Assessment and plan Patient 65-year-old female with a past medical history of CKD stage V followed by Dr. Suero, hypothyroidism on Synthroid after resection of thyroid for suspected thyroid malignancy, cognitive impairment, vitamin D deficiency bipolar disorder on chronic lithium therapy now discontinued, was transferred to [facility] from [facility] for acute renal failure. Metabolic encephalopathy Multifactorial. Most likely secondary to end-stage renal disease superimposed with UTI Improved Brain MRI negative for stroke Completed course of ceftriaxone UTI Urine culture positive for E. coli Patient completed course of ceftriaxone End-stage renal disease Chronic kidney disease progressed to end-stage renal disease Continue dialysis Nephrology team follows her Hypertension Resolved Paroxysmal atrial fibrillation Heart rate under control Continue Eliquis twice daily Suicidal ideation Patient is nonsuicidal according to psych team evaluation Bipolar disorder/depression Dr. Polanco recommends that we continue Abilify and Zoloft at this time in order to prevent an episode of lauren. The patient became becomes more sedated with his medications we can discontinue them for the time being. Thyroid panel including TSH and free T4 are within normal limits. Deconditioning PT/OT Hyperlipidemia Patient on dialysis and has multiple comorbidities. Continue rosuvastatin DVT prophylaxis with Eliquis VS,Fishbone, I+O VS, Fishbone, I+O Laboratory Tests 01/18/21 04:45 Vital Signs Date Time Temp Pulse Resp B/P (MAP) Pulse Ox O2 Delivery O2 Flow Rate FiO2 01/18/21 07:11 96.6 82 18 124/59 (80) 94 Room Air 01/15/21 04:00 2.0 I&O- Last 24 Hours up to 6 AM 01/18/21 06:00 Intake Total 25 ml Output Total 400 ml Balance -375 ml SHASTA CUMMINS DO Jan 18, 2021 14:39
[2021-01-18 16:00] VITALS: BP 102/54
[2021-01-18 20:20] VITALS: BP 86/49
[2021-01-18] MEDS ORDERED: NS 250 ML IV ONE (20:30)
[2021-01-18] MEDS: RAMELTEON 8 MG TAB (ROZEREM) PO SCH (20:53)
[2021-01-18] MEDS: SERTRALINE HCL 50 MG TAB PO SCH (20:53)
[2021-01-18] MEDS: ACETAMINOPHEN TAB 650MG DOSE (2X325MG) PO PRN (20:54)
[2021-01-18 21:25] VITALS: BP 95/61
[2021-01-19 02:00] VITALS: BP 94/58
[2021-01-19] MEDS: METOPROLOL TART 12.5 MG PER 1/2 TAB PO SCH ×2 (05:29→19:09)
[2021-01-19 06:00] VITALS: BP 113/69
[2021-01-19] MEDS: LEVOTHYROXINE 50MCG TABLET (0.05MG) PO SCH (06:13)
[2021-01-19] MEDS ORDERED: SODIUM CHLORIDE 0.9% 1000ML IV PRN (07:55)
--- NOTE | 2021-01-19 08:27 | REP ---
INDICATION: nocturnal oxygen requirement. COMPARISON: Comparison chest x-ray January 12, 2021. TECHNIQUE: Portable upright AP chest radiograph. FINDINGS: A right-sided central venous tunneled catheter is noted in place with its tip in the expected location of the SVC right atrial junction. There are clips in the soft tissues of the right neck. Right hemidiaphragm is somewhat elevated. Cardiomegaly is observed. There is no evidence of pleural effusion or pneumothorax. No infiltrate is seen. IMPRESSION: Right-sided PermCath in place. Cardiomegaly. Somewhat elevated right hemidiaphragm. Otherwise no active disease. <Electronically signed by Sourav Armenta > 01/19/21 0142
[2021-01-19] MEDS: DOCUSATE SODIUM 100MG CAPSULE PO SCH ×2 (08:45→23:12)
[2021-01-19] MEDS: APIXABAN 5 MG TAB (ELIQUIS) PO SCH ×2 (08:46→23:12)
[2021-01-19] MEDS: CYANOCOBALAMIN 500 MCG TAB PO SCH (08:46)
[2021-01-19] MEDS: ROSUVASTATIN 10 MG TAB (CRESTOR) PO SCH (08:46)
[2021-01-19] MEDS: MIRALAX *UNIT DOSE* 17GM PACKET PO SCH (08:47)
[2021-01-19] MEDS: ARIPiprazole 10 MG TAB PO SCH (08:47)
[2021-01-19] MEDS: IRON SUCROSE 100MG 5ML VIAL (J1756 PER 1MG) IV SCH (09:42)
[2021-01-19 10:05] LABS: BASO % 0.7 % (0.0-1.0); EOS # 0.2 10^3/uL (0.0-0.5); EOS % 3.1 % (0.0-3.0); HEMATOCRIT 34.7 % (36.0-47.0); LYMPH % 16.7 % (24.0-44.0); MEAN CORPUSCULAR HEMOGLOBIN 30.9 pg (27.0-33.0); MEAN CORPUSCULAR HGB CONC 31.7 g/dl (32.0-36.5); MEAN CORPUSCULAR VOLUME 97.5 fl (80.0-96.0); MONO # 0.2 10^3/uL (0.0-0.8); MONO % 4.1 % (2.0-8.0); NEUTROPHILS # 4.4 10^3/uL (1.5-8.5); NEUTROPHILS % 74.7 % (36.0-66.0); PLATELET COUNT, AUTOMATED 182 10^3/uL (150-450); RED BLOOD COUNT 3.56 10^6/uL (4.00-5.40); WHITE BLOOD COUNT 5.9 10^3/uL (4.0-10.0)
[2021-01-19 10:41] LABS: ALBUMIN 2.5 GM/DL (3.2-5.2); BILIRUBIN,TOTAL 0.3 MG/DL (0.2-1.0); CALCIUM LEVEL 8.5 MG/DL (8.8-10.2); CREATININE FOR GFR 3.14 MG/DL (0.55-1.30); GLOMERULAR FILTRATION RATE 15.9 (>45); MAGNESIUM LEVEL 2.6 MG/DL (1.8-2.4); POTASSIUM SERUM 3.2 MEQ/L (3.5-5.1); TOTAL PROTEIN 6.1 GM/DL (6.4-8.2)
[2021-01-19] MEDS ORDERED: SENNA 8.6 MG TAB (SENOKOT) PO PRN (13:50)
[2021-01-19 14:00] VITALS: BP 90/57
--- NOTE | 2021-01-19 14:00 | IPNPDOC ---
Text Note Date of Service The patient was seen on 01/19/21. NOTE Subjective: No new acute events overnight. Patient complains of constipation. No fever or chills Objective: GENERAL APPEARANCE: NAD HEENT: no scleral icterus, no JVD, EOMI CARDIOVASCULAR: S1S2 LUNGS: CTA ABDOMEN: soft & not tender w palpation MUSCULOSKELETAL: no cyanosis, no swelling INTEGUMENT: no generalized pallor NEUROLOGICAL: cranial nerve function from 2-12 intact, follows commands, speech not dysarthric Assessment and plan Patient 65-year-old female with a past medical history of CKD stage V followed by Dr. Suero, hypothyroidism on Synthroid after resection of thyroid for suspected thyroid malignancy, cognitive impairment, vitamin D deficiency bipolar disorder on chronic lithium therapy now discontinued, was transferred to [facility] from [facility] for acute renal failure. Metabolic encephalopathy Multifactorial. Most likely secondary to end-stage renal disease superimposed with UTI Improved Brain MRI negative for stroke Completed course of ceftriaxone UTI Urine culture positive for E. coli Patient completed course of ceftriaxone End-stage renal disease Chronic kidney disease progressed to end-stage renal disease Continue dialysis Nephrology team follows her Hypertension Resolved Paroxysmal atrial fibrillation Heart rate under control Continue Eliquis twice daily Suicidal ideation Patient is nonsuicidal according to psych team evaluation Bipolar disorder/depression Dr. Polanco recommends that we continue Abilify and Zoloft at this time in order to prevent an episode of lauren. The patient became becomes more sedated with his medications we can discontinue them for the time being. Thyroid panel including TSH and free T4 are within normal limits. Deconditioning PT/OT Hyperlipidemia Patient on dialysis and has multiple comorbidities. Continue rosuvastatin Constipation Senna added to her regimen Deconditioning Continue PT OT 1) The beneficiary has a mobility limitation that significantly impairs her ability to participate in one or more mobility related activities of daily [place] ing (MRADL) such as toileting, feeding dressing, grooming and bathing in customary locations in the home. A mobility limitation is one that: a) Prevents her from accomplishing an MRADL entirely b) Places the beneficiary at reasonably determined heightened risk of morbidity or mortality secondary to the attempts to perform an MRADL c) Prevents the beneficiary from completing an MRADL within a reasonable time frame 2) The beneficiary's mobility limitation cannot be sufficiently resolved by the use of an appropriate fitted cane or walker 3) Her home provides adequate access between rooms, maneuvering space and surface for use of the manual wheelchair that is provided 4) Use of manual wheelchair will significantly improve the beneficiary's ability to participate in MRADLs and she will use it on a regular basis in the home 5) The beneficiary has not expressed unwillingness to use the manual wheelchair that is provided in the home. 6) She has a caregiver who is available, willing and able to provide assistance with the wheelchair 1. The beneficiary has a medical condition which requires positioning of the bodily in ways not feasible with an ordinary bed. Elevation of the head/upper body less than 30 degrees, does not usually require the use of a hospital bed, or 2. The beneficiary requires positioning of the body in ways not feasible within normal urinary bed in order to alleviate pain, or 3. Beneficiary requires the head of bed to be elevated more than 30 degrees and most of the time due to congestive heart failure, chronic pulmonary disease, or problems with aspiration, or 4. The beneficiary requires traction equipment, which can only be attached to a hospital bed. AND The beneficiary requires frequent changes in body position and/or has any immediate need for a change in body position DVT prophylaxis with Eliquis VS,Fishbone, I+O VS, Fishbone, I+O Laboratory Tests 01/19/21 09:50 Vital Signs Date Time Temp Pulse Resp B/P (MAP) Pulse Ox O2 Delivery O2 Flow Rate FiO2 01/19/21 06:00 97.2 87 16 113/69 (84) 92 Nasal Cannula 0.5 I&O- Last 24 Hours up to 6 AM 01/19/21 06:00 Intake Total 490 ml Output Total 0 ml Balance 490 ml SHASTA CUMMINS DO Jan 19, 2021 14:00
[2021-01-19] MEDS ORDERED: POTASSIUM CHLORIDE 10 MEQ SR TABLET PO ONE (14:15)
--- NOTE | 2021-01-19 14:29 | IPN ---
INPATIENT PROGRESS NOTE DATE: 01/19/2021 SUBJECTIVE: Norma is seen and examined this morning in the hemodialysis unit receiving her maintenance dialysis treatment. Her was not present at the bedside today when I saw the patient. Norma was drowsy and sleepy throughout the treatment and remains minimally and poorly communicative. Chart was reviewed. I saw her blood pressure was soft overnight at around 8:30 p.m. yesterday with a documented reading of 86/49 and the patient received 250 mL of normal saline. Today when patient initially was started on dialysis blood pressure was soft as well and she was dialyzed with minimal fluid removal. PHYSICAL EXAMINATION: Vital signs: Temperature 97.2, pulse 87, respiratory rate 16, blood pressure 113/69, saturating 92-94% on half liter nasal cannula. Intake yesterday was 490. Dialysis today removed only 400 mL. Weight on the bed scale was 123.9 kg. General: Patient was seen in the hemodialysis unit receiving her treatment and sleeping through it in no distress. She awoke to gentle verbal and tactile stimulus, was able to tell me her name and then nodded back off to sleep. HEENT: Extraocular muscles are intact. Tongue is moist. Neck: Supple. Jugular veins are not elevated. Tunneled dialysis catheter is in use. Heart sounds: S1 and S2 and regular. There is no peripheral edema. Lungs: Anterior auscultation only was clear without crackle or rale. Abdomen: Soft, obese and there was no tenderness to palpation. Neurologic: Patient follows some simple commands and gives short 2-3 word answers. LABORATORY DATA: White count 5.9, hemoglobin 11, platelets 182. Sodium 139, potassium 3.2, BUN 41, creatinine 3.1. These labs were drawn during the first 10 minutes of dialysis. IMAGING STUDIES: Chest x-ray done today shows a right sided Permacath, cardiomegaly and no active cardiopulmonary process acutely. INPATIENT MEDICATIONS: 1. She got normal saline 250 mL bolus overnight otherwise I note no change in her medications. 2. She was started yesterday on MiraLax. PROBLEMS/PLAN: 1. End-stage renal disease on hemodialysis: Patient is dialyzed today with minimal fluid removal. Blood pressure was soft overnight. She got a 250 mL bolus. Blood pressure was also soft during the initiation of her dialysis treatment; however, did subsequently improve and came up to a systolic around 100. Her electrolytes are acceptable. Next dialysis will likely be on Saturday. 2. Hypertension: Blood pressures were actually soft overnight 80s-90s and she required a small fluid bolus (normal saline 250 mL). She had minimal fluid removed with dialysis today. There are holding parameters written for the metoprolol that she is receiving. She is on a beta-marissa because of paroxysmal atrial fibrillation. 3. Hypokalemia: It is mild and it will improve with dialysis. 4. Anemia: Hemoglobin on today's labs was 11 and the patient is receiving iron with hemodialysis. 5. Paroxysmal atrial fibrillation: Patient is anticoagulated with Eliquis and she is receiving low dose beta-marissa as well; however, blood pressures were soft overnight and she may not be able to tolerate beta-marissa going forward.
[2021-01-19] MEDS: SERTRALINE HCL 50 MG TAB PO SCH (23:12)
[2021-01-19] MEDS: RAMELTEON 8 MG TAB (ROZEREM) PO SCH (23:12)
[2021-01-19 23:21] VITALS: BP 100/62
[2021-01-20] MEDS ORDERED: EPINEPHrine INJ 1 MG/ML 1ML AMP IM PRN (01:00)
[2021-01-20] MEDS ORDERED: diphenhydrAMINE 50MG/ML VIAL (J1200) IV PRN (01:00)
[2021-01-20 02:00] VITALS: BP 106/62
[2021-01-20] MEDS: LEVOTHYROXINE 50MCG TABLET (0.05MG) PO SCH (05:36)
[2021-01-20 05:38] VITALS: BP 95/59
[2021-01-20] MEDS: METOPROLOL TART 12.5 MG PER 1/2 TAB PO SCH (05:38)
[2021-01-20 06:00] VITALS: BP 105/63
[2021-01-20 06:10] LABS: BASO # 0.1 10^3/uL (0.0-0.2); BASO % 0.6 % (0.0-1.0); EOS # 0.2 10^3/uL (0.0-0.5); EOS % 2.2 % (0.0-3.0); HEMATOCRIT 33.7 % (36.0-47.0); HEMOGLOBIN 10.8 g/dl (12.0-15.5); LYMPH # 1.4 10^3/uL (1.5-5.0); LYMPH % 15.8 % (24.0-44.0); MEAN CORPUSCULAR HEMOGLOBIN 30.7 pg (27.0-33.0); MEAN CORPUSCULAR VOLUME 95.7 fl (80.0-96.0); MONO # 0.5 10^3/uL (0.0-0.8); MONO % 5.6 % (2.0-8.0); NEUTROPHILS # 6.7 10^3/uL (1.5-8.5); NEUTROPHILS % 75.1 % (36.0-66.0); PLATELET COUNT, AUTOMATED 187 10^3/uL (150-450); RED BLOOD COUNT 3.52 10^6/uL (4.00-5.40); WHITE BLOOD COUNT 8.9 10^3/uL (4.0-10.0)
[2021-01-20 06:18] LABS: ALBUMIN 2.4 GM/DL (3.2-5.2); BILIRUBIN,TOTAL 0.3 MG/DL (0.2-1.0); CALCIUM LEVEL 8.7 MG/DL (8.8-10.2); CREATININE FOR GFR 3.33 MG/DL (0.55-1.30); GLOMERULAR FILTRATION RATE 14.8 (>45); MAGNESIUM LEVEL 2.4 MG/DL (1.8-2.4); POTASSIUM SERUM 4.6 MEQ/L (3.5-5.1); TOTAL PROTEIN 5.8 GM/DL (6.4-8.2)
[2021-01-20 10:00] VITALS: BP 92/64
[2021-01-20] MEDS: MIRALAX *UNIT DOSE* 17GM PACKET PO SCH (10:01)
[2021-01-20] MEDS: DOCUSATE SODIUM 100MG CAPSULE PO SCH (10:01)
[2021-01-20] MEDS: CALCITRIOL 0.25 MCG CAP (S0169) PO SCH (10:01)
[2021-01-20] MEDS: APIXABAN 5 MG TAB (ELIQUIS) PO SCH (10:02)
[2021-01-20] MEDS: CYANOCOBALAMIN 500 MCG TAB PO SCH (10:02)
[2021-01-20] MEDS: LORazepam 0.5 MG TAB PO PRN (10:02)
[2021-01-20] MEDS: ROSUVASTATIN 10 MG TAB (CRESTOR) PO SCH (10:02)
[2021-01-20] MEDS: ARIPiprazole 10 MG TAB PO SCH (10:02)
[2021-01-20] MEDS ORDERED: METO1TAB87 PO (11:17)
[2021-01-20] MEDS ORDERED: VITA500T40 PO (11:17)
[2021-01-20] MEDS ORDERED: IRON65TA2 PO (11:17)
[2021-01-20] MEDS ORDERED: ELIQ5TAB PO (11:17)
[2021-01-20] MEDS ORDERED: ATIV1TAB10 PO (11:17)
[2021-01-20] MEDS ORDERED: CRES10TA PO (11:17)
[2021-01-20] MEDS ORDERED: BISAC5TA PO (11:17)
[2021-01-20] MEDS ORDERED: COVID-19 VAC,AD26(JANSSEN)/PF 0.5ML SYRINGE (EUA) IM ONE (12:00)
--- NOTE | 2021-01-20 17:14 | DS.PDOC ---
Discharge Summary General Date of Admission Jan 10, 2021 at 15:14 Date of Discharge 01/20/21 Discharge Summary PROCEDURES PERFORMED DURING STAY: [None]. ADMITTING DIAGNOSES: Metabolic encephalopathy UTI End-stage renal disease Hypertension Paroxysmal atrial fibrillation Bipolar disorder/depression Deconditioning Suicidal ideation Hyperlipidemia Constipation Deconditioning DISCHARGE DIAGNOSES: Metabolic encephalopathy UTI End-stage renal disease Hypertension Paroxysmal atrial fibrillation Bipolar disorder/depression Deconditioning Suicidal ideation Hyperlipidemia Constipation Deconditioning COMPLICATIONS/CHIEF COMPLAINT: Renal Failure. HISTORY OF PRESENT ILLNESS: Patient 65-year-old female with a past medical history of CKD stage V seen Dr. Suero, hypothyroidism on Synthroid after resection of thyroid for suspected thyroid malignancy, cognitive impairment, vitamin D deficiency bipolar disorder on chronic lithium therapy now dis continued, was transferred to [facility] from [facility] for acute renal failure. Contacted Dr. Suero with potential plan for hemodialysis. Patient received CT head wo contrast, which showed no acute abnormalities. Hospitalist will be admitting the patient with nephrology on consultation for the management of acute renal failure. Of note informed prior to transfer the patient developed acute atrial fibrillation. Patient states that she has not had a prior history of this in the past. HOSPITAL COURSE: During the hospital stay the following Metabolic encephalopathy Multifactorial. Most likely secondary to end-stage renal disease superimposed with UTI Improved Brain MRI negative for stroke Completed course of ceftriaxone UTI Urine culture positive for E. coli Patient completed course of ceftriaxone End-stage renal disease Chronic kidney disease progressed to end-stage renal disease Patient received treatment with dialysis Nephrology team follows her Hypertension Resolved Paroxysmal atrial fibrillation Heart rate under control Continue Eliquis twice daily Suicidal ideation Patient is nonsuicidal according to psych team evaluation Bipolar disorder/depression Dr. Polanco recommends that we continue Abilify and Zoloft at this time in order to prevent an episode of lauren. The patient became becomes more sedated with his medications we can discontinue them for the time being. Thyroid panel including TSH and free T4 are within normal limits. DISCHARGE MEDICATIONS: Please see below. ALLERGIES: Please see below. PHYSICAL EXAMINATION ON DISCHARGE: VITAL SIGNS: Please see below. GENERAL APPEARANCE: NAD HEENT: no scleral icterus, no JVD, EOMI CARDIOVASCULAR: S1S2 LUNGS: CTA ABDOMEN: soft & not tender w palpation MUSCULOSKELETAL: no cyanosis, no swelling INTEGUMENT: no generalized pallor NEUROLOGICAL: cranial nerve function from 2-12 intact, follows commands, speech not dysarthric LABORATORY DATA: Please see below. PROGNOSIS: Fair ACTIVITY: [As tolerated]. DIET: Renal DISPOSITION: Home Health Service. ITEMS TO FOLLOWUP ON ON OUTPATIENT: Follow-up with machine carton marker and PCP DISCHARGE CONDITION: [Stable]. TIME SPENT ON DISCHARGE:40 minutes. Vital Signs/I&Os Vital Signs Date Time Temp Pulse Resp B/P (MAP) Pulse Ox O2 Delivery O2 Flow Rate FiO2 01/20/21 10:00 98.8 90 20 92/64 (73) 97 Room Air 01/19/21 14:00 0.5 I&O- Last 24 Hours up to 6 AM 01/20/21 06:00 Intake Total 890 ml Output Total 400 ml Balance 490 ml Laboratory Data Labs 24H Laboratory Tests 2 01/20/21 05:28: Immature Granulocyte % (Auto) 0.7, Neutrophils (%) (Auto) 75.1H, Lymphocytes (%) (Auto) 15.8L, Monocytes (%) (Auto) 5.6, Eosinophils (%) (Auto) 2.2, Basophils (%) (Auto) 0.6, Neutrophils # (Auto) 6.7, Lymphocytes # (Auto) 1.4L, Monocytes # (Auto) 0.5, Eosinophils # (Auto) 0.2, Basophils # (Auto) 0.1, Nucleated Red Blood Cells % (auto) 0.0, Anion Gap 5L, Glomerular Filtration Rate 14.8L, Calcium Level 8.7L, Magnesium Level 2.4, Total Bilirubin 0.3, Aspartate Amino Transf (AST/SGOT) 14, Alanine Aminotransferase (ALT/SGPT) 19, Alkaline Phosphatase 80, Total Protein 5.8L, Albumin 2.4L, Albumin/Globulin Ratio 0.7L CBC/BMP Laboratory Tests 01/20/21 05:28 Microbiology Microbiology 01/12/21 Blood Culture - Final, Complete NO GROWTH AFTER 5 DAYS 01/12/21 Blood Culture - Final, Complete NO GROWTH AFTER 5 DAYS 01/10/21 Urine Culture - Final, Complete Escherichia Coli Discharge Medications Scheduled Apixaban (Eliquis) 5 Mg Tablet, 5 MG PO BID Aripiprazole (Abilify) 10 Mg Tablet, 10 MG PO DAILY, (Reported) Calcitriol (Rocaltrol) 0.5 Mcg Cap, 0.5 MCG PO Q2D, (Reported) Cyanocobalamin (Vitamin B-12) (Vitamin B-12) 500 Mcg Tablet, 1,000 MCG PO DAILY Ferrous Sulfate (Iron) 325 Mg Tablet, 1 TAB PO BID Levothyroxine Sodium (Synthroid) 50 Mcg Tab, 50 MCG PO DAILY, (Reported) Metoprolol Tartrate (Metoprolol Tartrate) 25 Mg Tablet, 12.5 MG PO Q12H Rosuvastatin Calcium (Crestor) 10 Mg Tablet, 40 MG PO DAILY Sertraline HCl (Sertraline HCl) 50 Mg Tablet, 50 MG PO QHS, (Reported) Scheduled PRN Bisacodyl (Bisacodyl) 5 Mg Tablet.dr, 10 MG PO DAILYPRN PRN for CONSTIPATION Lorazepam (Ativan) 0.5 Mg Tablet, 0.5 MG PO Q8HP PRN for ANXIETY Allergies Coded Allergies: aspirin (Verified Adverse Reaction, Unknown, KIDNEY PROBLEMS, 01/10/21) SHASTA CUMMINS DO Jan 20, 2021 17:14
== END 2021-01-20 13:02 | disposition home health service (06) | DRG 673 ==
LOC: M MSPAV 15:14 → M ICU 18:49 → M PCU 01-12 12:18 → M MSPAV 01-18 18:29
PROVIDERS: ADMIT Family Medicine; ATTEND Internal Medicine
PROC: 5A1D70Z Performance of Urinary Filtration, Intermittent, Less than 6 Hours Per Day (ICD-10-PCS; 2021-01-10)
PROC: 02HV33Z Insertion of Infusion Device into Superior Vena Cava, Percutaneous Approach (ICD-10-PCS; 2021-01-13)
PROC: 0JH63XZ Insertion of Tunneled Vascular Access Device into Chest Subcutaneous Tissue and Fascia, Percutaneous Approach (ICD-10-PCS; principal; 2021-01-13 12:30)
DX: I12.0 Hypertensive chronic kidney disease with stage 5 chronic kidney disease or end stage renal disease (principal); G93.41 Metabolic encephalopathy; N18.6 End stage renal disease; N39.0 Urinary tract infection, site not specified; E87.0 Hyperosmolality and hypernatremia; N25.81 Secondary hyperparathyroidism of renal origin; R45.851 Suicidal ideations; N17.9 Acute kidney failure, unspecified; E87.2 Acidosis; F31.9 Bipolar disorder, unspecified; I48.0 Paroxysmal atrial fibrillation; K59.00 Constipation, unspecified; E78.5 Hyperlipidemia, unspecified; E03.9 Hypothyroidism, unspecified; E55.9 Vitamin D deficiency, unspecified; B96.29 Other Escherichia coli [E. coli] as the cause of diseases classified elsewhere; Z79.899 Other long term (current) drug therapy; Z88.6 Allergy status to analgesic agent; D63.1 Anemia in chronic kidney disease; Z66 Do not resuscitate; E87.6 Hypokalemia

== ENCOUNTER → 2021-02-06 | Outpatient (REF) | payer MEDICARE, BC ==
[~2021-02-06] MED LIST changes: +ABIL10TA9 PO; +BISAC5TA PO; +CRES10TA PO; +ELIQ5TAB PO; +IRON65TA2 PO; +METO1TAB87 PO; +SERT50TA29 PO; +VITA500T40 PO
== END ==
LOC: M LAB REF 18:39
PROVIDERS: ATTEND Internal Medicine Nephrology
DX: D51.9 Vitamin B12 deficiency anemia, unspecified (principal)

== ENCOUNTER 2023-02-19 13:17 | Observation (INO) | payer MEDICARE, BC ==
[~2023-02-19] VITALS: Ht 162.6 cm; Wt 125.2 kg
[2023-02-19] MEDS: MIDODRINE 5 MG TAB PO SCH ×3 (12:00→17:56)
[~2023-02-19 13:17] MED LIST changes: -LATU40TA PO; +LATU40TA2 PO; +LORA1TAB23 PO; -LORA1TAB4 PO; -OXYB5TAB10 PO; +OXYB5TAB11 PO
[2023-02-19 13:59] LABS: BASO # 0.1 10^3/uL (0.0-0.2); BASO % 0.5 % (0.0-1.0); EOS # 0.2 10^3/uL (0.0-0.5); EOS % 1.6 % (0.0-3.0); HEMATOCRIT 36.6 % (36.0-47.0); HEMOGLOBIN 11.8 g/dl (12.0-15.5); LYMPH % 19.1 % (24.0-44.0); MEAN CORPUSCULAR HEMOGLOBIN 31.9 pg (27.0-33.0); MEAN CORPUSCULAR HGB CONC 32.2 g/dl (32.0-36.5); MEAN CORPUSCULAR VOLUME 98.9 fl (80.0-96.0); MONO # 0.5 10^3/uL (0.0-0.8); MONO % 4.7 % (2.0-8.0); NEUTROPHILS # 7.8 10^3/uL (1.5-8.5); NEUTROPHILS % 73.7 % (36.0-66.0); PLATELET COUNT, AUTOMATED 256 10^3/uL (150-450); WHITE BLOOD COUNT 10.5 10^3/uL (4.0-10.0)
[2023-02-19 14:19] LABS: INR 1.52; PROTHROMBIN TIME 17.9 SECONDS (12.5-14.5)
[2023-02-19 14:20] LABS: C REACTIVE PROTEIN QUANTITATIV < 0.40 MG/DL (<1.0); PARTIAL THROMBOPLASTIN TIME 28.1 SECONDS (24.8-34.2)
[2023-02-19 14:21] LABS: AMYLASE 42 U/L (30-118)
[2023-02-19 14:27] LABS: PROCALCITONIN 0.32 ng/ml
[2023-02-19 14:29] LABS: ALBUMIN 2.9 G/DL (3.2-5.2); ALKALINE PHOSPHATASE 89 U/L (46-116); ALT/SGPT 29 U/L (7.0-40); AST/SGOT 33 U/L (<34); BILIRUBIN,DIRECT < 0.1 MG/DL (<0.4); BILIRUBIN,TOTAL 0.3 MG/DL (0.3-1.2); BLOOD UREA NITROGEN 26 MG/DL (9-23); CALCIUM LEVEL 8.6 MG/DL (8.3-10.6); CARBON DIOXIDE LEVEL 29 MMOL/L (20-31); CHLORIDE LEVEL 101 MMOL/L (98-107); CK-MB VALUE MASS < 1.0 NG/ML (<3.6); CPK CREATINE PHOSPHOKINASE 54 U/L (34-145); CREATININE FOR GFR 4.12 MG/DL (0.55-1.30); GLOMERULAR FILTRATION RATE 11.5 (>45); GLUCOSE, FASTING 145 MG/DL (74-106); MB/CK RELATIVE INDEX 1.85 (< OR =4); POTASSIUM SERUM 5.3 MMOL/L (3.5-5.1); SODIUM LEVEL 139 MMOL/L (136-145)
[2023-02-19 14:35] LABS: RSV AMPLIFICATION NEGATIVE (NEGATIVE)
[2023-02-19] MEDS ORDERED: MIDODRINE 5 MG TAB PO ONE (15:30)
[2023-02-19 16:41] LABS: APPEARANCE, URINE TURBID (CLEAR); BACTERIA, URINE AUTO NEGATIVE (NEGATIVE); BILIRUBIN, URINE AUTO NEGATIVE (NEGATIVE); BLOOD, URINE BLOOD 1+ (NEGATIVE); COLOR, URINE AMBER (YELLOW); GLUCOSE, URINE (UA) AUTO NEGATIVE (NEGATIVE); KETONE, URINE AUTO NEGATIVE (NEGATIVE); LEUKOCYTE ESTERASE, URINE AUTO 3+ (NEGATIVE); NITRITE, URINE AUTO NEGATIVE (NEGATIVE); PROTEIN, URINE AUTO 2+ mg/dL (NEGATIVE); RBC, URINE AUTO 5 /HPF (0-3); SPECIFIC GRAVITY URINE AUTO 1.014 (1.002-1.035); SQUAMOUS EPITHELIAL CELL UR AU 78 /HPF (0-6); TRANSITIONAL EPITHELIAL AUTO 6 /HPF; UROBILINOGEN, URINE AUTO 0.2 mg/dL (0.0-2.0); WBC, URINE AUTO TNTC /HPF (0-3)
[2023-02-19] MEDS ORDERED: ROSU40TA4 PO (18:02)
[2023-02-19] MEDS ORDERED: ZOLO100T PO (18:02)
[2023-02-19] MEDS ORDERED: LOPE2TAB12 PO (18:05)
[2023-02-19] MEDS ORDERED: REFR0.5D8 OD (18:06)
[2023-02-19] MEDS ORDERED: ARIP1TAB43 PO (18:11)
[2023-02-19] MEDS ORDERED: MIDO5TA PO (18:21)
[2023-02-19] MEDS ORDERED: ELIQ5TAB PO (18:28)
[2023-02-19] MEDS ORDERED: ATIV1TAB10 PO (18:29)
[2023-02-19] MEDS ORDERED: METO1TAB87 PO (18:31)
[2023-02-19] MEDS ORDERED: HOME MED LIST COMPLETE! XX SCH (18:35)
[2023-02-19] MEDS ORDERED: LORazepam 0.5 MG TAB PO PRN (18:50)
[2023-02-19] MEDS ORDERED: LOPERAMIDE 2 MG CAPLET PO PRN (18:50)
[2023-02-19] MEDS ORDERED: NS 500 ML IV ONE (20:30)
[2023-02-19] MEDS ORDERED: SERTRALINE HCL 50 MG TAB PO SCH (21:00)
[2023-02-19] MEDS: APIXABAN 5 MG TAB (ELIQUIS) PO SCH (21:40)
[2023-02-19] MEDS ORDERED: ACETAMINOPHEN TAB 650MG DOSE (2X325MG) PO PRN (21:55)
[2023-02-19 22:37] VITALS: BP 114/65; TEMP 97.2; O2SAT 97
[2023-02-20 04:00] VITALS: BP 113/55; TEMP 97.4; O2SAT 95
[2023-02-20 05:17] LABS: HEMOGLOBIN 10.7 g/dl (12.0-15.5); MEAN CORPUSCULAR HEMOGLOBIN 31.7 pg (27.0-33.0); MEAN CORPUSCULAR HGB CONC 32.4 g/dl (32.0-36.5); MEAN CORPUSCULAR VOLUME 97.6 fl (80.0-96.0); PLATELET COUNT, AUTOMATED 190 10^3/uL (150-450); RED BLOOD COUNT 3.38 10^6/uL (4.00-5.40); WHITE BLOOD COUNT 9.7 10^3/uL (4.0-10.0)
[2023-02-20 05:41] LABS: BLOOD UREA NITROGEN 35 MG/DL (9-23); CALCIUM LEVEL 9.2 MG/DL (8.3-10.6); CARBON DIOXIDE LEVEL 26 MMOL/L (20-31); CHLORIDE LEVEL 104 MMOL/L (98-107); CORTISOL AM 14.8 UG/DL (4.3-22.4); CREATININE FOR GFR 5.28 MG/DL (0.55-1.30); GLOMERULAR FILTRATION RATE 8.7 (>45); GLUCOSE, FASTING 92 MG/DL (74-106); POTASSIUM SERUM 4.5 MMOL/L (3.5-5.1); SODIUM LEVEL 137 MMOL/L (136-145)
[2023-02-20] MEDS ORDERED: LEVOTHYROXINE 50MCG TABLET (0.05MG) PO SCH (06:00)
[2023-02-20 07:58] VITALS: BP 92/63; TEMP 96.9; O2SAT 91
[2023-02-20] MEDS: MIDODRINE 5 MG TAB PO SCH ×2 (08:08→13:41)
[2023-02-20] MEDS ORDERED: HEPARIN 1,000UNITS/ML 10ML VIAL (FOR RADIOLOGY & DIALYSIS ONLY) XX SCH (08:10)
[2023-02-20] MEDS ORDERED: HEPARIN 1,000UNITS/ML 10ML VIAL (FOR RADIOLOGY & DIALYSIS ONLY) IV PRN (08:10)
[2023-02-20] MEDS ORDERED: SODIUM CHLORIDE 0.9% 1000ML IV PRN (08:10)
[2023-02-20] MEDS: APIXABAN 5 MG TAB (ELIQUIS) PO SCH (09:00)
[2023-02-20] MEDS ORDERED: SERTRALINE 100 MG TAB PO SCH (09:00)
[2023-02-20] MEDS ORDERED: ROSUVASTATIN 10 MG TAB (CRESTOR) PO SCH (09:00)
[2023-02-20] MEDS ORDERED: ARIPiprazole 10 MG TAB PO SCH (09:00)
[2023-02-20 11:07] LABS: HEPATITIS B SURFACE ANTIBODY POSITIVE (POSITIVE)
[2023-02-20 11:40] LABS: HEPATITIS B CORE ANTIBODY IGM NEGATIVE (NEGATIVE); HEPATITIS C VIRUS ABY INDEX 0.06 INDEX (<0.8)
[2023-02-20] MEDS ORDERED: MIDO10TA PO (13:17)
[2023-02-20 13:28] VITALS: BP 93/55; TEMP 97.8; O2SAT 93
== END 2023-02-20 15:29 | disposition home health service (06) ==
LOC: EDBD 13:17 → M ED 13:17 → M ED INP 13:18 → M PCU 22:24
PROVIDERS: ADMIT Internal Medicine; ATTEND Internal Medicine
DX: I95.3 Hypotension of hemodialysis (principal); N18.6 End stage renal disease; E87.21 Acute metabolic acidosis; E86.1 Hypovolemia; I12.0 Hypertensive chronic kidney disease with stage 5 chronic kidney disease or end stage renal disease; E03.9 Hypothyroidism, unspecified; I48.91 Unspecified atrial fibrillation; E78.5 Hyperlipidemia, unspecified; Z85.850 Personal history of malignant neoplasm of thyroid; F31.9 Bipolar disorder, unspecified; Z79.01 Long term (current) use of anticoagulants; Z79.899 Other long term (current) drug therapy; Z88.8 Allergy status to other drugs, medicaments and biological substances; Z99.2 Dependence on renal dialysis
CPT/HCPCS: 36415; 36600; 51701; 70450; 71045; 80048; 80076; 81001; 82150; 82533; 82550; 82553; 83605; 84145; 84484; 85025; 85027; 85610; 85730; 86140; 86704; 86705; 86706; 86803; 86850; 86900; 86901; 87040; 87088; 87186; 87340; 87631; 93005; 93041; 94760; 96374; 99285; G0257; G0378

== ENCOUNTER 2023-03-20 22:38 | Inpatient (IN) | payer MEDICARE, BC ==
[~2023-03-20] VITALS: Ht 162.6 cm; Wt 119.7 kg
[~2023-03-20 22:38] MED LIST changes: +ARIP1TAB43 PO; +LOPE2TAB12 PO; +MIDO10TA PO; +MIDO5TA PO; +REFR0.5D8 OD; +ROSU40TA4 PO; +ZOLO100T PO
[2023-03-21] MEDS ORDERED: ISOVUE-370 76% 100ML VIAL As Ordered ONE (07:53)
[2023-03-21 08:01] LABS: BASO % 0.4 % (0.0-1.0); EOS # 0.1 10^3/uL (0.0-0.5); EOS % 1.4 % (0.0-3.0); HEMATOCRIT 33.7 % (36.0-47.0); HEMOGLOBIN 10.9 g/dl (12.0-15.5); LYMPH # 1.2 10^3/uL (1.5-5.0); LYMPH % 14.3 % (24.0-44.0); MEAN CORPUSCULAR HEMOGLOBIN 31.1 pg (27.0-33.0); MEAN CORPUSCULAR HGB CONC 32.3 g/dl (32.0-36.5); MEAN CORPUSCULAR VOLUME 96.3 fl (80.0-96.0); MONO # 0.3 10^3/uL (0.0-0.8); MONO % 3.7 % (2.0-8.0); NEUTROPHILS # 6.7 10^3/uL (1.5-8.5); NEUTROPHILS % 79.8 % (36.0-66.0); PLATELET COUNT, AUTOMATED 211 10^3/uL (150-450); WHITE BLOOD COUNT 8.3 10^3/uL (4.0-10.0)
[2023-03-21 08:12] LABS: ABG BASE EXCESS 4.5 (-2.0-2.0); ABG HCO3 27.7 MMOL/L (22.0-26.0); ABG O2 SATURATION 95.1 % (95.0-99.0); ABG PARTIAL PRESSURE CO2 36.4 mmHg (35.0-45.0); ABG PARTIAL PRESSURE O2 70.9 mmHg (75.0-100.0); ABG STANDARD HCO3 28.5 MMOL/L. (22.0-26.0); ABG TOTAL CO2 28.9 MMOL/L (23.0-31.0)
[2023-03-21 08:34] LABS: BILIRUBIN,DIRECT 0.3 MG/DL (<0.4); BILIRUBIN,TOTAL 0.7 MG/DL (0.3-1.2); CALCIUM LEVEL 9.7 MG/DL (8.3-10.6); CREATININE FOR GFR 4.15 MG/DL (0.55-1.30); GLOMERULAR FILTRATION RATE 11.4 (>45); POTASSIUM SERUM 4.2 MMOL/L (3.5-5.1); TOTAL PROTEIN 6.2 G/DL (5.7-8.2)
[2023-03-21 08:36] LABS: THYROID STIMULATING HORMONE 2.113 uIU/ML (0.55-4.78)
[2023-03-21] MEDS ORDERED: ZOLO100T PO (08:41)
[2023-03-21] MEDS ORDERED: ZOLO50TA PO (08:41)
[2023-03-21] MEDS ORDERED: LEVOTHYROXINE 50MCG TABLET (0.05MG) PO ONE (08:45)
[2023-03-21] MEDS ORDERED: ROSUVASTATIN 10 MG TAB (CRESTOR) PO ONE (08:45)
[2023-03-21] MEDS ORDERED: SERTRALINE HCL 50 MG TAB PO ONE (08:45)
[2023-03-21] MEDS ORDERED: MED REC IN PROGRESS XX SCH (10:15)
[2023-03-21] MEDS ORDERED: MIDO10TA PO (10:36)
[2023-03-21] MEDS ORDERED: HOME MED LIST COMPLETE! XX SCH (10:40)
[2023-03-21] MEDS ORDERED: MAALOX 30 ML SUSP *UDC PO PRN (11:40)
[2023-03-21] MEDS ORDERED: MOM 30ML SUSPENSION UDC PO PRN (11:40)
[2023-03-21 15:30] VITALS: BP 116/64; TEMP 97.9; O2SAT 94
[2023-03-21] MEDS ORDERED: HEPARIN DRIP 25,000 UNITS in IV 1 EA IV SCH (16:25)
[2023-03-21] MEDS ORDERED: HEPARIN SOD (PORCINE) 5000UNITS/ML 1ML VIAL/SYRINGE IV PRN (16:25)
[2023-03-21 16:38] LABS: INR 1.16; PARTIAL THROMBOPLASTIN TIME 25.7 SECONDS (24.8-34.2); PROTHROMBIN TIME 14.5 SECONDS (12.5-14.5)
[2023-03-21] MEDS: MIDODRINE 5 MG TAB PO SCH ×2 (16:38→20:22)
[2023-03-21] MEDS: LORazepam 0.5 MG TAB PO PRN (16:38)
[2023-03-21 20:22] VITALS: BP 97/64
[2023-03-21 20:50] VITALS: TEMP 98.6; O2SAT 96
[2023-03-21] MEDS ORDERED: APIXABAN 5 MG TAB (ELIQUIS) PO SCH (21:00)
[2023-03-21] MEDS ORDERED: SERTRALINE 100 MG TAB PO SCH (21:00)
[2023-03-22 05:00] VITALS: BP 157/94; TEMP 97.9; O2SAT 96
[2023-03-22] MEDS: LEVOTHYROXINE 50MCG TABLET (0.05MG) PO SCH (05:27)
[2023-03-22] MEDS: LORazepam 0.5 MG TAB PO PRN ×3 (06:04→16:21)
[2023-03-22 06:19] LABS: CALCIUM LEVEL 9.5 MG/DL (8.3-10.6); CREATININE FOR GFR 5.44 MG/DL (0.55-1.30); GLOMERULAR FILTRATION RATE 8.4 (>45)
[2023-03-22] MEDS ORDERED: HEPARIN 1,000UNITS/ML 10ML VIAL (FOR RADIOLOGY & DIALYSIS ONLY) IV PRN (06:35)
[2023-03-22] MEDS ORDERED: HEPARIN 1,000UNITS/ML 10ML VIAL (FOR RADIOLOGY & DIALYSIS ONLY) XX SCH (06:35)
[2023-03-22] MEDS ORDERED: SODIUM CHLORIDE 0.9% 1000ML IV PRN (06:35)
[2023-03-22] MEDS: OLANZapine 5 MG TAB PO PRN ×2 (08:29→18:35)
[2023-03-22] MEDS ORDERED: ENTER DRUG NAME HERE (PATIENT'S OWN MED) PO SCH (09:00)
[2023-03-22] MEDS: MIDODRINE 5 MG TAB PO SCH ×2 (09:52→15:41)
[2023-03-22] MEDS ORDERED: LORazepam 0.5 MG TAB PO PRN ×2 (11:40→19:45)
[2023-03-22] MEDS ORDERED: LIDOCAINE 1% MDV 20ML VIAL As Ordered ONE (11:56)
[2023-03-22] MEDS ORDERED: HEPARIN 1,000UNITS/ML 10ML VIAL (FOR RADIOLOGY & DIALYSIS ONLY) As Ordered ONE (11:56)
[2023-03-22] MEDS ORDERED: LIDOCAINE W/EPINEPHRINE 1% 20ML VIAL As Ordered ONE (11:56)
[2023-03-22] MEDS: cefTRIAXone SOD 1 GM in D5W MINI-BAG PLUS 50 ML IV SCH (12:17)
[2023-03-22 12:27] LABS: PROCALCITONIN 0.59 ng/ml
[2023-03-22 14:00] VITALS: BP 146/96; TEMP 97.9; O2SAT 97
[2023-03-22] MEDS: ARIPiprazole 10 MG TAB PO SCH (14:08)
[2023-03-22] MEDS: ROSUVASTATIN 10 MG TAB (CRESTOR) PO SCH (14:08)
[2023-03-22 16:40] LABS: HEPATITIS B SURFACE ANTIBODY POSITIVE (POSITIVE)
[2023-03-22 17:12] LABS: HEPATITIS C VIRUS ABY INDEX 0.06 INDEX (<0.8)
[2023-03-22 17:13] LABS: HEPATITIS B CORE ANTIBODY IGM NEGATIVE (NEGATIVE)
[2023-03-22] MEDS ORDERED: SERTRALINE HCL 50 MG TAB PO SCH (21:00)
[2023-03-22 22:00] VITALS: BP 123/62; TEMP 98.2; O2SAT 97
[2023-03-23] MEDS: OLANZapine 5 MG TAB PO PRN ×3 (00:54→18:21)
[2023-03-23] MEDS: LEVOTHYROXINE 50MCG TABLET (0.05MG) PO SCH (05:25)
[2023-03-23 06:00] VITALS: BP 135/69; TEMP 97.9; O2SAT 92
[2023-03-23 06:21] LABS: BASO % 0.4 % (0.0-1.0); EOS # 0.3 10^3/uL (0.0-0.5); EOS % 3.8 % (0.0-3.0); HEMATOCRIT 31.9 % (36.0-47.0); HEMOGLOBIN 10.2 g/dl (12.0-15.5); LYMPH # 1.9 10^3/uL (1.5-5.0); LYMPH % 21.1 % (24.0-44.0); MONO # 0.6 10^3/uL (0.0-0.8); MONO % 6.4 % (2.0-8.0); NEUTROPHILS # 6.1 10^3/uL (1.5-8.5); NEUTROPHILS % 67.7 % (36.0-66.0); PLATELET COUNT, AUTOMATED 196 10^3/uL (150-450); RED BLOOD COUNT 3.29 10^6/uL (4.00-5.40)
[2023-03-23 06:45] LABS: CALCIUM LEVEL 10.1 MG/DL (8.3-10.6); CREATININE FOR GFR 4.05 MG/DL (0.55-1.30); GLOMERULAR FILTRATION RATE 11.8 (>45); POTASSIUM SERUM 4.1 MMOL/L (3.5-5.1)
[2023-03-23] MEDS: MIDODRINE 5 MG TAB PO SCH ×4 (08:00→16:37)
[2023-03-23] MEDS ORDERED: PILL CUTTER 1 EACH XX PRN (08:00)
[2023-03-23] MEDS: CALCITRIOL 0.25 MCG CAP (S0169) PO SCH ×2 (09:00→11:15)
[2023-03-23] MEDS: SERTRALINE HCL 50 MG TAB PO SCH (11:16)
[2023-03-23] MEDS: ROSUVASTATIN 10 MG TAB (CRESTOR) PO SCH (11:16)
[2023-03-23] MEDS: ARIPiprazole 10 MG TAB PO SCH (11:17)
[2023-03-23] MEDS: APIXABAN 5 MG TAB (ELIQUIS) PO SCH ×2 (11:25→19:55)
[2023-03-23 12:15] VITALS: BP 132/68
[2023-03-23] MEDS: LORazepam 0.5 MG TAB PO PRN ×3 (12:16→23:19)
[2023-03-23] MEDS: cefTRIAXone SOD 1 GM in D5W MINI-BAG PLUS 50 ML IV SCH (12:16)
[2023-03-23 14:00] VITALS: BP 126/82; TEMP 97.7; O2SAT 96
[2023-03-23] MEDS: ACETAMINOPHEN TAB 650MG DOSE (2X325MG) PO PRN (18:26)
[2023-03-23 21:41] VITALS: BP 123/78; TEMP 99.3; O2SAT 94
[2023-03-24] MEDS: OLANZapine 5 MG TAB PO PRN ×3 (05:13→17:55)
[2023-03-24] MEDS: LEVOTHYROXINE 50MCG TABLET (0.05MG) PO SCH (05:13)
[2023-03-24 05:32] VITALS: BP 130/86; TEMP 97.3; O2SAT 95
[2023-03-24 06:13] LABS: BASO # 0.1 10^3/uL (0.0-0.2); BASO % 0.7 % (0.0-1.0); EOS # 0.4 10^3/uL (0.0-0.5); HEMATOCRIT 31.9 % (36.0-47.0); HEMOGLOBIN 10.2 g/dl (12.0-15.5); LYMPH # 1.6 10^3/uL (1.5-5.0); LYMPH % 18.3 % (24.0-44.0); MEAN CORPUSCULAR HEMOGLOBIN 31.7 pg (27.0-33.0); MEAN CORPUSCULAR VOLUME 99.1 fl (80.0-96.0); MONO # 0.5 10^3/uL (0.0-0.8); MONO % 5.5 % (2.0-8.0); NEUTROPHILS # 6.4 10^3/uL (1.5-8.5); NEUTROPHILS % 70.9 % (36.0-66.0); PLATELET COUNT, AUTOMATED 183 10^3/uL (150-450); RED BLOOD COUNT 3.22 10^6/uL (4.00-5.40)
[2023-03-24 06:49] LABS: CALCIUM LEVEL 9.9 MG/DL (8.3-10.6); CREATININE FOR GFR 6.03 MG/DL (0.55-1.30); GLOMERULAR FILTRATION RATE 7.4 (>45); POTASSIUM SERUM 4.4 MMOL/L (3.5-5.1)
[2023-03-24] MEDS: ARIPiprazole 10 MG TAB PO SCH (08:10)
[2023-03-24] MEDS: LORazepam 0.5 MG TAB PO PRN ×3 (08:10→21:26)
[2023-03-24] MEDS: ROSUVASTATIN 10 MG TAB (CRESTOR) PO SCH (08:11)
[2023-03-24] MEDS: APIXABAN 5 MG TAB (ELIQUIS) PO SCH ×2 (08:11→21:27)
[2023-03-24] MEDS: MIDODRINE 5 MG TAB PO SCH ×3 (08:11→16:00)
[2023-03-24] MEDS: SERTRALINE HCL 50 MG TAB PO SCH (08:11)
[2023-03-24] MEDS: METAMUCIL (PSYLLIUM) PACKET PO SCH ×2 (09:29→21:27)
[2023-03-24] MEDS: MIRALAX *UNIT DOSE* 17GM PACKET PO SCH ×2 (09:29→21:27)
[2023-03-24 11:45] VITALS: BP 142/84
[2023-03-24] MEDS: cefTRIAXone SOD 1 GM in D5W MINI-BAG PLUS 50 ML IV SCH (11:47)
[2023-03-24] MEDS: SENNA 8.6 MG TAB (SENOKOT) PO SCH (11:47)
[2023-03-24 14:00] VITALS: BP 136/86; TEMP 99; O2SAT 94
[2023-03-24] MEDS: LACTULOSE 20GM/30ML SYRUP UDC PO SCH ×4 (15:47→23:57)
[2023-03-24 21:47] VITALS: BP 153/81; TEMP 101.8; O2SAT 93
[2023-03-24 22:17] LABS: BASO % 0.5 % (0.0-1.0); EOS # 0.3 10^3/uL (0.0-0.5); EOS % 3.5 % (0.0-3.0); HEMATOCRIT 33.2 % (36.0-47.0); HEMOGLOBIN 10.4 g/dl (12.0-15.5); LYMPH # 1.3 10^3/uL (1.5-5.0); LYMPH % 15.2 % (24.0-44.0); MEAN CORPUSCULAR HEMOGLOBIN 31.3 pg (27.0-33.0); MEAN CORPUSCULAR HGB CONC 31.3 g/dl (32.0-36.5); MONO # 0.6 10^3/uL (0.0-0.8); MONO % 6.8 % (2.0-8.0); NEUTROPHILS # 6.2 10^3/uL (1.5-8.5); NEUTROPHILS % 73.2 % (36.0-66.0); PLATELET COUNT, AUTOMATED 182 10^3/uL (150-450); RED BLOOD COUNT 3.32 10^6/uL (4.00-5.40); WHITE BLOOD COUNT 8.5 10^3/uL (4.0-10.0)
[2023-03-24 22:35] LABS: APPEARANCE, URINE HAZY (CLEAR); BACTERIA, URINE AUTO NEGATIVE (NEGATIVE); BILIRUBIN, URINE AUTO NEGATIVE (NEGATIVE); BLOOD, URINE BLOOD 2+ (NEGATIVE); COLOR, URINE YELLOW (YELLOW); GLUCOSE, URINE (UA) AUTO NEGATIVE (NEGATIVE); KETONE, URINE AUTO NEGATIVE (NEGATIVE); LEUKOCYTE ESTERASE, URINE AUTO 3+ (NEGATIVE); NITRITE, URINE AUTO NEGATIVE (NEGATIVE); PROTEIN, URINE AUTO 2+ mg/dL (NEGATIVE); RBC, URINE AUTO 3 /HPF (0-3); SPECIFIC GRAVITY URINE AUTO 1.017 (1.002-1.035); SQUAMOUS EPITHELIAL CELL UR AU 2 /HPF (0-6); UROBILINOGEN, URINE AUTO 0.2 mg/dL (0.0-2.0); WBC, URINE AUTO 70 /HPF (0-3)
[2023-03-24 22:41] LABS: CALCIUM LEVEL 10.3 MG/DL (8.3-10.6); CREATININE FOR GFR 7.4 MG/DL (0.55-1.30); GLOMERULAR FILTRATION RATE 5.9 (>45); MAGNESIUM LEVEL 2.3 MG/DL (1.8-2.4); POTASSIUM SERUM 4.9 MMOL/L (3.5-5.1)
[2023-03-24] MEDS ORDERED: LACTATED RINGER'S 1000 ML IV ONE (22:45)
[2023-03-24 22:48] LABS: PROCALCITONIN 0.64 ng/ml
[2023-03-24] MEDS: PIPERACILLIN/TAZOBACTAM SOD 2.25 GM in D5W MINI-BAG PLUS 50 ML IV SCH (23:52)
[2023-03-25] VITALS (7 sets, daily range): BP systolic 84–130; BP diastolic 44–79; TEMP 97.4–100; O2SAT 92–97
[2023-03-25] MEDS: ACETAMINOPHEN TAB 650MG DOSE (2X325MG) PO PRN
[2023-03-25] MEDS: LACTULOSE 20GM/30ML SYRUP UDC PO SCH ×7 (02:48→20:09)
[2023-03-25] MEDS: METAMUCIL (PSYLLIUM) PACKET PO SCH ×2 (05:33→20:09)
[2023-03-25 05:53] LABS: BASO % 0.4 % (0.0-1.0); EOS # 0.3 10^3/uL (0.0-0.5); EOS % 3.9 % (0.0-3.0); HEMATOCRIT 30.6 % (36.0-47.0); HEMOGLOBIN 9.9 g/dl (12.0-15.5); LYMPH # 1.3 10^3/uL (1.5-5.0); LYMPH % 16.6 % (24.0-44.0); MEAN CORPUSCULAR HEMOGLOBIN 32.1 pg (27.0-33.0); MEAN CORPUSCULAR HGB CONC 32.4 g/dl (32.0-36.5); MEAN CORPUSCULAR VOLUME 99.4 fl (80.0-96.0); MONO # 0.5 10^3/uL (0.0-0.8); MONO % 6.6 % (2.0-8.0); NEUTROPHILS # 5.7 10^3/uL (1.5-8.5); PLATELET COUNT, AUTOMATED 167 10^3/uL (150-450); RED BLOOD COUNT 3.08 10^6/uL (4.00-5.40); WHITE BLOOD COUNT 7.9 10^3/uL (4.0-10.0)
[2023-03-25] MEDS ORDERED: SODIUM CHLORIDE 0.9% 1000ML IV PRN (06:00)
[2023-03-25] MEDS ORDERED: LIDOCAINE 1% SDV 5ML VIAL SC PRN (06:00)
[2023-03-25] MEDS ORDERED: HEPARIN 1,000UNITS/ML 10ML VIAL (FOR RADIOLOGY & DIALYSIS ONLY) IV PRN (06:00)
[2023-03-25] MEDS ORDERED: HEPARIN 1,000UNITS/ML 10ML VIAL (FOR RADIOLOGY & DIALYSIS ONLY) XX SCH (06:00)
[2023-03-25 06:28] LABS: CALCIUM LEVEL 9.1 MG/DL (8.3-10.6); CREATININE FOR GFR 7.41 MG/DL (0.55-1.30); GLOMERULAR FILTRATION RATE 5.9 (>45)
[2023-03-25] MEDS: MIDODRINE 5 MG TAB PO SCH ×3 (06:36→16:36)
[2023-03-25] MEDS: MIRALAX *UNIT DOSE* 17GM PACKET PO SCH ×2 (06:36→20:09)
[2023-03-25] MEDS: OLANZapine 5 MG TAB PO PRN (06:36)
[2023-03-25] MEDS: ROSUVASTATIN 10 MG TAB (CRESTOR) PO SCH (06:37)
[2023-03-25] MEDS: SERTRALINE HCL 50 MG TAB PO SCH (06:37)
[2023-03-25] MEDS: APIXABAN 5 MG TAB (ELIQUIS) PO SCH ×2 (06:37→20:09)
[2023-03-25] MEDS: LEVOTHYROXINE 50MCG TABLET (0.05MG) PO SCH (06:37)
[2023-03-25] MEDS: PIPERACILLIN/TAZOBACTAM SOD 2.25 GM in D5W MINI-BAG PLUS 50 ML IV SCH ×3 (06:41→21:35)
[2023-03-25] MEDS: ARIPiprazole 10 MG TAB PO SCH (06:41)
[2023-03-25] MEDS: SENNA 8.6 MG TAB (SENOKOT) PO SCH (12:57)
[2023-03-25] MEDS: CALCITRIOL 0.25 MCG CAP (S0169) PO SCH (13:31)
[2023-03-25] MEDS ORDERED: LR 500 ML IV ONE ×2 (15:00→18:45)
[2023-03-25] MEDS ORDERED: ISOVUE-370 76% 100ML VIAL As Ordered ONE (15:11)
[2023-03-25] MEDS: IPRATROPIUM 0.5MG/ALBUTEROL 2.5MG INH SOL UD 3ML (DUONEB) NEB SCH ×3 (16:00→23:50)
[2023-03-25] MEDS: BISACODYL 10MG SUPP PR SCH ×2 (16:36→20:09)
[2023-03-25 19:52] LABS: BASO % 0.4 % (0.0-1.0); EOS # 0.2 10^3/uL (0.0-0.5); EOS % 2.1 % (0.0-3.0); HEMATOCRIT 31.6 % (36.0-47.0); HEMOGLOBIN 10.1 g/dl (12.0-15.5); LYMPH # 1.6 10^3/uL (1.5-5.0); LYMPH % 15.8 % (24.0-44.0); MEAN CORPUSCULAR HEMOGLOBIN 31.4 pg (27.0-33.0); MEAN CORPUSCULAR VOLUME 98.1 fl (80.0-96.0); MONO # 0.6 10^3/uL (0.0-0.8); MONO % 5.5 % (2.0-8.0); NEUTROPHILS # 7.7 10^3/uL (1.5-8.5); NEUTROPHILS % 75.6 % (36.0-66.0); PLATELET COUNT, AUTOMATED 194 10^3/uL (150-450); RED BLOOD COUNT 3.22 10^6/uL (4.00-5.40); WHITE BLOOD COUNT 10.2 10^3/uL (4.0-10.0)
[2023-03-25 20:16] LABS: ALBUMIN 2.9 G/DL (3.2-5.2); BILIRUBIN,TOTAL 0.3 MG/DL (0.3-1.2); CALCIUM LEVEL 8.7 MG/DL (8.3-10.6); GLOMERULAR FILTRATION RATE 11.9 (>45); POTASSIUM SERUM 4.2 MMOL/L (3.5-5.1); TOTAL PROTEIN 6.3 G/DL (5.7-8.2)
[2023-03-26] MEDS: LACTULOSE 20GM/30ML SYRUP UDC PO SCH ×9 (02:05→23:29)
[2023-03-26] MEDS: IPRATROPIUM 0.5MG/ALBUTEROL 2.5MG INH SOL UD 3ML (DUONEB) NEB SCH ×5 (03:01→20:55)
[2023-03-26 03:19] VITALS: BP 100/70; TEMP 98.2; O2SAT 97
[2023-03-26 05:13] LABS: BASO # 0.1 10^3/uL (0.0-0.2); BASO % 0.5 % (0.0-1.0); EOS # 0.4 10^3/uL (0.0-0.5); EOS % 4.2 % (0.0-3.0); HEMATOCRIT 31.7 % (36.0-47.0); LYMPH # 2.1 10^3/uL (1.5-5.0); LYMPH % 22.3 % (24.0-44.0); MEAN CORPUSCULAR HEMOGLOBIN 31.3 pg (27.0-33.0); MEAN CORPUSCULAR HGB CONC 31.5 g/dl (32.0-36.5); MEAN CORPUSCULAR VOLUME 99.4 fl (80.0-96.0); MONO # 0.7 10^3/uL (0.0-0.8); MONO % 7.7 % (2.0-8.0); NEUTROPHILS # 6.1 10^3/uL (1.5-8.5); NEUTROPHILS % 64.4 % (36.0-66.0); PLATELET COUNT, AUTOMATED 164 10^3/uL (150-450); RED BLOOD COUNT 3.19 10^6/uL (4.00-5.40); WHITE BLOOD COUNT 9.4 10^3/uL (4.0-10.0)
[2023-03-26] MEDS: PIPERACILLIN/TAZOBACTAM SOD 2.25 GM in D5W MINI-BAG PLUS 50 ML IV SCH ×3 (05:25→22:28)
[2023-03-26] MEDS: LEVOTHYROXINE 50MCG TABLET (0.05MG) PO SCH (05:29)
[2023-03-26 05:38] LABS: ERYTHROCYTE SEDIMENTATION RATE 84 mm/hr (0-30)
[2023-03-26 05:47] LABS: C REACTIVE PROTEIN QUANTITATIV 3.8 MG/DL (<1.0)
[2023-03-26 05:49] LABS: CALCIUM LEVEL 8.6 MG/DL (8.3-10.6); CREATININE FOR GFR 5.02 MG/DL (0.55-1.30); GLOMERULAR FILTRATION RATE 9.2 (>45)
[2023-03-26 05:56] LABS: PROCALCITONIN 0.77 ng/ml
[2023-03-26] MEDS: MIDODRINE 5 MG TAB PO SCH ×4 (08:00→16:00)
[2023-03-26 08:11] VITALS: BP 105/68; TEMP 96.2; O2SAT 97
[2023-03-26] MEDS: MIRALAX *UNIT DOSE* 17GM PACKET PO SCH ×2 (09:00→22:28)
[2023-03-26] MEDS: METAMUCIL (PSYLLIUM) PACKET PO SCH ×2 (09:00→21:00)
[2023-03-26] MEDS: BISACODYL 10MG SUPP PR SCH ×3 (09:00→21:00)
[2023-03-26] MEDS ORDERED: DARBEPOETIN 100MCG/0.5ML *DIALYSIS* SYRINGE IV SCH (09:35)
[2023-03-26] MEDS: SENNA 8.6 MG TAB (SENOKOT) PO SCH (12:00)
[2023-03-26 12:22] VITALS: BP 106/62; TEMP 96.9; O2SAT 97
[2023-03-26] MEDS: ARIPiprazole 10 MG TAB PO SCH (12:38)
[2023-03-26] MEDS: ROSUVASTATIN 10 MG TAB (CRESTOR) PO SCH (12:41)
[2023-03-26] MEDS: SERTRALINE HCL 50 MG TAB PO SCH (12:41)
[2023-03-26] MEDS: APIXABAN 5 MG TAB (ELIQUIS) PO SCH ×2 (12:41→22:28)
[2023-03-26 16:23] VITALS: BP 102/53; TEMP 96.6; O2SAT 91
[2023-03-26 20:00] VITALS: BP 80/60; TEMP 96.9; O2SAT 92
[2023-03-26] MEDS ORDERED: NS 500 ML IV ONE (20:20)
[2023-03-26 21:58] LABS: CK-MB VALUE MASS 2.4 NG/ML (<3.6)
[2023-03-26 22:07] LABS: MB/CK RELATIVE INDEX 0.42 (< OR =4)
[2023-03-27] VITALS (8 sets, daily range): BP systolic 70–102; BP diastolic 40–74; TEMP 96.7–98.9; O2SAT 94–98
[2023-03-27] MEDS: IPRATROPIUM 0.5MG/ALBUTEROL 2.5MG INH SOL UD 3ML (DUONEB) NEB SCH ×7 (00:27→23:56)
[2023-03-27] MEDS: LACTULOSE 20GM/30ML SYRUP UDC PO SCH ×6 (02:37→16:41)
[2023-03-27] MEDS: LEVOTHYROXINE 50MCG TABLET (0.05MG) PO SCH (05:35)
[2023-03-27] MEDS: PIPERACILLIN/TAZOBACTAM SOD 2.25 GM in D5W MINI-BAG PLUS 50 ML IV SCH ×3 (05:36→21:22)
[2023-03-27] MEDS ORDERED: SODIUM CHLORIDE 0.9% 1000ML IV PRN (06:00)
[2023-03-27] MEDS ORDERED: HEPARIN 1,000UNITS/ML 10ML VIAL (FOR RADIOLOGY & DIALYSIS ONLY) IV PRN (06:00)
[2023-03-27 06:03] LABS: BASO % 0.5 % (0.0-1.0); EOS # 0.4 10^3/uL (0.0-0.5); EOS % 5.2 % (0.0-3.0); HEMATOCRIT 29.7 % (36.0-47.0); HEMOGLOBIN 9.3 g/dl (12.0-15.5); LYMPH # 1.4 10^3/uL (1.5-5.0); LYMPH % 16.6 % (24.0-44.0); MEAN CORPUSCULAR HEMOGLOBIN 31.6 pg (27.0-33.0); MEAN CORPUSCULAR HGB CONC 31.3 g/dl (32.0-36.5); MONO # 0.6 10^3/uL (0.0-0.8); MONO % 6.8 % (2.0-8.0); NEUTROPHILS # 5.8 10^3/uL (1.5-8.5); NEUTROPHILS % 69.9 % (36.0-66.0); PLATELET COUNT, AUTOMATED 164 10^3/uL (150-450); RED BLOOD COUNT 2.94 10^6/uL (4.00-5.40); WHITE BLOOD COUNT 8.3 10^3/uL (4.0-10.0)
[2023-03-27 06:23] LABS: CALCIUM LEVEL 8.2 MG/DL (8.3-10.6); CREATININE FOR GFR 6.86 MG/DL (0.55-1.30); GLOMERULAR FILTRATION RATE 6.4 (>45); POTASSIUM SERUM 4.1 MMOL/L (3.5-5.1)
[2023-03-27] MEDS: MIRALAX *UNIT DOSE* 17GM PACKET PO SCH ×2 (09:00→21:00)
[2023-03-27] MEDS: APIXABAN 5 MG TAB (ELIQUIS) PO SCH ×2 (09:00→21:22)
[2023-03-27] MEDS: BISACODYL 10MG SUPP PR SCH ×2 (09:00→13:27)
[2023-03-27] MEDS: ARIPiprazole 10 MG TAB PO SCH (09:53)
[2023-03-27] MEDS: ROSUVASTATIN 10 MG TAB (CRESTOR) PO SCH (09:54)
[2023-03-27] MEDS: SERTRALINE HCL 50 MG TAB PO SCH (09:54)
[2023-03-27] MEDS: METAMUCIL (PSYLLIUM) PACKET PO SCH ×2 (10:00→21:00)
[2023-03-27] MEDS: MIDODRINE 5 MG TAB PO SCH ×3 (10:01→16:12)
[2023-03-27] MEDS: SENNA 8.6 MG TAB (SENOKOT) PO SCH (12:00)
[2023-03-27] MEDS: CALCITRIOL 0.25 MCG CAP (S0169) PO SCH ×2 (16:18→17:14)
[2023-03-27] MEDS ORDERED: MIDODRINE 5 MG TAB PO STA (19:05)
[2023-03-27] MEDS ORDERED: NS 500 ML IV ONE (22:30)
[2023-03-28] VITALS (7 sets, daily range): BP systolic 85–118; BP diastolic 52–60; TEMP 96.7–97.8; O2SAT 92–97
[2023-03-28] MEDS: IPRATROPIUM 0.5MG/ALBUTEROL 2.5MG INH SOL UD 3ML (DUONEB) NEB SCH ×5 (03:26→21:01)
[2023-03-28 04:57] LABS: BASO % 0.4 % (0.0-1.0); EOS # 0.4 10^3/uL (0.0-0.5); EOS % 5.5 % (0.0-3.0); HEMATOCRIT 29.7 % (36.0-47.0); HEMOGLOBIN 9.2 g/dl (12.0-15.5); LYMPH # 1.9 10^3/uL (1.5-5.0); LYMPH % 23.9 % (24.0-44.0); MEAN CORPUSCULAR HEMOGLOBIN 31.3 pg (27.0-33.0); MONO # 0.5 10^3/uL (0.0-0.8); MONO % 6.5 % (2.0-8.0); NEUTROPHILS % 62.7 % (36.0-66.0); PLATELET COUNT, AUTOMATED 151 10^3/uL (150-450); RED BLOOD COUNT 2.94 10^6/uL (4.00-5.40); WHITE BLOOD COUNT 7.9 10^3/uL (4.0-10.0)
[2023-03-28 05:08] LABS: CALCIUM LEVEL 8.2 MG/DL (8.3-10.6); CREATININE FOR GFR 4.38 MG/DL (0.55-1.30); GLOMERULAR FILTRATION RATE 10.7 (>45); POTASSIUM SERUM 3.5 MMOL/L (3.5-5.1)
[2023-03-28] MEDS: LEVOTHYROXINE 50MCG TABLET (0.05MG) PO SCH (06:25)
[2023-03-28] MEDS: METAMUCIL (PSYLLIUM) PACKET PO SCH ×2 (07:37→20:07)
[2023-03-28] MEDS: MIRALAX *UNIT DOSE* 17GM PACKET PO SCH ×2 (07:38→20:07)
[2023-03-28] MEDS: MIDODRINE 5 MG TAB PO SCH ×3 (08:05→15:28)
[2023-03-28] MEDS: ROSUVASTATIN 10 MG TAB (CRESTOR) PO SCH (08:05)
[2023-03-28] MEDS: SERTRALINE HCL 50 MG TAB PO SCH (08:05)
[2023-03-28] MEDS: APIXABAN 5 MG TAB (ELIQUIS) PO SCH ×2 (08:05→20:22)
[2023-03-28] MEDS: ARIPiprazole 10 MG TAB PO SCH (08:06)
[2023-03-28] MEDS: SENNA 8.6 MG TAB (SENOKOT) PO SCH (11:20)
[2023-03-29] MEDS: IPRATROPIUM 0.5MG/ALBUTEROL 2.5MG INH SOL UD 3ML (DUONEB) NEB SCH ×7 (00:45→23:52)
[2023-03-29 04:00] VITALS: BP 124/60; TEMP 97.7; O2SAT 93
[2023-03-29 04:28] LABS: BASO # 0.1 10^3/uL (0.0-0.2); BASO % 0.6 % (0.0-1.0); EOS # 0.4 10^3/uL (0.0-0.5); EOS % 5.1 % (0.0-3.0); HEMATOCRIT 27.9 % (36.0-47.0); HEMOGLOBIN 8.8 g/dl (12.0-15.5); LYMPH # 2.2 10^3/uL (1.5-5.0); LYMPH % 26.4 % (24.0-44.0); MEAN CORPUSCULAR HGB CONC 31.5 g/dl (32.0-36.5); MEAN CORPUSCULAR VOLUME 98.2 fl (80.0-96.0); MONO # 0.5 10^3/uL (0.0-0.8); MONO % 5.5 % (2.0-8.0); NEUTROPHILS % 60.7 % (36.0-66.0); PLATELET COUNT, AUTOMATED 169 10^3/uL (150-450); RED BLOOD COUNT 2.84 10^6/uL (4.00-5.40); WHITE BLOOD COUNT 8.3 10^3/uL (4.0-10.0)
[2023-03-29 04:53] LABS: CALCIUM LEVEL 8.6 MG/DL (8.3-10.6); CREATININE FOR GFR 5.7 MG/DL (0.55-1.30); GLOMERULAR FILTRATION RATE 7.9 (>45); POTASSIUM SERUM 3.5 MMOL/L (3.5-5.1)
[2023-03-29] MEDS: LEVOTHYROXINE 50MCG TABLET (0.05MG) PO SCH (05:59)
[2023-03-29] MEDS ORDERED: SODIUM CHLORIDE 0.9% 1000ML IV PRN (06:00)
[2023-03-29] MEDS ORDERED: HEPARIN 1,000UNITS/ML 10ML VIAL (FOR RADIOLOGY & DIALYSIS ONLY) IV PRN (06:00)
[2023-03-29] MEDS: ROSUVASTATIN 10 MG TAB (CRESTOR) PO SCH ×2 (09:00→10:16)
[2023-03-29] MEDS: MIRALAX *UNIT DOSE* 17GM PACKET PO SCH ×2 (09:00→20:39)
[2023-03-29] MEDS: ARIPiprazole 10 MG TAB PO SCH ×2 (09:00→10:17)
[2023-03-29] MEDS: SERTRALINE HCL 50 MG TAB PO SCH ×2 (09:00→10:16)
[2023-03-29] MEDS: METAMUCIL (PSYLLIUM) PACKET PO SCH ×2 (09:00→20:39)
[2023-03-29] MEDS: MIDODRINE 5 MG TAB PO SCH ×3 (10:16→16:00)
[2023-03-29] MEDS: CALCITRIOL 0.25 MCG CAP (S0169) PO SCH (10:19)
[2023-03-29] MEDS: APIXABAN 5 MG TAB (ELIQUIS) PO SCH ×2 (10:19→20:32)
[2023-03-29] MEDS: SENNA 8.6 MG TAB (SENOKOT) PO SCH (13:16)
[2023-03-29] MEDS ORDERED: OLANZapine INTRAMUSCULAR 10MG VIAL IM ONE (16:25)
[2023-03-29 19:36] VITALS: BP 140/81; TEMP 97.2; O2SAT 95
[2023-03-29] MEDS: LORazepam 0.5 MG TAB PO PRN (20:32)
[2023-03-29] MEDS: OLANZapine 5 MG TAB PO PRN (22:55)
[2023-03-30] MEDS: IPRATROPIUM 0.5MG/ALBUTEROL 2.5MG INH SOL UD 3ML (DUONEB) NEB SCH ×2 (03:45→08:00)
[2023-03-30] MEDS: LEVOTHYROXINE 50MCG TABLET (0.05MG) PO SCH (05:54)
[2023-03-30] MEDS: ARIPiprazole 10 MG TAB PO SCH (05:54)
[2023-03-30] MEDS ORDERED: SODIUM CHLORIDE 0.9% 1000ML IV PRN (06:15)
[2023-03-30] MEDS ORDERED: HEPARIN 1,000UNITS/ML 10ML VIAL (FOR RADIOLOGY & DIALYSIS ONLY) XX SCH (06:15)
[2023-03-30] MEDS ORDERED: HEPARIN 1,000UNITS/ML 10ML VIAL (FOR RADIOLOGY & DIALYSIS ONLY) IV PRN (06:15)
[2023-03-30 06:20] LABS: BASO % 0.5 % (0.0-1.0); EOS # 0.3 10^3/uL (0.0-0.5); EOS % 3.6 % (0.0-3.0); HEMOGLOBIN 9.7 g/dl (12.0-15.5); LYMPH # 1.7 10^3/uL (1.5-5.0); LYMPH % 19.8 % (24.0-44.0); MEAN CORPUSCULAR HEMOGLOBIN 31.6 pg (27.0-33.0); MEAN CORPUSCULAR HGB CONC 32.3 g/dl (32.0-36.5); MEAN CORPUSCULAR VOLUME 97.7 fl (80.0-96.0); MONO # 0.4 10^3/uL (0.0-0.8); NEUTROPHILS # 6.1 10^3/uL (1.5-8.5); NEUTROPHILS % 70.2 % (36.0-66.0); PLATELET COUNT, AUTOMATED 166 10^3/uL (150-450); RED BLOOD COUNT 3.07 10^6/uL (4.00-5.40); WHITE BLOOD COUNT 8.6 10^3/uL (4.0-10.0)
[2023-03-30 06:45] LABS: CALCIUM LEVEL 9.5 MG/DL (8.3-10.6); CREATININE FOR GFR 7.24 MG/DL (0.55-1.30); POTASSIUM SERUM 3.4 MMOL/L (3.5-5.1)
[2023-03-30] MEDS: CALCITRIOL 0.25 MCG CAP (S0169) PO SCH (07:37)
[2023-03-30] MEDS: OLANZapine 5 MG TAB PO PRN (07:38)
[2023-03-30] MEDS: MIDODRINE 5 MG TAB PO SCH ×3 (07:38→16:00)
[2023-03-30] MEDS: LORazepam 0.5 MG TAB PO PRN (07:39)
[2023-03-30 08:10] VITALS: BP 124/91; TEMP 97.9; O2SAT 97
[2023-03-30] MEDS: METAMUCIL (PSYLLIUM) PACKET PO SCH ×2 (09:00→20:36)
[2023-03-30] MEDS: MIRALAX *UNIT DOSE* 17GM PACKET PO SCH ×2 (09:00→20:36)
[2023-03-30] MEDS ORDERED: IPRATROPIUM 0.5MG/ALBUTEROL 2.5MG INH SOL UD 3ML (DUONEB) NEB PRN (10:45)
[2023-03-30] MEDS: ROSUVASTATIN 10 MG TAB (CRESTOR) PO SCH (12:40)
[2023-03-30] MEDS: SENNA 8.6 MG TAB (SENOKOT) PO SCH (12:40)
[2023-03-30] MEDS: APIXABAN 5 MG TAB (ELIQUIS) PO SCH ×2 (12:41→20:36)
[2023-03-30] MEDS: SERTRALINE HCL 50 MG TAB PO SCH (12:41)
[2023-03-30] MEDS ORDERED: OLANZapine INTRAMUSCULAR 10MG VIAL IM ONE (14:05)
[2023-03-30 19:30] VITALS: BP 108/79; TEMP 98.2; O2SAT 92
[2023-03-31] VITALS (8 sets, daily range): BP systolic 84–100; BP diastolic 50–62; TEMP 97.9; O2SAT 82–94
[2023-03-31] MEDS: LEVOTHYROXINE 50MCG TABLET (0.05MG) PO SCH (05:25)
[2023-03-31 06:25] LABS: BASO # 0.1 10^3/uL (0.0-0.2); BASO % 0.7 % (0.0-1.0); EOS # 0.5 10^3/uL (0.0-0.5); EOS % 4.4 % (0.0-3.0); HEMATOCRIT 32.3 % (36.0-47.0); HEMOGLOBIN 10.1 g/dl (12.0-15.5); LYMPH # 2.4 10^3/uL (1.5-5.0); LYMPH % 22.7 % (24.0-44.0); MEAN CORPUSCULAR HEMOGLOBIN 31.1 pg (27.0-33.0); MEAN CORPUSCULAR HGB CONC 31.3 g/dl (32.0-36.5); MEAN CORPUSCULAR VOLUME 99.4 fl (80.0-96.0); MONO # 0.5 10^3/uL (0.0-0.8); MONO % 4.9 % (2.0-8.0); NEUTROPHILS % 66.1 % (36.0-66.0); PLATELET COUNT, AUTOMATED 196 10^3/uL (150-450); RED BLOOD COUNT 3.25 10^6/uL (4.00-5.40); WHITE BLOOD COUNT 10.5 10^3/uL (4.0-10.0)
[2023-03-31 06:52] LABS: CALCIUM LEVEL 9.8 MG/DL (8.3-10.6); CREATININE FOR GFR 5.51 MG/DL (0.55-1.30); GLOMERULAR FILTRATION RATE 8.2 (>45)
[2023-03-31] MEDS: METAMUCIL (PSYLLIUM) PACKET PO SCH ×3 (09:00→22:48)
[2023-03-31] MEDS: MIRALAX *UNIT DOSE* 17GM PACKET PO SCH ×3 (09:00→22:49)
[2023-03-31] MEDS: ROSUVASTATIN 10 MG TAB (CRESTOR) PO SCH (09:18)
[2023-03-31] MEDS: ARIPiprazole 10 MG TAB PO SCH (09:18)
[2023-03-31] MEDS: MIDODRINE 5 MG TAB PO SCH ×3 (09:18→17:38)
[2023-03-31] MEDS: SERTRALINE HCL 50 MG TAB PO SCH (09:19)
[2023-03-31] MEDS: APIXABAN 5 MG TAB (ELIQUIS) PO SCH ×2 (09:19→22:55)
[2023-03-31] MEDS ORDERED: LR 1,000 ML IV SCH (10:30)
[2023-03-31] MEDS: SENNA 8.6 MG TAB (SENOKOT) PO SCH (12:00)
[2023-03-31] MEDS: ACETAMINOPHEN TAB 650MG DOSE (2X325MG) PO PRN (17:39)
[2023-04-01] VITALS (7 sets, daily range): BP systolic 52–98; BP diastolic 34–71; TEMP 97.5–98.1; O2SAT 95
[2023-04-01] MEDS: SERTRALINE HCL 50 MG TAB PO SCH (05:57)
[2023-04-01] MEDS: METAMUCIL (PSYLLIUM) PACKET PO SCH (05:57)
[2023-04-01] MEDS: MIRALAX *UNIT DOSE* 17GM PACKET PO SCH (05:57)
[2023-04-01] MEDS: LEVOTHYROXINE 50MCG TABLET (0.05MG) PO SCH (05:57)
[2023-04-01] MEDS: APIXABAN 5 MG TAB (ELIQUIS) PO SCH (05:57)
[2023-04-01] MEDS: CALCITRIOL 0.25 MCG CAP (S0169) PO SCH (05:58)
[2023-04-01] MEDS: MIDODRINE 5 MG TAB PO SCH ×4 (05:58→16:21)
[2023-04-01] MEDS: ROSUVASTATIN 10 MG TAB (CRESTOR) PO SCH (05:59)
[2023-04-01] MEDS: ARIPiprazole 10 MG TAB PO SCH (05:59)
[2023-04-01] MEDS ORDERED: SODIUM CHLORIDE 0.9% 1000ML IV PRN (10:55)
[2023-04-01] MEDS ORDERED: HEPARIN 1,000UNITS/ML 10ML VIAL (FOR RADIOLOGY & DIALYSIS ONLY) XX SCH (10:55)
[2023-04-01] MEDS ORDERED: HEPARIN 1,000UNITS/ML 10ML VIAL (FOR RADIOLOGY & DIALYSIS ONLY) IV PRN (10:55)
[2023-04-01] MEDS: SENNA 8.6 MG TAB (SENOKOT) PO SCH (12:00)
[2023-04-01] MEDS ORDERED: LR 500 ML IV ONE ×3 (16:15→17:45)
[2023-04-01] MEDS ORDERED: MIDODRINE 5 MG TAB PO ONE (16:35)
[2023-04-01 16:42] LABS: BASO % 0.4 % (0.0-1.0); EOS # 0.3 10^3/uL (0.0-0.5); EOS % 3.8 % (0.0-3.0); HEMATOCRIT 29.5 % (36.0-47.0); HEMOGLOBIN 9.3 g/dl (12.0-15.5); LYMPH % 22.8 % (24.0-44.0); MEAN CORPUSCULAR HEMOGLOBIN 31.5 pg (27.0-33.0); MEAN CORPUSCULAR HGB CONC 31.5 g/dl (32.0-36.5); MONO # 0.4 10^3/uL (0.0-0.8); NEUTROPHILS % 67.7 % (36.0-66.0); PLATELET COUNT, AUTOMATED 201 10^3/uL (150-450); RED BLOOD COUNT 2.95 10^6/uL (4.00-5.40); WHITE BLOOD COUNT 8.9 10^3/uL (4.0-10.0)
[2023-04-01 17:19] LABS: ALBUMIN 2.6 G/DL (3.2-5.2); BILIRUBIN,TOTAL 0.3 MG/DL (0.3-1.2); CALCIUM LEVEL 8.3 MG/DL (8.3-10.6); CREATININE FOR GFR 3.19 MG/DL (0.55-1.30); GLOMERULAR FILTRATION RATE 15.5 (>45); POTASSIUM SERUM 3.2 MMOL/L (3.5-5.1); TOTAL PROTEIN 5.9 G/DL (5.7-8.2)
[2023-04-01] MEDS: LORazepam 1 MG TAB PO PRN (23:15)
[2023-04-02 06:46] VITALS: O2SAT 94
[2023-04-02] MEDS: MORPHINE 10MG/0.5ML ORAL CONCENTRATE SOLUTION U/D SL PRN (06:46)
[2023-04-02] MEDS: LORazepam 1 MG TAB PO PRN (08:51)
[2023-04-03] MEDS: LORazepam 1 MG TAB PO PRN ×2 (08:39→17:27)
[2023-04-03] MEDS: MORPHINE 10MG/0.5ML ORAL CONCENTRATE SOLUTION U/D SL PRN (17:12)
[2023-04-03] MEDS ORDERED: SCOPOLAMINE 1MG TRANSDERMAL PATCH TOP PRN (18:00)
[2023-04-03] MEDS ORDERED: ONDANSETRON 4MG ORAL DISINTEGRATING TAB SL PRN (18:00)
[2023-04-04] MEDS: MORPHINE 10MG/0.5ML ORAL CONCENTRATE SOLUTION U/D SL PRN ×2 (16:05→20:51)
[2023-04-04] MEDS: LORazepam 1 MG TAB PO PRN (22:38)
[2023-04-05] MEDS: MORPHINE 10MG/0.5ML ORAL CONCENTRATE SOLUTION U/D SL PRN ×4 (07:38→17:55)
[2023-04-05] MEDS: HYOSCYAMINE SULFATE 0.125 MG SUBL TABLET PO PRN ×2 (11:29→17:46)
== END 2023-04-05 20:37 | disposition expired | DRG 70 ==
LOC: M ED 22:38 → M ED INP 22:39 → ENRESERV 03-21 14:29 → M MSPAV 03-21 15:20 → OBSVTOIN 03-25 16:41 → M PCU 03-25 22:14 → M MSPAV 03-30 17:56
PROVIDERS: ADMIT Student in an Organized Health Care Education/Training Program; ATTEND Internal Medicine
PROC: 0JH63XZ Insertion of Tunneled Vascular Access Device into Chest Subcutaneous Tissue and Fascia, Percutaneous Approach (ICD-10-PCS; principal; 2023-03-25)
PROC: 02HV33Z Insertion of Infusion Device into Superior Vena Cava, Percutaneous Approach (ICD-10-PCS; 2023-03-25)
DX: G93.40 Encephalopathy, unspecified (principal); N18.6 End stage renal disease; R44.3 Hallucinations, unspecified; I12.0 Hypertensive chronic kidney disease with stage 5 chronic kidney disease or end stage renal disease; E87.1 Hypo-osmolality and hyponatremia; I95.3 Hypotension of hemodialysis; R50.9 Fever, unspecified; F31.9 Bipolar disorder, unspecified; E03.9 Hypothyroidism, unspecified; E21.1 Secondary hyperparathyroidism, not elsewhere classified; E78.5 Hyperlipidemia, unspecified; I48.91 Unspecified atrial fibrillation; I95.89 Other hypotension; E87.6 Hypokalemia; Z79.01 Long term (current) use of anticoagulants; Z85.850 Personal history of malignant neoplasm of thyroid; E55.9 Vitamin D deficiency, unspecified; Z79.899 Other long term (current) drug therapy; Z88.6 Allergy status to analgesic agent; R57.1 Hypovolemic shock; Z99.2 Dependence on renal dialysis; Z51.5 Encounter for palliative care